=== PATIENT | male | born 1935 | race Caucasian/White ===

== ENCOUNTER 2020-02-18 21:02 | Inpatient (IN) | payer MEDICARE, OTHER, SELFPAY ==
[2020-02-18] VITALS (19 sets, daily range): BP systolic 143–170; BP diastolic 83–113; PULSE 73–84; RESP 14–20; TEMP 36.9; O2SAT 91–98; BMI 25.5
--- NOTE | 2020-02-18 21:14 | ECG_ITS ---
Measurements Intervals [place] Rate: 76 P: 29 OK: 158 QRS: -15 QRSD: 106 T: 11 QT: 385 QTc: 435 SINUS RHYTHM NONSPECIFIC T-WAVE ABNORMALITY Compared to ECG 10/17/2016 14:49:32 T-wave abnormality now present Sinus bradycardia no longer present Electronically Signed On 02-19-2020 14:59:52 CDT by Dakotah Christian M.D. [email or web address]
--- NOTE | 2020-02-18 21:14 | XR_ITS ---
WS: [id number] CHEST XRAY TECHNIQUE: Portable chest. CLINICAL INFORMATION: cough COMPARISON: February 17, 2020 FINDINGS: Heart: Cardiomegaly. Tortuous thoracic aorta. Lungs: Chronic emphysematous changes. Improved previously described scattered infiltrates.. Subsegmen romi atelectasis left lung base. Elevation hemidiaphragm. Bones: Normal visualized bony structures. XR/XR chest 1V portable [id number] IMPRESSION: 1. Stable cardiomegaly. 2. Chronic emphysematous changes with improved pulmonary infiltrates in the ellie ng bases. Subsegmental atelectasis in the left greater than right lung base. 3. No focal pneumonia.
[2020-02-18 21:45] LABS: Basophils % 0.3 %; Eosinophils % 0.3 %; Hematocrit 37.9 % (42.0-52.0); Hemoglobin 11.9 g/dL (11.7-16.6); Lymphocytes # 1.3 10^3/uL (0.8-4.8); Lymphocytes % 20.1 %; Mean Corpuscular HGB Conc 31.4 g/dL (30.0-36.0); Mean Corpuscular Hemoglobin 30.1 pg (28.0-34.0); Mean Corpuscular Volume 95.9 fL (80-94); Mean Platelet Volume 10.3 fL (7.4-10.4); Monocytes # 0.5 10^3/uL (0.2-0.9); Monocytes % 8.5 %; Neutrophils # 4.2 10^3/uL (1.8-7.7); Neutrophils % 68.1 %; Nucleated Red Blood Cells % 0 %; Platelet Count 178 10^3/cmm (130-400); Red Blood Count 3.95 10^6/uL (4.1-5.3); Red Cell Distribution Width 14.2 % (12.1-15.1); White Blood Count 6.2 10^3/uL (4.0-10.0)
[2020-02-18 21:50] LABS: INR 1.36 (0.8-1.2)
[2020-02-18 21:56] LABS: Alanine Aminotransferase 13 U/L (0-41); Albumin Level 2.9 g/dL (3.5-5.2); Alkaline Phosphatase 43 IU/L (40-130); Anion Gap 16.7 (5-19); Aspartate Amino Transferase 30 U/L (0-40); Blood Urea Nitrogen 18 mg/dL (8-23); Calcium 11.7 mg/dL (8.5-10.5); Carbon Dioxide 23 mmol/L (22-29); Chloride 95 mmol/L (98-107); Globulin 8.9 g/dL (1.3-4.6); Glucose 158 mg/dL (65-115); Magnesium 1.5 mg/dL (1.7-2.3); Osmolality Calculated 272 mOsm/kg (285-295); Potassium 3.7 mmol/L (3.5-5.1); Sodium 131 mmol/L (136-145); Total Bilirubin 0.9 mg/dL (0.15-1.2); Total Protein 11.8 g/dL (6.6-8.7)
[2020-02-18 21:58] LABS: Troponin(5th) Baseline 34 ng/mL (0-15)
[2020-02-18 21:59] LABS: Influenza A by IFA Negative (Negative); Influenza B by IFA Negative (Negative)
--- NOTE | 2020-02-18 22:16 | ED_ITS ---
Documented by User: DIETER Bingham 02/19/20 00:06 HPI - SOB/Dyspnea General: Chief Complaint: Shortness of Breath/Dyspnea Stated Complaint: sob Time Seen by Provider: 02/18/20 22:16 History of Present Illness: HPI Narrative: Patient is an 84-year-old male who comes to the ED with shortness of breath. He has a past medical history of BPH, diabetes and hypertension. Patient says the shortness of breath started about 4 months ago back in October but was more mild and has just been slowly progressing. Shortness of breath is gotten increasingly worse in last 2 weeks. About a week ago he saw his PCP and he was put on a steroid and an antibiotic. He was not having any improvement so he saw his PCP yesterday and they diagnosed him with pneumonia. He was given a steroid shot and put on Levaquin. PCP also sent him home with oxygen yesterday. Patient says the oxygen has been helping a little bit in the last 24 hours but not much. This morning he woke up and his symptoms were worse. Shortness of breath that gets worse when laying flat. Patient took his first dose of Levaquin today. He has a productive cough currently. Patient says he cannot stand up and move around for very long without getting too short of breath. He does have a albuterol nebulizer to help with any shortness of breath. Associated symptoms: Reports orthopnea; Deny abdominal pain, chest pain, fever(s), nausea, palpitations or vomiting Review of Systems Const: Denies: fever, chills or fatigue Eyes: Denies: change in vision or eye discomfort ENMT: Denies: throat pain, painful swallowing, nasal discharge or nasal congestion Card: Reports: shortness of breath when lying down; Denies: chest pain, palpitations, edema, swelling of feet/ankles or shortness of breath on exertion Resp: Reports: shortness of breath and productive cough; Denies: non-productive cough GI: Denies: abdominal pain, nausea, vomiting, diarrhea, constipation or blood in stool : Denies: flank pain, difficulty urinating, painful urination or blood in urine Musc: Denies: neck pain, back pain or extremity swelling Skin/Breast: Denies: rash or new lesion Neuro: Denies: headache, numbness in extremities or weakness in extremities PFS ED PFSH: Social History Smoking and tobacco status: former smoker Physical Exam Const: COMMON NORMALS: oriented x3 and alert HENMT: COMMON NORMALS: normocephalic HEAD & SCALP: normocephalic MOUTH: oral and palatal mucosa normal THROAT: posterior oropharynx normal and uvula midline Eye: COMMON NORMALS: PERRL PUPIL: Yes PERRL Neck/C-Spine: COMMON NORMALS: supple GENERAL: Yes normal visual inspection Resp: COMMON NORMALS: normal respiratory effort, no retractions and no use of accessory muscles EFFORT & INSPECTION: Yes able to speak in complete sentences and Yes tachypneic AUSCULTATION: crackles Laterality: bilateral (bases) and posterior (posterior bases bilaterally) Cardio: COMMON NORMALS: regular rate, regular rhythm, S1 normal heart sound, S2 normal heart sound, no gallops, no clicks, no murmurs and peripheral pulses 2+ throughout RATE: regular rate RHYTHM: regular rhythm HEART SOUNDS: S1 normal and S2 normal PERIPHERAL PULSES: pulses 2+ throughout GI: COMMON NORMALS: normal to inspection, nondistended, normoactive bowel sounds, soft to palpation, non-tender and no masses PALPATION: Yes soft : COMMON NORMALS: Yes no CVA tenderness BLADDER/KIDNEY EXAM: Yes no CVA tenderness Back/Pelvis: COMMON NORMALS: no CVA tenderness Extremity: COMMON NORMALS: normal to inspection and no pedal edema Neuro: COMMON NORMALS: oriented x3 and moves all extremities SENSORIUM/ORIENTATION: Yes alert Skin: COMMON NORMALS: no rashes or lesions noted GENERAL SKIN EXAM: no rashes or lesions noted and dry skin Course Vital Signs: Vital signs: Vital Signs Temperature 98.5 F 02/18/20 21:11 Pulse Rate 96 02/19/20 01:05 Respiratory Rate 21 H 02/19/20 01:05 Blood Pressure 143/77 02/19/20 01:05 Pulse Oximetry 96 02/19/20 01:05 MDM - SOB/Dyspnea MDM Narrative: Medical decision making narrative: I spoke with Dr. Chatterjee about patient's case and his elevated creatinine and abnormal ABG. Dr. Chatterjee will be taking over patient's care. Lab Data: Attestation: I reviewed the patient's lab results. Labs: Lab Results 02/18/20 02/18/20 02/18/20 Range/Units 21:24 21:30 21:30 WBC 6.2 (4.0-10.0) 10^3/ uL RBC 3.95 L (4.1-5.3) 10^6/u L Hgb 11.9 (11.7-16.6) g/dL Hct 37.9 L (42.0-52.0) % MCV 95.9 H (80-94) fL MCH 30.1 (28.0-34.0) pg MCHC 31.4 (30.0-36.0) g/dL RDW 14.2 (12.1-15.1) % Plt Count 178 (130-400) 10^3/c mm MPV 10.3 (7.4-10.4) fL Neut % (Auto) 68.1 % Lymph % (Auto) 20.1 % [place] % (Auto) 8.5 % Eos % (Auto) 0.3 % Baso % (Auto) 0.3 % Neut # (Auto) 4.2 (1.8-7.7) 10^3/u L Lymph # (Auto) 1.3 (0.8-4.8) 10^3/u L [place] # (Auto) 0.5 (0.2-0.9) 10^3/u L Eos # (Auto) 0.0 (0.0-0.8) 10^3/u L Baso # (Auto) 0.0 (0.0-0.1) 10^3/u L Nucleated RBC % (a uto) 0 % Nucleated RBCs # 0.0 /100WBC PT 17.20 H (10.5-13.3) SECO NDS INR 1.36 H (0.8-1.2) D-Dimer (0-0.59) ug/mIFE U Specimen Type Sample Site ABG pH (7.35-7.45) ABG pCO2 (35-45) mmHg ABG pO2 (80.0-100.0) mmH g ABG HCO3 (22-26) mmol/L ABG Base Excess (-2.0-2.0) mmol/ L Daniel Test Hematocrit (42-52) % O2 Delivery Device O2 Liters/Min % FiO2 % Customer Success Director ID Sodium (136-145) mmol/L Potassium (3.5-5.1) mmol/L Chloride (98-107) mmol/L Carbon Dioxide (22-29) mmol/L Anion Gap (5-19) BUN (8-23) mg/dL Creatinine (0.7-1.2) mg/dL Glucose (65-115) mg/dL Calculated Osmolal ity (285-295) mOsm/k g Lactic Acid (0.5-2.2) mmol/L Calcium (8.5-10.5) mg/dL Magnesium (1.7-2.3) mg/dL Total Bilirubin (0.15-1.2) mg/dL AST (0-40) U/L ALT (0-41) U/L Alkaline Phosphata se (40-130) IU/L Troponin T Baselin e (0-15) ng/mL Troponin T 120 Min [place] (0-15) ng/mL Delta Troponin T (0-10) ABS# NT-Pro-B Natriuret Pep (0-450) pg/mL Total Protein (6.6-8.7) g/dL Albumin (3.5-5.2) g/dL Globulin (1.3-4.6) g/dL Influenza Type A A g Negative (Negative) Influenza Type B A g Negative (Negative) 02/18/20 02/18/20 02/18/20 Range/Units 21:30 21:30 21:30 WBC (4.0-10.0) 10^3/ uL RBC (4.1-5.3) 10^6/u L Hgb (11.7-16.6) g/dL Hct (42.0-52.0) % MCV (80-94) fL MCH (28.0-34.0) pg MCHC (30.0-36.0) g/dL RDW (12.1-15.1) % Plt Count (130-400) 10^3/c mm MPV (7.4-10.4) fL Neut % (Auto) % Lymph % (Auto) % [place] % (Auto) % Eos % (Auto) % Baso % (Auto) % Neut # (Auto) (1.8-7.7) 10^3/u L Lymph # (Auto) (0.8-4.8) 10^3/u L [place] # (Auto) (0.2-0.9) 10^3/u L Eos # (Auto) (0.0-0.8) 10^3/u L Baso # (Auto) (0.0-0.1) 10^3/u L Nucleated RBC % (a uto) % Nucleated RBCs # /100WBC PT (10.5-13.3) SECO NDS INR (0.8-1.2) D-Dimer 0.71 H (0-0.59) ug/mIFE U Specimen Type Sample Site ABG pH (7.35-7.45) ABG pCO2 (35-45) mmHg ABG pO2 (80.0-100.0) mmH g ABG HCO3 (22-26) mmol/L ABG Base Excess (-2.0-2.0) mmol/ L Daniel Test Hematocrit (42-52) % O2 Delivery Device O2 Liters/Min % FiO2 % Customer Success Director ID Sodium 131 L (136-145) mmol/L Potassium 3.7 (3.5-5.1) mmol/L Chloride 95 L (98-107) mmol/L Carbon Dioxide 23 (22-29) mmol/L Anion Gap 16.7 (5-19) BUN 18 (8-23) mg/dL Creatinine 1.8 H (0.7-1.2) mg/dL Glucose 158 H (65-115) mg/dL Calculated Osmolal ity 272 L (285-295) mOsm/k g Lactic Acid (0.5-2.2) mmol/L Calcium 11.7 H (8.5-10.5) mg/dL Magnesium 1.5 L (1.7-2.3) mg/dL Total Bilirubin 0.9 (0.15-1.2) mg/dL AST 30 (0-40) U/L ALT 13 (0-41) U/L Alkaline Phosphata se 43 (40-130) IU/L Troponin T Baselin e 34 H (0-15) ng/mL Troponin T 120 Min [place] (0-15) ng/mL Delta Troponin T (0-10) ABS# NT-Pro-B Natriuret Pep 646 H (0-450) pg/mL Total Protein 11.8 H (6.6-8.7) g/dL Albumin 2.9 L (3.5-5.2) g/dL Globulin 8.9 H (1.3-4.6) g/dL Influenza Type A A g (Negative) Influenza Type B A g (Negative) 02/18/20 02/18/20 02/18/20 Range/Units 22:30 22:35 22:45 WBC (4.0-10.0) 10^3/ uL RBC (4.1-5.3) 10^6/u L Hgb (11.7-16.6) g/dL Hct (42.0-52.0) % MCV (80-94) fL MCH (28.0-34.0) pg MCHC (30.0-36.0) g/dL RDW (12.1-15.1) % Plt Count (130-400) 10^3/c mm MPV (7.4-10.4) fL Neut % (Auto) % Lymph % (Auto) % [place] % (Auto) % Eos % (Auto) % Baso % (Auto) % Neut # (Auto) (1.8-7.7) 10^3/u L Lymph # (Auto) (0.8-4.8) 10^3/u L [place] # (Auto) (0.2-0.9) 10^3/u L Eos # (Auto) (0.0-0.8) 10^3/u L Baso # (Auto) (0.0-0.1) 10^3/u L Nucleated RBC % (a uto) % Nucleated RBCs # /100WBC PT (10.5-13.3) SECO NDS INR (0.8-1.2) D-Dimer (0-0.59) ug/mIFE U Specimen Type Arterial Sample Site Radial, right ABG pH 7.64 H* (7.35-7.45) ABG pCO2 21.2 L (35-45) mmHg ABG pO2 57.5 L (80.0-100.0) mmH g ABG HCO3 22.7 (22-26) mmol/L ABG Base Excess 3.2 H (-2.0-2.0) mmol/ L Daniel Test Pos Hematocrit 37.8 L (42-52) % O2 Delivery Device Nc O2 Liters/Min 2.0 % FiO2 28.0 % Customer Success Director ID [email or web address] Sodium (136-145) mmol/L Potassium (3.5-5.1) mmol/L Chloride (98-107) mmol/L Carbon Dioxide (22-29) mmol/L Anion Gap (5-19) BUN (8-23) mg/dL Creatinine (0.7-1.2) mg/dL Glucose (65-115) mg/dL Calculated Osmolal ity (285-295) mOsm/k g Lactic Acid 2.0 (0.5-2.2) mmol/L Calcium (8.5-10.5) mg/dL Magnesium (1.7-2.3) mg/dL Total Bilirubin (0.15-1.2) mg/dL AST (0-40) U/L ALT (0-41) U/L Alkaline Phosphata se (40-130) IU/L Troponin T Baselin e (0-15) ng/mL Troponin T 120 Min [place] 35.26 H (0-15) ng/mL Delta Troponin T 1.26 (0-10) ABS# NT-Pro-B Natriuret Pep (0-450) pg/mL Total Protein (6.6-8.7) g/dL Albumin (3.5-5.2) g/dL Globulin (1.3-4.6) g/dL Influenza Type A A g (Negative) Influenza Type B A g (Negative) 02/19/20 Range/Units 02:36 WBC (4.0-10.0) 10^3/ uL RBC (4.1-5.3) 10^6/u L Hgb (11.7-16.6) g/dL Hct (42.0-52.0) % MCV (80-94) fL MCH (28.0-34.0) pg MCHC (30.0-36.0) g/dL RDW (12.1-15.1) % Plt Count (130-400) 10^3/c mm MPV (7.4-10.4) fL Neut % (Auto) % Lymph % (Auto) % [place] % (Auto) % Eos % (Auto) % Baso % (Auto) % Neut # (Auto) (1.8-7.7) 10^3/u L Lymph # (Auto) (0.8-4.8) 10^3/u L [place] # (Auto) (0.2-0.9) 10^3/u L Eos # (Auto) (0.0-0.8) 10^3/u L Baso # (Auto) (0.0-0.1) 10^3/u L Nucleated RBC % (a uto) % Nucleated RBCs # /100WBC PT (10.5-13.3) SECO NDS INR (0.8-1.2) D-Dimer (0-0.59) ug/mIFE U Specimen Type Arterial Sample Site Brachial, left ABG pH 7.50 H (7.35-7.45) ABG pCO2 29.3 L (35-45) mmHg ABG pO2 70.7 L (80.0-100.0) mmH g ABG HCO3 22.7 (22-26) mmol/L ABG Base Excess 0.3 (-2.0-2.0) mmol/ L Daniel Test N/a Hematocrit 36.4 L (42-52) % O2 Delivery Device Nc O2 Liters/Min 2.0 % FiO2 % Customer Success Director ID [email or web address] Sodium (136-145) mmol/L Potassium (3.5-5.1) mmol/L Chloride (98-107) mmol/L Carbon Dioxide (22-29) mmol/L Anion Gap (5-19) BUN (8-23) mg/dL Creatinine (0.7-1.2) mg/dL Glucose (65-115) mg/dL Calculated Osmolal ity (285-295) mOsm/k g Lactic Acid (0.5-2.2) mmol/L Calcium (8.5-10.5) mg/dL Magnesium (1.7-2.3) mg/dL Total Bilirubin (0.15-1.2) mg/dL AST (0-40) U/L ALT (0-41) U/L Alkaline Phosphata se (40-130) IU/L Troponin T Baselin e (0-15) ng/mL Troponin T 120 Min [place] (0-15) ng/mL Delta Troponin T (0-10) ABS# NT-Pro-B Natriuret Pep (0-450) pg/mL Total Protein (6.6-8.7) g/dL Albumin (3.5-5.2) g/dL Globulin (1.3-4.6) g/dL Influenza Type A A g (Negative) Influenza Type B A g (Negative) Imaging Data^: CXR: Attestation: I personally reviewed and interpreted this imaging study as follows: My impression: Patient appears to have some infiltrates at the bases bilaterally. Pending final radiology report. EKG Data^: EKG 1: Attestation: I personally reviewed and interpreted this EKG as follows: EKG Interpretation Date: 02/18/20 Interpretation: Normal sinus rhythm, 81 bpm, P waves present no ST segment elevation or depression seen. T wave abnormality-flattened T wave in lead II. EKG 2: Attestation: I personally reviewed and interpreted this EKG as follows: EKG Interpretation Date: 02/18/20 Interpretation: Normal sinus rhythm, 76 bpm, P waves present, no ST segment elevation or depression seen. No acute change in EKG compared to previous EKG from 2 hours ago. Discharge Plan Discharge Patient Disposition: Placed in Observation Clinical Impression: Elevated serum creatinine, ABG (arterial blood gas) abnormal, Acute exacerbation of chronic obstructive airways disease Condition: Stable Referrals: Richard Leslie DO [Primary Care Provider] - Coding Level of Care Code ED Cleaner And Polisher for Chg Fwd Exam Comprehensive Documented by User: Ness Chatterjee 02/19/20 03:08 HPI - SOB/Dyspnea General: Chief Complaint: Shortness of Breath/Dyspnea Stated Complaint: sob Time Seen by Provider: 02/18/20 22:16 PFSH ED PFSH: Social History Smoking and tobacco status: former smoker Course Vital Signs: Vital signs: Vital Signs Temperature 98.5 F 02/18/20 21:11 Pulse Rate 96 02/19/20 01:05 Respiratory Rate 21 H 02/19/20 01:05 Blood Pressure 143/77 02/19/20 01:05 Pulse Oximetry 96 02/19/20 01:05 MDM - SOB/Dyspnea MDM Narrative: Medical decision making narrative: The case was reviewed with Dr. Dawson, she agrees to come evaluate the patient for admission. We will go ahead and order another blood gas. The patient complains of dyspnea on exertion and orthopnea. He has no cough, no fever, no chills and has no sign of leukopenia or lymphocytopenia. He has no sore throat or loss of sense of smell. Patient looks as though he has a mild COPD exacerbation but also new onset of congestive heart failure. Lab Data: Attestation: I reviewed the patient's lab results. Labs: Lab Results 02/18/20 02/18/20 02/18/20 Range/Units 21:24 21:30 21:30 WBC 6.2 (4.0-10.0) 10^3/ uL RBC 3.95 L (4.1-5.3) 10^6/u L Hgb 11.9 (11.7-16.6) g/dL Hct 37.9 L (42.0-52.0) % MCV 95.9 H (80-94) fL MCH 30.1 (28.0-34.0) pg MCHC 31.4 (30.0-36.0) g/dL RDW 14.2 (12.1-15.1) % Plt Count 178 (130-400) 10^3/c mm MPV 10.3 (7.4-10.4) fL Neut % (Auto) 68.1 % Lymph % (Auto) 20.1 % [place] % (Auto) 8.5 % Eos % (Auto) 0.3 % Baso % (Auto) 0.3 % Neut # (Auto) 4.2 (1.8-7.7) 10^3/u L Lymph # (Auto) 1.3 (0.8-4.8) 10^3/u L [place] # (Auto) 0.5 (0.2-0.9) 10^3/u L Eos # (Auto) 0.0 (0.0-0.8) 10^3/u L Baso # (Auto) 0.0 (0.0-0.1) 10^3/u L Nucleated RBC % (a uto) 0 % Nucleated RBCs # 0.0 /100WBC PT 17.20 H (10.5-13.3) SECO NDS INR 1.36 H (0.8-1.2) D-Dimer (0-0.59) ug/mIFE U Specimen Type Sample Site ABG pH (7.35-7.45) ABG pCO2 (35-45) mmHg ABG pO2 (80.0-100.0) mmH g ABG HCO3 (22-26) mmol/L ABG Base Excess (-2.0-2.0) mmol/ L Daniel Test Hematocrit (42-52) % O2 Delivery Device O2 Liters/Min % FiO2 % Customer Success Director ID Sodium (136-145) mmol/L Potassium (3.5-5.1) mmol/L Chloride (98-107) mmol/L Carbon Dioxide (22-29) mmol/L Anion Gap (5-19) BUN (8-23) mg/dL Creatinine (0.7-1.2) mg/dL Glucose (65-115) mg/dL Calculated Osmolal ity (285-295) mOsm/k g Lactic Acid (0.5-2.2) mmol/L Calcium (8.5-10.5) mg/dL Magnesium (1.7-2.3) mg/dL Total Bilirubin (0.15-1.2) mg/dL AST (0-40) U/L ALT (0-41) U/L Alkaline Phosphata se (40-130) IU/L Troponin T Baselin e (0-15) ng/mL Troponin T 120 Min [place] (0-15) ng/mL Delta Troponin T (0-10) ABS# NT-Pro-B Natriuret Pep (0-450) pg/mL Total Protein (6.6-8.7) g/dL Albumin (3.5-5.2) g/dL Globulin (1.3-4.6) g/dL Influenza Type A A g Negative (Negative) Influenza Type B A g Negative (Negative) 02/18/20 02/18/20 02/18/20 Range/Units 21:30 21:30 21:30 WBC (4.0-10.0) 10^3/ uL RBC (4.1-5.3) 10^6/u L Hgb (11.7-16.6) g/dL Hct (42.0-52.0) % MCV (80-94) fL MCH (28.0-34.0) pg MCHC (30.0-36.0) g/dL RDW (12.1-15.1) % Plt Count (130-400) 10^3/c mm MPV (7.4-10.4) fL Neut % (Auto) % Lymph % (Auto) % [place] % (Auto) % Eos % (Auto) % Baso % (Auto) % Neut # (Auto) (1.8-7.7) 10^3/u L Lymph # (Auto) (0.8-4.8) 10^3/u L [place] # (Auto) (0.2-0.9) 10^3/u L Eos # (Auto) (0.0-0.8) 10^3/u L Baso # (Auto) (0.0-0.1) 10^3/u L Nucleated RBC % (a uto) % Nucleated RBCs # /100WBC PT (10.5-13.3) SECO NDS INR (0.8-1.2) D-Dimer 0.71 H (0-0.59) ug/mIFE U Specimen Type Sample Site ABG pH (7.35-7.45) ABG pCO2 (35-45) mmHg ABG pO2 (80.0-100.0) mmH g ABG HCO3 (22-26) mmol/L ABG Base Excess (-2.0-2.0) mmol/ L Daniel Test Hematocrit (42-52) % O2 Delivery Device O2 Liters/Min % FiO2 % Customer Success Director ID Sodium 131 L (136-145) mmol/L Potassium 3.7 (3.5-5.1) mmol/L Chloride 95 L (98-107) mmol/L Carbon Dioxide 23 (22-29) mmol/L Anion Gap 16.7 (5-19) BUN 18 (8-23) mg/dL Creatinine 1.8 H (0.7-1.2) mg/dL Glucose 158 H (65-115) mg/dL Calculated Osmolal ity 272 L (285-295) mOsm/k g Lactic Acid (0.5-2.2) mmol/L Calcium 11.7 H (8.5-10.5) mg/dL Magnesium 1.5 L (1.7-2.3) mg/dL Total Bilirubin 0.9 (0.15-1.2) mg/dL AST 30 (0-40) U/L ALT 13 (0-41) U/L Alkaline Phosphata se 43 (40-130) IU/L Troponin T Baselin e 34 H (0-15) ng/mL Troponin T 120 Min [place] (0-15) ng/mL Delta Troponin T (0-10) ABS# NT-Pro-B Natriuret Pep 646 H (0-450) pg/mL Total Protein 11.8 H (6.6-8.7) g/dL Albumin 2.9 L (3.5-5.2) g/dL Globulin 8.9 H (1.3-4.6) g/dL Influenza Type A A g (Negative) Influenza Type B A g (Negative) 02/18/20 02/18/20 02/18/20 Range/Units 22:30 22:35 22:45 WBC (4.0-10.0) 10^3/ uL RBC (4.1-5.3) 10^6/u L Hgb (11.7-16.6) g/dL Hct (42.0-52.0) % MCV (80-94) fL MCH (28.0-34.0) pg MCHC (30.0-36.0) g/dL RDW (12.1-15.1) % Plt Count (130-400) 10^3/c mm MPV (7.4-10.4) fL Neut % (Auto) % Lymph % (Auto) % [place] % (Auto) % Eos % (Auto) % Baso % (Auto) % Neut # (Auto) (1.8-7.7) 10^3/u L Lymph # (Auto) (0.8-4.8) 10^3/u L [place] # (Auto) (0.2-0.9) 10^3/u L Eos # (Auto) (0.0-0.8) 10^3/u L Baso # (Auto) (0.0-0.1) 10^3/u L Nucleated RBC % (a uto) % Nucleated RBCs # /100WBC PT (10.5-13.3) SECO NDS INR (0.8-1.2) D-Dimer (0-0.59) ug/mIFE U Specimen Type Arterial Sample Site Radial, right ABG pH 7.64 H* (7.35-7.45) ABG pCO2 21.2 L (35-45) mmHg ABG pO2 57.5 L (80.0-100.0) mmH g ABG HCO3 22.7 (22-26) mmol/L ABG Base Excess 3.2 H (-2.0-2.0) mmol/ L Daniel Test Pos Hematocrit 37.8 L (42-52) % O2 Delivery Device Nc O2 Liters/Min 2.0 % FiO2 28.0 % Customer Success Director ID [email or web address] Sodium (136-145) mmol/L Potassium (3.5-5.1) mmol/L Chloride (98-107) mmol/L Carbon Dioxide (22-29) mmol/L Anion Gap (5-19) BUN (8-23) mg/dL Creatinine (0.7-1.2) mg/dL Glucose (65-115) mg/dL Calculated Osmolal ity (285-295) mOsm/k g Lactic Acid 2.0 (0.5-2.2) mmol/L Calcium (8.5-10.5) mg/dL Magnesium (1.7-2.3) mg/dL Total Bilirubin (0.15-1.2) mg/dL AST (0-40) U/L ALT (0-41) U/L Alkaline Phosphata se (40-130) IU/L Troponin T Baselin e (0-15) ng/mL Troponin T 120 Min [place] 35.26 H (0-15) ng/mL Delta Troponin T 1.26 (0-10) ABS# NT-Pro-B Natriuret Pep (0-450) pg/mL Total Protein (6.6-8.7) g/dL Albumin (3.5-5.2) g/dL Globulin (1.3-4.6) g/dL Influenza Type A A g (Negative) Influenza Type B A g (Negative) 02/19/20 Range/Units 02:36 WBC (4.0-10.0) 10^3/ uL RBC (4.1-5.3) 10^6/u L Hgb (11.7-16.6) g/dL Hct (42.0-52.0) % MCV (80-94) fL MCH (28.0-34.0) pg MCHC (30.0-36.0) g/dL RDW (12.1-15.1) % Plt Count (130-400) 10^3/c mm MPV (7.4-10.4) fL Neut % (Auto) % Lymph % (Auto) % [place] % (Auto) % Eos % (Auto) % Baso % (Auto) % Neut # (Auto) (1.8-7.7) 10^3/u L Lymph # (Auto) (0.8-4.8) 10^3/u L [place] # (Auto) (0.2-0.9) 10^3/u L Eos # (Auto) (0.0-0.8) 10^3/u L Baso # (Auto) (0.0-0.1) 10^3/u L Nucleated RBC % (a uto) % Nucleated RBCs # /100WBC PT (10.5-13.3) SECO NDS INR (0.8-1.2) D-Dimer (0-0.59) ug/mIFE U Specimen Type Arterial Sample Site Brachial, left ABG pH 7.50 H (7.35-7.45) ABG pCO2 29.3 L (35-45) mmHg ABG pO2 70.7 L (80.0-100.0) mmH g ABG HCO3 22.7 (22-26) mmol/L ABG Base Excess 0.3 (-2.0-2.0) mmol/ L Daniel Test N/a Hematocrit 36.4 L (42-52) % O2 Delivery Device Nc O2 Liters/Min 2.0 % FiO2 % Customer Success Director ID vossa Sodium (136-145) mmol/L Potassium (3.5-5.1) mmol/L Chloride (98-107) mmol/L Carbon Dioxide (22-29) mmol/L Anion Gap (5-19) BUN (8-23) mg/dL Creatinine (0.7-1.2) mg/dL Glucose (65-115) mg/dL Calculated Osmolal ity (285-295) mOsm/k g Lactic Acid (0.5-2.2) mmol/L Calcium (8.5-10.5) mg/dL Magnesium (1.7-2.3) mg/dL Total Bilirubin (0.15-1.2) mg/dL AST (0-40) U/L ALT (0-41) U/L Alkaline Phosphata se (40-130) IU/L Troponin T Baselin e (0-15) ng/mL Troponin T 120 Min [place] (0-15) ng/mL Delta Troponin T (0-10) ABS# NT-Pro-B Natriuret Pep (0-450) pg/mL Total Protein (6.6-8.7) g/dL Albumin (3.5-5.2) g/dL Globulin (1.3-4.6) g/dL Influenza Type A A g (Negative) Influenza Type B A g (Negative) Imaging Data^: CXR: My impression: Cardiomegaly with mild pulmonary vascular congestion. EKG Data^: EKG 1: Attestation: I personally reviewed and interpreted this EKG as follows: EKG Interpretation Date: 02/19/20 EKG interpretation time: 22:52 Interpretation: Normal sinus rhythm at 81 beats a minute, no acute ST or T wave changes. Similar to previous. EKG 2: Attestation: I personally reviewed and interpreted this EKG as follows: EKG Interpretation Date: 02/19/20 EKG interpretation time: 23:51 Interpretation: Normal sinus rhythm at 76 beats a minute, left axis deviation, possible U waves, no other acute ST-T wave changes. EKG 3: Attestation: I personally reviewed and interpreted this EKG as follows: EKG Interpretation Date: 02/19/20 EKG interpretation time: 00:25 Interpretation: Normal sinus rhythm at 90 beats a minute, possible U waves present, no other acute ST-T wave changes. Discharge Plan Discharge Patient Disposition: Placed in Observation Clinical Impression: Elevated serum creatinine, ABG (arterial blood gas) abnormal, Acute exacerbation of chronic obstructive airways disease Condition: Stable Referrals: Richard Leslie DO [Primary Care Provider] - Coding Level of Care Code ED [employer] for Chg Fwd Exam Comprehensive
[2020-02-18 22:21] LABS: NT Pro B Type Natriuretic Pept 646 pg/mL (0-450)
[2020-02-18] MEDS: ipratropium-albuterol 3 mL Neb INHALATION (22:41)
[2020-02-18 22:55] LABS: ABG PCO2 21.2 mmHg (35-45); Arterial Blood Gas Hematocrit 37.8 % (42-52); Base Excess ABG 3.2 mmol/L (-2.0-2.0); Blood Gas Allen Test Pos; Blood Gas Sample Site Radial, right; Blood Gas Sample Type Arterial; HCO3 ABG 22.7 mmol/L (22-26); Oxygen Device NC; PO2 ABG 57.5 mmHg (80.0-100.0)
[2020-02-18 22:56] LABS: ABG PH Result 7.64 (7.35-7.45)
[2020-02-18] MEDS: sodium chloride 0.9% 500 ML IV (22:56)
--- NOTE | 2020-02-18 23:04 | PC.NURSE ---
Spoke to son Miguel Yarbrough [phone] to update on condition.
[2020-02-18 23:06] LABS: Troponin 5 2HR 35.26 ng/mL (0-15); Troponin 5 2HR Delta 1.26 ABS# (0-10)
--- NOTE | 2020-02-18 23:14 | ECG_ITS ---
Measurements Intervals [place] Rate: 81 P: 25 UT: 151 QRS: -23 QRSD: 104 T: 2 QT: 362 QTc: 422 SINUS RHYTHM BORDERLINE LEFT AXIS DEVIATION [QRS AXIS < -20] NONSPECIFIC T-WAVE ABNORMALITY Compared to ECG 10/17/2016 14:49:32 T-wave abnormality now present Sinus bradycardia no longer present Electronically Signed On 02-19-2020 15:02:32 CDT by Dakotah Christian M.D. [email or web address]
[2020-02-19] VITALS (88 sets, daily range): BP systolic 132–192; BP diastolic 76–118; PULSE 65–119; RESP 10–29; TEMP 36.7–37.2; O2SAT 76–99
--- NOTE | 2020-02-19 00:06 | PC.NURSE ---
stated not to give pt fluids. States he just wanted to get him ready for a CT. NO longer indicated.
[2020-02-19] MEDS: magnesium sulfate premix 2 GM/50 ML PIGGYBACK IV (00:07)
[2020-02-19] MEDS: ipratropium-albuterol 3 mL Neb 9 ML INHALATION (00:09)
[2020-02-19 00:23] LABS: D Dimer 0.71 ug/mIFEU (0-0.59)
[2020-02-19] MEDS: FUROsemide 10 mg/mL SDV 4mL 40 MG IVP (01:03)
[2020-02-19 02:48] LABS: ABG PCO2 29.3 mmHg (35-45); Arterial Blood Gas Hematocrit 36.4 % (42-52); Base Excess ABG 0.3 mmol/L (-2.0-2.0); Blood Gas Sample Site Brachial, left; Blood Gas Sample Type Arterial; HCO3 ABG 22.7 mmol/L (22-26); Oxygen Device NC; PO2 ABG 70.7 mmHg (80.0-100.0)
--- NOTE | 2020-02-19 03:14 | ECG_ITS ---
Measurements Intervals [place] Rate: 92 P: 23 [place]: 163 QRS: -17 QRSD: 104 T: 30 QT: 384 QTc: 475 SINUS RHYTHM NONSPECIFIC T-WAVE ABNORMALITY Compared to ECG 10/17/2016 14:49:32 T-wave abnormality now present Sinus bradycardia no longer present Electronically Signed On 02-19-2020 15:03:04 CDT by Dakotah Christian M.D. [email or web address]
--- NOTE | 2020-02-19 03:34 | P.HP_ITS ---
Providers/Chief Complaint Admitting Physician: Laurie Dawson Primary Care Provider: Richard Leslie DO Chief Complaint: sob History of Present Illness Renate Yarbrough is a 84 year old male who presented to the emergency room with increasing shortness of breath. Symptoms started approximately 4 months ago. Of note his daughter was killed in October and the increasing shortness of breath began around then. He attributed some of it to grief as well as may be some COPD. He has been following with his primary care provider. Sounds like he was on some Lasix at one point without significant change. He is not on it any longer. The symptoms were nagging but not bothering him that much. About 2 weeks ago, though, his breathing began to get significantly worse. He was having more shortness of breath when lying down as well as with exertion. He noted he would have to change positions to breathe better. He has had a bit of a cough but not usually productive. Denies sore throat or fever. He saw his primary care provider yesterday and was diagnosed with pneumonia per his report. He was started on some Levaquin and arrangements were made also for home oxygen. He says that he received a cortisone shot at the doctor's office yesterday as well. Despite all of these measures, his breathing has continued to worsen. Dr. Leslie of told him that if he was not doing any better to come into the emergency room. He arrived around midnight. Oxygen saturation on 2 L was around 90%. He was noted to be wheezing on arrival. He received breathing treatment and steroids. He also received some IV Lasix while in the emergency room. Was clinically felt to be COPD/CHF. He is being admitted for further evaluation and treatment. He denies any recent sick contacts. Reports that he and his , with whom he lives. Has been taking appropriate precautions. He says he has not been out of the house for couple of weeks beyond the doctor appointment however his has been running some essential errands. Patient has cardiac history behind hypertension and hyperlipidemia neither of which she is actively being treated for at the moment. He is a former smoker. He has not required oxygen therapy previously before yesterday. Review of Systems Const: Reports: fatigue; Denies: fever, chills, body aches, change in weight or diaphoresis Eyes: Denies: change in vision ENMT: Denies: throat pain or nasal congestion Card: Reports: swelling of feet/ankles, lightheadedness, shortness of breath on exertion and shortness of breath when lying down; Denies: chest pain or palpitations Resp: Reports: non-productive cough and wheezing; Denies: shortness of breath, pain on inspiration or coughing up blood GI: Denies: abdominal pain, nausea, vomiting, diarrhea or constipation : Reports: urinary frequency, urinary urgency and urinary dribbling; Denies: blood in urine Musc: Denies: joint swelling, redness or joint warmth Skin/Breast: Denies: rash or sores Neuro: Denies: headache, numbness in extremities or weakness in extremities Psych: Reports: depression; Denies: anxiety Reyes/Lymph: Denies: easy bruising or easy bleeding Medications/Allergies Home Medications Medication Instructions Recorded Confirmed Last Taken Type Super Beta Prostate 250 mg PO DAILY 02/19/20 02/19/20 02/18/20 History blood sugar diagnostic [Prodigy No 02/19/20 02/19/20 Unknown History Coding] fluticasone propionate [Allergy 50 mcg INTRANASAL PRN PRN 02/19/20 02/19/20 Unkn own History Relief (fluticasone)] ipratropium bromide 1 ml INHALATION Q6H PRN 02/19/20 02/19/20 02/18/20 History levofloxacin [Levaquin] 750 mg PO Q24H 02/19/20 02/19/20 02/18/20 History metformin 500 mg PO BID 02/19/20 02/19/20 02/18/20 History omeprazole 20 mg PO DAILY 02/19/20 02/19/20 02/18/20 History tamsulosin [Flomax] 0.4 mg PO BID 02/19/20 02/19/20 02/18/20 History triamcinolone acetonide 1 applic TOPICAL PRN PRN 02/19/20 02/19/20 Unknown History Allergies Allergy/AdvReac Type Severity Reaction Status Date / Time Iodinated Contrast Media Allergy Unknown Verified 02/18/20 21:21 PFSH Acute PFSH: Medical History (Updated 02/19/20 @ 04:19 by Laurie Dawson MD) Benign prostatic hyperplasia COPD (chronic obstructive pulmonary disease) Diabetes mellitus, type II History of hyperlipidemia Previously prescribed statin but was taken off few years ago by PCP Hypertension Osteoarthritis Surgical History (Updated 02/19/20 @ 04:42 by Laurie Dawson MD) History of appendectomy History of arthroscopy of right knee History of back surgery History of bilateral carpal tunnel release History of cataract surgery History of left inguinal hernia repair History of tonsillectomy History of vein stripping 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 Family History (Updated 02/19/20 @ 04:43 by Laurie Dawson MD) Family/Other Heart disease no one with known CAD however Social History (Updated 02/19/20 @ 04:16 by Laurie Dawson MD) Smoking and tobacco status: former smoker Household members: spouse Marital status: Vitals/I&O/Wt Last Vital Signs Temp 98.5 F 02/18/20 21:11 Pulse 96 02/19/20 01:05 Resp 21 H 02/19/20 01:05 BP 143/77 02/19/20 01:05 Pulse Ox 96 02/19/20 01:05 Weight last 48 hrs Weight 78.471 kg Physical Exam Const: COMMON NORMALS: oriented x3 and alert HENMT: COMMON NORMALS: normocephalic, head/scalp atraumatic and moist oral mucous membranes Eye: COMMON NORMALS: PERRL and EOMs intact bilaterally Neck/C-Spine: COMMON NORMALS: supple Resp: EFFORT & INSPECTION: Yes tachypneic, Yes labored (at times has to move to different position to breathe better) and Yes prolonged expiratory phase AUSCULTATION: crackles Laterality: bilateral Cardio: JUGULAR VENOUS DISTENTION: JVD positive to the level of the angle of the jaw RATE: tachycardic RHYTHM: regular rhythm HEART SOUNDS: murmur systolic Location: right sternal border Radiation: to the neck Intensity: III/ Characteristics: blowing Timing: holo PERIPHERAL PULSES: radial pulses present positive bilateral 2+ GI: COMMON NORMALS: normal to inspection, nondistended, normoactive bowel sounds, soft to palpation and non-tender Extremity: COMMON NORMALS: normal capillary refill and no calf tenderness GENERAL: No clubbing and No edema Neuro: COMMON NORMALS: moves all extremities and no sensory deficits noted Psych: COMMON NORMALS: thought process normal and cooperative Skin: RASHES: rash noted OTHER: scar to tip of nose from prior skin cancer removal Data : 02/18/20 21:30 02/18/20 21:30 A&P Assessment and plan (1) Respiratory distress: This is acute on chronic and likely multifactorial. He is a known former smoker with some mild COPD by prior diagnosis. This could be progressing becoming more symptomatic over time due to comorbid conditions. With the described orthopnea that has progressively worsened to the point of needing to sit up in a chair, CHF, which would be a new diagnosis for him, is a consideration. Based on history sounds like could be diastolic but with the murmur suspicious for aortic stenosis on examination, he could be experiencing acute pulmonary edema related to this. Pulmonary infection is also certainly another potential contributor here. He was started on antibiotics yesterday and has also received steroids. Him and his have been taking precautions to avoid exposure to COVID-19 and he denies any fever but with progressively worsening respiratory symptoms, do need to keep this in mind. Reflux could be contributing factor among other diagnoses. He is doing better presently than when he arrived to the emergency room after treatments administered. Patient had a significant respiratory alkalosis associated with his distress at presentation. Status: Acute (2) Holosystolic murmur: This appears to be new on my review of available old records. Patient himself does not recall being told that he had a heart murmur. Clinically ace ears to be aortic stenosis which certainly could be contributing to his overall presentation Status: Acute (3) Pneumonia: Prehospital diagnosis for which patient was started on Levaquin and oxygen Status: Acute Qualifiers: Pneumonia type: due to unspecified organism Laterality: unspecified laterality Lung location: unspecified part of lung Qualified Code(s): J18.9 - Pneumonia, unspecified organism (4) COPD (chronic obstructive pulmonary disease): Related to former tobacco use Status: Acute Qualifiers: COPD type: COPD with acute exacerbation Qualified Code(s): J44.1 - Chronic obstructive pulmonary disease with (acute) exacerbation (5) Acute kidney injury: Review of records shows that patient's creatinine in September was 1.4. Values prior to that were normal. I suspect that he may have some degree of chronic kidney disease and that he has had some acute kidney injury related to adjustments in medications trying to treat his respiratory symptoms. Do not have urine currently for evaluation but infection as well as bladder outlet obstruction could be contributing factors. Status: Acute (6) Hypercalcemia: Review of laboratory studies shows that calcium has trended up since last available value. I am not sure at this point in time if it is related to volume status or something more significant potentially related to malignancy or other process. Status: Acute (7) Hyperproteinemia: Could be transient benign process but combined with the hypercalcemia do need to keep in mind possibility of multiple myeloma. No significant bone pain or joint pains reported. Status: Acute (8) Hypertension: Not currently on any chronic medication for treatment Status: Acute Qualifiers: Hypertension type: essential hypertension Qualified Code(s): I10 - Essential (primary) hypertension (9) Diabetes mellitus, type II: Chronically on metformin which will have to be held secondary to current creatinine levels Status: Acute Qualifiers: Diabetes mellitus assisted insulin use: without assisted use Diabetes mellitus complication status: without complication Qualified Code(s): E11.9 - Type 2 diabetes mellitus without complications (10) Benign prostatic hyperplasia: Chronically on Flomax Status: Acute Qualifiers: Lower urinary tract symptom presence: symptoms present Lower urinary tract symptom detail: urinary frequency Qualified Code(s): N40.1 - Benign prostatic hyperplasia with lower urinary tract symptoms; R35.0 - Frequency of micturition Additional A&P Information Slight elevation in PT and PTT Minimally abnormal d-dimer currently unclear significance Hypomagnesemia Mild elevation in BNP Hypoalbuminemia Contrast allergy Inpatient admission COVID-19 testing secondary to progressively worsening respiratory symptoms over the last 2 weeks despite attempts at management in the outpatient setting Appropriate isolation for above Pending COVID-19 test results, will get echocardiogram complete if negative and limited if positive Continue oxygen therapy Follow serial cardiac enzymes Monitor response to IV Lasix, will continue at once daily dosing for now Magnesium was replaced in the emergency room, order oral supplements Strict I's and O's and daily weights Will continue oral antibiotics started in the outpatient setting for pneumonia coverage Check procalcitonin Inhalers as needed Hold on further steroids presently, received IM steroids 02/16 Urinalysis with urine sodium and creatinine Ionized calcium level, if calcium remains elevated will need further work-up Recheck total protein, consider protein electrophoresis if remains elevated to same degree Hold home metformin, sliding scale insulin currently Continue Flomax We will BladderScan patient secondary to urinary frequency, of urinary retention consider catheter Recheck coagulation studies tomorrow Supportive care otherwise Lovenox at renal dosing for DVT prophylaxis Continue home PPI for GI prophylaxis Add lactobacillus Current plans were discussed with patient and he was given an opportunity to ask questions. Full code Anticipate discharge back home with family Attestations Medical Necessity Statement*: Anticipate hospital stay greater than 2 midnights this patient presenting with progressively worsening respiratory symptoms not responding to attempts to manage on outpatient basis. Plans are as noted. 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
[2020-02-19 04:07] LABS: Troponin 5 6HR 33.08 ng/mL (0-15)
[2020-02-19 04:11] LABS: Troponin 5 6HR Delta -0.92 ng/L (0-12)
[2020-02-19] MEDS: enoxaparin 30 mg/0.3 mL Syringe SUBCUT (05:44)
[2020-02-19] MEDS: levoFLOXacin 750 mg Tablet PO (05:44)
[2020-02-19 05:59] LABS: Glucose Point of Care 275 mg/dL (70-110)
[2020-02-19 06:33] LABS: Urine Creatinine 39 mg/dL (39-259); Urine Random Sodium 114 mmol/L
[2020-02-19 06:41] LABS: Add Urine Microscopic? YES; Bilirubin Urine Neg (NEGATIVE); Blood Urine 2+ (Negative); Glucose Urine UA Norm (Normal); Ketones Urine Negative (Negative); Leukocyte Esterase Urine Negative (Negative); Nitrate Urine Negative (Negative); Protein Urine 1+ (Negative); Urine Appearance Clear (CLEAR); Urine Color Straw (Yellow); Urobilinogen Urine Norm (Negative)
--- NOTE | 2020-02-19 06:42 | PC.NURSE ---
SHIFT SUMMARY PT HAS REMAINED ALERT AND ORIENTATED. PT HAS HAD 200 OUT. BLADDER SCAN WAS PERFORMED, LESS THAN 300, NO STRAIGHT CATH PERFORMED. PT HAS HAD SOME SHORTNESS OF BREATH AT TIMES. PT IN NO DISTRESS AT THIS TIME. PT LUNGS REMAIN CLEAR.
[2020-02-19 06:58] LABS: Add Urine Culture? No; Bacteria Urine TRACE; Mucus Urine TRACE; RBC Urine 0-4 /hpf (0-2); Squamous Epithelial Cell Urine 0-4 (0-5)
[2020-02-19 07:43] LABS: Glucose Point of Care 252 mg/dL (70-110)
[2020-02-19] MEDS: tamsulosin 0.4 mg Capsule PO ×2 (08:53→18:48)
[2020-02-19] MEDS: pantoprazole DR 40 mg Tablet PO (08:53)
[2020-02-19] MEDS: magnesium lactate 84 mg Tablet PO (08:53)
[2020-02-19] MEDS: lactobacillus 1 Tablet 1 TAB PO ×2 (08:53→18:48)
[2020-02-19] MEDS: albuterol 8 gm MDI 2 PUFF INHALATION ×3 (09:17→20:53)
[2020-02-19 11:20] LABS: Glucose Point of Care 138 mg/dL (70-110)
[2020-02-19] MEDS: ALPRAZolam 0.25 mg Tablet PO ×2 (13:07→21:51)
[2020-02-19] MEDS: amlodipine 10 mg Tablet PO (16:36)
[2020-02-19 16:49] LABS: Glucose Point of Care 117 mg/dL (70-110)
--- NOTE | 2020-02-19 16:58 | PC.NURSE ---
02/19/2020 1655, REPORT CALLED TO HENRIQUE; PT RECEIVED 5MG OF AMLODIPINE AT 1636, WILL RECEIVE THE OTHER 5MG OF AMLODIPINE AT 1736; PT BLADDER SCANNED AT 1645 WITH AN AMOUNT OF 257ML IN BLADDER; PER DR. FOX, PT TO BE STRAIGHT CATH'ED IF PT HAS 300ML OR GREATER ON BLADDER SCAN
--- NOTE | 2020-02-19 20:21 | PM.PN ---
Subjective Subjective: Interval history: Overnight labs and H&P reviewed. Dyspnea is much improved today, feels better. Last bladder scan with 100cc in urine. 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 Chief differentials include COPD +/-CHF Based on history sounds like could be diastolic but with the murmur suspicious for aortic stenosis on examination, he could be experiencing acute pulmonary edema related to this. Reflux could be contributing factor among other diagnoses. He is doing better presently than when he arrived to the emergency room after treatments administered. Patient had a significant respiratory alkalosis associated with his distress at presentation, now resolved . Status: Acute (2) Holosystolic murmur: Status: Acute (3) Pneumonia: Prehospital diagnosis for which patient was started on Levaquin and oxygen Status: Acute Qualifiers: Pneumonia type: due to unspecified organism Laterality: unspecified laterality Lung location: unspecified part of lung Qualified Code(s): J18.9 - Pneumonia, unspecified organism (4) COPD (chronic obstructive pulmonary disease): Related to former tobacco use Status: Acute Qualifiers: COPD type: COPD with acute exacerbation Qualified Code(s): J44.1 - Chronic obstructive pulmonary disease with (acute) exacerbation (5) Acute kidney injury: Currently [employer] inhibitor is on hold. Replace with Amlodipine for BP control Status: Acute (6) Hypercalcemia: Status: Acute (7) Hyperproteinemia: Could be transient benign process but combined with the hypercalcemia do need to keep in mind possibility of multiple myeloma. No significant bone pain or joint pains reported. Status: Acute (8) Hypertension: Not currently on any chronic medication for treatment Status: Acute Qualifiers: Hypertension type: essential hypertension Qualified Code(s): I10 - Essential (primary) hypertension (9) Diabetes mellitus, type II: Chronically on metformin which will have to be held secondary to current creatinine levels Status: Acute Qualifiers: Diabetes mellitus terminal carman insulin use: without chcf use Diabetes mellitus complication status: without complication Qualified Code(s): E11.9 - Type 2 diabetes mellitus without complications (10) Benign prostatic hyperplasia: Chronically on Flomax Status: Acute Qualifiers: Lower urinary tract symptom presence: symptoms present Lower urinary tract symptom detail: urinary frequency Qualified Code(s): N40.1 - Benign prostatic hyperplasia with lower urinary tract symptoms; R35.0 - Frequency of micturition Attestations Medical Necessity Statement*: Optimization of respiratory status Coding Level of Care Code Acute 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 [facility] 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 Diagnoses Respiratory distress R06.03 Holosystolic murmur R01.1 Pneumonia J18.9 Pneumonia type: due to unspecified organism Laterality: unspecified laterality Lung location: unspecified part of lung COPD (chronic obstructive pulmonary disease) J44.1 COPD type: COPD with acute exacerbation Acute kidney injury N17.9 Hypercalcemia E83.52 Hyperproteinemia E88.09 Hypertension I10 Hypertension type: essential hypertension Diabetes mellitus, type II E11.9 Diabetes mellitus chcf insulin use: without terminal carman use Diabetes mellitus complication status: without complication Benign prostatic hyperplasia N40.1; R35.0 Lower urinary tract symptom presence: symptoms present Lower urinary tract symptom detail: urinary frequency
[2020-02-19 21:09] LABS: Glucose Point of Care 181 mg/dL (70-110)
--- NOTE | 2020-02-19 21:31 | PC.NURSE ---
Informed patient that his family had tried to call him on his cell phone. Patient stated he did not hear it ring and I told him his family stated that they were just checking on him and he didn't have to call back if he was getting ready for bed. Will continue to monitor.
[2020-02-20] VITALS (12 sets, daily range): BP systolic 118–175; BP diastolic 72–90; PULSE 75–101; RESP 16–22; TEMP 36.4–37.2; O2SAT 90–98
[2020-02-20] MEDS: zolpidem 5 mg Tablet PO (00:24)
--- NOTE | 2020-02-20 00:28 | PC.NURSE ---
Patient given a ambien as requested for not being able to sleep. Patient not wearing oxygen. Educated patient on the need for it. Patient stated he had been voiding in the bathroom. Patient educated on the need to use the urinal so we can measure his output. Will continue to monitor.
[2020-02-20] MEDS: albuterol 8 gm MDI 2 PUFF INHALATION (03:55)
[2020-02-20 04:35] LABS: Ionized Calcium 1.2 mmol/L (1.1-1.4)
--- NOTE | 2020-02-20 05:00 | USCV_ITS ---
Renate Yarbrough Age: 84 Gender: M : 1935 Exam Date: 02/20/2020 06:46 Ordering Phys: Laurie Dawson MD Technologist: Regla Kwan Exam Location: [facility] [place] Indication: Shortness of breath, orthopnea, COPD, murmur BP: 140 / 74 HR: 72 Rhythm: Sinus Technical Quality: Technically difficult study MEASUREMENTS (Male / Female) Normal Values 2D ECHO LV Diastolic Diameter PLAX 4.4 cm 4.2 - 5.9 / 3.9 - 5.3 cm LV Systolic Diameter PLAX 2.9 cm LV Chamber Size 3.7 cm IVS Diastolic Thickness 1.5 cm 0.6 - 1.0 / 0.6 - 0.9 cm IVS Systolic Thickness 2.2 cm LVPW Diastolic Thickness 1.2 cm 0.6 - 1.0 / 0.6 - 0.9 cm LVPW Systolic Thickness 1.4 cm RV Chamber Size 2.6 cm LVOT Diameter 2.0 cm LV Ejection Fraction 2D Teich 64.1 % LA Diameter 3.9 cm LA Width 3.1 cm LA Height 7.0 cm RA Width 2.9 cm RA Height 5.5 cm Aorta at Sinotubular Diameter 2.8 cm M-MODE LV Diastolic Diameter MM 5.6 cm 4.2 - 5.9 / 3.9 - 5.3 cm LV Systolic Diameter MM 3.6 cm LV Ejection Fraction MM Teich 63.5 % IVS Diastolic Thickness MM 1.4 cm 0.6 - 1.0 / 0.6 - 0.9 cm IVS Systolic Thickness MM 1.8 cm LVPW Diastolic Thickness MM 1.5 cm 0.6 - 1.0 / 0.6 - 0.9 cm LVPW Systolic Thickness MM 1.7 cm RV Diastolic Diameter MM 1.9 cm Aortic Annulus Diameter 3.7 cm LA Ao Ratio MM 1.1 MV E Point Septal Separation 0.6 cm DOPPLER AV Peak Velocity 186.0 cm/s LVOT Peak Velocity 100.0 cm/s AV Area Cont Eq vti 1.9 cm squared AV Area Cont Eq pk 1.7 cm squared MV Area PHT 2.2 cm squared Mitral E to A Ratio 0.6 MV E' Velocity 5.0 cm/s Mitral E to MV E' Ratio 13.4 Mitral E to LV E' Lateral Ratio 11.6 Mitral E to LV E' Septal Ratio 16.4 TV Peak E Velocity 39.0 cm/s Right Atrial Pressure 3.0 mmHg FINDINGS Left Ventricle Normal left ventricular size and systolic function, EF 60%.no regional wall motion abnormalities. Mild left ventricular hypertrophy. Grade I/IV diastolic dysfunction (abnormal relaxation filling pattern), normal to mildly elevated filling pressures. Right Ventricle Normal right ventricular size and systolic function. Right Atrium Normal right atrial size. Left Atrium Mildly increased left atrial size. Mitral Valve Thickened mitral valve. Mild mitral annular calcification. Aortic Valve Thickened aortic valve. Tricuspid Valve No gross abnormalities noted Pulmonic Valve No gross abnormalities noted Pericardium Normal pericardium without effusion. Aorta Normal ascending aorta dimension. CONCLUSIONS Normal left ventricular size and systolic function, EF 60%.no regional wall motion abnormalities. Mild left ventricular hypertrophy. Grade I/IV diastolic dysfunction (abnormal relaxation filling pattern), normal to mildly elevated filling pressures. Thickened mitral valve. Mild mitral annular calcification. Thickened aortic valve. No significant stenotic or regurgitant lesions There is no pericardial effusion. There are no intracardiac masses. Technically somewhat difficult study because of the poor ultrasonic window. Dr Liliam Ayala MD FACC (Electronically Signed) Final Date: 20 February 2020 10:31 S
[2020-02-20] MEDS: enoxaparin 30 mg/0.3 mL Syringe SUBCUT (05:27)
[2020-02-20 05:30] LABS: Basophils % 0.2 %; Eosinophils % 0.6 %; Hemoglobin 11.8 g/dL (11.7-16.6); Lymphocytes # 1.3 10^3/uL (0.8-4.8); Lymphocytes % 19.5 %; Mean Corpuscular HGB Conc 30.3 g/dL (30.0-36.0); Mean Corpuscular Hemoglobin 30.5 pg (28.0-34.0); Mean Corpuscular Volume 100.8 fL (80-94); Monocytes # 0.6 10^3/uL (0.2-0.9); Neutrophils # 4.4 10^3/uL (1.8-7.7); Neutrophils % 67.8 %; Nucleated Red Blood Cells % 0 %; Platelet Count 142 10^3/cmm (130-400); Red Blood Count 3.87 10^6/uL (4.1-5.3); Red Cell Distribution Width 14.6 % (12.1-15.1); White Blood Count 6.6 10^3/uL (4.0-10.0)
--- NOTE | 2020-02-20 05:45 | PC.NURSE ---
Rounded on patient and patient was asleep without nasal cannula. Patient states he puts it in when he needs it. Patient educated again on needing to use a urinal.
[2020-02-20 05:51] LABS: Alanine Aminotransferase 16 U/L (0-41); Albumin Level 2.6 g/dL (3.5-5.2); Alkaline Phosphatase 43 IU/L (40-130); Anion Gap 14.7 (5-19); Aspartate Amino Transferase 43 U/L (0-40); Blood Urea Nitrogen 20 mg/dL (8-23); Calcium 11.8 mg/dL (8.5-10.5); Carbon Dioxide 25 mmol/L (22-29); Chloride 94 mmol/L (98-107); Glucose 172 mg/dL (65-115); Magnesium 1.7 mg/dL (1.7-2.3); Osmolality Calculated 271 mOsm/kg (285-295); Phosphorus 3.9 mg/dL (2.5-4.5); Potassium 3.7 mmol/L (3.5-5.1); Sodium 130 mmol/L (136-145); Total Bilirubin 0.6 mg/dL (0.15-1.2)
[2020-02-20 06:19] LABS: Glucose Point of Care 167 mg/dL (70-110)
[2020-02-20 06:24] LABS: INR 1.25 (0.8-1.2)
[2020-02-20 06:25] LABS: Partial Thromboplastin Time 25.8 SECONDS (23.9-36.7)
[2020-02-20 06:46] LABS: Procalcitonin 0.16 ng/mL (0-0.5); Thyroid Stimulating Hormone 5.02 uIU/mL (0.27-4.20)
[2020-02-20 06:48] LABS: Globulin 10.8 g/dL (1.3-4.6); Total Protein 13.4 g/dL (6.6-8.7)
[2020-02-20] MEDS: ipratropium-albuterol 3 mL Neb INHALATION ×3 (08:17→21:14)
[2020-02-20] MEDS: tamsulosin 0.4 mg Capsule PO ×2 (08:28→17:28)
[2020-02-20] MEDS: lactobacillus 1 Tablet 1 TAB PO ×2 (08:28→17:27)
[2020-02-20] MEDS: fluticasone nasal spray 16gm Btl 1 SPRAY INTRANASAL (08:29)
[2020-02-20] MEDS: amlodipine 10 mg Tablet PO (08:29)
[2020-02-20] MEDS: pantoprazole DR 40 mg Tablet PO ×2 (08:29→17:28)
--- NOTE | 2020-02-20 08:32 | ECG_ITS ---
Measurements Intervals [place] Rate: 109 P: VT: 0 QRS: -16 QRSD: 101 T: 29 QT: 341 QTc: 460 ATRIAL FIBRILLATION WITH RAPID VENTRICULAR RESPONSE NONSPECIFIC T-WAVE ABNORMALITY ABNORMAL RHYTHM ECG Compared to ECG 02/19/2020 03:35:55 Sinus rhythm no longer present T-wave abnormality still present Electronically Signed On 02-20-2020 15:00:17 CDT by Liliam Ayala M.D. [email or web address]
[2020-02-20] MEDS: FUROsemide 10 mg/mL SDV 10mL 60 MG IVP (08:35)
[2020-02-20] MEDS: magnesium lactate 84 mg Tablet PO ×2 (08:44→17:28)
[2020-02-20 09:17] LABS: D Dimer 0.48 ug/mIFEU (0-0.59)
[2020-02-20] MEDS: alum-mag-hydroxide-sime 30 mL UDC PO (09:20)
[2020-02-20 09:23] LABS: Lipase 10 U/L (13-60)
[2020-02-20 09:25] LABS: Troponin(5th) Baseline 39 ng/mL (0-15)
--- NOTE | 2020-02-20 10:07 | PC.NURSE ---
Upon returning from rest room patient reports burning pain in his throat when asked if his throat was sore patient stated no ma'am i think it is from my heart Dr argueta notified of change Vitals signs 119/83 95% on 2 L/ NC HR 101 instructions given to obtain EKG and troponins now patient continues to have a burning sensation in throat and is requesting antacids Maalox given with very little relief family called patient and patient reported to family that he was not doing well and was fading assured patients family that i was keeping a very close eye on him an that he is very tired today; the dr emerson menon notified of patients current condition will continue to monitor and provide nursing cares
--- NOTE | 2020-02-20 10:33 | ECG_ITS ---
Measurements Intervals [place] Rate: 125 P: SC: 0 QRS: -2 QRSD: 101 T: 28 QT: 311 QTc: 449 ATRIAL FIBRILLATION WITH RAPID VENTRICULAR RESPONSE WITH ABERRANT CONDUCTION OR VENTRICULAR PREMATURE COMPLEXES NONSPECIFIC ST & T-WAVE ABNORMALITY ABNORMAL RHYTHM ECG Compared to ECG 02/19/2020 03:35:55 Ventricular premature complex(es) now present Aberrant conduction of supraventricular beat(s) now present Sinus rhythm no longer present T-wave abnormality still present Electronically Signed On 02-20-2020 15:04:56 CDT by Liliam Ayala M.D. [email or web address]
[2020-02-20 10:46] LABS: Glucose Point of Care 210 mg/dL (70-110)
[2020-02-20 10:53] LABS: Troponin 5 2HR 35.06 ng/mL (0-15)
--- NOTE | 2020-02-20 11:01 | USCV_ITS ---
Renate Yarbrough Age: 84 Gender: M : 1935 Exam Date: 02/20/2020 12:45 Ordering Phys: Misa Pena MD Technologist: Regla Kwan Exam Location: [facility] – [place] Indication: Leg pain HISTORY: Lower extremity pain. PROCEDURES: Comparison: none available. Venous duplex imaging was performed in bilateral lower extremities. The following venous structures were evaluated: common femoral vein, profunda vein, proximal portion of the greater saphenous vein, superficial femoral vein, and the popliteal vein. In addition, the posterior tibial and peroneal trunk were evaluated. Serial compression, augmentation maneuvers, and spectral Doppler flow evaluation were performed. FINDINGS: No evidence of DVT seen in any vessel visualized at this time. There is a complex fluid collection in the right popliteal fossa, measuring approximately 3.8 x 1.2 x 3.1 cm. Mid calf veins not well seen. Spontaneous echo contrast was noted in the popliteal vein CONCLUSIONS 1. No evidence of DVT in the above-mentioned identifiable veins 2. Features of sluggish flow in the veins 3. Echolucent area in the right popliteal fossa measuring 3.8 x 1.2 x 3.1 cm, may suggest Macias's cyst or other kinds of fluid collection-clinical correlation is recommended No similar previous studies are available for comparison Dr Liliam Ayala MD [facility] (Electronically Signed) Final Date: 21 February 2020 09:25 S
--- NOTE | 2020-02-20 11:01 | CTR_ITS ---
PROCEDURE INFORMATION: Exam: CT Chest Without Contrast Exam date and time: 02/20/2020 11:13 AM Age: 84 years old Clinical indication: Shortness of breath; Prior surgery; Surgery date: 6+ months; Surgery type: Back, appy; Patient HX: C/O epigastric/chest pain and SOB; Additional info: Abd pain TECHNIQUE: Imaging protocol: Computed tomography of the chest without contrast. Total DLP: 1548.27 mGy-cm Radiation optimization: All CT scans at this facility use at least one of these dose optimization techniques: automated exposure control; mA and/or kV adjustment per patient size (includes targeted exams where dose is matched to clinical indication); or iterative reconstruction. COMPARISON: No relevant prior studies available. FINDINGS: Lungs: COPD , interstitial prominence, and chronic granulomatous disease. Multifocal bilateral airspace disease, disproportionately localized in the right upper lobe, lingula, and lower lobes. Pleural space: No significant pleural effusion. Heart: Coronary artery and mitral annular calcification. 16 mm pericardial effusion. Aorta: Atherosclerotic plaque and calcification in the enlarged thoracic aorta with the ascending thoracic aorta measuring 4.6 cm in diameter and the descending thoracic aorta measuring 4.8 cm in diameter. Lymph nodes: Calcified lymph nodes in association with chronic granulomatous disease. Additional noncalcified lymph nodes including a 2.3 x 1.6 by 1.3 cm precarinal lymph node. Bones/joints: Degenerative change, mild scoliosis, and Schmorl's nodes. IMPRESSION: 1. COPD , interstitial prominence, and chronic granulomatous disease. 2. Multifocal bilateral airspace disease, disproportionately localized in the right upper lobe, lingula, and lower lobes. 3. Atherosclerotic plaque and calcification in the enlarged thoracic aorta with the ascending thoracic aorta measuring 4.6 cm in diameter and the descending thoracic aorta measuring 4.8 cm in diameter. 4. Additional findings as described above. PROCEDURE INFORMATION: Exam: CT Abdomen And Pelvis Without Contrast Exam date and time: 02/20/2020 11:13 AM Age: 84 years old Clinical indication: Shortness of breath; Prior surgery; Surgery date: 6+ months; Surgery type: Back, appy; Patient HX: C/O epigastric/chest pain and SOB; Additional info: Abd pain TECHNIQUE: Imaging protocol: Computed tomography of the abdomen and pelvis without contrast. Total DLP: 1548.27 mGy-cm Radiation optimization: All CT scans at this facility use at least one of these dose optimization techniques: automated exposure control; mA and/or kV adjustment per patient size (includes targeted exams where dose is matched to clinical indication); or iterative reconstruction. COMPARISON: No relevant prior studies available. FINDINGS: Detailed evaluation of the abdominal and pelvic viscera is somewhat limited in the absence of intravenous contrast. Liver: No focal hepatic mass. Gallbladder and bile ducts: No cholelithiasis or biliary ductal dilatation. Pancreas: Pancreatic atrophy and punctate calcifications. Spleen: Enlarged spleen measuring 13.2 cm in length. Adrenals: Unremarkable adrenals . Kidneys and ureters: 1 mm nonobstructing bilateral renal calculi. 10 mm cyst arising from the inferior lateral left kidney. Stomach and bowel: Bowel dilatation, disproportionately involving the colon with prominent stool. Diverticula, without pericolonic inflammation. Appendix: Appendix not visualized. Intraperitoneal space: No significant free fluid. Vasculature: Vascular ectasia and calcification. Lymph nodes: Subcentimeter lymph nodes. Bladder: Mild bladder wall thickening. Reproductive: Enlarged prostate producing extrinsic compression of the bladder base. Bones/joints: Lumbar laminectomy and pedicle screw fixation with associated beam hardening artifact. Degenerative change, disc bulging, scoliosis, and Schmorl's nodes. CT/CT chest abd pel wo con IMPRESSION: 1. 1 mm nonobstructing bilateral renal calculi. 2. Enlarged prostate producing extrinsic compression of the bladder base. 3. Bowel dilatation with prominent stool and diverticula, without pericolonic inflammation. 4. Additional findings as described above. Radiation Dose CTDIVOL = (mGy): DLP = 1548.27~1548.27 (mGy-cm)
[2020-02-20] MEDS: ALPRAZolam 0.25 mg Tablet PO ×2 (11:07→21:35)
[2020-02-20 11:20] LABS: Troponin 5 2HR Delta -3.94 ABS# (0-10)
--- NOTE | 2020-02-20 11:20 | P.PN_ITS ---
Subjective Subjective: Interval history: This morning patient complained of burning sensation in his chest and neck. This is improved after taking GI cocktail and Maalox. EKG was repeated this morning and did not show any acute ST-T wave changes. His troponin were also trended minimally elevated in the 30s. His urine output is [address] of the chest abdomen and pelvis was per formed earlier today due to complaints of ongoing abdominal discomfort. It shows enlarged prostate with bladder outlet obstruction, however bladder scan volumes are between 66 200 mL. No other obstruction identified in the kidneys, no hydronephrosis. CT chest shows chronic granulomatous disease and COPD changes. He also reports feeling anxious, this is corroborated by his and son who is a patient has been increasingly anxious the of his daughter in October. Patient himself reports he had a rough night, however he is unable to specify if he was dyspneic. His O2 requirements have remained unchanged at 2 L/min and this afternoon he has been able to wean to room air at 95% O2 sat. He suspects he may need a CPAP as his has reported episodes of apnea home. He has never had a sleep study in the past. Medications: Reviewed: Yes Vitals/I&O/Wt Last Vital Signs Temp 98.2 F 02/20/20 11:11 Pulse 101 H 02/20/20 11:11 Resp 18 02/20/20 11:11 BP 130/79 02/20/20 11:11 Pulse Ox 95 02/20/20 11:11 02/19/20 02/20/20 02/20/20 22:59 06:59 14:59 Intake Total 354 / 708 240 / 240 Output Total 200 / 425 125 / 125 Balance 154 / 283 115 / 115 Weight last 48 hrs Weight 77.252 kg Weight 76.43 kg Weight 78.471 kg Physical Exam Narrative: EXAM NARRATIVE: GEN: Awake, alert and oriented, no acute distress CVS: S1S2 N RS: CTA B/L Abd: Soft, nt/nd , bs+ BILINGUAL SPEECH LANGUAGE PATHOLOGIST: no focal neuro deficits Extremities no lower extremity edema. Data : 02/20/20 04:21 02/20/20 04:21 A&P Assessment and plan (1) Respiratory distress: This is acute on chronic and likely multifactorial. He is much improved since presentation. Chief differentials include COPD +/-CHF. Echocardiogram performed today. Shows adequate LVEF without any regional wall motion abnormalities. Grade 1/4 diastolic dysfunction. Thickened mitral and aortic gamez without significant stenosis or regurgitation. Suspect that acid reflux could be contributing factor among other diagnoses. Overall clinically he is much improved since presentation. D-dimer is negative. Status: Acute (2) Holosystolic murmur: Status: Acute (3) Pneumonia: CT chest without contrast performed today without any evidence of pneumonia. Discontinue antibiotics. Status: Acute Qualifiers: Laterality: unspecified laterality Lung location: unspecified part of lung Pneumonia type: due to unspecified organism Qualified Code(s): J18.9 - Pneumonia, unspecified organism (4) COPD (chronic obstructive pulmonary disease): Patient symptoms may be consistent with underlying COPD. CT chest shows changes and also some old granulomatous changes. He has never had a PFT in the past and this can be scheduled as an outpatient. He suspects he may have CPAP as his has reported episodes of apnea. We will obtain an overnight pulse oximetry study to see if he may qualify for positive pressure ventilation. Nebulization with albuterol and ipratropium. Wean off oxygen as able. Currently on room air this afternoon. Status: Acute Qualifiers: COPD type: COPD with acute exacerbation Qualified Code(s): J44.1 - Chronic obstructive pulmonary disease with (acute) exacerbation (5) Acute kidney injury: Currently AMERICO inhibitor is on hold. Replace with Amlodipine for BP control. Suspect that because of his bladder outlet obstruction from an enlarged prost ate. Bladder scan volumes only 66 to 110 mL, however will obtain a straight cath to ensure that this is indeed accurate. Status: Acute (6) Hypercalcemia: Normal ionized calcium. Status: Acute (7) Hyperproteinemia: Significant hyper proteinemia with kidney dysfunction raises concern for MGUS versus multiple myeloma. Serum and urine protein electrophoresis has been ordered and may be followed up as an outpatient. Status: Acute (8) Hypertension: Not currently on any chronic medication for treatment. Outpatient records show patient is on quinapril. This has been replaced with amlodipine. Blood pressure is currently well controlled. We will add low-dose beta-linda as he has been tachycardic between 90 to 100 bpm since arrival in sinus rhythm. Status: Acute Qualifiers: Hypertension type: essential hypertension Qualified Code(s): I10 - Essential (primary) hypertension (9) Diabetes mellitus, type II: Chronically on metformin which will have to be held secondary to current creatinine levels Status: Acute Qualifiers: Diabetes mellitus complication status: without complication Diabetes mellitus intermediate project manager insulin use: without intermediate project manager use Qualified Code(s): E11.9 - Type 2 diabetes mellitus without complications (10) Benign prostatic hyperplasia: Chronically on Flomax Status: Acute Qualifiers: Lower urinary tract symptom detail: urinary frequency Lower urinary tract symptom presence: symptoms present Qualified Code(s): N40.1 - Benign prostatic hyperplasia with lower urinary tract symptoms; R35.0 - Frequency of micturition (11) GERD (gastroesophageal reflux disease): Increase Protonix to 40 mg twice daily. Discussed with family that if symptoms do not resolve with increasing dose of PPIs, he will likely need an endoscopy in the near future as an outpatient. Status: Acute (12) Anxiety: Started on Xanax as needed. We will also start on low-dose Prozac while here in the hospital and continue if he tolerates it. Status: Acute (13) Diastolic CHF: Patient is currently euvolemic. Creatinine trending up reduce Lasix to 20 mg p.o. daily. Status: Acute Additional A&P Information Full code Anticipate discharge back home with family Attestations Medical Necessity Statement*: optimization of respiratory status and ongoing symptoms of chest discomfort Coding Level of Care Code Acute Genetic Counsellor for [facility] Diagnoses Respiratory distress R06.03 Holosystolic murmur R01.1 Pneumonia J18.9 Laterality: unspecified laterality Lung location: unspecified part of lung Pneumonia type: due to unspecified organism COPD (chronic obstructive pulmonary disease) J44.1 COPD type: COPD with acute exacerbation Acute kidney injury N17.9 Hypercalcemia E83.52 Hyperproteinemia E88.09 Hypertension I10 Hypertension type: essential hypertension Diabetes mellitus, type II E11.9 Diabetes mellitus complication status: without complication Diabetes mellitus intermediate project manager insulin use: without intermediate project manager use Benign prostatic hyperplasia N40.1; R35.0 Lower urinary tract symptom detail: urinary frequency Lower urinary tract symptom presence: symptoms present GERD (gastroesophageal reflux disease) K21.9 Anxiety F41.9 Diastolic CHF I50.30
[2020-02-20] MEDS: lidocaine 2% viscous 15 ML, aluminum-mag hydrox-simethicon 30 ML, sucralfate oral liq 1 GM PO (11:36)
--- NOTE | 2020-02-20 13:16 | PC.CHAP ---
Pastoral Care Encounter/Spiritual Assessment Type of Contact [] Declined residential door installer visit [] Patient/Family/Request visit [] Outpatient visit [] Follow-up visit [] Physician referral [] Code/Alert [X] Routine visit [] Staff referral [] Actively dying [] Patient sleeping [] Family support [] [] Out of room [] Palliative care [] [] Receiving care in room [] Pre-surgical visit [] Trauma [] Long length of stay [] ICU visit [] Other: Relational/Emotional Strength [] Patient feels connected with others/family/visitors/staff [] Distress [] Loneliness/isolation [] Abandonment Spirituality of Patient [] Person of Bertha [] Attends Zoroastrianism of their Bertha [] Believes in Prayer [] Reads Bible or Denominational materials [] There are Spiritual issues to be addressed Kindergarten Teacher Assistant Interventions [] Prayer [] Active listening [] Non-anxious presence [] Spiritual/emotional support [] Crisis/trauma care [] Spiritual counseling [] Bereavement support [] Provided bereavement packet [] Provided Bible/devotional materials [] Provided toy/stuffed animal, coloring book to patient or family member [] Provided Communion [] Anointing/[place] [] Salvation [] Completed spiritual assessment [] Other: Impact on Illness or Injury [] Angry [] Fearful [] Anxious [] Often cries [] Exhaustion [] Unable to work [] Unable to attend religion [] Unable to walk/stand [] Unable to read [] Unable to drive [] Unable to eat/drink [] Unable to sleep [] Unable to be with family [] Patient intubated [] Other: Summary Time spent with patient
--- NOTE | 2020-02-20 14:33 | ECG_ITS ---
Measurements Intervals [place] Rate: 82 P: 25 CT: 156 QRS: -16 QRSD: 105 T: 29 QT: 367 QTc: 431 SINUS RHYTHM NONSPECIFIC T-WAVE ABNORMALITY Compared to ECG 02/19/2020 03:35:55 No significant changes Electronically Signed On 02-20-2020 15:05:23 CDT by Liliam Ayala M.D. [email or web address]
[2020-02-20 15:31] LABS: Troponin 5 6HR 51.47 ng/mL (0-15)
[2020-02-20 15:38] LABS: Troponin 5 6HR Delta 12.47 ng/L (0-12)
[2020-02-20 15:39] LABS: Prostate Specific Antigen 1.91 ng/mL (0-4)
[2020-02-20 16:58] LABS: Glucose Point of Care 159 mg/dL (70-110)
[2020-02-20] MEDS: metoprolol tartrate 25 mg Tablet 12.5 MG PO (17:28)
[2020-02-20 20:33] LABS: Glucose Point of Care 216 mg/dL (70-110)
[2020-02-20 21:51] LABS: Troponin T (5th) Once 45 ng/mL (0-15)
[2020-02-21] VITALS (10 sets, daily range): BP systolic 113–152; BP diastolic 66–89; PULSE 69–99; RESP 16–18; TEMP 36.5–36.8; O2SAT 91–94
[2020-02-21] MEDS: enoxaparin 30 mg/0.3 mL Syringe SUBCUT (05:34)
[2020-02-21 05:45] LABS: Anion Gap 14.6 (5-19); Blood Urea Nitrogen 27 mg/dL (8-23); Calcium 11.7 mg/dL (8.5-10.5); Carbon Dioxide 26 mmol/L (22-29); Chloride 93 mmol/L (98-107); Glucose 179 mg/dL (65-115); Osmolality Calculated 271 mOsm/kg (285-295); Potassium 3.6 mmol/L (3.5-5.1); Sodium 130 mmol/L (136-145)
[2020-02-21 06:36] LABS: Glucose Point of Care 181 mg/dL (70-110)
[2020-02-21] MEDS: ipratropium-albuterol 3 mL Neb INHALATION ×2 (08:45→12:44)
[2020-02-21] MEDS: FUROsemide 20 mg Tablet PO (09:17)
[2020-02-21] MEDS: tamsulosin 0.4 mg Capsule PO (09:17)
[2020-02-21] MEDS: amlodipine 5 mg Tablet PO (09:17)
[2020-02-21] MEDS: fluoxetine 10 mg Capsule PO (09:18)
[2020-02-21] MEDS: metoprolol tartrate 25 mg Tablet 12.5 MG PO (09:18)
[2020-02-21] MEDS: fluticasone nasal spray 16gm Btl 1 SPRAY INTRANASAL (09:19)
[2020-02-21] MEDS: pantoprazole DR 40 mg Tablet PO (09:19)
[2020-02-21] MEDS: lactobacillus 1 Tablet 1 TAB PO (09:19)
[2020-02-21] MEDS: magnesium lactate 84 mg Tablet PO (09:20)
[2020-02-21 11:12] LABS: Glucose Point of Care 214 mg/dL (70-110)
--- NOTE | 2020-02-21 12:29 | PM.PN ---
Vitals/I&O/Wt Last Vital Signs Temp 98.0 F 02/21/20 11:17 Pulse 86 02/21/20 11:17 Resp 18 02/21/20 11:17 BP 121/85 02/21/20 11:17 Pulse Ox 94 02/21/20 11:17 02/20/20 02/21/20 02/21/20 22:59 06:59 14:59 Intake Total 315 / 795 100 / 895 240 / 240 Output Total 575 / 900 375 / 375 Balance 315 / 470 -475 / -5 -135 / -135 Weight last 48 hrs Weight 76.067 kg Weight 77.252 kg Data : 02/20/20 04:21 02/21/20 04:28 Coding Level of Care Code Acute [place] [employer] Manager for [facility]ke
--- NOTE | 2020-02-21 14:59 | P.DS_ITS ---
Discharge Providers Date of Admission: 02/19/20 03:41 Date of Discharge: February 21, 2020 Attending Provider at Admission: Laurie Dawson MD Attending Provider at Discharge: Misa Pena MD Primary Care Provider: Richard Leslie DO Diagnoses at Discharge Discharge Diagnosis (1) Respiratory distress: Status: Acute (2) Holosystolic murmur: Status: Acute (3) Pneumonia: Status: Acute Qualifiers: Laterality: unspecified laterality Lung location: unspecified part of lung Pneumonia type: due to unspecified organism Qualified Code(s): J18.9 - Pneumonia, unspecified organism (4) COPD (chronic obstructive pulmonary disease): Status: Acute Qualifiers: COPD type: COPD with acute exacerbation Qualified Code(s): J44.1 - Chronic obstructive pulmonary disease with (acute) exacerbation (5) Acute kidney injury: Status: Acute (6) Hypercalcemia: Status: Acute (7) Hyperproteinemia: Status: Acute (8) Hypertension: Status: Acute Qualifiers: Hypertension type: essential hypertension Qualified Code(s): I10 - Essential (primary) hypertension (9) Diabetes mellitus, type II: Status: Acute Qualifiers: Diabetes mellitus complication status: without complication Diabetes m ellitus watermelon harvesting supervisor insulin use: without watermelon harvesting supervisor use Qualified Code(s): E11.9 - Type 2 diabetes mellitus without complications (10) Benign prostatic hyperplasia: Status: Acute Qualifiers: Lower urinary tract symptom detail: urinary frequency Lower urinary tract symptom presence: symptoms present Qualified Code(s): N40.1 - Benign prostatic hyperplasia with lower urinary tract symptoms; R35.0 - Frequency of micturition (11) GERD (gastroesophageal reflux disease): Status: Acute (12) Anxiety: Status: Acute (13) Diastolic CHF: Status: Acute Reason for Visit Reason for Visit: Reason For Visit: sob Hospital Course Discharge Summary: Mr. Yarbrough is an 84-year-old man who had presented to the emergency room with chief complaints of shortness of breath on February 19, 2020. Initial concerns were not for pulmonary edema vs COPD exacerbation. Patient had recently been started on home and takes nebulization with albuterol and inprtaropium prn but has been using it more frequently in the past few days. His D dimer was negative. Serial troponins were mildly elevated, however the deltas did not rule in ACS. There were no acute changes on his EKG. Echocardiogram showed gr1 diastolic dysfunction, normal LVEF, no RWMA. He had c/o reflux symptoms and burning in chest and neck, which resolved significantly with using maalox and increasing protonix to BID. He underwent a CT abdomen which was negative for pancreatitis or other acute processes, however showed significantly enlarged prostate with bladder compression. He improved significantly with diuresis with lasix and nebulizations. At time of discharge he is euvolemic. Clear etiology for his presentation symptoms could not be established, chief differentials were CHF vs COPD vs reflux. CT chest w/o contrast did not show evidence of pneumonia, however reports COPD and chronic granulomatous disease. LE doppler was negative. Contrast studies were not pursued to to NADIA. He has been started on LABA and LAMA inhalers on discharge. PFT has been scheduled, as has sleep study. Hospital course also notable for increasing cr from 1.4 recently to 1.8 and today 2.0, He is clinically well appearing today and reports significant improvement in symptoms. His urine output is >1L/day and as such has no signs of uremia, therefore is recommended outpatient follow up for same. Possible etiologies include bladder outlet obstrcution, though with a staright cath only [address] did not show hydronephrosis. Of note paraproteinemia was noted on his labs, SPEP and UPEP have been ordered and will need to be followed up as outpatient. Ionized calcium levels were normal. He reported significant anxiety and insomnia since the tragic of his daughter in October, prozac was ordered. For his HTN, quinapril was held due to NADIA. This has been replaced with amlodipine 5mg per day and metorpolol 12.5mg BID (noted also to have tachyca rdia). He is recommended to maintain BP diary for next week. Physical Exam Narrative: EXAM NARRATIVE: GEN: Awake, alert and oriented, no acute distress CVS: S1S2 N RS: CTA B/L Abd: Soft, nt/nd , bs+ ELECTRICAL POWER STATION TECHNICIAN: no focal neuro deficits EXT: no focal pitting edema Discharge Data Data Completed and Pending: Completed Studies During Hospitalization Category Date Time Status CT chest abd pel wo con Routine Cat Scan 02/20/20 11:01 Completed XR chest 1V olive ble [id number] Stat Exams 02/18/20 21:14 Completed CV echo complete* [id number] Routine Ultrasound 02/20/20 05:00 [place] [id number] Routin e Ultrasound 02/20/20 11:01 Completed Pending at discharge Category Date Time Status Basic Metabolic P nevaeh AM LABS Lab 02/22/20 04:00 Ordered Total Protein Sandy ctrophoresis Routi ne Lab 02/20/20 15:09 Received Urine Protein Sandy ctrop Random Routi ne Lab 02/20/20 16:20 Received Labs from last 24 hours 02/21/20 02/21/20 02/21/20 11:07 06:20 04:28 Sodium 130 L Potassium 3.6 Chloride 93 L Carbon Dioxide 26 Anion Gap 14.6 BUN 27 H Creatinine 2.0 H Glucose 179 H POC Glucose 214 181 Calculated Osmolal ity 271 L Calcium 11.7 H Troponin I 6 Hour Troponin I Hi Sens Del Troponin T Gen 5 n g/L Prostate Specific Ag 02/20/20 02/20/20 02/20/20 21:15 20:10 16:52 Sodium Potassium Chloride Carbon Dioxide Anion Gap BUN Creatinine Glucose POC Glucose 216 159 Calculated Osmolal ity Calcium Troponin I 6 Hour Troponin I Hi Sens Del Troponin T Gen 5 n g/L 45 H Prostate Specific Ag 02/20/20 02/20/20 15:09 15:09 Sodium Potassium Chloride Carbon Dioxide Anion Gap BUN Creatinine Glucose POC Glucose Calculated Osmolal ity Calcium Troponin I 6 Hour 51.47 H Troponin I Hi Sens Del 12.47 H* Troponin T Gen 5 n g/L Prostate Specific Ag 1.91 Vitals: Last Vital Signs Temp 98.0 F 02/21/20 11:17 Pulse 83 02/21/20 14:57 Resp 16 02/21/20 14:57 BP 121/85 02/21/20 11:17 Pulse Ox 94 02/21/20 14:57 Discharge Plan Discharge Patient Disposition: Home, Self-Care Condition: Stable Prescriptions: New amlodipine 5 mg Tablet 5 mg PO DAILY 30 Days Qty: 30 RF: 0 alprazolam 0.25 mg Tablet 0.25 mg PO BID PRN (Reason: Anxiety) 14 Days Qty: 30 RF: 0 pantoprazole 40 mg Tablet,Delayed Release (Dr/Ec) 40 mg PO BID 30 Days Qty: 60 RF: 0 fluoxetine 10 mg Capsule 10 mg PO DAILY 14 Days Qty: 14 RF: 0 furosemide 20 mg Tablet 20 mg PO DAILY@0800 30 Days Qty: 30 RF: 0 Mag-Al Plus 200-200-20 mg/5 mL Suspension 30 ml PO Q4H PRN (Reason: Indigestion) Qty: 0 RF: 0 metoprolol tartrate 25 mg Tablet 12.5 mg PO BID 30 Days Qty: 60 RF: 0 tiotropium bromide 18 mcg capsule, w/inhalation device 1 cap INHALATION DAILY Qty: 1 RF: 1 fluticasone propion-salmeterol 55-14 mcg/actuation aerosol powdr breath activated 1 inh INHALATION BID Qty: 1 RF: 1 Continued metformin 500 mg tablet 500 mg PO BID RF: 0 triamcinolone acetonide 0.1 % cream 1 applic TOPICAL PRN PRN (Reason: Itching) RF: 0 tamsulosin [Flomax] 0.4 mg capsule 0.4 mg PO BID RF: 0 (DME) Prodigy No Coding Strip MISCELLANEOUS RF: 0 albuterol sulfate 2.5 mg /3 mL (0.083 %) solution for nebulization RF: 0 fluticasone propionate 50 mcg/actuation spray,suspension INTRANASAL RF: 0 Discontinued omeprazole 20 mg capsule,delayed release(DR/EC) 20 mg PO DAILY RF: 0 ipratropium bromide 0.02 % solution 1 ml inhalation Q6H PRN (Reason: Shortness Of Breath) RF: 0 levofloxacin [Levaquin] 750 mg Tablet 750 mg PO Q24H RF: 0 fluticasone propionate [Allergy Relief (fluticasone)] 50 mcg/actuation spray,suspension 50 mcg INTRANASAL PRN PRN (Reason: Congestion) RF: 0 Super Beta Prostate 250 mg bottle 250 mg PO DAILY RF: 0 azithromycin 250 mg tablet RF: 0 doxycycline hyclate 100 mg capsule RF: 0 azithromycin 250 mg tablet RF: 0 amoxicillin-pot clavulanate 500-125 mg tablet RF: 0 Fluzone High-Dose 2019-20 (PF) 180 mcg/0.5 mL syringe IM RF: 0 furosemide 40 mg tablet RF: 0 tamsulosin 0.4 mg capsule PO RF: 0 albuterol sulfate 2.5 mg /3 mL (0.083 %) solution for nebulization RF: 0 Discharge Orders: Discharge Order (Routine); Ordered 02/21/20 Ordered By: Misa Pena Other Ambulatory Orders: Comprehensive Metabolic Panel (Routine) Timeframe: 2 Days Location: Determined by Patient Ordered By: Misa Pena Pulmonary Function Screen with Bronchodilator (Routine) Timeframe: 1 Week Facility: [facility] - Location: Respiratory Therapy Ordered By: Misa Pena Sleep Study/Titration (Routine) Timeframe: 1 Week Location: None Selected Ordered By: Misa Pena [facility] [place] Alex Girard MD [Physician] - 1 week (Please call Saturday to set up a follow up apppointment BPH with bladder compression, slowly worsening kidney function ) Richard Leslie DO [Primary Care Provider] - 4-7 days (Please call Saturday to set up a follow up appointment) Discharge Diet: Usual diet Discharge Activity: Resume usual activity Patient Instructions: Metoprolol (By mouth), Furosemide (By mouth), Alprazolam (By mouth), Fluoxetine (By mouth), Amlodipine (By mouth), Antacid, Calcium Containing (By mouth), Pantoprazole (By mouth), Heart Failure (GEN), CHF Stoplight, Chest Pain Stoplight Activity Restrictions/Additional Instructions: -Stopped quinapril. Started on new medications amlodipine and metorpolol for BP and heart rate. Measure BP twice daily and maintain a chart. Goal of top number to be between 90-150. Call primary care doctor if abnormal numbers or any symptoms of dizziness, passing out. -you kidney function needs to be repeated in the next 1-[address] Leslie - you have been started on pantoprazole for reflux symptoms. At the end of 14 days switch back to pantoprazole once a day instead of twice a day. If you have reflux symptoms after reducing the dose make an appointment with Dr. Ac Roger from surgery for endoscopy. -You have been started on inhalers for COPD. If shortness of breath is persisting in spite of the inhalers please call your primary care doctor or call for an appointment to see finished yarn examiner Dr. Chandra -you have been started on Prozac. Please call primary care doctor for dose readjustment if anxiety does not improve. -Your pending blood tests blood and urine electrophoresis, which would need to be followed with primary care doctor Discharge Date/Time: 02/21/20 16:36 Discharge Attestations Time Spent in Discharge Care*: greater than 30 min Quality Metrics Clinical Quality Measures During this hospital stay, did patient experience: None Coding Level of Care Code Acute Survey Operations Director for Chg Fwd Diagnoses Respiratory distress R06.03 Holosystolic murmur R01.1 Pneumonia J18.9 Laterality: unspecified laterality Lung location: unspecified part of lung Pneumonia type: due to unspecified organism COPD (chronic obstructive pulmonary disease) J44.1 COPD type: COPD with acute exacerbation Acute kidney injury N17.9 Hypercalcemia E83.52 Hyperproteinemia E88.09 Hypertension I10 Hypertension type: essential hypertension Diabetes mellitus, type II E11.9 Diabetes mellitus complication status: without complication Diabetes mellitus group home insulin use: without watermelon harvesting supervisor use Benign prostatic hyperplasia N40.1; R35.0 Lower urinary tract symptom detail: urinary frequency Lower urinary tract symptom presence: symptoms present GERD (gastroesophageal reflux disease) K21.9 Anxiety F41.9 Diastolic CHF I50.30
--- NOTE | 2020-02-22 11:31 | PC.NURSE ---
Spoke with [facility] regarding the Fluticasone order with same ingredients as Advair.
--- NOTE | 2020-02-22 13:37 | PC.SOCIAL ---
Call received by pharmacy and the insurance does not cover Advair was asked to call ins company about an alternative. Call placed to insurance company and what this nurse sees on DC information does not match what the pharmacy ran. Pharmacy ran Advair 100-50 Original order was for Fluticason 55mcg/ Salmetrol 14mcg so unable to see what an alternative would be. Call placed back to [facility] pharmacy and they indicate a nurse gave the information to change to the Advair and it was 100-50 dose. Called insurance back and was given multiple choices of alternative medications. Called Dr Pena and reviewed choices. She chose Breo Ellipta 100mcg-25mcg one inhalation daily for one month supply. Called to [facility]. NO questions asked.
== END 2020-02-21 16:36 | disposition home or self-care (01) | DRG 291 ==
LOC: ER 02-19 03:00 → ICU 02-19 03:50 → MEDSURG 02-19 18:29
PROVIDERS: Admitting Provider Hospitalist; Emergency Provider Emergency Medicine; Family Provider Internal Medicine; PCP Internal Medicine; Visit Provider Student in an Organized Health Care Education/Training Program
DX: I13.0 Hypertensive heart and chronic kidney disease with heart failure and stage 1 through stage 4 chronic kidney disease, or unspecified chronic kidney disease (principal); I50.31 Acute diastolic (congestive) heart failure; N13.8 Other obstructive and reflux uropathy; J44.1 Chronic obstructive pulmonary disease with (acute) exacerbation; I50.30 Unspecified diastolic (congestive) heart failure; N17.9 Acute kidney failure, unspecified; Z87.891 Personal history of nicotine dependence; N40.1 Benign prostatic hyperplasia with lower urinary tract symptoms; R35.0 Frequency of micturition; E83.52 Hypercalcemia; E78.5 Hyperlipidemia, unspecified; E11.22 Type 2 diabetes mellitus with diabetic chronic kidney disease; N18.9 Chronic kidney disease, unspecified; M19.90 Unspecified osteoarthritis, unspecified site; Z85.828 Personal history of other malignant neoplasm of skin; R06.03 Acute respiratory distress; R01.1 Cardiac murmur, unspecified; I35.0 Nonrheumatic aortic (valve) stenosis; Z79.84 Long term (current) use of oral hypoglycemic drugs; E83.42 Hypomagnesemia; Z91.041 Radiographic dye allergy status; Z63.4 Disappearance and death of family member; G47.00 Insomnia, unspecified; F41.9 Anxiety disorder, unspecified
CPT/HCPCS: 12345; 36415; 36416; 36600; 51702; 51798; 71045; 71250; 74176; 80048; 80053; 81001; 82330; 82570; 82803; 82962; 83605; 83690; 83735; 83880; 84100; 84145; 84153; 84300; 84443; 84484; 85025; 85378; 85610; 85730; 87635; 87804; 93005; 93306; 93970; 94640; 94762; 96372; 96374; 96375; 99285; J1650; J1815; J1940; J2930; J3475; J7030; J7040

== ENCOUNTER 2020-02-28 15:27 | Inpatient (IN) | payer MEDICARE, OTHER, SELFPAY ==
[2020-02-28] VITALS (8 sets, daily range): BP systolic 123–136; BP diastolic 74–78; PULSE 74–86; RESP 16–21; TEMP 36.6–36.7; O2SAT 92–96; BMI 25.5
--- NOTE | 2020-02-28 15:35 | ED_ITS ---
HPI - SOB/Dyspnea General: Chief Complaint: Shortness of Breath/Dyspnea Stated Complaint: SHORTNESS OF BREATH Time Seen by Provider: 02/28/20 15:34 History of Present Illness: HPI Narrative: Dyspnea; exacerbation of COPD Patient is in the hospital approximately a week ago for COPD and emphysema. States that that time he was also diagnosed with congestive heart failure. Patient says that he is extremely weak and continues to be short of breath. MD elicited complaint: shortness of breath Pertinent past history: COPD, congestive heart failure and diabetes Onset (ago): day(s) Context: recent illness Timing: constant Severity: similar to previous episodes Exacerbating factors: exertion Relieving factors: nothing Known history of: COPD, congestive heart failure and diabetes Associated symptoms: Reports chest congestion Review of Systems General: Reports: 10 or more systems reviewed and unremarkable except in HPI and below Resp: Reports: shortness of breath, wheezing and chest congestion [facility] PFSH: Medical History Benign prostatic hyperplasia COPD (chronic obstructive pulmonary disease) Diabetes mellitus, type II History of hyperlipidemia Previously prescribed statin but was taken off few years ago by PCP Hypertension Osteoarthritis Surgical History History of appendectomy History of arthroscopy of right knee History of back surgery History of bilateral carpal tunnel release History of cataract surgery History of left inguinal hernia repair History of tonsillectomy History of vein stripping 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 Family History Family/Other Heart disease no one with known CAD however Social History Smoking and tobacco status: former smoker Household members: spouse Marital status: Physical Exam Const: COMMON NORMALS: no apparent distress, average body habitus, oriented x3, no limitations, alert and well nourished GENERAL APPEARANCE: cooperative and well developed HENMT: COMMON NORMALS: normocephalic HEAD & SCALP: normocephalic Neck/C-Spine: COMMON NORMALS: no JVD Resp: COMMON NORMALS: normal respiratory effort, no retractions, no use of accessory muscles and clear to auscultation bilaterally AUSCULTATION: clear to auscultation bilaterally and bronchial breath sounds Cardio: COMMON NORMALS: no JVD, regular rate and regular rhythm RATE: regular rate RHYTHM: regular rhythm GI: COMMON NORMALS: normal to inspection, nondistended, normoactive bowel sounds and soft to palpation PALPATION: Yes soft Extremity: COMMON NORMALS: no pedal edema Neuro: COMMON NORMALS: oriented x3 SENSORIUM/ORIENTATION: Yes alert Skin: COMMON NORMALS: no rashes or lesions noted and no mottling GENERAL SKIN EXAM: no rashes or lesions noted Course Vital Signs: Vital signs: Vital Signs Temperature 98.1 F 02/28/20 15:36 Pulse Rate 85 02/28/20 16:06 Respiratory Rate 16 02/28/20 15:54 Blood Pressure 123/75 02/28/20 15:36 Pulse Oximetry 96 02/28/20 15:54 MDM - SOB/Dyspnea Lab Data: Labs: Lab Results 02/28/20 02/28/20 02/28/20 Range/Units 15:55 15:55 15:55 WBC 4.3 (4.0-10.0) 10^3/ uL RBC 3.47 L (4.1-5.3) 10^6/u L Hgb 10.6 L (11.7-16.6) g/dL Hct 33.8 L (42.0-52.0) % MCV 97.4 H (80-94) fL MCH 30.5 (28.0-34.0) pg MCHC 31.4 (30.0-36.0) g/dL RDW 14.8 (12.1-15.1) % Plt Count 130 (130-400) 10^3/c mm MPV 9.7 (7.4-10.4) fL Neut % (Auto) 65.8 % Lymph % (Auto) 21.3 % [place] % (Auto) 8.8 % Eos % (Auto) 0.9 % Baso % (Auto) 0.2 % Neut # (Auto) 2.8 (1.8-7.7) 10^3/u L Lymph # (Auto) 0.9 (0.8-4.8) 10^3/u L [place] # (Auto) 0.4 (0.2-0.9) 10^3/u L Eos # (Auto) 0.0 (0.0-0.8) 10^3/u L Baso # (Auto) 0.0 (0.0-0.1) 10^3/u L Nucleated RBC % (a uto) 0 % Nucleated RBCs # 0.0 /100WBC Specimen Type Sample Site ABG pH (7.35-7.45) ABG pCO2 (35-45) mmHg ABG pO2 (80.0-100.0) mmH g ABG HCO3 (22-26) mmol/L ABG Base Excess (-2.0-2.0) mmol/ L Daniel Test Hematocrit (42-52) % Hgb O2 Saturation (95-100) % Carboxyhemoglobin (0.4-20.1) %THgb Methemoglobin (0.4-1.5) % Total Hemoglobin (14-18) g/dL O2 Delivery Device O2 Liters/Min % FiO2 % Product Representative ID Sodium 133 L (136-145) mmol/L Potassium 3.8 (3.5-5.1) mmol/L Chloride 97 L (98-107) mmol/L Carbon Dioxide 23 (22-29) mmol/L Anion Gap 16.8 (5-19) BUN 23 (8-23) mg/dL Creatinine 1.8 H (0.7-1.2) mg/dL Glucose 142 H (65-115) mg/dL Calculated Osmolal ity 275 L (285-295) mOsm/k g Lactic Acid 1.2 (0.5-2.2) mmol/L Calcium 12.1 H (8.5-10.5) mg/dL Total Bilirubin 0.8 (0.15-1.2) mg/dL AST 23 (0-40) U/L ALT 9 (0-41) U/L Alkaline Phosphata se 44 (40-130) IU/L Troponin T Baselin e (0-15) ng/mL NT-Pro-B Natriuret Pep 875 H (0-450) pg/mL Total Protein 13.0 H (6.6-8.7) g/dL Albumin 2.3 L (3.5-5.2) g/dL Globulin 10.7 H (1.3-4.6) g/dL Influenza Type A A g (Negative) Influenza Type B A g (Negative) 02/28/20 02/28/20 02/28/20 Range/Units 15:55 16:03 16:28 WBC (4.0-10.0) 10^3/ uL RBC (4.1-5.3) 10^6/u L Hgb (11.7-16.6) g/dL Hct (42.0-52.0) % MCV (80-94) fL MCH (28.0-34.0) pg MCHC (30.0-36.0) g/dL RDW (12.1-15.1) % Plt Count (130-400) 10^3/c mm MPV (7.4-10.4) fL Neut % (Auto) % Lymph % (Auto) % [place] % (Auto) % Eos % (Auto) % Baso % (Auto) % Neut # (Auto) (1.8-7.7) 10^3/u L Lymph # (Auto) (0.8-4.8) 10^3/u L [place] # (Auto) (0.2-0.9) 10^3/u L Eos # (Auto) (0.0-0.8) 10^3/u L Baso # (Auto) (0.0-0.1) 10^3/u L Nucleated RBC % (a uto) % Nucleated RBCs # /100WBC Specimen Type Arterial Sample Site Radial, left ABG pH 7.48 H (7.35-7.45) ABG pCO2 30.0 L (35-45) mmHg ABG pO2 64.4 L (80.0-100.0) mmH g ABG HCO3 22.1 (22-26) mmol/L ABG Base Excess -0.6 (-2.0-2.0) mmol/ L Daniel Test Pos Hematocrit 39.0 L (42-52) % Hgb O2 Saturation 91.9 L (95-100) % Carboxyhemoglobin 1.1 (0.4-20.1) %THgb Methemoglobin 0.8 (0.4-1.5) % Total Hemoglobin 12.7 L (14-18) g/dL O2 Delivery Device Nc O2 Liters/Min 2.5 % FiO2 30.0 % Product Representative ID glc Sodium (136-145) mmol/L Potassium (3.5-5.1) mmol/L Chloride (98-107) mmol/L Carbon Dioxide (22-29) mmol/L Anion Gap (5-19) BUN (8-23) mg/dL Creatinine (0.7-1.2) mg/dL Glucose (65-115) mg/dL Calculated Osmolal ity (285-295) mOsm/k g Lactic Acid (0.5-2.2) mmol/L Calcium (8.5-10.5) mg/dL Total Bilirubin (0.15-1.2) mg/dL AST (0-40) U/L ALT (0-41) U/L Alkaline Phosphata se (40-130) IU/L Troponin T Baselin e 29 H (0-15) ng/mL NT-Pro-B Natriuret Pep (0-450) pg/mL Total Protein (6.6-8.7) g/dL Albumin (3.5-5.2) g/dL Globulin (1.3-4.6) g/dL Influenza Type A A g Negative (Negative) Influenza Type B A g Negative (Negative) Discharge Plan Discharge Patient Disposition: Admitted As Inpatient Clinical Impression: Acute exacerbation of chronic obstructive airways disease, Respiratory distress COPD (chronic obstructive pulmonary disease) Qualifiers: COPD type: emphysema Emphysema type: other Qualified Code(s): J43.8 - Other emphysema Diastolic CHF Qualifiers: Heart failure chronicity: acute on chronic Qualified Code(s): I50.33 - Acute on chronic diastolic (congestive) heart failure Condition: Fair Referrals: Richard Leslie DO [Primary Care Provider] - Coding Level of Care Code ED Fire Engine Pump Operator for Chg Fwd Exam Comprehensive
--- NOTE | 2020-02-28 15:38 | XR_ITS ---
WS: [id number] XR chest 1V portable [id number] REASON FOR EXAM: dyspnea FINDINGS: Patchy infiltrate in the left lung base suggesting low-grade pneumonitis. The heart is order line enlarged. There is chronic obstructive pulmonary disease. There is no pneumonic consolidation seen. XR/XR chest 1V portable [id number] IMPRESSION: Low-grade pneumonitis left lung base Chronic obstructive pulmonary disease.
--- NOTE | 2020-02-28 15:39 | ECG_ITS ---
Measurements Intervals [place] Rate: 131 P: OR: 0 QRS: 2 QRSD: 107 T: 83 QT: 319 QTc: 472 ATRIAL FIBRILLATION WITH RAPID VENTRICULAR RESPONSE WITH premature VENTRICULAR PREMATURE COMPLEXES NONSPECIFIC ST & T-WAVE ABNORMALITY ABNORMAL RHYTHM ECG Compared to ECG 02/19/2020 03:35:55 Aberrant conduction of supraventricular beat(s) now present Ventricular premature complex(es) now present Sinus rhythm no longer present T-wave abnormality still present Electronically Signed On 02-29-2020 18:15:18 CDT by Varinder Paulino M.D. [email or web address]
[2020-02-28] MEDS: ipratropium-albuterol 3 mL Neb INHALATION ×2 (15:51→21:24)
[2020-02-28 16:03] LABS: Basophils % 0.2 %; Eosinophils % 0.9 %; Hematocrit 33.8 % (42.0-52.0); Hemoglobin 10.6 g/dL (11.7-16.6); Lymphocytes # 0.9 10^3/uL (0.8-4.8); Lymphocytes % 21.3 %; Mean Corpuscular HGB Conc 31.4 g/dL (30.0-36.0); Mean Corpuscular Hemoglobin 30.5 pg (28.0-34.0); Mean Corpuscular Volume 97.4 fL (80-94); Mean Platelet Volume 9.7 fL (7.4-10.4); Monocytes # 0.4 10^3/uL (0.2-0.9); Monocytes % 8.8 %; Neutrophils # 2.8 10^3/uL (1.8-7.7); Neutrophils % 65.8 %; Nucleated Red Blood Cells % 0 %; Platelet Count 130 10^3/cmm (130-400); Red Blood Count 3.47 10^6/uL (4.1-5.3); Red Cell Distribution Width 14.8 % (12.1-15.1); White Blood Count 4.3 10^3/uL (4.0-10.0)
[2020-02-28 16:13] LABS: ABG PH Result 7.48 (7.35-7.45); Base Excess ABG -0.6 mmol/L (-2.0-2.0); Blood Gas Allen Test Pos; Blood Gas LPM 2.5 %; Blood Gas Operator Identificat glc; Blood Gas Sample Site Radial, left; Blood Gas Sample Type Arterial; Carboxyhemoglobin 1.1 %THgb (0.4-20.1); HCO3 ABG 22.1 mmol/L (22-26); HGB O2 Sat 91.9 % (95-100); Methemoglobin 0.8 % (0.4-1.5); Oxygen Device NC; PO2 ABG 64.4 mmHg (80.0-100.0); Total Hemoglobin 12.7 g/dL (14-18)
[2020-02-28 16:21] LABS: Lactic Sepsis W/Reflex 1.2 mmol/L (0.5-2.2)
[2020-02-28 16:26] LABS: Troponin(5th) Baseline 29 ng/mL (0-15)
[2020-02-28] MEDS: sodium chloride 0.9% 500 ML 999 ML IV (16:26)
[2020-02-28 16:33] LABS: Alanine Aminotransferase 9 U/L (0-41); Albumin Level 2.3 g/dL (3.5-5.2); Alkaline Phosphatase 44 IU/L (40-130); Anion Gap 16.8 (5-19); Aspartate Amino Transferase 23 U/L (0-40); Blood Urea Nitrogen 23 mg/dL (8-23); Calcium 12.1 mg/dL (8.5-10.5); Carbon Dioxide 23 mmol/L (22-29); Chloride 97 mmol/L (98-107); Glucose 142 mg/dL (65-115); NT Pro B Type Natriuretic Pept 875 pg/mL (0-450); Osmolality Calculated 275 mOsm/kg (285-295); Potassium 3.8 mmol/L (3.5-5.1); Sodium 133 mmol/L (136-145); Total Bilirubin 0.8 mg/dL (0.15-1.2)
[2020-02-28 16:42] LABS: Globulin 10.7 g/dL (1.3-4.6)
[2020-02-28 16:50] LABS: Influenza A by IFA Negative (Negative); Influenza B by IFA Negative (Negative)
[2020-02-28 17:53] LABS: Troponin 5 2HR 25.59 ng/mL (0-15)
[2020-02-28 17:56] LABS: Troponin 5 2HR Delta -3.41 ABS# (0-10)
--- NOTE | 2020-02-28 18:16 | PM.HP ---
Providers/Chief Complaint Admitting Physician: Live Cox Primary Care Provider: Richard Leslie DO Chief Complaint: DYSPNEA History of Present Illness Renate Yarbrough is a 84 year old pleasant gentleman with history of COPD, HTN, HLD, DM2, BPH returned to the hospital due to extreme fatigability and shortness of breath on exertion. He is on 2L O2 at home and despite taht gets very tired with walking. Due to this has been walking less at home. He reports intermittent cough productive of grayish-greenish sputum. Denies any fever or chills. She does complain of orthopnea and has been having to sleep upright in a chair. He also experiences occasional L side sharp chest pain which may come on with exertion, gets better with rest. He has been dealing with heartburn. CT chest without contrast with COPD, interstitial prominence, chronic granulomatous disease back in 02/20/2020. Multifocal bilateral airspace disease disproportionately localized in right upper lobe lingula and lower lobes. CT abdomen pelvis with enlarged prostate. Review of Systems Const: Reports: fatigue; Denies: fever, chills, body aches or malaise Eyes: Denies: change in vision or eye redness ENMT: Denies: throat pain, oral sores/lesions or ear pain Card: Reports: chest pain and shortness of breath on exertion; Denies: edema or pre-syncope Resp: Reports: shortness of breath, productive cough and change in phlegm color; Denies: coughing up blood GI: Reports: constipation; Denies: abdominal pain, nausea, vomiting, diarrhea, blood in stool or black tarry stool : Denies: flank pain, difficulty urinating, urinary frequency or blood in urine Musc: Denies: back pain, joint swelling or redness Skin/Breast: Denies: rash, sores or new lesion Neuro: Denies: headache, numbness in extremities, weakness in extremities, dizziness, confusion or seizure-like activity Endo: Denies: excessive urination or excessive thirst Reyes/Lymph: Denies: easy bleeding or purpura All/Imm: Denies: hives, throat swelling or tongue swelling Medications/Allergies Home Medications Medication Instructions Recorded Confirmed Last Taken Type albuterol sulfate 2.5 mg INHALATION Q6H PRN 02/19/20 02/28/20 02/18/20 History 2.5MG/3ML blood sugar diagnostic [Prodigy No 02/19/20 02/28/20 Unknown History Coding] metformin 1,000 mg PO BID 02/19/20 02/28/20 02/28/20 History tamsulosin [Flomax] 0.8 mg PO BID 02/19/20 02/28/20 02/28/20 History triamcinolone acetonide 1 applic TOPICAL PRN PRN 02/19/20 02/28/20 Unknown History alprazolam 0.25 mg PO BID PRN 14 Days #30 tab 02/21/20 02/28/20 02/28/20 Rx alum-mag hydroxide-simeth [Mag-Al 30 ml PO Q4H PRN #0 ml 02/21/20 02/28/20 Unknown Rx Plus] amlodipine 5 mg PO DAILY 30 Days #30 tab 02/21/20 02/28/20 02/28/20 Rx fluoxetine 10 mg PO DAILY 14 Days #14 cap 02/21/20 02/28/20 02/28/20 Rx fluticasone propion-salmeterol 1 inh INHALATION BID #1 each 02/21/20 02/28/20 02/28/20 Rx furosemide 20 mg PO DAILY@0800 30 Days #30 tab 02/21/20 02/28/20 02/28/20 Rx metoprolol tartrate 12.5 mg PO BID 30 Days #60 tab 02/21/20 02/28/20 02/28/20 Rx pantoprazole 40 mg PO BID 30 Days #60 tab 02/21/20 02/28/20 02/28/20 Rx tiotropium bromide 1 cap INHALATION DAILY #1 inh 02/21/20 02/28/20 02/28/20 Rx tadalafil 5 mg PO DAILY 02/28/20 02/28/20 02/28/20 History Allergies Allergy/AdvReac Type Severity Reaction Status Date / Time Iodinated Contrast Media Allergy Unknown Verified 02/18/20 21:21 PFSH Acute PFSH: Surgical History History of appendectomy History of arthroscopy of right knee History of back surgery History of bilateral carpal tunnel release History of cataract surgery History of left inguinal hernia repair History of tonsillectomy History of vein stripping 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 Family History Family/Other Heart disease no one with known CAD however Social History Smoking and tobacco status: former smoker Quit status (tobacco): has quit using tobacco Year quit tobacco: 40ya Household members: spouse Marital status: Vitals/I&O/Wt Last Vital Signs Temp 98.1 F 02/28/20 15:36 Pulse 85 02/28/20 18:01 Resp 16 02/28/20 18:01 BP 130/78 02/28/20 18:01 Pulse Ox 94 02/28/20 18:01 Weight last 48 hrs Weight 78.471 kg Physical Exam Const: COMMON NORMALS: no apparent distress and oriented x3 OTHER: facemask HENMT: COMMON NORMALS: oropharynx normal Neck/C-Spine: COMMON NORMALS: no JVD Resp: COMMON NORMALS: normal respiratory effort AUSCULTATION: diminished lung sounds Cardio: COMMON NORMALS: regular rhythm, S1 normal heart sound, S2 normal heart sound and no murmurs JUGULAR VENOUS DISTENTION: JVD positive to the level of the angle of the jaw RHYTHM: regular rhythm HEART SOUNDS: S1 normal and S2 normal GI: COMMON NORMALS: normal to inspection, nondistended, normoactive bowel sounds, soft to palpation and non-tender PALPATION: Yes soft Extremity: COMMON NORMALS: no joint enlargement and no pedal edema Neuro: COMMON NORMALS: oriented x3 and moves all extremities Skin: COMMON NORMALS: no rashes or lesions noted GENERAL SKIN EXAM: no rashes or lesions noted Data : 02/28/20 15:55 02/28/20 15:55 Micro: Microbiology 02/28/20 15:55 Blood Culture - Preliminary Blood SPECIMEN COLLECTED 02/28/20 15:55 Blood Culture - Preliminary Blood SPECIMEN COLLECTED A&P Assessment and plan (1) Easy fatigability: Very easy fatigability, he states even walking around the house gets him extremely tired. He has been staying sedentary mostly. Does get fatigued after getting up and walking for some time, less so if he is working with something while sitting down. He does get somewhat lightheaded, although denies syncope or previous syncope. We will check his orthostatic blood pressures as he is on Flomax and with history of diabetes. He does have emphysema, COPD, and currently with mild exacerbation, with productive cough. There is perhaps mild degree of diastolic CHF exacerbation with orthopnea, JVD, interstitial prominence. At the same time interstitial prominence, chronic lung changes, hypoxia, fatigability are concerning for possible interstitial lung disease. PFT was requested during last admission, as was sleep study. We will place him in observation for now, manage COPD and CHF exacerbation, and on discharge request referral for assessment by pulmonology after PFT. As he also reports intermittent chest pain, with cough, shortness of breath, hypoxia, will assess by VQ scan as he is allergic to contrast dye. As he also reports intermittent chest pain on exertion, with past history of smoking, HTN, HLD, DM 2, he would benefit from assessment by stress testing, although discussed with him this would need to be several days apart from the VQ scan, and depending on his symptoms may be accomplished on an outpatient basis. He verbalized understanding and agreement with plan. Status: Acute (2) Acute exacerbation of chronic obstructive airways disease: COPD exacerbation with cough, grayish-greenish sputum. Dyspnea, very severe dyspnea on exertion. Interestingly his ABG is actually with hypercapnia. Suspect perhaps there may be another process contributing to his dyspnea. PFT was requested during the last admission along with a sleep study. We will start him on prednisone, antibiotic, breathing treatments, continue oxygen support. Status: Acute (3) Diastolic CHF: Perhaps very mild exacerbation with interstitial changes on CT scan, with JVD distention on exam. Otherwise does not have peripheral edema. Does complain of orthopnea. We will give him 20 mg IV Lasix. Monitor urine output, monitor response. Status: Acute Qualifiers: Heart failure chronicity: acute on chronic Qualified Code(s): I50.33 - Acute on chronic diastolic (congestive) heart failure (4) GERD (gastroesophageal reflux disease): Status: Acute (5) Diabetes mellitus, type II: Status: Acute Qualifiers: Diabetes mellitus skilled nursing insulin use: without intermediate school teacher use Diabetes mellitus complication status: without complication Qualified Code(s): E11.9 - Type 2 diabetes mellitus without complications (6) Benign prostatic hyperplasia: Status: Acute Qualifiers: Lower urinary tract symptom presence: symptoms present Lower urinary tract symptom detail: urinary frequency Qualified Code(s): N40.1 - Benign prostatic hyperplasia with lower urinary tract symptoms; R35.0 - Frequency of micturition (7) Hypertension: Status: Acute Qualifiers: Hypertension type: essential hypertension Qualified Code(s): I10 - Essential (primary) hypertension (8) Paraproteinemia: Noted hyperglobulinemia during last admission. Will need additional assessment. Status: Acute (9) Hypoxia: As above Status: Acute Attestations Medical Necessity Statement*: Please see observation. Coding Level of Care Code Acute Sulfonator Operator for Chg Fwd Diagnoses Easy fatigability R53.83 Acute exacerbation of chronic obstructive airways disease J44.1 Diastolic CHF I50.33 Heart failure chronicity: acute on chronic GERD (gastroesophageal reflux disease) K21.9 Diabetes mellitus, type II E11.9 Diabetes mellitus skilled nursing insulin use: without intermediate school teacher use Diabetes mellitus complication status: without complication Benign prostatic hyperplasia N40.1; R35.0 Lower urinary tract symptom presence: symptoms present Lower urinary tract symptom detail: urinary frequency Hypertension I10 Hypertension type: essential hypertension Paraproteinemia D89.2 Hypoxia R09.02
[2020-02-28 19:26] LABS: Free T4 Free Thyroxine 1.41 ng/dL (0.82-1.77); T3 Free 1.7 PG/ML (2.0-4.4); Thyroid Stimulating Hormone 4.12 uIU/mL (0.27-4.20)
[2020-02-28] MEDS: FUROsemide 10 mg/mL SDV 2mL 20 MG IVP (20:12)
[2020-02-28] MEDS: levofloxacin-dextrose 5 % 750 MG/150 ML PREMIX 100 MG IV (20:13)
[2020-02-28] MEDS: predniSONE 20 mg Tablet 40 MG PO (20:14)
[2020-02-28] MEDS: enoxaparin 40 mg/0.4 mL Syringe SUBCUT (20:14)
--- NOTE | 2020-02-28 21:39 | ECG_ITS ---
Measurements Intervals [place] Rate: 84 P: 26 GA: 164 QRS: 3 QRSD: 103 T: 31 QT: 372 QTc: 442 SINUS RHYTHM NONSPECIFIC T-WAVE ABNORMALITY Compared to ECG 02/20/2020 14:28:26 No significant changes Electronically Signed On 02-29-2020 18:25:30 CDT by Varinder Paulino M.D. [email or web address]
[2020-02-28 22:27] LABS: Troponin 5 6HR 29.49 ng/mL (0-15); Troponin 5 6HR Delta 0.49 ng/L (0-12)
[2020-02-28 23:08] LABS: Calcium 11.6 mg/dL (8.5-10.5); Parathyroid Hormone 11.4 pg/mL (15-65)
[2020-02-29] VITALS (11 sets, daily range): BP systolic 117–148; BP diastolic 68–89; PULSE 65–91; RESP 16–22; TEMP 36.5–36.8; O2SAT 91–95
--- NOTE | 2020-02-29 00:11 | PC.PHAR ---
Levaquin dosage is adjusted from 750mg IVPB every 24 hours to 750mg IVPB every 48 hours due to creatinine clearance of 31.00.
[2020-02-29] MEDS: ALPRAZolam 0.25 mg Tablet PO ×2 (00:33→12:12)
[2020-02-29] MEDS: trazodone 50 mg Tablet 25 MG PO (00:34)
[2020-02-29] MEDS: fluticasone nasal spray 16gm Btl 1 SPRAY NASAL ×2 (02:13→12:12)
[2020-02-29] MEDS: diphenhydrAMINE 25 mg Capsule PO (02:13)
[2020-02-29 05:25] LABS: Basophils % 0.2 %; Eosinophils % 0.2 %; Hemoglobin 10.8 g/dL (11.7-16.6); Lymphocytes # 0.8 10^3/uL (0.8-4.8); Lymphocytes % 17.8 %; Mean Corpuscular HGB Conc 30.9 g/dL (30.0-36.0); Mean Corpuscular Hemoglobin 29.8 pg (28.0-34.0); Mean Corpuscular Volume 96.4 fL (80-94); Mean Platelet Volume 10.2 fL (7.4-10.4); Monocytes # 0.3 10^3/uL (0.2-0.9); Monocytes % 5.6 %; Neutrophils # 3.2 10^3/uL (1.8-7.7); Neutrophils % 71.8 %; Nucleated Red Blood Cells % 0 %; Platelet Count 143 10^3/cmm (130-400); Red Blood Count 3.63 10^6/uL (4.1-5.3); Red Cell Distribution Width 14.6 % (12.1-15.1); White Blood Count 4.5 10^3/uL (4.0-10.0)
[2020-02-29 05:47] LABS: Anion Gap 18.1 (5-19); Blood Urea Nitrogen 22 mg/dL (8-23); Calcium 12.3 mg/dL (8.5-10.5); Carbon Dioxide 21 mmol/L (22-29); Chloride 94 mmol/L (98-107); Creatinine Clr Calc Pharmacy 34.3716; Glucose 208 mg/dL (65-115); Osmolality Calculated 271 mOsm/kg (285-295); Potassium 4.1 mmol/L (3.5-5.1); Sodium 129 mmol/L (136-145)
--- NOTE | 2020-02-29 08:21 | NM_ITS ---
WS: [id number] NM pulm vent and perfus* [id number] REASON FOR EXAM: dyspnea, cough, chest pain episodes TECHNICAL: 32.7 mCi technetium labeled 99 M.D. TR a, 5.5 mCi technetium 99m MAA. FINDINGS: Perfusion scan shows normal symmetrical distribution of the radiotracer throughout the skel etal system with a low probability of pulmonary embolus. The DTPA study shows normal ventilation with some retention suggesting some degree of restrictive parker g changes. NM/NM pul vent and perfus* [id number] IMPRESSION: Ventilation/perfusion changes suggest low probability of pulmonary embolus.
[2020-02-29] MEDS: metoprolol tartrate 25 mg Tablet 12.5 MG PO ×2 (09:08→17:43)
[2020-02-29] MEDS: predniSONE 20 mg Tablet 40 MG PO (09:08)
[2020-02-29] MEDS: tamsulosin 0.4 mg Capsule 0.8 MG PO ×2 (09:09→17:43)
[2020-02-29] MEDS: pantoprazole DR 40 mg Tablet PO ×2 (09:09→17:44)
[2020-02-29] MEDS: fluoxetine 10 mg Capsule PO (09:09)
--- NOTE | 2020-02-29 11:26 | PC.NURSE ---
[place] [facility] [place] [facility]
--- NOTE | 2020-02-29 13:47 | PC.NURSE ---
DR IN ROOM AND RECIEVED ORDER TO RPT ORTHOSTATIC BP.
--- NOTE | 2020-02-29 18:39 | XR_ITS ---
WS: [id number] XR bone survey* [id number] REASON FOR EXAM: poss plasmacytoma FINDINGS: In the cervical region there is evidence of anterior fusion from spurring 4-C5-C6. There is loss of the disc space C5 4-5, C5-C6, C6-7. No other evidence of destructive changes are see n. The thoracic spine shows a mild scoliotic curve convex to the right. No lytic changes in the ribs or thoracic spine are seen. The lumbar spine shows a scoliotic curve convex to the left side. There is fusion of the C3, C4, 5, with posterior instrumentation. No lytic changes are seen. At the L3-4 level there is loss of the disc space no sclerotic changes or lytic changes. The pelvis shows normal ilium, ischium, and pubis. Both hip joints are normal. The left hip shows no destructive changes. The left femur and knee joint shows no destructive changes. The left and right humerus were normal. XR/XR bone survey* [id number] IMPRESSION: Bone survey does not suggest plasmocytoma. There is postop changes lumbar spine cervical spine all in good position.
[2020-02-29] MEDS: sodium chloride 0.9% 1,000 ML 75 ML IV (18:48)
[2020-02-29] MEDS: FUROsemide 10 mg/mL SDV 4mL 40 MG IVP (18:48)
[2020-02-29] MEDS: dexamethasone 10 mg/mL INJ 20 MG IVP (19:45)
--- NOTE | 2020-02-29 21:17 | PM.PN ---
Subjective Subjective: Interval history: He is still feeling very fatigued. Gets very tired with exertion. Today is having some cough which he found to be triggered by nebulizer treatment. With cough gets intermittent sharp chest pain on the left side, which is also triggered by deep inspiration, and sometimes movement. Vitals/I&O/Wt Last Vital Signs Temp 98.3 F 02/29/20 19:30 Pulse 91 02/29/20 19:58 Resp 18 02/29/20 19:58 BP 125/77 02/29/20 19:30 Pulse Ox 92 02/29/20 19:58 02/29/20 02/29/20 02/29/20 06:59 14:59 22:59 Intake Total 600 / 600 240 / 840 Output Total 475 / 475 400 / 400 200 / 600 Balance -475 / 35 200 / 200 40 / 240 Weight last 48 hrs Weight 78.471 kg Physical Exam Const: COMMON NORMALS: no apparent distress and oriented x3 GENERAL APPEARANCE: anxious OTHER: facemask HENMT: COMMON NORMALS: oropharynx normal Neck/C-Spine: COMMON NORMALS: no JVD Resp: COMMON NORMALS: normal respiratory effort and clear to auscultation bilaterally AUSCULTATION: clear to auscultation bilaterally Cardio: COMMON NORMALS: no JVD, regular rhythm, S1 normal heart sound, S2 normal heart sound and no murmurs JUGULAR VENOUS DISTENTION: JVD positive to the level of the angle of the jaw RHYTHM: regular rhythm HEART SOUNDS: S1 normal and S2 normal GI: COMMON NORMALS: normal to inspection, nondistended, normoactive bowel sounds, soft to palpation and non-tender PALPATION: Yes soft Extremity: COMMON NORMALS: no joint enlargement and no pedal edema Neuro: COMMON NORMALS: oriented x3 and moves all extremities Skin: COMMON NORMALS: no rashes or lesions noted GENERAL SKIN EXAM: no rashes or lesions noted Data : 02/29/20 04:19 02/29/20 04:19 Micro: Microbiology 02/28/20 15:55 Blood Culture - Preliminary Blood NEGATIVE TO DATE 02/28/20 15:55 Blood Culture - Preliminary Blood NEGATIVE TO DATE 02/28/20 21:55 Gram Stain - Final Sputum - Expectorated Sputum A&P Assessment and plan (1) Easy fatigability: He is still feeling fatigued with exertion and at rest. With severe functional decline, mostly staying in a chair. Previously active. VQ scan obtained today, without sign of PE. No sign of acute FL on EKG and troponin. Today he sounds clear to auscultation, without any wheezing, no diminished lung sounds. Did receive a dose of Lasix yesterday. I do not appreciate significant JVD today. No peripheral edema. Was started on treatment for COPD, also appears to have left lung pneumonia. Continue Levaquin. Continue steroid, breathing treatments, if he will allow as he has declined several times as they have made him cough, continue oxygen support. He is saturating well at rest on 2 L. We had about a 40-minute discussion with his family. Answered all their questions during that time. They do discussed that he at home sometimes desaturates down to 86% with activity. They are concerned that he has been very fatigable recently. They are also concerned that he is requiring quite a bit of different evaluation, and specialist follow-up, and has very difficult access to healthcare due to where they live. They are agreeable for arrangements for home health care. Discussed his condition and imaging with pulmonology. On review of laboratory studies, he has persistent hypercalcemia, with severe fatigability, constipation. Also with hyperglobulinemia. Requested for SPEP, light chains, immunofixation, as well as urine for UPEP and immunofixation. Discussed with hematology, will also request bone survey. I suspect he may have hematologic malignancy responsible for the findings, as well as his symptoms. Depending on the findings on above studies may be also evaluated by bone marrow biopsy. PTH was checked and is low. Prescription with hematology will give a dose of dexamethasone as hypercalcemia related to hematologic malignancy would respond well to steroid treatment. Request nephrology to assist with management of hypercalcemia which appears to be symptomatic. Per discussion with hematology for now we will give some IV hydration, and will increase dose of Lasix. Orthostatic blood pressures checked, and unremarkable. He does have emphysema, COPD, and currently with mild exacerbation, with productive cough. Would benefit from additional assessment by pulmonology. Will request for bedside spirometry. There was perhaps mild degree of diastolic CHF exacerbation with orthopnea, JVD, interstitial prominence, although currently I am not very impressed as there is no further significant JVD, his lungs sound clear, no peripheral edema. Normal EF on last TTE during last admission. Grade 1 diastolic dysfunction. Unremarkable valves. At the same time interstitial prominence, chronic lung changes, hypoxia, fatigability are concerning for possible interstitial lung disease. PFT was requested during last admission, as was sleep study. As he also reports intermittent chest pain, with cough, shortness of breath, hypoxia. VQ scan negative for PE. Will need to wait 72 hours prior to being able to have a MIBI stress test. States could not perform an exercise stress test. Discussed all these conditions, as well as outpatient follow-up with pulmonology, nephrology, urology, depending on findings with hematology, as well as completion of PFT, sleep study with his family. As he is requiring multiple investigations, with difficult access to healthcare, significant functional decline, will transition him to inpatient admission. Status: Acute (2) Acute exacerbation of chronic obstructive airways disease: COPD exacerbation with cough, grayish-greenish sputum. Dyspnea, very severe dyspnea on exertion. Interestingly his ABG is actually with hypercapnia. Suspect perhaps there may be another process contributing to his dyspnea. PFT was requested during the last admission along with a sleep study. We will start him on prednisone, antibiotic, breathing treatments, continue oxygen support. Status: Acute (3) Diastolic CHF: Perhaps very mild exacerbation with interstitial changes on CT scan, with JVD distention on exam. Otherwise does not have peripheral edema. Does complain of orthopnea. Status: Acute Qualifiers: Heart failure chronicity: acute on chronic Qualified Code(s): I50.33 - Acute on chronic diastolic (congestive) heart failure (4) GERD (gastroesophageal reflux disease): Status: Acute (5) Diabetes mellitus, type II: Status: Acute Qualifiers: Diabetes mellitus terminal computer operator insulin use: without terminal computer operator use Diabetes mellitus complication status: without complication Qualified Code(s): E11.9 - Type 2 diabetes mellitus without complications (6) Benign prostatic hyperplasia: Status: Acute Qualifiers: Lower urinary tract symptom presence: symptoms present Lower urinary tract symptom detail: urinary frequency Qualified Code(s): N40.1 - Benign prostatic hyperplasia with lower urinary tract symptoms; R35.0 - Frequency of micturition (7) Hypertension: Status: Acute Qualifiers: Hypertension type: essential hypertension Qualified Code(s): I10 - Essential (primary) hypertension (8) Paraproteinemia: Noted hyperglobulinemia during last admission. Will need additional assessment. Status: Acute (9) Hypoxia: As above Status: Acute Attestations Medical Necessity Statement*: Requiring admission of over 2 midnights for assessment management of her extreme fatigability, loss and functional capacity with hypoxia, symptomatic hypercalcemia, hyperglobulinemia, with poor access to healthcare. Coding Level of Care Code Acute Patrol Supervisor for Chg Fwd Diagnoses Easy fatigability R53.83 Acute exacerbation of chronic obstructive airways disease J44.1 Diastolic CHF I50.33 Heart failure chronicity: acute on chronic GERD (gastroesophageal reflux disease) K21.9 Diabetes mellitus, type II E11.9 Diabetes mellitus terminal computer operator insulin use: without terminal computer operator use Diabetes mellitus complication status: without complication Benign prostatic hyperplasia N40.1; R35.0 Lower urinary tract symptom presence: symptoms present Lower urinary tract symptom detail: urinary frequency Hypertension I10 Hypertension type: essential hypertension Paraproteinemia D89.2 Hypoxia R09.02
[2020-02-29] MEDS: calcitonin,salmon 200 unit/mL SDV 2mL 300 UNIT SUBCUT (22:25)
[2020-03-01] VITALS (13 sets, daily range): BP systolic 134–164; BP diastolic 73–94; PULSE 66–86; RESP 16–18; TEMP 36.4–36.8; O2SAT 76–96
[2020-03-01] MEDS: fluticasone nasal spray 16gm Btl 1 SPRAY NASAL ×3 (00:35→19:47)
[2020-03-01] MEDS: ALPRAZolam 0.25 mg Tablet PO ×3 (00:36→19:47)
[2020-03-01 05:22] LABS: Eosinophils % 0.2 %; Hematocrit 32.5 % (42.0-52.0); Hemoglobin 10.4 g/dL (11.7-16.6); Lymphocytes # 0.7 10^3/uL (0.8-4.8); Lymphocytes % 10.9 %; Mean Corpuscular Hemoglobin 30.5 pg (28.0-34.0); Mean Corpuscular Volume 95.3 fL (80-94); Mean Platelet Volume 10.2 fL (7.4-10.4); Monocytes # 0.3 10^3/uL (0.2-0.9); Monocytes % 5.6 %; Neutrophils # 4.9 10^3/uL (1.8-7.7); Neutrophils % 80.8 %; Nucleated Red Blood Cells % 0 %; Platelet Count 146 10^3/cmm (130-400); Red Blood Count 3.41 10^6/uL (4.1-5.3); Red Cell Distribution Width 14.5 % (12.1-15.1); White Blood Count 6.1 10^3/uL (4.0-10.0)
[2020-03-01 05:48] LABS: Anion Gap 15.5 (5-19); Blood Urea Nitrogen 25 mg/dL (8-23); Calcium 11.4 mg/dL (8.5-10.5); Carbon Dioxide 23 mmol/L (22-29); Chloride 96 mmol/L (98-107); Creatinine Clr Calc Pharmacy 36.5198; Glucose 298 mg/dL (65-115); Osmolality Calculated 280 mOsm/kg (285-295); Potassium 3.5 mmol/L (3.5-5.1); Sodium 131 mmol/L (136-145)
[2020-03-01] MEDS: FUROsemide 10 mg/mL SDV 4mL 40 MG IVP (06:27)
[2020-03-01 06:52] LABS: Glucose Point of Care 261 mg/dL (70-110)
--- NOTE | 2020-03-01 07:58 | PM.CONSULT ---
Providers/Reason For Consult Consulting Physican/Specialty*: Trice Miller DO, telenephrology Reason for Consult*: hypercalcemia Attending Physician: Live Cox Primary Care Provider: Richard Leslie DO History of Present Illness History of Present Illness Renate Yarbrough is a 84 year old male admitted for evaluation of weakness and shortness of breath. Hypercalcemia - states he was taking 1 calcium tablet daily Review of Systems Const: Reports: fatigue Card: Denies: chest pain Resp: Reports: shortness of breath : Reports: urinary frequency Meds/Allergies Home Medications and Allergies Home Medications Medication Instructions Recorded Confirmed Last Taken Type albuterol sulfate 2.5 mg INHALATION Q6H PRN 02/19/20 02/28/20 02/18/20 History 2.5MG/3ML blood sugar diagnostic [Prodigy No 02/19/20 02/28/20 Unknown History Coding] metformin 1,000 mg PO BID 02/19/20 02/28/20 02/28/20 History tamsulosin [Flomax] 0.8 mg PO BID 02/19/20 02/28/20 02/28/20 History triamcinolone acetonide 1 applic TOPICAL PRN PRN 02/19/20 02/28/20 Unknown History alprazolam 0.25 mg PO BID PRN 14 Days #30 tab 02/21/20 02/28/20 02/28/20 Rx alum-mag hydroxide-simeth [Mag-Al 30 ml PO Q4H PRN #0 ml 02/21/20 02/28/20 Unknown Rx Plus] amlodipine 5 mg PO DAILY 30 Days #30 tab 02/21/20 02/28/20 02/28/20 Rx fluoxetine 10 mg PO DAILY 14 Days #14 cap 02/21/20 02/28/20 02/28/20 Rx fluticasone propion-salmeterol 1 inh INHALATION BID #1 each 02/21/20 02/28/20 02/28/20 Rx furosemide 20 mg PO DAILY@0800 30 Days #30 tab 02/21/20 02/28/20 02/28/20 Rx metoprolol tartrate 12.5 mg PO BID 30 Days #60 tab 02/21/20 02/28/20 02/28/20 Rx pantoprazole 40 mg PO BID 30 Days #60 tab 02/21/20 02/28/20 02/28/20 Rx tiotropium bromide 1 cap INHALATION DAILY #1 inh 02/21/20 02/28/20 02/28/20 Rx tadalafil 5 mg PO DAILY 02/28/20 02/28/20 02/28/20 History Allergies Allergy/AdvReac Type Severity Reaction Status Date / Time Iodinated Contrast Media Allergy Unknown Verified 02/18/20 21:21 Current Medications Current Medications Generic Name Dose Route Start Last Admin Trade Name Freq PRN Reason Stop Dose Admin Albuterol/Ipratropium 3 ml 02/28/20 21:00 02/29/20 19:59 Duoneb INHALATION Not Given Q6H.RESPIRATORY MAHESH Alprazolam 0.25 mg 02/29/20 21:19 03/01/20 00:36 Xanax PO 0.25 mg QID PRN Administration Anxiety Calcitonin [place] 300 unit 02/29/20 20:30 02/29/20 22:25 Miacalcin SUBCUT 300 unit BID MAHESH Administration Enoxaparin Sodium 40 mg 02/28/20 19:30 02/29/20 18:49 Lovenox SUBCUT Not Given Q24H MAHESH Fluoxetine HCl 10 mg 02/29/20 09:00 02/29/20 09:09 Prozac PO 10 mg DAILY MAHESH Administration Fluticasone Propionate 1 spray 02/29/20 02:05 03/01/20 00:35 Flonase NASAL 1 spray BID PRN Administration congestion Furosemide 40 mg 02/29/20 19:00 03/01/20 06:27 Lasix IVP 40 mg Q12H MAHESH Administration Sodium Chloride 1,000 mls @ 75 mls/hr 02/29/20 18:45 02/29/20 18:48 Sodium Chloride 0.9% IV 75 mls/hr .[id number] MAHESH Administration Metoprolol Tartrate 12.5 mg 02/29/20 09:00 02/29/20 17:43 Lopressor PO 12.5 mg BID MAHESH Administration Non-Formulary Medication 5 mg 02/29/20 09:00 02/29/20 08:34 Tadalafil PO Not Given DAILY MAHESH Pantoprazole Sodium 40 mg 02/29/20 09:00 02/29/20 17:44 Protonix PO 40 mg BID MAHESH Administration Polyethylene Glycol 17 gm 02/29/20 09:00 02/29/20 17:44 Miralax PO Not Given BID MAHESH Prednisone 40 mg 02/28/20 19:00 02/29/20 09:08 Prednisone PO 40 mg DAILY MAHESH Administration Tamsulosin HCl 0.8 mg 02/29/20 09:00 02/29/20 17:43 Flomax PO 0.8 mg BID MAHESH Administration PFSH Acute PFSH: Medical History Benign prostatic hyperplasia COPD (chronic obstructive pulmonary disease) Diabetes mellitus, type II GERD (gastroesophageal reflux disease) History of hyperlipidemia Previously prescribed statin but was taken off few years ago by PCP Hypertension Osteoarthritis Surgical History History of appendectomy History of arthroscopy of right knee History of back surgery History of bilateral carpal tunnel release History of cataract surgery History of left inguinal hernia repair History of tonsillectomy History of vein stripping 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 Family History Family/Other Heart disease no one with known CAD however Social History Smoking and tobacco status: former smoker Quit status (tobacco): has quit using tobacco Year quit tobacco: 40ya Household members: spouse Marital status: Vitals/I&O/Wt Last Vital Signs Temp 98.0 F 03/01/20 07:30 Pulse 68 03/01/20 07:30 Resp 18 03/01/20 07:30 BP 144/81 03/01/20 07:30 Pulse Ox 93 03/01/20 07:30 02/29/20 03/01/20 03/01/20 22:59 06:59 14:59 Intake Total 240 / 840 Output Total 1100 / 1500 600 / 2100 700 / 700 Balance -860 / -660 -600 / -1260 -700 / -700 Weight last 48 hrs Weight 78.471 kg Physical Exam Const: COMMON NORMALS: no apparent distress GENERAL APPEARANCE: cooperative HENMT: COMMON NORMALS: normocephalic HEAD & SCALP: normocephalic Eye: COMMON NORMALS: no scleral icterus Cardio: COMMON NORMALS: regular rate and regular rhythm RATE: regular rate RHYTHM: regular rhythm Extremity: COMMON NORMALS: no clubbing, cyanosis or edema Data Labs: Other Labs: calcium 11.4, albumin 2.3, corrected calcium approx 12.6, ionized Ca pending, PTH 11.4 pg/ml Micro: Micro: Microbiology 02/28/20 15:55 Blood Culture - Pr eliminary Blood NEGATIVE TO DILLON E 02/28/20 15:55 Blood Culture - Pr eliminary Blood NEGATIVE TO DILLON E 02/28/20 21:55 Gram Stain - Final Sputum - Expector ated Sputum Imaging^: CXR: Radiologist's impression: Low-grade pneumonitis left lung base Chronic obstructive pulmonary disease. CT Abd/Pel: Radiologist's impression: 1. COPD , interstitial prominence, and chronic granulomatous disease. 2. Multifocal bilateral airspace disease, disproportionately localized in the right upper lobe, lingula, and lower lobes. 3. Atherosclerotic plaque and calcification in the enlarged thoracic aorta with the ascending thoracic aorta measuring 4.6 cm in diameter and the descending thoracic aorta measuring 4.8 cm in diameter. 4. Additional findings as described above. A&P Additional A&P Information 1. Acute kidney injury likely related to volume depletion, improving 2. Hypercalcemia, high serum globulin, anemia, low PTH suggestive of paraproteinemia, possible myeloma. SPEP, K/L light chains pending 3. Mild hyponatremia, serum sodium corrects for glucose to > 130 mEq/L 4. COPD Recommendation: Will give IV zoledronic acid 4 mg over 1 hour, discontinue calcitonin after fourth dose. Continue IVF hydration. Discontinue furosemide for now. 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
[2020-03-01] MEDS: metoprolol tartrate 25 mg Tablet 12.5 MG PO ×2 (08:08→17:02)
[2020-03-01] MEDS: pantoprazole DR 40 mg Tablet PO ×2 (08:08→17:29)
[2020-03-01] MEDS: tamsulosin 0.4 mg Capsule 0.8 MG PO ×2 (08:08→17:29)
[2020-03-01] MEDS: fluoxetine 10 mg Capsule PO (08:08)
[2020-03-01] MEDS: predniSONE 20 mg Tablet 40 MG PO (08:08)
[2020-03-01] MEDS: sodium chloride 0.9% 1,000 ML 75 ML IV (08:57)
[2020-03-01 09:00] LABS: Ionized Calcium 1.2 mmol/L (1.1-1.4)
[2020-03-01] MEDS: calcitonin,salmon 200 unit/mL SDV 2mL 300 UNIT SUBCUT ×2 (09:01→17:31)
[2020-03-01] MEDS: ipratropium-albuterol 3 mL Neb INHALATION ×4 (09:04→21:40)
[2020-03-01 09:15] LABS: Anion Gap 14.6 (5-19); Blood Urea Nitrogen 26 mg/dL (8-23); Calcium 11.4 mg/dL (8.5-10.5); Carbon Dioxide 23 mmol/L (22-29); Chloride 94 mmol/L (98-107); Creatinine Clr Calc Pharmacy 36.5198; Glucose 336 mg/dL (65-115); Osmolality Calculated 276 mOsm/kg (285-295); Potassium 3.6 mmol/L (3.5-5.1); Sodium 128 mmol/L (136-145)
--- NOTE | 2020-03-01 10:56 | PC.CHAP ---
Pastoral Care Encounter/Spiritual Assessment Type of Contact [] Declined architect intern visit [] Patient/Family/Request visit [] Outpatient visit [] Follow-up visit [] Physician referral [] Code/Alert [x] Routine visit [] Staff referral [] Actively dying [] Patient sleeping [] Family support [] [] Out of room [] Palliative care [] [x] Receiving care in room [] Pre-surgical visit [] Trauma [] Long length of stay [] ICU visit [] Other: Relational/Emotional Strength [x] Patient feels connected with others/family/visitors/staff [x] Distress [] Loneliness/isolation [] Abandonment Spirituality of Patient [x] Person of Bertha [] Attends Hindu of their Bertha [x] Believes in Prayer [] Reads Bible or Pentecostal materials [] There are Spiritual issues to be addressed Medical Lab Director Interventions [x] Prayer [x] Active listening [x] Non-anxious presence [x] Spiritual/emotional support [] Crisis/trauma care [x] Spiritual counseling [] Bereavement support [] Provided bereavement packet [] Provided Bible/devotional materials [] Provided toy/stuffed animal, coloring book to patient or family member [] Provided Communion [] Anointing/[place] [] Salvation [x] Completed spiritual assessment [] Other: Impact on Illness or Injury [] Angry [] Fearful [x] Anxious [] Often cries [] Exhaustion [] Unable to work [] Unable to attend taoist [] Unable to walk/stand [] Unable to read [] Unable to drive [] Unable to eat/drink [] Unable to sleep [] Unable to be with family [] Patient intubated [] Other: Summary Stomtic, in pain, has family, assisted does know what is wrong, has a possitive Attitude` Time spent with patient 10 mins
[2020-03-01] MEDS: levofloxacin-dextrose 5 % 750 MG/150 ML PREMIX 100 MG IV (19:47)
--- NOTE | 2020-03-01 21:40 | P.PN_ITS ---
Subjective Subjective: Interval history: He did not sleep very much last night. Today he is legs have been bothering him, feeling uncomfortable, like he needs to move them constantly. Vitals/I&O/Wt Last Vital Signs Temp 97.8 F 03/01/20 19:30 Pulse 71 03/01/20 19:30 Resp 18 03/01/20 19:30 BP 155/83 03/01/20 19:30 Pulse Ox 94 03/01/20 19:30 03/01/20 03/01/20 03/01/20 06:59 14:59 22:59 Intake Total 1720 / 1720 240 / 1960 Output Total 600 / 2100 1400 / 1400 150 / 1550 Balance -600 / -1260 320 / 320 90 / 410 Physical Exam Const: COMMON NORMALS: no apparent distress and oriented x3 GENERAL APPEARANCE: anxious OTHER: Awake and alert. Mildly irritable. HENMT: COMMON NORMALS: oropharynx normal Neck/C-Spine: COMMON NORMALS: no JVD Resp: COMMON NORMALS: normal respiratory effort and clear to auscultation bilaterally AUSCULTATION: clear to auscultation bilaterally Cardio: COMMON NORMALS: no JVD, regular rhythm, S1 normal heart sound, S2 normal heart sound and no murmurs JUGULAR VENOUS DISTENTION: JVD positive to the level of the angle of the jaw RHYTHM: regular rhythm HEART SOUNDS: S1 normal and S2 normal GI: COMMON NORMALS: normal to inspection, nondistended, normoactive bowel sounds, soft to palpation and non-tender PALPATION: Yes soft Extremity: COMMON NORMALS: no joint enlargement and no pedal edema Neuro: COMMON NORMALS: oriented x3 and moves all extremities Skin: COMMON NORMALS: no rashes or lesions noted GENERAL SKIN EXAM: no rashes or lesions noted Data : 03/01/20 04:30 03/01/20 08:45 Micro: Microbiology 02/28/20 21:55 Gram Stain - Final Sputum - Expectorated Sputum Sputum Culture - Preliminary A&P Assessment and plan (1) Easy fatigability: Still gets quite fatigable. Today appears to be bothered by some neuropathy in his legs, making him feel like he needs to move them all the time. Started on treatment for symptomatic hypercalcemia (fatigue, constipation, nephrolithiasis). Assessment for hyperglobulinemia. VQ scan without sign of PE. No sign of acute SD on EKG and troponin. Sounds clear to auscultation, without any wheezing, no diminished lung sounds. Was started on treatment for COPD, also appears to have left lung pneumonia. Continue Levaquin. Continue steroid, breathing treatments, continue oxygen support. Discussed his condition and imaging with pulmonology. Persistent hypercalcemia, with low PTH, with severe fatigability, constipation nephrolithiasis. Also with hyperglobulinemia. Requested for SPEP, light chains, immunofixation, as well as urine for UPEP and immunofixation. Bone survey is unremarkable. Lymphoma possible, although without suggested site on pope CT last admission. Multiple myeloma, MGUS possible. Received a dose of dexamethasone as hypercalcemia related to hematologic malignancy would respond well to steroid treatment. Orthostatic blood pressures checked, and unremarkable. He does have emphysema, COPD, and currently with mild exacerbation, with productive cough. Would benefit from additional assessment by pulmonology. Pending bedside spirometry. There was perhaps mild degree of diastolic CHF exacerbation with orthopnea, JVD, interstitial prominence, although currently I do not see JVD, his lungs sound clear, no peripheral edema. Normal EF on last TTE during last admission. Grade 1 diastolic dysfunction. Unremarkable valves. Repeat chest x-ray in the morning. At the same time interstitial prominence, chronic lung changes, hypoxia, fatigability are concerning for possible interstitial lung disease. PFT was requested during last admission, as was sleep study. As he also reports intermittent chest pain, with cough, shortness of breath, hypoxia. VQ scan negative for PE. Will need to wait 72 hours prior to being able to have a MIBI stress test. States could not perform an exercise stress test. Discussed all these conditions, as well as outpatient follow-up with pulmonology, nephrology, urology, depending on findings with hematology, as well as completion of PFT, sleep study. As he is requiring multiple investigations, with difficult access to healthcare, significant functional decline, will continue inpatient admission. Arrangements will need to be made for home health care on discharge. Status: Acute (2) Acute exacerbation of chronic obstructive airways disease: Persistent symptoms, hypoxia, stating still cannot quite catch my breath . COPD exacerbation with cough, grayish-greenish sputum. Dyspnea, very severe dyspnea on exertion. Interestingly his ABG is actually with hypercapnia. Suspect perhaps there may be another process contributing to his dyspnea. PFT was requested during the last admission along with a sleep study. We will start him on prednisone, antibiotic, breathing treatments, continue oxygen support. Status: Acute (3) Diastolic CHF: Perhaps very mild exacerbation with interstitial changes on CT scan, with JVD distention on exam. Otherwise does not have peripheral edema. Does complain of orthopnea. Status: Acute Qualifiers: Heart failure chronicity: acute on chronic Qualified Code(s): I50.33 - Acute on chronic diastolic (congestive) heart failure (4) GERD (gastroesophageal reflux disease): Status: Acute (5) Diabetes mellitus, type II: Status: Acute Qualifiers: Diabetes mellitus longterm insulin use: without longterm use Diabetes mellitus complication status: without complication Qualified Code(s): E11.9 - Type 2 diabetes mellitus without complications (6) Benign prostatic hyperplasia: Status: Acute Qualifiers: Lower urinary tract symptom presence: symptoms present Lower urinary tract symptom detail: urinary frequency Qualified Code(s): N40.1 - Benign pro static hyperplasia with lower urinary tract symptoms; R35.0 - Frequency of micturition (7) Hypertension: Status: Acute Qualifiers: Hypertension type: essential hypertension Qualified Code(s): I10 - Essential (primary) hypertension (8) Paraproteinemia: Noted hyperglobulinemia during last admission. Will need additional assessment. Status: Acute (9) Hypoxia: As above Status: Acute Attestations Medical Necessity Statement*: Continue admission for assessment management of symptomatic hypercalcemia, hyper globulin anemia, COPD exacerbation, pneumonia, hypoxia, easy fatigability with functional decline. 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 Easy fatigability R53.83 Acute exacerbation of chronic obstructive airways disease J44.1 Diastolic CHF I50.33 Heart failure chronicity: acute on chronic GERD (gastroesophageal reflux disease) K21.9 Diabetes mellitus, type II E11.9 Diabetes mellitus moth exterminator insulin use: without moth exterminator use Diabetes mellitus complication status: without complication Benign prostatic hyperplasia N40.1; R35.0 Lower urinary tract symptom presence: symptoms present Lower urinary tract symptom detail: urinary frequency Hypertension I10 Hypertension type: essential hypertension Paraproteinemia D89.2 Hypoxia R09.02
[2020-03-01] MEDS: trazodone 50 mg Tablet 25 MG PO (23:51)
[2020-03-02] VITALS (9 sets, daily range): BP systolic 134–157; BP diastolic 70–86; PULSE 65–79; RESP 15–18; TEMP 36.7–36.9; O2SAT 88–96
[2020-03-02] MEDS: ALPRAZolam 0.25 mg Tablet PO (01:33)
[2020-03-02 05:51] LABS: Basophils % 0.1 %; Eosinophils % 0.1 %; Hematocrit 31.5 % (42.0-52.0); Lymphocytes # 0.7 10^3/uL (0.8-4.8); Lymphocytes % 9.5 %; Mean Corpuscular HGB Conc 31.7 g/dL (30.0-36.0); Mean Corpuscular Hemoglobin 30.5 pg (28.0-34.0); Monocytes # 0.5 10^3/uL (0.2-0.9); Monocytes % 7.3 %; Neutrophils # 5.8 10^3/uL (1.8-7.7); Neutrophils % 80.1 %; Nucleated Red Blood Cells % 0.3 %; Platelet Count 135 10^3/cmm (130-400); Red Blood Count 3.28 10^6/uL (4.1-5.3); Red Cell Distribution Width 14.5 % (12.1-15.1); White Blood Count 7.3 10^3/uL (4.0-10.0)
--- NOTE | 2020-03-02 06:00 | XR_ITS ---
WS: [id number] XR chest 1V portable [id number] REASON FOR EXAM: Hypoxia FINDINGS: Unchanged infiltrates basilar portion left lower lung. Chronic obstructive pulmonary disease. The heart mediastinum were normal. The hilum and apices normal. XR/XR chest 1V portable [id number] IMPRESSION: Low-grade pneumonia basilar portion left lower lung Chronic obstructive pulmonary disease.
[2020-03-02 06:09] LABS: LAB Peripheral Smear Sent for Review
[2020-03-02 06:19] LABS: Anion Gap 12.6 (5-19); Blood Urea Nitrogen 20 mg/dL (8-23); Calcium 10.3 mg/dL (8.5-10.5); Carbon Dioxide 24 mmol/L (22-29); Chloride 96 mmol/L (98-107); Glucose 175 mg/dL (65-115); Osmolality Calculated 269 mOsm/kg (285-295); Potassium 3.6 mmol/L (3.5-5.1); Sodium 129 mmol/L (136-145)
[2020-03-02] MEDS: ipratropium-albuterol 3 mL Neb INHALATION ×2 (08:15→14:15)
[2020-03-02] MEDS: tamsulosin 0.4 mg Capsule 0.8 MG PO (08:43)
[2020-03-02] MEDS: fluoxetine 10 mg Capsule PO (08:44)
[2020-03-02] MEDS: pantoprazole DR 40 mg Tablet PO (08:44)
[2020-03-02] MEDS: metoprolol tartrate 25 mg Tablet 12.5 MG PO (08:44)
[2020-03-02 09:42] LABS: PROTEIN, TOTAL 12.2 g/dL (6.1-8.1)
--- NOTE | 2020-03-02 11:58 | PM.PN ---
Subjective Subjective: Interval history: dypsnea better - on baseline O2 at 3 l/min review of systems unremarkable Medications: Reviewed: Yes Medication Review Details: received zoledronic acid and completed calcitonin Vitals/I&O/Wt Last Vital Signs Temp 98.4 F 03/02/20 11:10 Pulse 78 03/02/20 11:10 Resp 18 03/02/20 11:10 BP 147/84 03/02/20 11:10 Pulse Ox 96 03/02/20 11:10 03/01/20 03/02/20 03/02/20 22:59 06:59 14:59 Intake Total 700 / 2420 100 / 2520 480 / 480 Output Total 150 / 1550 1100 / 2650 Balance 550 / 870 -1000 / -130 480 / 480 Physical Exam Const: COMMON NORMALS: no apparent distress and alert GENERAL APPEARANCE: cooperative Extremity: COMMON NORMALS: no clubbing, cyanosis or edema Neuro: SENSORIUM/ORIENTATION: Yes alert Data : 03/02/20 05:01 03/02/20 05:01 Micro: Microbiology 02/28/20 21:55 Gram Stain - Final Sputum - Expectorated Sputum Sputum Culture - Final A&P Additional A&P Information 1. Acute kidney injury likely related to volume depletion, improving 2. Hypercalcemia, resolved. High serum globulin, anemia, low PTH suggestive of paraproteinemia, possible myeloma. SPEP, K/L light chains pending, skeletal survey did not reveal lesions 3. Mild hyponatremia, serum sodium corrects for glucose to > 130 mEq/L 4. COPD Recommendation: Okay for discharge from renal standpoint with close outpatient follow-up, including SPEP and K/L results. Patient instructed NOT to take vitamin D or calcium after discharge. 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
[2020-03-02 12:01] LABS: ABNORMAL PROTEIN BAND 1 0.2 g/dL (NONE DETECTED); ABNORMAL PROTEIN BAND 2 6.8 g/dL (NONE DETECTED); ALBUMIN 3.2 g/dL (3.8-4.8); ALPHA 1 GLOBULIN 0.4 g/dL (0.2-0.3); ALPHA 2 GLOBULIN 0.9 g/dL (0.5-0.9); BETA 1 GLOBULIN 0.4 g/dL (0.4-0.6); BETA 2 GLOBULIN 0.3 g/dL (0.2-0.5)
[2020-03-02] MEDS: predniSONE 20 mg Tablet 40 MG PO (12:47)
--- NOTE | 2020-03-02 13:16 | PM.DCS ---
Discharge Providers Date of Admission: 02/29/20 18:34 Date of Discharge: March 02, 2020 Attending Provider at Admission: Live Cox Attending Provider at Discharge: Live Cox Primary Care Provider: Richard Leslie DO Diagnoses at Discharge Discharge Diagnosis (1) Easy fatigability: Status: Acute (2) Acute exacerbation of chronic obstructive airways disease: Status: Acute (3) Diastolic CHF: Status: Acute Qualifiers: Heart failure chronicity: acute on chronic Qualified Code(s): I50.33 - Acute on chronic diastolic (congestive) heart failure (4) GERD (gastroesophageal reflux disease): Status: Acute (5) Diabetes mellitus, type II: Status: Acute Qualifiers: Diabetes mellitus intermediate insulin use: without terminal supervisor use Diabetes mellitus complication status: without complication Qualified Code(s): E11.9 - Type 2 diabetes mellitus without complications (6) Benign prostatic hyperplasia: Status: Acute Qualifiers: Lower urinary tract symptom presence: symptoms present Lower urinary tract symptom detail: urinary frequency Qualified Code(s): N40.1 - Benign prostatic hyperplasia with lower urinary tract symptoms; R35.0 - Frequency of micturition (7) Hypertension: Status: Acute Qualifiers: Hypertension type: essential hypertension Qualified Code(s): I10 - Essential (primary) hypertension (8) Paraproteinemia: Status: Acute (9) Hypoxia: Status: Acute Reason for Visit Reason for Visit: Reason For Visit: DYSPNEA Hospital Course Hospital Course: Pleasant 84-year-old gentleman returns to the hospital with persistent extremely easy fatigability, making him confined to the chair for the most part, despite having oxygen on. He does continue on 2 L by nasal cannula, and was stable on that in the hospital. Per discussion with his family his oxygen does occasionally dropped into 86% territory with exertion. He does have underlying emphysema, with suspected COPD, and PFT was ordered during prior admission, as was sleep study due to reports that he stops breathing occasionally during sleep as noticed by his . With interstitial prominence on imaging, there is concern perhaps for additional chronic lung condition, and with this he is instructed after following with PFT and sleep study to follow-up also with pulmonology. He is instructed to monitor his oxygenation, target saturation 88-92%, and increase oxygen flow if needed if saturation persistently stays below. Due to reports of occasional chest pain, cough, dyspnea, he was assessed by VQ scan, as he is allergic to contrast media, which came back with low probability for PE. During the past admission diastolic congestive heart failure was suspected, and he has been treated with Lasix, although during this admission without significant signs of fluid overload. No sign of acute ischemia noted on troponin series and EKG on presentation. He does have risk factors for coronary disease, and occasionally gets left-sided chest discomfort. During this hospitalization chest discomfort mostly has been pleuritic, in the chest wall, with cough, deep breaths. Due to risk factors he is referred for stress testing. During hospitalization he has been treated for COPD exacerbation and pneumonia with some left side prominence on x-ray, with improvement in symptoms overall, and stable oxygenation on 2 L by nasal cannula. During past admission he is also noted to have hyperglobulinemia, hypercalcemia. PTH was checked and is low. His hypercalcemia. Symptomatic with severe fatigue, constipation, nephrolithiasis. He received treatment here in conjunction with nephrology, with zoledronic acid, IV hydration, Lasix. His calcium normalized. There is concern for possible underlying plasma cell dyscrasia, with gammaglobulin spike seen on SPEP. Immunofixation and serum light chains and UPEP, immunofixation are pending. Bone survey did not show obvious lesions. He should follow-up with hematology, and the clinic will contact the floor with an appointment prior to discharge. Due to chronic kidney disease he is referred for follow-up with nephrology, and due to BPH follow-up with urology. His conditions, all investigations, as well as plan for treatment including additional studies and referrals discussed with the patient in great detail, and he verbalized understanding and confirmed he will be following up. Physical Exam Const: COMMON NORMALS: no apparent distress and oriented x3 GENERAL APPEARANCE: anxious OTHER: Awake and alert. HENMT: COMMON NORMALS: oropharynx normal Neck/C-Spine: COMMON NORMALS: no JVD Resp: COMMON NORMALS: normal respiratory effort and clear to auscultation bilaterally AUSCULTATION: clear to auscultation bilaterally Cardio: COMMON NORMALS: no JVD, regular rhythm, S1 normal heart sound, S2 normal heart sound and no murmurs JUGULAR VENOUS DISTENTION: JVD positive to the level of the angle of the jaw RHYTHM: regular rhythm HEART SOUNDS: S1 normal and S2 normal GI: COMMON NORMALS: normal to inspection, nondistended, normoactive bowel sounds, soft to palpation and non-tender PALPATION: Yes soft Extremity: COMMON NORMALS: no joint enlargement and no pedal edema Neuro: COMMON NORMALS: oriented x3 and moves all extremities Skin: COMMON NORMALS: no rashes or lesions noted GENERAL SKIN EXAM: no rashes or lesions noted Discharge Data Data Completed and Pending: Completed Studies During Hospitalization Category Date Time Status XR bone survey* 7 [id number] Routine Exams 02/29/20 18:39 Completed XR chest 1V [place] ble [id number] Routine Exams 03/02/20 06:00 Completed XR chest 1V [place] ble [id number] Urgent Exams 02/28/20 15:38 Completed NM pul vent and p erfus* [id number] [place] ne Nuc Med 02/29/20 08:21 Completed Pending at discharge Category Date Time Status Blood Culture Sta t Lab 02/28/20 15:55 Results Immunofixation Se rum Routine Lab 02/29/20 18:00 Received KAPPA/LAMBDA LIGH T FREE SERUM Routi ne Lab 02/29/20 18:00 Received Miscellaneous Rani t Routine Lab 02/29/20 18:45 Ordered Miscellaneous Rani t Routine Lab 02/29/20 18:46 Ordered Labs from last 24 hours 03/02/20 03/02/20 02/29/20 05:01 05:01 18:00 WBC 7.3 RBC 3.28 L Hgb 10.0 L Hct 31.5 L MCV 96.0 H MCH 30.5 MCHC 31.7 RDW 14.5 Plt Count 135 MPV 10.0 Neut % (Auto) 80.1 Lymph % (Auto) 9.5 [place] % (Auto) 7.3 Eos % (Auto) 0.1 Baso % (Auto) 0.1 Neut # (Auto) 5.8 Lymph # (Auto) 0.7 L [place] # (Auto) 0.5 Eos # (Auto) 0.0 Baso # (Auto) 0.0 Nucleated RBC % (a uto) 0.3 Nucleated RBCs # 0.0 Sodium 129 L Potassium 3.6 Chloride 96 L Carbon Dioxide 24 Anion Gap 12.6 BUN 20 Creatinine 1.4 H Glucose 175 H Calculated Osmolal ity 269 L Calcium 10.3 Total Protein 12.2 H Albumin 3.2 L Gyrka-7-Yyghsidvm 0.4 H Ieskf-5-Ynmciakjm 0.9 Geln-5-Alummyij 0.4 Ljvq-0-Bmxpfnji 0.3 Gamma Globulins 7.0 H Abnorm Protein Ban d 1 0.2 H U Abnormal Prot Ba nd 2 6.8 H Pro Electrophoresi s Int See note Vitals: Last Vital Signs Temp 98.4 F 03/02/20 11:10 Pulse 78 03/02/20 11:10 Resp 18 03/02/20 11:10 BP 147/84 03/02/20 11:10 Pulse Ox 96 03/02/20 11:10 Discharge Plan Discharge Patient Disposition: Home Health Service Condition: Stable Prescriptions: New prednisone 20 mg Tablet 40 mg PO DAILY Qty: 8 RF: 0 polyethylene glycol 3350 [Miralax] 17 gram Powder In Packet 17 g PO BID Qty: 60 RF: 0 trazodone 50 mg Tablet 25 mg PO BEDTIME PRN (Reason: Sleep) Qty: 30 RF: 0 levofloxacin [Levaquin] 750 mg tablet 750 mg PO DAILY 7 Days RF: 0 Continued metformin 500 mg tablet 1,000 mg PO BID RF: 0 triamcinolone acetonide 0.1 % cream 1 applic TOPICAL PRN PRN (Reason: Itching) RF: 0 tamsulosin [Flomax] 0.4 mg capsule 0.8 mg PO BID RF: 0 (DME) blood sugar diagnostic [Prodigy No Coding] Strip MISCELLANEOUS RF: 0 albuterol sulfate 2.5 mg /3 mL (0.083 %) solution for nebulization 2.5 mg inhalation Q6H PRN (Reason: Shortness Of Breath) RF: 0 amlodipine 5 mg Tablet 5 mg PO DAILY 30 Days Qty: 30 RF: 0 alprazolam 0.25 mg Tablet 0.25 mg PO BID PRN (Reason: Anxiety) 14 Days Qty: 30 RF: 0 pantoprazole 40 mg Tablet,Delayed Release (Dr/Ec) 40 mg PO BID 30 Days Qty: 60 RF: 0 fluoxetine 10 mg Capsule 10 mg PO DAILY 14 Days Qty: 14 RF: 0 alum-mag hydroxide-simeth [Mag-Al Plus] 200-200-20 mg/5 mL Suspension 30 ml PO Q4H PRN (Reason: Indigestion) Qty: 0 RF: 0 metoprolol tartrate 25 mg Tablet 12.5 mg PO BID 30 Days Qty: 60 RF: 0 tiotropium bromide 18 mcg capsule, w/inhalation device 1 cap INHALATION DAILY Qty: 1 RF: 1 fluticasone propion-salmeterol 55-14 mcg/actuation aerosol powdr breath activated 1 inh INHALATION BID Qty: 1 RF: 1 tadalafil 5 mg Tablet 5 mg PO DAILY RF: 0 Changed furosemide 20 mg Tablet 20 mg PO DAILY@0800 PRN (Reason: Edema) 30 Days Qty: 30 RF: 0 Discharge Orders: Discharge Order (Routine); Ordered 03/02/20 Ordered By: Live Cox Other Ambulatory Orders: Sestamibi Stress Test Request (Routine) Timeframe: 3 Days Facility: [facility] - Location: Cardiac Diagnostic Laboratory Ordered By: Live Cox Pulmonary Function Screen with Bronchodilator (Routine) Timeframe: 1 Week Facility: [facility] - Location: Respiratory Therapy Ordered By: Live Cox Sleep Study/Titration (Routine) Timeframe: 1 Week Location: None Selected Ordered By: Live Cox Referrals: Nephrology [Provider Group] - 4-7 days (CKD, moderate hypercalcemia, paraproteinemia, combined appointment with urology, pulmonology on the same day if possible.) Alex Girard MD [Physician] - 7-10 days (BPH. Combine appointment with pulm, nephro if possible. ) Richard Cheng MD [Hospitalist] - 7-10 days (After serum light chains, immunofixation available) Andrade Chandra MD [Physician] - 7-10 days (After PFT, combine appointment with urology, nephro on same day if possible.) Richard Leslie DO [Primary Care Provider] - Discharge Diet: Diabetic Discharge Activity: Increase activity as tolerated and As per PT/OT instructions Activity Restrictions/Additional Instructions: Please discontinue calcium supplements and vitamin D. Continue to wear oxygen at home, 2 L/min as previously recommended, with activity, if you are oxygen saturation decreases below 88%, you may need to increase temporarily the flow of oxygen. Target saturation 88-92%. If you experience non-resolving chest pain, please seek medical attention without delay. Discharge Attestations Time Spent in Discharge Care*: greater than 30 min Quality Metrics Clinical Quality Measures During this hospital stay, did patient experience: None Coding Level of Care Code Acute Pusher Runner for Chg Fwd Diagnoses Easy fatigability R53.83 Acute exacerbation of chronic obstructive airways disease J44.1 Diastolic CHF I50.33 Heart failure chronicity: acute on chronic GERD (gastroesophageal reflux disease) K21.9 Diabetes mellitus, type II E11.9 Diabetes mellitus intermediate insulin use: without terminal supervisor use Diabetes mellitus complication status: without complication Benign prostatic hyperplasia N40.1; R35.0 Lower urinary tract symptom presence: symptoms present Lower urinary tract symptom detail: urinary frequency Hypertension I10 Hypertension type: essential hypertension Paraproteinemia D89.2 Hypoxia R09.02
[2020-03-03 10:05] LABS: KAPPA LIGHT CHAIN, FREE, SERUM 7.7 mg/L (3.3-19.4); KAPPA/LAMBDA LIGHT CHAINS FREE <0.01 (0.26-1.65); LAMBDA LIGHT CHAIN, FREE, SERU 2363.5 mg/L (5.7-26.3)
--- NOTE | 2020-03-03 17:05 | PC.RESP ---
Pulmonary Rehab out patient information to patient with a brochure post discharge
== END 2020-03-02 17:10 | disposition home health service (06) | DRG 640 ==
LOC: ER 17:32 → MEDSURG 17:33
PROVIDERS: Internal Medicine; Admitting Provider Internal Medicine; Emergency Provider Family Medicine; Family Provider Internal Medicine; PCP Internal Medicine; Visit Provider Internal Medicine
DX: E83.52 Hypercalcemia (principal); I50.33 Acute on chronic diastolic (congestive) heart failure; J18.9 Pneumonia, unspecified organism; I13.0 Hypertensive heart and chronic kidney disease with heart failure and stage 1 through stage 4 chronic kidney disease, or unspecified chronic kidney disease; N18.9 Chronic kidney disease, unspecified; E11.22 Type 2 diabetes mellitus with diabetic chronic kidney disease; K59.00 Constipation, unspecified; N40.1 Benign prostatic hyperplasia with lower urinary tract symptoms; R35.0 Frequency of micturition; J43.9 Emphysema, unspecified; E78.5 Hyperlipidemia, unspecified; Z99.81 Dependence on supplemental oxygen; Z85.828 Personal history of other malignant neoplasm of skin; Z87.891 Personal history of nicotine dependence; Z98.1 Arthrodesis status; D89.2 Hypergammaglobulinemia, unspecified; Z79.84 Long term (current) use of oral hypoglycemic drugs; R53.83 Other fatigue
CPT/HCPCS: 12345; 36415; 36416; 36600; 71045; 77075; 78014; 80048; 80053; 80500; 82310; 82330; 82805; 82962; 83605; 83880; 83883; 83970; 84155; 84165; 84260; 84439; 84443; 84481; 84484; 85025; 87040; 87070; 87205; 87804; 93005; 94640; 96372; 96375; 99282; A9540; A9567; G0378; J0630; J1100; J1650; J1940; J1956; J3489; J7030; J7040; J7050; J7512; Q3014

== ENCOUNTER 2020-03-16 09:10 | Outpatient (CLI) | payer MEDICARE, OTHER, SELFPAY ==
--- NOTE | 2020-03-16 19:07 | ONC CON_ITS ---
Dr. Cheng New Patient Note Patient: Renate Yarbrough Unit #: [id number]: [id number] Dicatated By: Richard Cheng M.D.Date of Visit: March 16, 2020 Onc MED New Patient/Consult Referring Physician: Chief Complaint: Multiple myeloma. History of Present Illness: This is an 84 year-old man with laboratory evidence of IgG lambda myeloma. He has hypertension, hyperlipidemia, type 2 diabetes, and COPD. He also has known degenerative arthritis/degenerative disease of the spine with some chronic back pain. On 02/19/2020 he was admitted to the hospital after presenting to the emergency room with shortness of breath. He was diagnosed with pneumonia based on noncontrast CT scan which showed multifocal bilateral airspace disease which was disproportionately localized in the right upper lobe, lingula, and lower lobes. He also had evidence of acute renal injury. His other laboratory abnormalities included mild anemia, hypercalcemia, and a significantly elevated calculated serum globulin level. He was discharged home on antibiotic coverage with azithromycin, doxycycline, and Augmentin. He was readmitted to the hospital on 02/28/2020, again after presenting to the emergency room with shortness of breath. His further laboratory studies at that time included protein electrophoresis which showed a restricted M band quantitating at 6.8 g/dL and a second M band quantitating at 0.2 g/dL. Immunofixation confirmed the monoclonal band to be an IgG lambda protein. The serum free light chain assay showed markedly elevated lambda light chain at 2363 mg/L with kappa light chain 7.7 mg/L and kappa/lambda ratio < 0.01. During the second hospitalization was felt to have a component of acute diastolic congestive heart failure, for which he was placed on diuretic therapy. He also was felt to have some component of COPD exacerbation. A skeletal survey showed degenerative changes in the cervical spine and there were postoperative changes in the cervical spine and lumbar spine. There were no lytic bone lesions identified. He was discharged with home oxygen on 03/02/2020. He is seen now for further management. He says his energy is not very good. He has very limited activity. His ECOG score is 3. His appetite has not been good, but he says it is coming back. His weight is down 10 pounds from normal. He has not had fever. He occasionally has a little sweating at night. He complains that his nose has been stopped up and he has been having some nosebleeds since he started on oxygen. He has not had sore throat or difficulty swallowing. He still has shortness of breath. He has just occasional cough. He was having occasional episodes of sharp pain in the left side of the chest which tend to radiate downward. He has not had any in the last several days. He reports having occasional nausea. He has been having heartburn. He has ongoing problems with constipation despite taking MiraLAX. He has having difficulty voiding despite taking tamsulosin. He has an appointment to see Dr. Girard later this week. He is having pain, mainly in the dye bones. He also sometimes has pain in the thigh area. He has had chronic back pain, but that has not been bothering him lately. He also used to have headaches every afternoon, but that also has not bothered him lately. He does have some orthostatic lightheadedness. He also has some numbness/tingling in his feet and sometimes in his legs. He has had some depression following his daughter's in a motor vehicle accident earlier this year. Past Medical History: His medical history includes benign prostatic hypertrophy, chronic kidney disease, chronic obstructive pulmonary disease, congestive heart failure, degenerative arthritis, degenerative disease of the spine, history of rheumatic fever, hyperlipidemia, hypertension, and type II diabetes. Past Surgical History: His surgical/procedural history includes appendectomy, arthroscopic right knee surgery x 2, bilateral cataract excisions, carpal tunnel release bilaterally, lumbar laminectomy in 2007, 2010, and 2011, varicose veins removal, and left inguinal hernia repair with mesh in 2014. He underwent a cardiac catheterization procedure in 2012. Medications: Albuterol Sulfate 1 Puff(s) Nebulization solution Inhalation PRN, ALPRAZolam 1 Tablet (of 0.25 mg) Oral PRN, Cialis 1 Tablet (of 5 mg) Oral daily, Flomax 2 Tablet (of 0.4 mg) Capsule Oral daily, Furosemide 1 Tablet (of 20 mg) Oral daily PRN, Gabapentin 1 - 2 Capsule (of 300 mg) Oral b.i.d., Mag-Al Plus 1 Capsule Oral PRN, Metoprolol Tartrate 0.5 Tablet (of 25 mg) Oral b.i.d., Potassium Chloride ER 1 Tablet (of 10 meq) Tablet, controlled release Oral daily PRN, Tiotropium [place] Monohydrate 1 Puff(s) Aerosol, solution Inhalation PRN Allergies: iodine Social History: Mr. Yarbrough is . He has a history of smoking 1 pack of cigarettes daily for 15 to 20 years. He quit smoking at least 40 years ago. He has had just very occasional alcohol use. Family History: Father of stroke and mother of lung disease. A brother with COPD and heart disease. A sister also of lung disease. Two other sisters are also still living, one with heart disease and the other with kidney disease. Review Of Symptoms: Constitutional - His energy is not very good. He has very limited activity. He has mostly sedentary. His appetite is coming back. His weight is down at least 10 pounds from normal. He has not had fever. He occasionally has a little sweating at night. ECOG score is 3, Eyes - He has noted some decline in vision, ENMT - No hearing loss or tinnitus. He complains that his nose gets stopped up. He has had epistaxis since he started on oxygen. No mouth sores. No sore throat or difficulty swallowing, Hematologic/Lymphatic - He has had bruising at venipuncture sites, Respiratory - He still has shortness of breath. He has just occasional cough. No pleuritic pain or hemoptysis, Cardiovascular - He was having occasional sharp pain in the left side of his chest radiating downwards. He has had none in the last few days. No palpitations, Gastrointestinal - He has occasional nausea. He has been having heartburn. He has ongoing problems with constipation despite taking MiraLAX. No blood in the stool or black stools, Genitourinary (M) - He has been having difficulty voiding despite taking tamsulosin. No dysuria or hematuria. No urgency or incontinence, Musculoskeletal - He is having pain, mainly in the dye bones and sometimes also in the thighs. He has had chronic back problems, but that has not been bothering him much recently, Integumentary - He has had no skin rash or other skin problems, Neurologic - He was having headaches every afternoon, mainly in the back of his head. It has not been as bad lately. He occasionally has lightheadedness. He has some numbness/tingling in his feet, Psychiatric - He has some anxiety and depression. He has not been sleeping well. Vital Signs: Performed on March 16, 2020 09:51: 0, 32.69 (HIGH), 1.71 sq.m, 59.50 in, 93 % (LOW), 63 /min, 22 /min, 92/56 mm(hg), 98.6 F, and 164.6 lbs (HIGH). Physical Examination: Constitutional - He appears generally weak, but not acutely ill, Eyes - Sclerae nonicteric. Conjunctivae clear, ENMT - No lesions noted in the oral cavity, Neck - No mass or thyromegaly, Hematologic/Lymphatic - No cervical, clavicular, or axillary adenopathy, Respiratory - Lungs sound clear. He has good air movement bilaterally, Cardiovascular - Heart rhythm is regular. There is a II/ systolic murmur. There is no gallop or rub noted, Abdomen - Mildly distended but soft. Liver and spleen are not enlarged. There is no abdominal mass or ascites noted and there is no inguinal adenopathy, Back/Spine - No spine or CVA tenderness noted, Extremities - Trace edema. Dorsalis pedis pulses are palpable bilaterally. There are multiple ecchymoses on both arms associated with recent vena punctures, Integumentary - No rashes. No suspicious skin lesions noted, Neurologic - No focal neurologic deficits noted. Impression: 1. Patient with laboratory evidence of IgG lambda myeloma. He has associated anemia, acute on chronic renal injury, and mild hypercalcemia. 2. He had presented with shortness of breath, which I suspect is largely due to the unusually high M protein. His other medical illnesses include: 3. Hypertension, currently with low blood pressure. 4. Hyperlipidemia. 5. Type 2 diabetes. 6. Degenerative arthritis/degenerative disease of the spine. 7. Benign prostatic hypertrophy with difficulty voiding. 8. He has a history of rheumatic fever. Plan: The laboratory findings and clinical implications reviewed with the patient and his . He has obvious myeloma, and I do feel that it his shortness of breath is most likely related to burden imposed on his cardiovascular system due to the unusually high M protein level. The recent decline in his renal function is an obvious concern, particularly in association with hypercalcemia. We discussed the fact that this is a very treatable though not curable malignancy. He will need to undergo bone marrow aspiration/biopsy, unfortunately we have been able to get that scheduled for tomorrow. In the meantime, will begin the process of getting him approved for treatment with the Velcade, Revlimid, dexamethasone combination. The Revlimid will have to be initiated at a reduced dosage due to his renal function. He will need prophylaxis with aspirin and acyclovir. I will check a baseline uric acid level, as it is likely that he also will need prophylaxis with allopurinol. Given the circumstances I am going to tentatively cancel the appointment with Dr. Chandra and I also will cancel the stress test. I will have him try changing his bowel regimen from MiraLAX to senna/docusate. At least for now, I think it would be best for him to stop the furosemide and the potassium. He will see Dr. Girard on Saturday. Signed By: Richard Cheng M.D. <<Signature on File>>
== END 2020-03-16 09:11 | disposition home or self-care (01) ==
LOC: ONCMED 09:16
PROVIDERS: PCP Internal Medicine; Visit Provider Internal Medicine Medical Oncology
DX: C90.00 Multiple myeloma not having achieved remission (principal); R06.02 Shortness of breath; N17.9 Acute kidney failure, unspecified; N18.9 Chronic kidney disease, unspecified; E83.52 Hypercalcemia; I10 Essential (primary) hypertension; E78.5 Hyperlipidemia, unspecified; E11.9 Type 2 diabetes mellitus without complications; M19.90 Unspecified osteoarthritis, unspecified site; M48.9 Spondylopathy, unspecified; N40.1 Benign prostatic hyperplasia with lower urinary tract symptoms; R39.198 Other difficulties with micturition
CPT/HCPCS: 99205

== ENCOUNTER 2020-03-17 09:57 | Day surgery (SDC) | payer MEDICARE, OTHER, SELFPAY ==
[2020-03-16 16:36] VITALS: BMI 24.2
[2020-03-17 10:00] VITALS: RESP 16; TEMP 36
--- NOTE | 2020-03-17 10:11 | ANES.PREANE2 ---
Pre-Anesthetic Assessment Pre-Anesthetic Assessment: Height/Weight: Height 1.75 m Weight 74.389 kg Temp Resp 96.8 F L 16 03/17/20 10:00 03/17/20 10:00 Preop Diagnosis: myeloma Proposed Procedure: Operation Date: 03/17/20 11:10 Proposed Procedures p Bone Marrow Biopsy with aspiration(Not Applicable) - Rashid Arriaza MD Familial anesthetic complications: None Last intake: Intake Last Liquid Date 03/17/20 Last Liquid Time 09:30 Last Solid Date 03/16/20 Last Solid Time 21:30 Social: Social History: No alcohol and No tobacco Exam: Pre-Anes Outpt Exam: alert, oriented x 3, clear to auscultation bilaterally and regular rate & rhythm Airway: Cervical ROM: WNL MP: 3 Dentition: Full Pulmonary: Pulmonary: COPD Comments: pneiumonia CV/HEM: CV/HEM: CHF, HTN and Murmur : Comments: kenji GI: GI: GERD Anesthetic Plan: ASA status: 4 Anesthesia: MAC Risk of > 500 ml blood loss (7ml/kg in children): No PFSH Anesthesia PFSH: Medical History (Updated 03/03/20 @ 00:00 by ) Benign prostatic hyperplasia COPD (chronic obstructive pulmonary disease) Diabetes mellitus, type II GERD (gastroesophageal reflux disease) History of hyperlipidemia Previously prescribed statin but was taken off few years ago by PCP Hypertension Osteoarthritis Surgical History History of appendectomy History of arthroscopy of right knee History of back surgery History of bilateral carpal tunnel release History of cataract surgery History of left inguinal hernia repair History of tonsillectomy History of vein stripping 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
[2020-03-17] MEDS: ondansetron 2 mg/ML SDV 2 mL 4 MG IVP (10:22)
[2020-03-17] MEDS: sodium chloride 0.9% 1,000 ML 30 ML IV (10:22)
[2020-03-17 10:24] LABS: Glucose Point of Care 215 mg/dL (70-110)
[2020-03-17 10:46] LABS: Basophils % 0.3 %; Eosinophils % 0.3 %; Hematocrit 29.7 % (42.0-52.0); Hemoglobin 9.4 g/dL (11.7-16.6); Lymphocytes % 48.8 %; Mean Corpuscular HGB Conc 31.6 g/dL (30.0-36.0); Mean Corpuscular Hemoglobin 30.5 pg (28.0-34.0); Mean Corpuscular Volume 96.4 fL (80-94); Mean Platelet Volume 10.2 fL (7.4-10.4); Monocytes # 0.7 10^3/uL (0.2-0.9); Monocytes % 11.6 %; Neutrophils # 2.2 10^3/uL (1.8-7.7); Neutrophils % 36.5 %; Nucleated Red Blood Cells % 0 %; Platelet Count 94 10^3/cmm (130-400); Red Blood Count 3.08 10^6/uL (4.1-5.3); White Blood Count 6.1 10^3/uL (4.0-10.0)
[2020-03-17 11:18] VITALS: BP 117/64
[2020-03-17 11:55] VITALS: BP 110/77; PULSE 70; RESP 16; TEMP 36.4; O2SAT 91
--- NOTE | 2020-03-17 11:58 | ANE.PACU2 ---
Inpatient post-anesthesia follow up: Airway intact: Yes Vital signs: Temperature 96.8 F Pulse Rate Respiratory Rate 16 Blood Pressure 117/64 Pulse Oximetry Oxygen Delivery Me thod Nasal Cannula Oxygen Flow Rate Fraction of Inspir ed Oxygen Hydration adequate: Yes Nausea and vomiting: No Pain level: 1 Mental status: Baseline
--- NOTE | 2020-03-17 12:01 | PM.BMB ---
Bone Marrow Biopsy Bone Marrow Biopsy: I was consulted by [] office regarding bone marrow biopsy on [eleno Yarbrough]. 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 In the Outpatient Services Department, with nursing staff and laboratory technologists in attendance, the procedure was discussed with the patient. Appropriate consent form had been signed. Appropriate alternatives, benefits and risks of procedure were discussed with the patient and she was pre-operatively assessed with a history and physical by myself and cleared for the biopsy procedure. Under aseptic condition right posterior iliac area was cleaned and prepped, local anesthesia was given, about 15 mL of bone marrow aspirate and core biopsy was obtained, patient tolerated procedure well, specimen was sent for routine histopathology and flow cytometry/cytogenetics and myeloma panel. Thank you for allowing me to participate in this patient's care and diagnosis. Coding Level of Care Code Acute Senior Supply Chain Analyst for Poli Davies
[2020-03-17 12:12] VITALS: BP 121/67; PULSE 68; RESP 16; TEMP 36.4; O2SAT 92
[2020-04-27 16:06] LABS: Miscellaneous Test See Scanned Lab Rpt
== END 2020-03-17 12:52 | disposition home or self-care (01) ==
PROVIDERS: Internal Medicine Medical Oncology; PCP Internal Medicine; Visit Provider Internal Medicine Hematology & Oncology
PROC: (CPT 38221; principal; 2020-03-17 11:10)
DX: C90.00 Multiple myeloma not having achieved remission (principal); J44.9 Chronic obstructive pulmonary disease, unspecified; I11.0 Hypertensive heart disease with heart failure; I50.9 Heart failure, unspecified; K21.9 Gastro-esophageal reflux disease without esophagitis; N40.0 Benign prostatic hyperplasia without lower urinary tract symptoms; E11.9 Type 2 diabetes mellitus without complications; M19.90 Unspecified osteoarthritis, unspecified site; Z87.891 Personal history of nicotine dependence
CPT/HCPCS: 12345; 36415; 36416; 38222; 82962; 84550; 85025; 85097; 88184; 88185; 88188; 88305; 88311; 88313; J2405; J7030

== ENCOUNTER → 2020-03-18 08:53 | Outpatient (BNVA) | payer MEDICARE, OTHER, SELFPAY | PROVIDERS: PCP Internal Medicine; Visit Provider Urology | DX: N40.1 Benign prostatic hyperplasia with lower urinary tract symptoms (principal); N13.8 Other obstructive and reflux uropathy; Z12.5 Encounter for screening for malignant neoplasm of prostate; R33.8 Other retention of urine | CPT/HCPCS: 81001 ==

== ENCOUNTER 2020-03-23 14:15 | Outpatient (CLI) | payer MEDICARE, OTHER, SELFPAY ==
[2020-03-23 16:15] LABS: Basophils % 0.3 %; Eosinophils % 0.3 %; Hematocrit 27.7 % (42.0-52.0); Hemoglobin 8.5 g/dL (11.7-16.6); Lymphocytes # 1.5 10^3/uL (0.8-4.8); Lymphocytes % 45.5 %; Mean Corpuscular HGB Conc 30.7 g/dL (30.0-36.0); Mean Corpuscular Hemoglobin 30.4 pg (28.0-34.0); Mean Corpuscular Volume 98.9 fL (80-94); Mean Platelet Volume 10.2 fL (7.4-10.4); Monocytes # 0.4 10^3/uL (0.2-0.9); Monocytes % 11.1 %; Neutrophils # 1.3 10^3/uL (1.8-7.7); Nucleated Red Blood Cells % 0 %; Platelet Count 117 10^3/cmm (130-400); Red Cell Distribution Width 16.5 % (12.1-15.1); White Blood Count 3.3 10^3/uL (4.0-10.0)
[2020-03-23 18:33] LABS: Alanine Aminotransferase 9 U/L (0-41); Albumin Level 1.8 g/dL (3.5-5.2); Alkaline Phosphatase 66 IU/L (40-130); Anion Gap 13.1 (5-19); Aspartate Amino Transferase 18 U/L (0-40); Blood Urea Nitrogen 19 mg/dL (8-23); Calcium 9.9 mg/dL (8.5-10.5); Carbon Dioxide 21 mmol/L (22-29); Chloride 98 mmol/L (98-107); Globulin 8.6 g/dL (1.3-4.6); Glucose 292 mg/dL (65-115); Osmolality Calculated 273 mOsm/kg (285-295); Potassium 4.1 mmol/L (3.5-5.1); Sodium 128 mmol/L (136-145); Total Bilirubin 0.5 mg/dL (0.15-1.2); Total Protein 10.4 g/dL (6.6-8.7); Uric Acid 4.7 mg/dL (3.4-7.0)
[2020-03-25 11:55] LABS: KAPPA LIGHT CHAIN, FREE, SERUM 9.5 mg/L (3.3-19.4); KAPPA/LAMBDA LIGHT CHAINS FREE <0.01 (0.26-1.65)
[2020-03-28 14:06] LABS: PROTEIN, TOTAL 9.9 g/dL (6.1-8.1)
[2020-03-28 15:30] LABS: ABNORMAL PROTEIN BAND 1 0.2 g/dL (NONE DETECTED); ABNORMAL PROTEIN BAND 2 5.9 g/dL (NONE DETECTED); ALBUMIN 2.2 g/dL (3.8-4.8); ALPHA 1 GLOBULIN 0.4 g/dL (0.2-0.3); ALPHA 2 GLOBULIN 0.7 g/dL (0.5-0.9); BETA 1 GLOBULIN 0.3 g/dL (0.4-0.6); BETA 2 GLOBULIN 0.3 g/dL (0.2-0.5)
== END 2020-03-23 14:16 | disposition home or self-care (01) ==
LOC: ONCMED 16:15
PROVIDERS: PCP Internal Medicine; Visit Provider Internal Medicine Medical Oncology
DX: C90.00 Multiple myeloma not having achieved remission (principal)
CPT/HCPCS: 80053; 83883; 84155; 84165; 84550; 85025

== ENCOUNTER 2020-03-24 11:47 | Outpatient (CLI) | payer MEDICARE, OTHER, SELFPAY ==
[2020-03-24] MEDS: dexamethasone 4 mg Tablet 20 MG PO (13:08)
[2020-03-24] MEDS: ondansetron 4 MG Tablet 8 MG PO (13:08)
--- NOTE | 2020-03-24 18:37 | ONC FU_ITS ---
Dr. Cheng Patient Follow-Up Note Patient: Renate Yarbrough Unit #: [id number]: [id number] Dicatated By: Richard Cheng M.D.Date of Visit:March 24, 2020 Onc Med Follow-up/Prog Note Chief Complaint: Multiple myeloma. History of Present Illness: This is an 84 year-old man with IgG lambda myeloma. On 02/19/2020 he was admitted to the hospital after presenting to the emergency room with shortness of breath. He was diagnosed with pneumonia based on noncontrast CT scan which showed multifocal bilateral airspace disease which was disproportionately localized in the right upper lobe, lingula, and lower lobes. He also had evidence of acute renal injury. His other laboratory abnormalities included mild anemia, hypercalcemia, and a significantly elevated calculated serum globulin level. He was discharged home on antibiotic coverage with azithromycin, doxycycline, and Augmentin. He was readmitted to the hospital on 02/28/2020, again after presenting to the emergency room with shortness of breath. His further laboratory studies at that time included protein electrophoresis which showed a restricted M band quantitating at 6.8 g/dL and a second M band quantitating at 0.2 g/dL. Immunofixation confirmed the monoclonal band to be an IgG lambda protein. The serum free light chain assay showed markedly elevated lambda light chain at 2363 mg/L with kappa light chain 7.7 mg/L and kappa/lambda ratio < 0.01. During the second hospitalization was felt to have a component of acute diastolic congestive heart failure, for which he was placed on diuretic therapy. He also was felt to have some component of COPD exacerbation. A skeletal survey showed degenerative changes in the cervical spine and there were postoperative changes in the cervical spine and lumbar spine. There were no lytic bone lesions identified. He was discharged with home oxygen on 03/02/2020. I had seen him initially on 03/16/2020. He then underwent bone marrow aspiration/biopsy on 03/17/2020. It did show evidence of plasma cell neoplasm, as expected, with a monotypic plasma cell population involving 60 to 70% of the marrow cellularity. Iron stores were noted to be adequate. His other medical illnesses include hypertension, hyperlipidemia, type 2 diabetes, COPD, and benign prostatic hypertrophy. He also has known degenerative arthritis/degenerative disease of the spine with some chronic back pain, and he has a history of rheumatic fever. He had smoked in the past, but he quit at least 40 years ago. He is seen for a follow-up visit. He remains very weak generally and he has very limited activity. His ECOG score is 3. He says his appetite is coming back. His weight is up at least 6 pounds, but that is likely to be fluid related. He does not have fever or night sweats. He has shortness of breath, and he is on continuous oxygen. He says his breathing is worse at night, and he is having to sleep in a recliner. He has cough after his breathing treatments. He does not complain of chest pain. He has been having a little nausea. He currently is not having acid reflux. He is having ongoing problems with constipation. He is having difficulty voiding. He is not having any significant joint or bone pain at this time. Lately he has not had any headache. He has occasional orthostatic lightheadedness. He has no numbness/paresthesia or other focal neurologic symptoms. Medications: Albuterol Sulfate 1 Puff(s) Nebulization solution Inhalation PRN, Allopurinol 1 Tablet (of 300 mg) Oral daily, ALPRAZolam 1 Tablet (of 0.25 mg) Oral PRN, Aspirin 1 Tablet (of 325 mg) Oral daily, Cialis 1 Tablet (of 5 mg) Oral daily, Flomax 2 Tablet (of 0.4 mg) Capsule Oral daily, Furosemide 1 Tablet (of 20 mg) Oral daily PRN, Gabapentin 1 - 2 Capsule (of 300 mg) Oral b.i.d., Mag-Al Plus 1 Capsule Oral PRN, Metoprolol Tartrate 0.5 Tablet (of 25 mg) Oral b.i.d., Potassium Chloride ER 1 Tablet (of 10 meq) Tablet, controlled release Oral daily PRN, Tiotropium Dayhoit Monohydrate 1 Puff(s) Aerosol, solution Inhalation PRN Allergies: iodine Review of Systems: Constitutional - He is not feeling good. His energy is very low, and he is mainly in the chair at home. His appetite is starting to improve. His weight is up 6 pounds from last visit. No fever, chills, hot flashes, or night sweats. ECOG score is 3, ENMT - No sinus congestion/drainage. No mouth sores. No sore throat or difficulty swallowing, Hematologic/Lymphatic - He has been having epistaxis. He bruises easily, Respiratory - He wears continuous oxygen. He has mild shortness of breath during the day which worsens significantly at night. He is sleeping in a recliner. He is using breathing treatments at home. He has a slight cough. No pleuritic pain or hemoptysis, Cardiovascular - No angina pain. No palpitations, Gastrointestinal - He has some nausea. No vomiting. He has occasional heartburn. He is taking Senna-S for constipation. No blood in the stool or black stools, Genitourinary (M) - No dysuria or hematuria. He has urinary frequency. No urgency or incontinence, Musculoskeletal - No joint or bone pain, Integumentary - He has some increased edema in his bilateral lower extremities. No skin eruption, Neurologic - No headache. He gets dizziness with positional changes. No numbness/paresthesias or other focal neurologic symptoms, Psychiatric - He has some mild anxiety and depression. He is having difficulty sleeping. Vital Signs: Performed on March 24, 2020 12:20 Height - 59.50 in Weight - 170 lbs (HIGH) BSA - 1.73 sq.m BMI - 33.76 (HIGH) Temperature - 98.3 F (LOW) Pulse - 70 /min Respiration - 18 /min BP - 107/66 mm(hg) O2 Sat - 94 % (LOW) Pain - 0 Physical Examination: Constitutional - He appears generally weak, Eyes - Sclerae nonicteric. Conjunctivae clear, ENMT - No lesions noted in the oral cavity, Hematologic/Lymphatic - No cervical, clavicular, or axillary adenopathy, Respiratory - Lungs still sound clear, Cardiovascular - Heart rhythm is regular. There is a II/ systolic murmur. There is no gallop or rub noted, Abdomen - Mildly distended but soft. Liver and spleen are not enlarged. There is no abdominal mass or ascites noted and there is no inguinal adenopathy, Extremities - Mild lower extremity edema, Integumentary - No rashes. No suspicious skin lesions noted, Neurologic - No focal neurologic deficits noted. Lab/Imaging: CBC shows hemoglobin 8.5 g, white blood cell count 3300, and platelet count 117,000. Comprehensive metabolic profile shows BUN 19 and creatinine 1.4 mg/dL. Calcium is elevated at 9.9 mg/dL relative to albumin 1.8 g/dL. The calculated serum globulin is significantly elevated at 8.6 g/dL. The uric acid level has come down to 4.7 mg/dL on the allopurinol. Impression: 1. Patient with laboratory evidence of IgG lambda myeloma. He had anemia, acute on chronic renal injury, and mild hypercalcemia at presentation. 2. Bone marrow aspiration/biopsy on 03/17/2020 was consistent with plasma cell neoplasm, with plasma cells estimated at 60 to 70% of the marrow cellularity. His other medical illnesses include: 3. Hypertension, currently with low blood pressure. 4. Hyperlipidemia. 5. Type 2 diabetes. 6. Degenerative arthritis/degenerative disease of the spine. 7. Benign prostatic hypertrophy with difficulty voiding. 8. He has a history of rheumatic fever. Plan: The plan is for him to begin treatment with Velcade/Revlimid/dexamethasone. The Revlimid is to be initiated at a reduced dosage of 10 mg daily on a 21/28-day schedule, but that medication is not yet available. Given the severity of his disease and his overall poor condition, he will start Velcade and dexamethasone today. He has already started allopurinol and aspirin, and he also will be starting prophylaxis with acyclovir. Due to his fluid retention, he will restart furosemide. His blood counts and chemistries will be monitored weekly. Signed By: Richard Cheng M.D. <<Signature on File>>
== END 2020-03-24 11:48 | disposition home or self-care (01) ==
LOC: ONCMED 11:50
PROVIDERS: PCP Internal Medicine; Visit Provider Internal Medicine Medical Oncology
DX: C90.00 Multiple myeloma not having achieved remission (principal); I10 Essential (primary) hypertension; I95.1 Orthostatic hypotension; E78.5 Hyperlipidemia, unspecified; E11.9 Type 2 diabetes mellitus without complications; M19.90 Unspecified osteoarthritis, unspecified site; M48.9 Spondylopathy, unspecified; N40.1 Benign prostatic hyperplasia with lower urinary tract symptoms; R39.198 Other difficulties with micturition; Z79.899 Other long term (current) drug therapy; Z79.82 Long term (current) use of aspirin
CPT/HCPCS: 96401; 99214; J8540; J9041; Q0162

== ENCOUNTER 2020-03-25 08:24 | Outpatient (CLI) | payer MEDICARE, OTHER, SELFPAY | END 2020-03-25 08:25 | disposition home or self-care (01) | LOC: ONCMED 08:28 | PROVIDERS: PCP Internal Medicine; Visit Provider Internal Medicine Medical Oncology | DX: C90.00 Multiple myeloma not having achieved remission (principal); E11.22 Type 2 diabetes mellitus with diabetic chronic kidney disease; I12.9 Hypertensive chronic kidney disease with stage 1 through stage 4 chronic kidney disease, or unspecified chronic kidney disease; N18.9 Chronic kidney disease, unspecified | CPT/HCPCS: 96372; J1815 ==

== ENCOUNTER 2020-03-31 05:40 | Outpatient (RCR) | payer MEDICARE, OTHER, SELFPAY ==
[2020-03-30 12:18] LABS: Basophils % 0.3 %; Eosinophils % 0.6 %; Hematocrit 28.8 % (42.0-52.0); Hemoglobin 8.8 g/dL (11.7-16.6); Lymphocytes # 1.2 10^3/uL (0.8-4.8); Lymphocytes % 38.3 %; Mean Corpuscular HGB Conc 30.6 g/dL (30.0-36.0); Mean Corpuscular Hemoglobin 30.9 pg (28.0-34.0); Mean Corpuscular Volume 101.1 fL (80-94); Mean Platelet Volume 9.4 fL (7.4-10.4); Monocytes # 0.5 10^3/uL (0.2-0.9); Monocytes % 15.3 %; Neutrophils # 1.4 10^3/uL (1.8-7.7); Neutrophils % 43.9 %; Nucleated Red Blood Cells % 0 %; Platelet Count 187 10^3/cmm (130-400); Red Blood Count 2.85 10^6/uL (4.1-5.3); Red Cell Distribution Width 17.5 % (12.1-15.1); White Blood Count 3.1 10^3/uL (4.0-10.0)
[2020-03-30 12:36] LABS: Alanine Aminotransferase < 5 U/L (0-41); Albumin Level 1.8 g/dL (3.5-5.2); Alkaline Phosphatase 50 IU/L (40-130); Aspartate Amino Transferase 18 U/L (0-40); Blood Urea Nitrogen 16 mg/dL (8-23); Calcium 9.5 mg/dL (8.5-10.5); Carbon Dioxide 23 mmol/L (22-29); Chloride 97 mmol/L (98-107); Globulin 7.8 g/dL (1.3-4.6); Glucose 144 mg/dL (65-115); Osmolality Calculated 269 mOsm/kg (285-295); Sodium 130 mmol/L (136-145); Total Bilirubin 0.6 mg/dL (0.15-1.2); Total Protein 9.6 g/dL (6.6-8.7)
[2020-03-31 14:07] LABS: PROTEIN, TOTAL 9.3 g/dL (6.1-8.1)
[2020-03-31] MEDS: ondansetron 4 MG Tablet 8 MG PO (14:25)
[2020-03-31] MEDS: dexamethasone 4 mg Tablet 20 MG PO (14:25)
[2020-04-01 15:25] LABS: ABNORMAL PROTEIN BAND 1 0.2 g/dL (NONE DETECTED); ABNORMAL PROTEIN BAND 2 5.6 g/dL (NONE DETECTED); ALBUMIN 2.1 g/dL (3.8-4.8); ALPHA 1 GLOBULIN 0.3 g/dL (0.2-0.3); ALPHA 2 GLOBULIN 0.7 g/dL (0.5-0.9); BETA 1 GLOBULIN 0.3 g/dL (0.4-0.6); BETA 2 GLOBULIN 0.2 g/dL (0.2-0.5); GAMMA GLOBULIN 5.7 g/dL (0.8-1.7)
[2020-04-01 15:51] LABS: KAPPA LIGHT CHAIN, FREE, SERUM 9.7 mg/L (3.3-19.4); KAPPA/LAMBDA LIGHT CHAINS FREE <0.01 (0.26-1.65)
--- NOTE | 2020-04-04 09:48 | ONC FU_ITS ---
[facility] Patient Note Patient: Renate Yarbrough Unit #: [id number]: [id number] Dictated By: Vijaya PeteDate of Visit: Mar 31, 2020 Onc MED Follow-Up/Prog Note Chief Complaint: Multiple myeloma. History of Present Illness: Mr Yarbrough is an 84 year-old man with IgG lambda myeloma. On 02/19/2020 he was admitted to the hospital after presenting to the emergency room with shortness of breath. He was diagnosed with pneumonia based on noncontrast CT scan which showed multifocal bilateral airspace disease which was disproportionately localized in the right upper lobe, lingula, and lower lobes. He also had evidence of acute renal injury. His other laboratory abnormalities included mild anemia, hypercalcemia, and a significantly elevated calculated serum globulin level. He was discharged home on antibiotic coverage with azithromycin, doxycycline, and Augmentin. He was readmitted to the hospital on 02/28/2020, again after presenting to the emergency room with shortness of breath. His further laboratory studies at that time included protein electrophoresis which showed a restricted M band quantitating at 6.8 g/dL and a second M band quantitating at 0.2 g/dL. Immunofixation confirmed the monoclonal band to be an IgG lambda protein. The serum free light chain assay showed markedly elevated lambda light chain at 2363 mg/L with kappa light chain 7.7 mg/L and kappa/lambda ratio < 0.01. During the second hospitalization was felt to have a component of acute diastolic congestive heart failure, for which he was placed on diuretic therapy. He also was felt to have some component of COPD exacerbation. A skeletal survey showed degenerative changes in the cervical spine and there were postoperative changes in the cervical spine and lumbar spine. There were no lytic bone lesions identified. He was discharged with home oxygen on 03/02/2020. Dr Cheng had seen him initially on 03/16/2020. He then underwent bone marrow aspiration/biopsy on 03/17/2020. It did show evidence of plasma cell neoplasm, as expected, with a monotypic plasma cell population involving 60 to 70% of the marrow cellularity. Iron stores were noted to be adequate. Mr. Yarbrough was offered treatment with Velcade/Revlimid/dexamethasone. The Revlimid will be dose reduced to 10 mg 21 days out of 28-day cycle. His other medical illnesses include hypertension, hyperlipidemia, type 2 diabetes, COPD, and benign prostatic hypertrophy. He also has known degenerative arthritis/degenerative disease of the spine with some chronic back pain, and he has a history of rheumatic fever. He had smoked in the past, but he quit at least 40 years ago. Mr. Yarbrough began his first cycle of Velcade/Revlimid/ dexamethasone on March 24, 2020. His Revlimid dose is 10 mg daily for 21 days out of 28 days schedule. He just received the Revlimid yesterday. We will plan for him to start it tomorrow. His main complaint today states that he cannot breathe through his nose. He states that things just feel so dry and there that he just feels he cannot get air. He is wearing continuous oxygen. He states that he tried a humidifier at home that was added to his take but there is so much water in the line it was ineffective. He states he is been using some [id number] saline spray. He has not tried any ointments. He does not have a humidifier in his room. Mrs. Yarbrough states that she is put a pope of water on the stove and that seemed to help some. He denies any sores or bleeding from the nose. He denies any mouth sores sore throat or difficulty swallowing. He denies fever or chills. He has had no sign of infection for at least the last 72 hours. He states that he is felt weak and washed out at times but thinks this is because he is not sleeping well. He states that he just cannot sleep mostly because he cannot breathe . He states also that he is having some trouble getting to sleep despite his issues with the breathing. He has tried trazodone in the past but is only taken half a tablet. He has been doing sliding scale insulin at home and tolerating this well. He denies any diarrhea or constipation. He denies any neuropathy symptoms. He has had no nausea or vomiting. His ECOG is 3. Past Medical History: Benign prostatic hypertrophy Chronic kidney disease Chronic obstructive pulmonary disease Congestive heart failure Degenerative arthritis Degenerative disease of the spine History of rheumatic fever Hyperlipidemia Hypertension Type II diabetes Past Surgical History: Appendectomy Arthroscopic right knee surgery x 2 Bilateral cataract excisions Carpal tunnel release bilaterally Lumbar laminectomy in 2007, 2010, and 2011 Varicose veins removal Left inguinal hernia repair with mesh in 2014 Cardiac catheterization in 2012 Allergies: iodine Medications: Albuterol Sulfate 1 Puff(s) Nebulization solution Inhalation PRN Allopurinol 1 Tablet (of 300 mg) Oral daily ALPRAZolam 1 Tablet (of 0.25 mg) Oral PRN Aspirin 1 Tablet (of 325 mg) Oral daily Cialis 1 Tablet (of 5 mg) Oral daily Flomax 2 Tablet (of 0.4 mg) Capsule Oral daily Furosemide 1 Tablet (of 20 mg) Oral daily PRN Gabapentin 1 - 2 Capsule (of 300 mg) Oral b.i.d. Insulin Regular Human (100 Units/mL) Injection Take as Directed Mag-Al Plus 1 Capsule Oral PRN Metoprolol Tartrate 0.5 Tablet (of 25 mg) Oral b.i.d. Potassium Chloride ER 1 Tablet (of 10 meq) Tablet, controlled release Oral daily PRN Tiotropium [place] Monohydrate 1 Puff(s) Aerosol, solution Inhalation PRN Family History: Mr. Yarbrough's mother at age 66: LUNG DISEASE. Mr. Yarbrough's father at age 83: STROKE. Mr. Yarbrough has 1 brother who is : emphysema. He has 3 sisters: 2 alive, 1 . Mr. Yarbrough's first sister's chronic obstructive pulmonary disease. Another sister's heart disease. Another sister's kidney disease. Father of stroke and mother of lung disease. A brother with COPD and heart disease. A sister also of lung disease. Two other sisters are also still living, one with heart disease and the other with kidney disease. Social History: Mr. Yarbrough is . Mr. Yarbrough quit smoking 50 years ago but had smoked 1.0 pack/day for 18 years. He is an active drinker. He has a history of smoking 1 pack of cigarettes daily for 15 to 20 years. He quit smoking at least 40 years ago. He has had just very occasional alcohol use. Review Of Symptoms: Constitutional Denies fevers, chills, night sweats or weight loss. has had increased fatigue but no worse than last visit. Allergic/Immunologic No reactions. Eyes Denies significant visual changes. No diplopia. No amaurosis. ENMT Denies changes in hearing, sore throat, mouth sores, difficulty or changes in swallowing ability, and/or sinus drainage. States he cant breathe through his nose because it is stopped up and I can't get any air in . Hematologic/Lymphatic Denies easy bruising or bleeding. The patient denies any tender or palpable lymph nodes. Respiratory Denies new dyspnea on exertion, chest pain, cough or hemoptysis. Denies orthopnea. Cardiovascular Denies anginal chest pain, palpitations or orthopnea. No lower extremity edema. Gastrointestinal Denies nausea, vomiting, diarrhea, GI bleeding, or constipation. Denies change in bowel habits and/or stool color, no heartburn or early satiety. Genitourinary (M) Denies hematuria, dysuria, increased frequency, urgency, hesitancy or incontinence. Musculoskeletal Denies joint pain, swelling or redness. No decreased range of motion. Integumentary Denies chronic rashes, inflammation, ulcerations or skin changes. Neurologic Denies headache, blurred vision, and no areas of focal weakness or numbness. Psychiatric Denies insomnia, depression, bernardo or mood swings. Vital Signs: Performed on Mar 31, 2020 12:54 Height - 59.50 in Weight - 168.4 lbs (LOW) BSA - 1.72 sq.m BMI - 33.44 (HIGH) Temperature - 98.8 F Pulse - 69 /min Respiration - 20 /min BP - 85/58 mm(hg) (LOW) O2 Sat - 92 % (LOW) Pain - 0,3 - Capable of only limited self-care, confined to bed or chair more than 50% of waking hours. (ECOG) Physical Examination: Constitutional Alert, oriented, no acute distress. Skin pink, warm and dry. Head Normocephalic; atraumatic. Eyes Conjunctivae and sclerae are clear and without icterus. Pupils are reactive and equal. ENMT Nares are noted to be dry bilaterally with evidence of previous bleeding in the right nare which has resolved. There is dried exudate in the nasal cavity but no active bleeding. Neck Supple without masses or thyromegaly. No jugular venous distension. Hematologic/Lymphatic No petechiae or purpura. No tender or palpable lymph nodes in the cervical or supraclavicular areas. Respiratory Lungs are clear to auscultation without rhonchi or wheezing. Cardiovascular Regular rate and rhythm of heart with soft systolic murmur but no clicks, gallops or rubs. Abdomen Non-tender, non-distended, no masses or ascites. Good bowel sounds noted in all quads. No guarding or rebound tenderness. No pulsatile masses. Back/Spine Non-tender to palpation. Extremities No visible deformities, no cyanosis, clubbing or edema. Musculoskeletal No tenderness or swelling, normal range of motion with moderate weakness. Integumentary No rashes or lesions. Neurologic No sensory or motor deficits, normal cerebellar function. Presented in wheelchair-gait not assessed. Psychiatric Alert and oriented times three. Coherent speech. Verbalizes understanding of our discussions today. Laboratory:Test performed on Mar 30, 2020 07:10 Sodium 130 mmol/L Uric Acid 5.0 mg/dL Potassium 4.0 mmol/L Chloride 97 mmol/L CO2 23 mmol/L Anion Gap 14.0 BUN 16 mg/dL Creatinine 1.6 mg/dL Cr Clearance (Est) 36.9400 mL/min Glucose 144 mg/dL Calcium 9.5 mg/dL Protein, Total 9.6 g/dL Albumin 1.8 g/dL Globulin 7.8 g/dL Bilirubin, Total 0.6 mg/dL ALT (SGPT) < 5 U/L AST (SGOT) 18 U/L Alkaline Phosphatase 50 IU/L WBC 3.1 10 3/uL RBC 2.85 10 6/uL HGB 8.8 g/dL HCT 28.8 % MCV 101.1 fL MCH 30.9 pg MCHC 30.6 g/dL RDW 17.5 % Platelet Count 187 10 3/cmm MPV 9.4 fL Neutrophils 1.4 10 3/uL Lymphocytes 1.2 10 3/uL Monocytes 0.5 10 3/uL Eosinophils 0.0 10 3/uL Basophils 0.0 10 3/uL Neutrophil % 43.9 % Lymphocyte % 38.3 % Monocyte % 15.3 % Eosinophil % 0.6 % Basophils % 0.3 % Impression: 1. Patient with laboratory evidence of IgG lambda myeloma. He had anemia, acute on chronic renal injury, and mild hypercalcemia at presentation. 2. Bone marrow aspiration/biopsy on 03/17/2020 was consistent with plasma cell neoplasm, with plasma cells estimated at 60 to 70% of the marrow cellularity. His other medical illnesses include: 3. Hypertension, currently with low blood pressure. 4. Hyperlipidemia. 5. Type 2 diabetes. 6. Degenerative arthritis/degenerative disease of the spine. 7. Benign prostatic hypertrophy with difficulty voiding. 8. He has a history of rheumatic fever. Mr Yarbrough was offered a treatment plan consisting of Velcade/Revlimid/dexamethasone. The Revlimid will be initiated at a reduced dose of 10 mg daily on a 21 out of 28-day schedule. He did start the Velcade/dexamethasone prior to the Revlimid as the Revlimid was not available. It is felt that given the severity of his disease and overall poor condition that he needed to start the Velcade rather than waiting for the Revlimid. He began his first dose of Velcade on March 24, 2020. Mr. Yarbrough has now received his Revlimid 10 mg. We anticipate that he will start this tomorrow. Plan: 1. Proceed with Velcade cycle 1 day 8. 2. Start Revlimid 10 mg p.o. daily 21 out of 28 days starting tomorrow. 3. He may try Compazine/Ativan as needed for antiemetics at home. 4. He has been advised to try Afrin 4 times daily and alternate with saline spray 4 times daily for his nasal dryness. I have also asked him to stop his metopropol at bedtime for hypotension his blood pressure in the clinic today was 85/58. 5. As he is having no current swelling or changes with his shortness of breath we will decrease his Lasix to every other day given that he is still hypotensive and dry . 6. Today's labs reviewed in detail discussed with . Mrs. Yarbrough and a copy was given to them. WBC 3.1 hemoglobin 8.8 platelets 187,000 neutrophils are 1400. Potassium is 4.0 glucose was 144 creatinine 1.6 with a BUN of 16 calcium was normal albumin is 1.8 which is stable from his 03/23/2020 draw LFTs are normal. 7. Mr. Yarbrough is advised he can try taking trazodone 1 tablet at bedtime and may titrate up to one half at bedtime but to call us if that is not working. 8. Dr. Cheng did speak with Mr and Mrs. Yarbrough and advised them to check his glucose every 4 hours after he took the steroids for a few days. He may need sliding scale insulin every 4 hours but no more frequent than that. 9. We will plan to see him back in 1 week with CBC CMP prior to his appointment. He will be due for day 15 Velcade at that time. We will also follow-up with how well he is tolerating the Revlimid as he should have been on it for almost a week at that point. 10. We discussed side effects of Revlimid including rash, fatigue, low white blood count, anemia, low platelets, nausea vomiting, and neuropathy symptoms. We discussed diarrhea and constipation how to manage that. He is advised to call us if he has any mouth sores. 11. .& Mrs. Yarbrough instructed to contact us in the interim should questions or problems arise. 12. We discussed using the saline/Afrin and have a encourage them to get a humidifier to put next to the bedside at night to see if this will help with his nasal dryness. Hopefully this will give him some comfort so he can rest easier. Signed By: Vijaya Pete-, CNP Richard Cheng MD <<Signature on File>>
== END 2020-03-31 23:59 | disposition home or self-care (01) ==
LOC: ONCMED 05:40
PROVIDERS: Internal Medicine Medical Oncology; PCP Internal Medicine; Visit Provider Nurse Practitioner
DX: Z51.11 Encounter for antineoplastic chemotherapy (principal); C90.00 Multiple myeloma not having achieved remission; E83.52 Hypercalcemia; I10 Essential (primary) hypertension; E78.5 Hyperlipidemia, unspecified; E11.9 Type 2 diabetes mellitus without complications; M47.9 Spondylosis, unspecified; N40.1 Benign prostatic hyperplasia with lower urinary tract symptoms; R39.11 Hesitancy of micturition; R39.14 Feeling of incomplete bladder emptying; Z79.899 Other long term (current) drug therapy
CPT/HCPCS: 36415; 80053; 84550; 85025; 96401; 99214; J8540; J9041; Q0162

== ENCOUNTER 2020-04-03 22:17 | Inpatient (IN) | payer MEDICARE, OTHER, SELFPAY ==
[2020-04-03] VITALS (14 sets, daily range): BP systolic 104–125; BP diastolic 52–73; PULSE 97–102; RESP 14–30; TEMP 36.8; O2SAT 90–95; BMI 25.1
--- NOTE | 2020-04-03 22:22 | XR_ITS ---
WS: [id number] PORTABLE CHEST HISTORY: sob COMPARISON: 03/02/2020 Significant change in appearance of the chest since the prior study. Small to moderate bilateral pleu ral effusions have developed. There is pulmonary venous congestion. Scattered opacifications are also present and mild pleural thickening. There is increase fluid in the RIGHT pleural fissures. No pneum othorax. Cardiac size: Mildly enlarged cardiac silhouette. Mediastinum/Aorta: Moderate atherosclerosis and ectasia aorta. No osseous abnormality seen. XR/XR chest 1V portable [id number] IMPRESSION: 1. Significant adverse change in appearance of the chest since the prior study of 03/02/2020. 2. Development of small to moderate bilateral pleural effusions with pulmonary congestion. 3. Mild pleural thickening and scattered opacifications may be related to blair a, pneumonia or neoplasm. Please refer to CT report of 04/03/2020 of the chest.
--- NOTE | 2020-04-03 22:26 | W.ED.SOB ---
HPI - SOB/Dyspnea General: Chief Complaint: Shortness of Breath/Dyspnea Stated Complaint: sob Time Seen by Provider: 04/03/20 22:21 Source: patient and EMS Mode of arrival: EMS Limitations: no limitations History of Present Illness: HPI Narrative: 84-year-old male with a history of multiple myeloma and COPD states he has had shortness of breath for last 6 to 8 weeks. Patient is on chemotherapy. States that shortness of breath is worse with exertion. He denies any pain. He denies any fever. He is on 4 L of oxygen at baseline at home and is satting 95% on 4 L. Patient given breathing treatment in route. MD elicited complaint: shortness of breath Onset (ago): week(s) Severity: moderate Exacerbating factors: exertion Relieving factors: rest Associated symptoms: Deny abdominal pain, chest pain, fever(s), nausea or vomiting Review of Systems Const: Denies: fever(s), chills, body aches or change in appetite Eyes: Denies: blurry vision or eye discomfort ENMT: Denies: throat pain or dental pain Card: Denies: chest pain Resp: Reports: dyspnea GI: Denies: abdominal pain, nausea, vomiting or diarrhea : Denies: dysuria Musc: Denies: neck pain or back pain Skin/Breast: Denies: rash Neuro: Denies: headache(s) Psych: Denies: depression Reyes/Lymph: Denies: easy bruising All/Imm: Denies: urticaria PFSH ED PFSH: Medical History Benign prostatic hyperplasia BPH w urinary obs/LUTS COPD (chronic obstructive pulmonary disease) Diabetes mellitus, type II GERD (gastroesophageal reflux disease) History of hyperlipidemia Previously prescribed statin but was taken off few years ago by PCP Hypertension Osteoarthritis Screening PSA (prostate specific antigen) Surgical History History of appendectomy History of arthroscopy of right knee History of back surgery History of bilateral carpal tunnel release History of cataract surgery History of left inguinal hernia repair History of tonsillectomy History of vein stripping 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 Family History Family/Other Heart disease no one with known CAD however Social History Smoking and tobacco status: never smoked Quit status (tobacco): has quit using tobacco Year quit tobacco: 40ya Adopted: No Caregiver/support person: No Lives independently: No Household members: spouse Marital status: Current occupational status: retired History of recent travel: No Current gender identity: Male Physical Exam Const: COMMON NORMALS: no acute distress, patient oriented x3 and healthy appearing HENMT: COMMON NORMALS: normocephalic and atraumatic HEAD & SCALP: normocephalic and atraumatic Eye: COMMON NORMALS: Equal, round and reactive pupils present and EOMs intact bilaterally PUPIL: Yes Equal, round and reactive pupils present Neck/C-Spine: COMMON NORMALS: full ROM and supple Chest: COMMONS NORMALS: normal inspection of the chest and normal palpation of entire chest wall Resp: COMMON NORMALS: normal respiratory effort, No retractions, No use of accessory muscles and clear to auscultation bilaterally AUSCULTATION: clear to auscultation bilaterally Cardio: COMMON NORMALS: regular rate, regular rhythm and No murmurs present (Cardio) RATE: regular rate RHYTHM: regular rhythm GI: COMMON NORMALS: Normal to inspection, nondistended, normoactive bowel sounds present, Soft to palpation, non-tender and no masses PALPATION: Yes Soft to palpation Extremity: COMMON NORMALS: normal to inspection and full ROM Neuro: COMMON NORMALS: patient oriented x3, moves all extremities and no focal motor deficits Psych: COMMON NORMALS: mental status grossly normal, Normal thought process present and cooperative THOUGHT PROCESS: Normal thought process present Skin: COMMON NORMALS: no rashes or lesions noted and no wounds GENERAL SKIN EXAM: no rashes or lesions noted Course Vital Signs: Vital signs: Vital Signs Temperature 98.2 F 04/03/20 22:19 Pulse Rate 99 04/03/20 23:30 Respiratory Rate 27 H 04/03/20 23:30 Blood Pressure 104/56 04/03/20 23:30 Pulse Oximetry 93 04/03/20 23:30 MDM - SOB/Dyspnea MDM Narrative: Medical decision making narrative: Patient presents here with shortness of breath likely from pleural effusions. Pleural effusions are likely cardiogenic versus pneumonia. Patient started on IV antibiotics here. Patient started on BiPAP as well. I spoke to hospitalist will admit. Patient has been stable on the ER. Lab Data: Labs: Lab Results 04/03/20 04/03/20 04/03/20 Range/Units 22:30 22:30 23:00 WBC 5.9 (4.0-10.0) 10^3/ uL RBC 2.97 L (4.1-5.3) 10^6/u L Hgb 9.3 L (11.7-16.6) g/dL Hct 29.7 L (42.0-52.0) % MCV 100.0 H (80-94) fL MCH 31.3 (28.0-34.0) pg MCHC 31.3 (30.0-36.0) g/dL RDW 17.5 H (12.1-15.1) % Plt Count 207 (130-400) 10^3/c mm MPV 9.7 (7.4-10.4) fL Neut % (Auto) 49.0 % Lymph % (Auto) 40.7 % Whitman % (Auto) 7.1 % Eos % (Auto) 0.5 % Baso % (Auto) 0.3 % Neut # (Auto) 2.9 (1.8-7.7) 10^3/u L Lymph # (Auto) 2.4 (0.8-4.8) 10^3/u L Whitman # (Auto) 0.4 (0.2-0.9) 10^3/u L Eos # (Auto) 0.0 (0.0-0.8) 10^3/u L Baso # (Auto) 0.0 (0.0-0.1) 10^3/u L Nucleated RBC % (a uto) 0 % Nucleated RBCs # 0.0 /100WBC Specimen Type Sample Site ABG pH (7.35-7.45) ABG pCO2 (35-45) mmHg ABG pO2 (80.0-100.0) mmH g ABG HCO3 (22-26) mmol/L ABG Base Excess (-2.0-2.0) mmol/ L Daniel Test Hematocrit (42-52) % O2 Delivery Device O2 Liters/Min % Steward/Stewardess Smoke Room ID Sodium 128 L (136-145) mmol/L Potassium 3.8 (3.5-5.1) mmol/L Chloride 95 L (98-107) mmol/L Carbon Dioxide 22 (22-29) mmol/L Anion Gap 14.8 (5-19) BUN 23 (8-23) mg/dL Creatinine 1.4 H (0.7-1.2) mg/dL Glucose 179 H (65-115) mg/dL Calculated Osmolal ity 267 L (285-295) mOsm/k g Calcium 9.7 (8.5-10.5) mg/dL Total Bilirubin 0.8 (0.15-1.2) mg/dL AST 17 (0-40) U/L ALT 8 (0-41) U/L Alkaline Phosphata se 46 (40-130) IU/L NT-Pro-B Natriuret Pep 1164 H (0-450) pg/mL Total Protein 10.9 H (6.6-8.7) g/dL Albumin 2.0 L (3.5-5.2) g/dL Globulin 8.9 H (1.3-4.6) g/dL Urine Color Yellow (Yellow) Urine Appearance Sl hazy (CLEAR) Urine pH 5 (5-7) Ur Specific Gravit y 1.015 (1.005-1.030) Urine Protein Trace (Negative) Urine Glucose (UA) Norm (Normal) Urine Ketones Negative (Negative) Urine Blood Neg (Negative) Urine Nitrate Negative (Negative) Urine Bilirubin Neg (NEGATIVE) Urine Urobilinogen Norm (Negative) mg/dL Ur Leukocyte Geovanna ase Negative (Negative) Urine RBC Rare (0-2) /hpf Urine WBC Rare (0-5) /hpf Ur Squamous Epith Cells Rare (0-5) Amorphous Sediment 2+ Urine Bacteria Trace (NONE) 04/04/20 Range/Units 00:25 WBC (4.0-10.0) 10^3/ uL RBC (4.1-5.3) 10^6/u L Hgb (11.7-16.6) g/dL Hct (42.0-52.0) % MCV (80-94) fL MCH (28.0-34.0) pg MCHC (30.0-36.0) g/dL RDW (12.1-15.1) % Plt Count (130-400) 10^3/c mm MPV (7.4-10.4) fL Neut % (Auto) % Lymph % (Auto) % Whitman % (Auto) % Eos % (Auto) % Baso % (Auto) % Neut # (Auto) (1.8-7.7) 10^3/u L Lymph # (Auto) (0.8-4.8) 10^3/u L Whitman # (Auto) (0.2-0.9) 10^3/u L Eos # (Auto) (0.0-0.8) 10^3/u L Baso # (Auto) (0.0-0.1) 10^3/u L Nucleated RBC % (a uto) % Nucleated RBCs # /100WBC Specimen Type Arterial Sample Site Radial, left ABG pH 7.48 H (7.35-7.45) ABG pCO2 30.1 L (35-45) mmHg ABG pO2 62.4 L (80.0-100.0) mmH g ABG HCO3 22.5 (22-26) mmol/L ABG Base Excess -0.4 (-2.0-2.0) mmol/ L Daniel Test Pos Hematocrit 29.7 L (42-52) % O2 Delivery Device Oxy mask O2 Liters/Min 10.0 % Steward/Stewardess Smoke Room ID [email or web address] Sodium (136-145) mmol/L Potassium (3.5-5.1) mmol/L Chloride (98-107) mmol/L Carbon Dioxide (22-29) mmol/L Anion Gap (5-19) BUN (8-23) mg/dL Creatinine (0.7-1.2) mg/dL Glucose (65-115) mg/dL Calculated Osmolal ity (285-295) mOsm/k g Calcium (8.5-10.5) mg/dL Total Bilirubin (0.15-1.2) mg/dL AST (0-40) U/L ALT (0-41) U/L Alkaline Phosphata se (40-130) IU/L NT-Pro-B Natriuret Pep (0-450) pg/mL Total Protein (6.6-8.7) g/dL Albumin (3.5-5.2) g/dL Globulin (1.3-4.6) g/dL Urine Color (Yellow) Urine Appearance (CLEAR) Urine pH (5-7) Ur Specific Gravit y (1.005-1.030) Urine Protein (Negative) Urine Glucose (UA) (Normal) Urine Ketones (Negative) Urine Blood (Negative) Urine Nitrate (Negative) Urine Bilirubin (NEGATIVE) Urine Urobilinogen (Negative) mg/dL Ur Leukocyte Geovanna ase (Negative) Urine RBC (0-2) /hpf Urine WBC (0-5) /hpf Ur Squamous Epith Cells (0-5) Amorphous Sediment Urine Bacteria (NONE) Imaging Data^: CT Chest: Radiologist's impression: [address] [address] [address] Scan Report Signed Patient: Renate Yarbrough Unit #: [id number] : 1935 Age/Sex: 84 / M ADM Date: 04/03/20 Loc: ER Room/Bed: Attending Dr: Ordering Provider/Ordering MD: Stewart Miranda MD Date of Service: 04/03/20 Procedure(s): CT chest [facility] [id number] Accession Number(s): [id number] Report Number: [id number] PROCEDURE INFORMATION: Exam: CT Chest Without Contrast Exam date and time: 04/03/2020 11:28 PM Age: 84 years old Clinical indication: Shortness of breath; Patient HX: HX of multiple myeloma C/O SOB TECHNIQUE: Imaging protocol: Computed tomography of the chest without contrast. Radiation optimization: All CT scans at this facility use at least one of these dose optimization techniques: automated exposure control; mA and/or kV adjustment per patient size (includes targeted exams where dose is matched to clinical indication); or iterative reconstruction. COMPARISON: CR XR chest 1V portable [id number] 04/03/2020 10:56 PM RADIATION DOSE METRICS: Total DLP: 899.84 mGy-cm FINDINGS: Lungs: There is compressive atelectasis of both lower lobes. There is partial atelectasis of both upper lobes. There is mild diffuse ground-glass opacity in the upper lobes. There is marked nodular pleural thickening with multiple noncalcified subpleural pulmonary nodules. There are numerous small pulmonary nodules in the subpleural portion of the right upper and middle lobe, measuring up to 8 mm diameter. Pleural space: Large bilateral pleural effusions. There is marked nodular pleural thickening involving the costal pleura bilaterally. No pleural calcifications. Heart: There is mild cardiac enlargement. There is a small pericardial effusion. There is moderate coronary artery calcification. Aorta: Diffusely ectatic and mildly calcified thoracic aorta measures up to 4.7 cm in the mid descending region and up to 4.5 cm ascending. Lymph nodes: There is no mediastinal or hilar lymphadenopathy. There are calcified small lymph nodes in the right hilum suggesting remote granulomatous infection. Spleen: The spleen is mildly enlarged. Adrenals: Marked nodular enlargement of both adrenal glands measuring 4.3 x 2.6 cm in aggregate on the left and 3.5 x 3.1 cm on the right. Bones/joints: Bones are unremarkable. Soft tissues: The extrathoracic soft tissues are unremarkable. CT/CT chest wo con [id number] IMPRESSION: 1. Large bilateral pleural effusions with compressive atelectasis of both lower lobes. 2. Bilateral nodular costal pleural thickening, new since 02/20/2020, suspicious for metastatic disease. 3. Marked nodular enlargement of the adrenal glands bilaterally, new since 02/20/2020, suspicious for metastatic disease. 4. Multiple subpleural nodules in the right upper and middle lobes, new since 02/20/2020. This could be infectious or neoplastic. Fleischner follow up recommendations for incidental nodules are not indicated. Follow up per patient's medical condition. 5. Cardiac enlargement and ground-glass opacities in the upper lobes. Possible pulmonary edema. 6. Diffusely dilated thoracic aorta; stable. EKG Data^: EKG 1: Attestation: I personally reviewed and interpreted this EKG as follows: EKG Interpretation Date: 04/03/20 EKG interpretation time: 23:21 Interpretation: sinus tach hr [address] and t wave abnormality qrs 101 qtc 388 Discharge Plan Discharge Patient Disposition: Admitted As Inpatient Admit Provider: Varinder Bansal Clinical Impression: Shortness of breath, Pleural effusion Condition: Stable Referrals: Richard Leslie DO [Primary Care Provider] - Coding Level of Care Code ED Production Counter for Chg Fwd Exam Comprehensive
[2020-04-03 22:54] LABS: Basophils % 0.3 %; Eosinophils % 0.5 %; Hematocrit 29.7 % (42.0-52.0); Hemoglobin 9.3 g/dL (11.7-16.6); Lymphocytes # 2.4 10^3/uL (0.8-4.8); Lymphocytes % 40.7 %; Mean Corpuscular HGB Conc 31.3 g/dL (30.0-36.0); Mean Corpuscular Hemoglobin 31.3 pg (28.0-34.0); Mean Platelet Volume 9.7 fL (7.4-10.4); Monocytes # 0.4 10^3/uL (0.2-0.9); Monocytes % 7.1 %; Neutrophils # 2.9 10^3/uL (1.8-7.7); Nucleated Red Blood Cells % 0 %; Platelet Count 207 10^3/cmm (130-400); Red Blood Count 2.97 10^6/uL (4.1-5.3); Red Cell Distribution Width 17.5 % (12.1-15.1); White Blood Count 5.9 10^3/uL (4.0-10.0)
--- NOTE | 2020-04-03 23:06 | CTR_ITS ---
PROCEDURE INFORMATION: Exam: CT Chest Without Contrast Exam date and time: 04/03/2020 11:28 PM Age: 84 years old Clinical indication: Shortness of breath; Patient HX: HX of multiple myeloma C/O SOB TECHNIQUE: Imaging protocol: Computed tomography of the chest without contrast. Radiation optimization: All CT scans at this facility use at least one of these dose optimization techniques: automated exposure control; mA and/or kV adjustment per patient size (includes targeted exams where dose is matched to clinical indication); or iterative reconstruction. COMPARISON: CR XR chest 1V portable [id number] 04/03/2020 10:56 PM RADIATION DOSE METRICS: Total DLP: 899.84 mGy-cm FINDINGS: Lungs: There is compressive atelectasis of both lower lobes. There is partial atelectasis of both upper lobes. There is mild diffuse ground-glass opacity in the upper lobes. There is marked nodular pleural thickening with multiple noncalcified subpleural pulmonary nodules. There are numerous small pulmonary nodules in the subpleural portion of the right upper and middle lobe, measuring up to 8 mm diameter. Pleural space: Large bilateral pleural effusions. There is marked nodular pleural thickening involving the costal pleura bilaterally. No pleural calcifications. Heart: There is mild cardiac enlargement. There is a small pericardial effusion. There is moderate coronary artery calcification. Aorta: Diffusely ectatic and mildly calcified thoracic aorta measures up to 4.7 cm in the mid descending region and up to 4.5 cm ascending. Lymph nodes: There is no mediastinal or hilar lymphadenopathy. There are calcified small lymph nodes in the right hilum suggesting remote granulomatous infection. Spleen: The spleen is mildly enlarged. Adrenals: Marked nodular enlargement of both adrenal glands measuring 4.3 x 2.6 cm in aggregate on the left and 3.5 x 3.1 cm on the right. Bones/joints: Bones are unremarkable. Soft tissues: The extrathoracic soft tissues are unremarkable. CT/CT chest wo con [id number] IMPRESSION: 1. Large bilateral pleural effusions with compressive atelectasis of both lower lobes. 2. Bilateral nodular costal pleural thickening, new since 02/20/2020, suspicious for metastatic disease. 3. Marked nodular enlargement of the adrenal glands bilaterally, new since 02/20/2020, suspicious for metastatic disease. 4. Multiple subpleural nodules in the right upper and middle lobes, new since 02/20/2020. This could be infectious or neoplastic. Fleischner follow up recommendations for incidental nodules are not indicated. Follow up per patient's medical condition. 5. Cardiac enlargement and ground-glass opacities in the upper lobes. Possible pulmonary edema. 6. Diffusely dilated thoracic aorta; stable. Radiation Dose CTDIVOL = (mGy): DLP = 899.84 (mGy-cm)
[2020-04-03 23:12] LABS: Alanine Aminotransferase 8 U/L (0-41); Alkaline Phosphatase 46 IU/L (40-130); Anion Gap 14.8 (5-19); Aspartate Amino Transferase 17 U/L (0-40); Blood Urea Nitrogen 23 mg/dL (8-23); Calcium 9.7 mg/dL (8.5-10.5); Carbon Dioxide 22 mmol/L (22-29); Chloride 95 mmol/L (98-107); Globulin 8.9 g/dL (1.3-4.6); Glucose 179 mg/dL (65-115); NT Pro B Type Natriuretic Pept 1164 pg/mL (0-450); Osmolality Calculated 267 mOsm/kg (285-295); Potassium 3.8 mmol/L (3.5-5.1); Sodium 128 mmol/L (136-145); Total Bilirubin 0.8 mg/dL (0.15-1.2); Total Protein 10.9 g/dL (6.6-8.7)
[2020-04-03 23:21] LABS: Bilirubin Urine Neg (NEGATIVE); Blood Urine Neg (Negative); Glucose Urine UA Norm (Normal); Ketones Urine Negative (Negative); Leukocyte Esterase Urine Negative (Negative); Nitrate Urine Negative (Negative); Protein Urine Trace (Negative); Specific Gravity, Urine 1.015 (1.005-1.030); Urine Appearance SL Hazy (CLEAR); Urine Color Yellow (Yellow); Urobilinogen Urine Norm (Negative); pH Urine 5 (5-7)
[2020-04-03 23:22] LABS: Add Urine Microscopic? YES
[2020-04-03 23:23] LABS: Bacteria Urine TRACE; RBC Urine RARE /hpf (0-2); Squamous Epithelial Cell Urine RARE (0-5); WBC Urine RARE /hpf (0-5)
[2020-04-03 23:24] LABS: Add Urine Culture? No; Amorphous Sediment Urine 2+
[2020-04-04] VITALS (59 sets, daily range): BP systolic 97–136; BP diastolic 59–84; PULSE 80–105; RESP 14–30; TEMP 36.7–36.8; O2SAT 90–99
[2020-04-04 00:37] LABS: ABG PCO2 30.1 mmHg (35-45); ABG PH Result 7.48 (7.35-7.45); Arterial Blood Gas Hematocrit 29.7 % (42-52); Base Excess ABG -0.4 mmol/L (-2.0-2.0); Blood Gas Allen Test Pos; Blood Gas Sample Site Radial, left; Blood Gas Sample Type Arterial; HCO3 ABG 22.5 mmol/L (22-26); Oxygen Device OXY MASK; PO2 ABG 62.4 mmHg (80.0-100.0)
--- NOTE | 2020-04-04 00:53 | P.HP_ITS ---
Providers/Chief Complaint Primary Care Provider: Richard Leslie DO Chief Complaint: sob History of Present Illness Renate Yarbrough is a 84 year old male who carries diagnosis of IgG lambda multiple myeloma(got diagnosed this year 03/16), COPD 3L oxygen dependent, BPH, chronic back pain, diastolic congestive heart failure (EF 60% grade 1 diastolic dysfunction), who was recently treated for pneumonia in January and was asked to follow-up with Dr. Cheng for plasma dyscrasia is coming in with chief complaint of worsening shortness of breath. Bone marrow biopsy on 03/17/2020 showed 60 to 70% plasma cell marrow cellularity, IgG lambda myeloma, currently he is on dexamethasone/Velcade/Revlimid. On previous admission VQ scan showed low probability for PE, he is allergic to contrast and has chronic kidney disease. Patient is stating that his functional status has been declining for last 8 to 12 weeks, he has started taking chemotherapy suggested by Dr. Cheng which he gets once a week, he is status post 01/08 cycles. His regimen includes dexamethasone as well. For last couple of weeks his shortness of breath has been gradually getting worse, since January he has been requiring oxygenation at home, he is using 3 L at baseline. He has been experiencing orthopnea, PND. He is denying fever, chest pain, palpitations, sputum production, dysuria, dark stools, hematemesis or hemoptysis. He has been sleeping in a recliner, he st arted using Lasix recently 20 mg once a day. Today he came to the hospital because he just could not catch his breath at rest. On arrival he was afebrile, no leukocytosis, requiring 8 to 10 L of oxygen, he was tachycardic, CHF exacerbation with bilateral pleural effusion, he was given ceftriaxone and azithromycin in the ER, 1 dose of IV Lasix was given, ABG showed respiratory alkalosis, his respiratory distress improved with BiPAP,, my evaluation he was saturating 92% was BiPAP dependent, he quickly desaturated when he took off his mask to provide me some details about today's event. I did rectal exam which revealed empty rectal vault, not enough stool sample to check for occult blood, patient is endorsing seeing fresh streaks of blood on tissue paper and endorses hemorrhoids history I had lengthy discussion with the patient and his regarding goals of care and tried to explain the complexity of his heart failure, bilateral pleural effusion, BiPAP dependency and hypoxia with high risk for intubation with guarded prognosis. Their questions were answered to their satisfaction. He will be full CODE STATUS. CT scan today revealed bilateral pleural effusion Nodular costal pleural thickening which are new Adrenal gland enlargement new Subpleural nodules in upper and middle right lobes Groundglass opacities in upper lobe with some edema Ascending aortic aneurysm 4.7 cm Review of previous records revealed He is following up with Dr. Cheng for multiple myeloma, on chemo cycle 01/[address] Girard for BPH who added finasteride, PSA normal, worsening of prostatic hyperplasia on rectal exam Was treated with antibiotics on last visit which was 6 weeks ago, blood cultures negative, sputum cultures showed oral flako Bone scan 02/28 did not show any lytic lesions Review of Systems Const: Reports: body aches, change in appetite, fatigue, night sweats and burdick ge in sleep pattern; Denies: fever(s) or chills Eyes: Denies: change in vision ENMT: Denies: throat pain Card: Reports: swelling of feet/ankles, dyspnea on exertion and orthopnea; Denies: chest pain Resp: Reports: dyspnea and non-productive cough GI: Reports: constipation; Denies: abdominal pain, nausea, vomiting or diarrhea : Reports: difficulty urinating, difficulty starting urination and change in urine stream; Denies: flank pain Musc: Denies: neck pain Skin/Breast: Reports: lesions Neuro: Denies: headache(s) Psych: Reports: anxiety Endo: Denies: polyuria, cold intolerance or hot flashes Reyes/Lymph: Denies: easy bruising All/Imm: Denies: urticaria Medications/Allergies Home Medications Medication Instructions Recorded Confirmed Last Taken Type albuterol sulfate 2.5 mg INHALATION Q6H PRN 02/19/20 03/18/20 02/18/20 History 2.5MG/3ML blood sugar diagnostic [Prodigy No 02/19/20 03/18/20 Unknown History Coding] tamsulosin [Flomax] 0.8 mg PO DAILY 02/19/20 03/18/20 02/28/20 History triamcinolone acetonide 1 applic TOPICAL PRN PRN 02/19/20 03/16/20 Unknown History tiotropium bromide 1 cap INHALATION DAILY #1 inh 02/21/20 03/18/20 02/28/20 Rx tadalafil 5 mg PO DAILY 02/28/20 03/18/20 02/28/20 History trazodone 25 mg PO BEDTIME PRN #30 tab 03/02/20 03/16/20 Unknown Rx alprazolam 0.25 mg PO BID 03/16/20 03/18/20 Unknown History aluminum-mag hydroxide-simethicone 10 ml PO Q6H PRN 03/18/20 03/18/20 Unknown History 200 mg-200 mg-20 mg/5 mL oral susp finasteride 5 mg tablet 5 mg PO QDAY #90 tab 03/18/20 03/18/20 Unknown Rx gabapentin 300 mg capsule 300 mg PO TID 03/18/20 03/18/20 Unknown History potassium chloride 10 mEq 10 meq PO DAILY 03/18/20 03/18/20 Unknown History capsule,extended release Allergies Allergy/AdvReac Type Severity Reaction Status Date / Time Iodinated Contrast Media Allergy Unknown Verified 03/16/20 16:21 PFSH Acute PFSH: Medical History (Updated 04/04/20 @ 02:12 by Varinder Bansal MD) Benign prostatic hyperplasia BPH w urinary obs/LUTS COPD (chronic obstructive pulmonary disease) 3 L oxygen dependent at home Diabetes mellitus, type II GERD (gastroesophageal reflux disease) History of hyperlipidemia Statin intolerance Hypertension Osteoarthritis Screening PSA (prostate specific antigen) Normal PSA Surgical History History of appendectomy History of arthroscopy of right knee History of back surgery History of bilateral carpal tunnel release History of cataract surgery History of left inguinal hernia repair History of tonsillectomy History of vein stripping 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 Family History Family/Other Heart disease no one with known CAD however Social History Smoking and tobacco status: never smoked Quit status (tobacco): has quit using tobacco Year quit tobacco: 40ya Adopted: No Caregiver/support person: No Lives independently: No Household members: spouse Marital status: Current occupational status: retired History of recent travel: No Current gender identity: Male Vitals/I&O/Wt Last Vital Signs Temp 98.2 F 04/03/20 22:19 Pulse 99 04/03/20 23:30 Resp 27 H 04/03/20 23:30 BP 104/56 04/03/20 23:30 Pulse Ox 93 04/03/20 23:30 Weight last 48 hrs Weight 77.111 kg Physical Exam Narrative: EXAM NARRATIVE: Head to toe examination Patient is currently in semi-encinas position on BiPAP 12/06, FiO2 50% saturating well 92% Normal hemodynamics on telemetry Patient quickly desaturates if he is not on BiPAP He became tachypneic and hypoxic when he removed mass to give more detailed information about his today's event Malnourished and dehydrated Pallor positive S1, S2, systolic murmur all over precordium, grade 2/6, positive abdominal jugular reflux 1+ pitting edema bilateral lower extremities Right lower extremity is more swollen as compared to Abdomen distended, nontender, bowel sound present, Neurologically nonfocal exam Awake alert oriented x3 GCS 15 Rectal exam revealed empty rectal vault not enough stool sample to see occult blood Hemorrhoids without active bleed Bilateral assisted breath sounds in upper zones, diminished breath sounds in the middle and lower basis Appropriate mood and affect Data : 04/03/20 22:30 04/03/20 22:30 Micro: Microbiology 04/03/20 11:31 Blood Culture - Preliminary Blood SPECIMEN COLLECTED 04/03/20 11:29 Blood Culture - Preliminary Blood SPECIMEN COLLECTED A&P Assessment and plan (1) Acute exacerbation of CHF (congestive heart failure): Preserved ejection fraction heart failure exacerbation EF is 60% with grade 1 diastolic dysfunction, I would not repeat echo as it was done recently I would use Bumex 1 mg p.o. instead of Lasix Clinically he has signs of fluid overload with bilateral pleural effusion No active chest pain, sinus rhythm, heart rate ranging between 80-100, nonspecific ST-T wave changes, QTC 388 BNP 1164 Status: Acute (2) Respiratory failure with hypoxia: Respiratory failure requiring BiPAP at this point, he is high risk for intubation Closely monitor in ICU Blood gas reveals respiratory alkalosis with hypoxia Currently FiO2 50% saturating well DuoNeb PRN Would obtain urine antigens, sputum and blood cultures, Considering his recent hospitalization and groundglass opacities in the upper zones and immunocompromise state I would treat him with vancomycin, Levaquin every other day, cefepime: Renally dosed He has been afebrile, no leukocytosis We will obtain pro calcitonin His COVID test that was done 1 month ago was negative Status: Acute (3) Macrocytic anemia: Baseline hemoglobin is between 9.5-10, macrocytic anemia most likely due to underlying multiple myeloma, no active GI bleed, history of hemorrhoids, Rectal exam did not reveal occult blood due to inadequate stool sample Will obtain FOBT Status: Acute (4) Right leg swelling: He is allergic to contrast, cannot get CTA, last VQ scan a 1 month ago was low probability for PE I would not get d-dimer as it will be high because of his underlying cancer Would obtain venous Doppler of lower extremity Currently he saturating well on BiPAP, not tachycardic at this point, I believe his hypoxia secondary to CHF exacerbation and would not start full dose anticoagulation at this point, Status: Acute (5) Pleural effusion: Due to CHF exacerbation, I would like to give him a trial of diuretics because of his cardiac etiology PE mostly gives unilateral for effusions If diuretics are not improving effusion and he consistently stays on BiPAP then consideration might be given to thoracentesis CT scan is showing new subpleural nodules with concern for metastases Status: Acute (6) Shortness of breath: Due to CHF exacerbation, management as mentioned above Status: Acute (7) Easy fatigability: Due to multiple comorbid conditions, gradual decline in functional status Status: Acute (8) Chronic kidney disease: His creatinine seems to be at baseline Anticipating improvement with diuresis No acute urinary retention I would continue his BPH medication Status: Acute (9) Diabetes mellitus, type II: Status: Acute Qualifiers: 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: without correction use Diabetes mellitus complication status: without complication Qualified Code(s): E11.9 - Type 2 diabetes mellitus without complications (10) Hyponatremia: Baseline sodium around 128- 130 currently he is suffering from fatigue I believe this is due to fluid overloaded state and underlying paraproteinemia causing pseudohyponatremia being worsened by CHF exacerbation Status: Acute Additional A&P Information Had a lengthy discussion with the patient and his regarding goals of care: He is full code Family was given opportunity to ask questions, their questions were answered to their satisfaction, they understand that he is high risk for intubation with guarded prognosis Would keep him n.p.o. for now because he is high risk for intubation is very worried about his chemotherapy regimen that he might miss a few doses. She has medications at home. I told her hemotherapy agents could wait for now and can be given once his respiratory status is better. DVT prophylaxis: Heparin Closer monitoring for urinary tension because of worsening BPH, if he stays BiPAP dependent we might have to put [place] catheter for accurate ins and outs. Attestations Medical Necessity Statement*: Anticipating stay in the hospital cross more than 2 midnights continued ICU for closer monitoring because he is high risk for intubation for acute on chronic hypoxic respiratory failure with underlying CHF exacerbation. He carries a guarded prognosis. 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
[2020-04-04] MEDS: cefTRIAXone 1,000 MG in sodium chloride 0.9% (plus) 50 ML 100 MG IV (01:15)
[2020-04-04] MEDS: FUROsemide 10 mg/mL SDV 4mL 40 MG IVP (01:22)
[2020-04-04] MEDS: azithromycin 500 MG in sodium chloride 0.9% 250 ML 250 MG IV (01:45)
--- NOTE | 2020-04-04 02:48 | USCV_ITS ---
Renate Yarbrough Age: 84 Gender: M : 1935 Exam Date: 04/04/2020 06:01 Ordering Phys: Varnider Bansal MD Technologist: Sowmya Garcia Exam Location: [facility] [place]_ Indication: RT LEG SWELLING HISTORY: Question of Rt leg swelling PROCEDURES: Venous duplex imaging was performed in only the right lower extremity. The following venous structures were evaluated: common femoral vein, profunda vein, proximal portion of the greater saphenous vein, superficial femoral vein, and the popliteal vein. In addition, the posterior tibial and peroneal trunk were evaluated. Serial compression, augmentation maneuvers, and spectral Doppler flow evaluation were performed. FINDINGS: No DVT seen in any vessel examined Macias's cyst rt pop fossa 3.2X 1.8 cm CONCLUSIONS No evidence of DVT in the above-mentioned identifiable veins. Hypoechoic area, suggestive of a Macias's cyst in the right popliteal fossa measuring 3.[address] Liliam Ayala MD [facility] (Electronically Signed) Final Date: 04 April 2020 18:54 S
--- NOTE | 2020-04-04 03:13 | PC.PHAR ---
Pharmacokinetic dosing service Date: 02/03/20 Time: 030 Objective: Patient: Renate Yarbrough Floor: ICU-6 Age: 84 yo Serum creatinine: 1.4 mg/dL Height: 69.0 Inches Weight (kg): 77.111 Diagnosis: Relevant medical/social history: Cultures and sensitivities: Other labs: Assessment: IBW (kg): 70.70 Dosing wt(kg): 77.111 Estimated Creatinine clearance (ml/min): 40.0 CRCL method: Cockcroft and Gault using ibw(default). Drug selected: Vancomycin Loading dose (mg): 0 Vd (liters): 69.4 (factor used: 0.9 L/kg) Espinoza (hr-1): 0.038 Half life (hrs): 18.24 Recommended dose: 1250 mg Interval: 24 hrs Infusion time (hrs): 1.5 Predicted peak (mcg/mL): 29.3 Predicted trough (mcg/mL): 12.46 Total body weight is being used for vancomycin dosing. Renal function is stable [ ] /unstable [ ] Recommendations: Give Vancomycin 1250 mg q 24 hrs with an expected Cpeak of 29.3 mcg/ml and an expected Ctrough of 12.46 mcg/ml Renal dosing of other antibiotics (review renal dosing of other medications and list guidelines here): Thank you for the consult, will continue to follow. Signature: Martha Agustin [facility]
[2020-04-04 03:22] LABS: Uric Acid 4.8 mg/dL (3.4-7.0)
[2020-04-04] MEDS: heparin 5,000 unit/mL INJ 1 mL 5000 UNIT SUBCUT ×3 (03:26→17:30)
[2020-04-04] MEDS: levoFLOXacin 750 mg Tablet PO (03:26)
[2020-04-04] MEDS: cefepime 1,000 MG in sodium chloride 0.9% (plus) 50 ML 100 MG IV ×2 (03:26→17:31)
[2020-04-04 03:29] LABS: Procalcitonin 0.34 ng/mL (0-0.5)
[2020-04-04 03:40] LABS: Lactate Dehydrogenase 200 U/L (135-225)
[2020-04-04 03:57] LABS: Vitamin B12 > 2000 pg/mL (232-1245)
[2020-04-04 04:59] LABS: Basophils % 0.2 %; Hematocrit 27.4 % (42.0-52.0); Hemoglobin 8.4 g/dL (11.7-16.6); Lymphocytes # 0.5 10^3/uL (0.8-4.8); Lymphocytes % 9.8 %; Mean Corpuscular HGB Conc 30.7 g/dL (30.0-36.0); Mean Corpuscular Hemoglobin 31.1 pg (28.0-34.0); Mean Corpuscular Volume 101.5 fL (80-94); Mean Platelet Volume 10.1 fL (7.4-10.4); Monocytes # 0.2 10^3/uL (0.2-0.9); Neutrophils # 4.2 10^3/uL (1.8-7.7); Neutrophils % 83.2 %; Nucleated Red Blood Cells % 0 %; Platelet Count 208 10^3/cmm (130-400); Red Cell Distribution Width 17.5 % (12.1-15.1)
[2020-04-04 05:20] LABS: Anion Gap 17.4 (5-19); Blood Urea Nitrogen 24 mg/dL (8-23); Calcium 9.7 mg/dL (8.5-10.5); Carbon Dioxide 21 mmol/L (22-29); Chloride 94 mmol/L (98-107); Glucose 299 mg/dL (65-115); Osmolality Calculated 274 mOsm/kg (285-295); Potassium 4.4 mmol/L (3.5-5.1); Sodium 128 mmol/L (136-145)
[2020-04-04 05:31] LABS: ABG PCO2 31.5 mmHg (35-45); ABG PH Result 7.46 (7.35-7.45); Arterial Blood Gas Hematocrit 31.8 % (42-52); Base Excess ABG -1.3 mmol/L (-2.0-2.0); Blood Gas Allen Test Pos; Blood Gas Sample Site Radial, right; Blood Gas Sample Type Arterial; HCO3 ABG 22.1 mmol/L (22-26); Oxygen Device BIPAP; PO2 ABG 90.2 mmHg (80.0-100.0)
--- NOTE | 2020-04-04 05:44 | PC.NURSE ---
SHIFT SUMMARY PT HAS REMAINED ALERT AND ORIENTATED. PT HAS HAD ADEQUATE URINE OUTPUT. PT ABLE TO GET UP WITH STANDBY ASSIST TO BSC. PT HAS SMALL BOWEL MOVEMENT. PT HAS NOT HAD ANY RESPIRATORY DISTRESS EPISODES SINCE ADMITTED. PT IV REMAINS PATENT.
[2020-04-04] MEDS: bumetanide 1 mg Tablet PO ×2 (08:12→17:31)
[2020-04-04] MEDS: sennosides-docusate Tablet 1 TAB PO ×2 (08:12→17:31)
[2020-04-04] MEDS: allopurinol 300 mg Tablet PO (08:12)
[2020-04-04] MEDS: tamsulosin 0.4 mg Capsule 0.8 MG PO (08:12)
[2020-04-04] MEDS: finasteride 5 mg Tablet PO (08:12)
--- NOTE | 2020-04-04 09:02 | PM.PN ---
Subjective Subjective: Interval history: Chart reviewed, MIGDALIA, has had 950 mL urine output so far, on 6 L oxy-mask. Is quite claustrophobic and is requesting to sit close to the nursing station. Switched to [place] as well and reports being hungry. Medications: Reviewed: Yes Medication Review Details: Active Medications Generic Name Dose Route Start Last Admin Trade Name Freq PRN Reason Stop Dose Admin Albuterol/Ipratrop ium 3 ml 04/04/20 02:48 Duoneb INHALATION Q6H PRN SHORTNESS OF DANA TH Allopurinol 300 mg 04/04/20 09:00 04/04/20 08:12 Zyloprim PO 300 mg DAILY MAHESH Administration Bumetanide 1 mg 04/04/20 09:00 04/04/20 08:12 Bumex PO 1 mg DAILY MAHESH Administration Finasteride 5 mg 04/04/20 09:00 04/04/20 08:12 Proscar PO 5 mg DAILY MAHESH Administration Heparin Sodium (Be ef Lung) 5,000 unit 04/04/20 02:48 04/04/20 03:26 Heparin SUBCUT 5,000 unit Q8H MAHESH Administration Cefepime HCl 1,000 mg/ Sodium 50 mls @ 100 mls/ hr 04/04/20 03:00 04/04/20 03:26 Chloride IV 100 mls/hr Q12H MAHESH Administration Protocol Vancomycin HCl 1,2 50 mg/ 250 mls @ 250 mls /hr 04/04/20 04:00 04/04/20 04:03 Sodium Chloride IV 250 mls/hr Q24H MAHESH Administration Levofloxacin 750 mg 04/04/20 03:00 04/04/20 03:26 Levaquin PO 750 mg Q48H MAHESH Administration Protocol Morphine Sulfate 15 mg 04/04/20 02:48 Msir PO Q4H PRN SEVERE PAIN Senna/Docusate Sod ium 1 tab 04/04/20 09:00 04/04/20 08:12 Senna-S PO 1 tab BID MAHESH Administration Tamsulosin HCl 0.8 mg 04/04/20 09:00 04/04/20 08:12 Flomax PO 0.8 mg DAILY MAHESH Administration Iodinated Contrast Media Allergy (Verified 03/16/20 16:21) Unknown Vitals/I&O/Wt Last Vital Signs Temp 98.2 F 04/04/20 07:59 Pulse 104 H 04/04/20 07:59 Resp 14 04/04/20 07:59 BP 122/82 04/04/20 07:59 Pulse Ox 95 04/04/20 07:59 04/03/20 04/04/20 04/04/20 22:59 06:59 14:59 Output Total 950 / 950 Balance -950 / -950 Weight last 48 hrs Weight 77.111 kg Physical Exam Const: COMMON NORMALS: no acute distress, patient oriented x3 and alert GENERAL APPEARANCE: cooperative and comfortable ORIENTATION/CONSCIOUSNESS: Yes awake OTHER: -looks younger than stated age HENMT: COMMON NORMALS: normocephalic, atraumatic, hearing grossly normal bilaterally and moist oral mucous membranes HEAD & SCALP: normocephalic and atraumatic Eye: COMMON NORMALS: Equal, round and reactive pupils present, EOMs intact bilaterally and conjunctivae normal CONJUNCTIVA: Yes conjunctivae normal PUPIL: Yes Equal, round and reactive pupils present Neck/C-Spine: COMMON NORMALS: full ROM GENERAL: Yes normal visual inspection and Yes trachea midline Resp: COMMON NORMALS: normal respiratory effort, No retractions and No use of accessory muscles EFFORT & INSPECTION: Yes able to speak in complete sentences, Yes symmetric chest movement and No tachypneic AUSCULTATION: crackles and diminished lung sounds bilateral OTHER: on 6 L NC Cardio: COMMON NORMALS: regular rate, regular rhythm, S1 normal heart sound present and S2 normal heart sound present RATE: regular rate RHYTHM: regular rhythm HEART SOUNDS: S1 normal heart sound present and S2 normal heart sound present GI: COMMON NORMALS: Soft to palpation and non-tender INSPECTION: Yes normal to inspection and Yes abdominal distension AUSCULTATION: Yes normoactive bowel sounds PALPATION: Yes Soft to palpation Extremity: COMMON NORMALS: normal to inspection, full ROM and no clubbing, cyanosis or edema GENERAL: Yes edema (1+ pitting edema of bilateral LEs) Neuro: COMMON NORMALS: patient oriented x3, moves all extremities, no focal motor deficits and no sensory deficits noted SENSORIUM/ORIENTATION: Yes alert Psych: COMMON NORMALS: mental status grossly normal, Normal thought process present, cooperative, normal affect and speech normal SPEECH: Yes normal speech THOUGHT PROCESS: Normal thought process present Skin: COMMON NORMALS: no rashes or lesions noted, no jaundice, no petechiae and no mottling GENERAL SKIN EXAM: no rashes or lesions noted Urinary Catheter Management^: Ruvalcaba: Cath Placed During This Visit: yes Reason for Continuing Indwelling Catheter: Accurate Measurement of Urinary Output in Critically Ill Patients Urinary Catheter Date of Insertion: 04/04/20 Urinary Catheter Time of Insertion: 03:20 Data : 04/04/20 03:45 04/04/20 03:45 Micro: Microbiology 04/03/20 11:31 Blood Culture - Preliminary Blood SPECIMEN COLLECTED 04/03/20 11:29 Blood Culture - Preliminary Blood SPECIMEN COLLECTED A&P Assessment and plan (1) Acute exacerbation of CHF (congestive heart failure): -has known chronic diastolic CHF, now with acute exacerbation as evidenced by lower extremity swelling, dyspnea, orthopnea, BNP elevation (1164), evidence of fluid overload on imaging (large bilateral pleural effusions) -Initially required BiPAP, now on 6 L oxygen mask -Continue to monitor respiratory status closely -VSS; continue to monitor -telemetry monitoring -Echo (01/2020): EF=60%, G1DD, no RWMA -on diuresis with Bumex; titrate as needed for optimal diuresis -daily weights, monitor Is & Os -monitor renal function with diuresis -has Ruvalcaba catheter in place; assess daily for removal Status: Acute Qualifiers: Heart failure type: diastolic Qualified Code(s): I50.33 - Acute on chronic diastolic (congestive) heart failure (2) Respiratory failure with hypoxia: -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 -due to underlying immunocompromise, cannot rule out infection so on broad spectrum antibiotics as well as management of acute diastolic CHF exacerbation as noted above -close monitoring of respiratory status -wean oxygen requirement as tolerated; home oxygen evaluation if not at baseline prior to d/c Status: Acute Qualifiers: Chronicity: acute on chronic Qualified Code(s): J96.21 - Acute and chronic respiratory failure with hypoxia (3) Hyponatremia: -acute on chronic hyponatremia; element of pseudohyponatremia secondary to acute CHF exacerbation, underlying malignancy and hyperglycemia -baseline Na appears to be 128-130; continue to trend Status: Acute (4) Chronic kidney disease: -has known CKD -baseline Cr appears to be 1.4-1.8 -avoid nephrotoxins, renally dose meds Status: Chronic Qualifiers: Chronic kidney disease stage: stage 3 (moderate) Qualified Code(s): N18.3 - Chronic kidney disease, stage 3 (moderate) (5) Multiple myeloma: -recently diagnosed; IgG lambda MM; recent bone marrow biopsy showed 60 to 70% plasma cell marrow cellularity -follows up with Dr. Cheng; last visit was 03/24 -Is currently on chemotherapy with Velcade/Revlimid/dexamethasone; weekly -associated macrocytic anemia; Ca wnl -negative bone scan done 03/17 -has had ongoing decline in functional status; overall guarded prognosis Status: Acute Qualifiers: Multiple myeloma remission status: unspecified Qualified Code(s): C90.00 - Multiple myeloma not having achieved remission (6) COPD (chronic obstructive pulmonary disease): -received dose of IV steroids in ED, further steroids on hold for now Status: Chronic Qualifiers: COPD type: emphysema Emphysema type: other Qualified Code(s): J43.8 - Other emphysema (7) Diabetes mellitus, type II: -non insulin requiring -check A1c -Accuchecks, ISS, hypoglycemia precautions -currently NPO Status: Acute Qualifiers: Diabetes mellitus complication status: without complication Diabetes mellitus skilled nursing insulin use: without long term acute care registered nurse use Qualified Code(s): E11.9 - Type 2 diabetes mellitus without complications (8) Benign prostatic hyperplasia: -follows up with Dr. Girard -on finasteride, tamsulosin Status: Chronic Qualifiers: Lower urinary tract symptom detail: urinary frequency Lower urinary tract symptom presence: symptoms present Qualified Code(s): N40.1 - Benign prostatic hyperplasia with lower urinary tract symptoms; R35.0 - Frequency of micturition (9) GERD (gastroesophageal reflux disease): Status: Chronic Qualifiers: Esophagitis presence: esophagitis presence not specified Qualified Code(s): K21.9 - Gastro-esophageal reflux disease without esophagitis (10) Macrocytic anemia: -likely secondary to underlying malignancy -monitor H/H -FOBT pending -iron stores adequate per recent bone marrow biopsy -baseline Hg appears to be 9-10 Status: Chronic (11) Hypertension: -VSS; continue to monitor Status: Chronic Qualifiers: Hypertension type: essential hypertension Qualified Code(s): I10 - Essential (primary) hypertension Additional A&P Information -Advanced age -OA -Hyperlipidemia; statin intolerance -Physical deconditioning and declining function status; PT/OT evaluations once respiratory status improves -Dispo: home, lives with family and has services -Code status: FULL code -ICU care due to need for close monitoring of respiratory status, low threshold for intubation Attestations Medical Necessity Statement*: Patient requires hospitalization for continued diuresis, close monitoring of respiratory status with higher than baseline oxygen requirement, IV antibiotic therapy. Time Spent in Patient Care: Greater than 35 minutes (>than 50% of time spent in counselling and/or direct pt care on unit). Coding Level of Care Code Acute Heating Unit [employer] for [facility] Fwd Exam Comprehensive Diagnoses Acute exacerbation of CHF (congestive heart failure) I50.33 Heart failure type: diastolic Respiratory failure with hypoxia J96.21 Chronicity: acute on chronic Hyponatremia E87.1 Chronic kidney disease N18.3 Chronic kidney disease stage: stage 3 (moderate) Multiple myeloma C90.00 Multiple myeloma remission status: unspecified COPD (chronic obstructive pulmonary disease) J43.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 Diabetes mellitus, type II E11.9 Diabetes mellitus complication status: without complication Diabetes mellitus long term acute care registered nurse insulin use: without skilled nursing use Benign prostatic hyperplasia N40.1; R35.0 Lower urinary tract symptom detail: urinary frequency Lower urinary tract symptom presence: symptoms present GERD (gastroesophageal reflux disease) K21.9 Esophagitis presence: esophagitis presence not specified Macrocytic anemia D53.9 Hypertension I10 Hypertension type: essential hypertension
[2020-04-04 10:49] LABS: Glucose Point of Care 383 mg/dL (70-110)
--- NOTE | 2020-04-04 11:00 | PC.NURSE ---
Addendum entered by Pau Encinas RN 04/04/20 12:45: PT STATES THAT HE IS GETTING SLEEPY AFTER TAKING THE XANAX, WOULD LIKE TO ATTEMPT TO LIE DOWN IN BED FOR AWHILE. POSITIONED IN BED WITH TV ON. FAMILY BROUGHT PHONE TO PT. PLACED AT BEDSIDE. Original Note: PT C/O CHEST TIGHTNESS & FEELING ANXIOUS D/T CLAUSTROPHOBIA. DR WATTS NOTIFIED & ROUNDED ON PT. MEDS REVIEWED & XANAX GIVEN. PT OUT TO NURSES STATION IN WHEELCHAIR WITH O2 PER NC. FACETIME WITH FAMILY ON TABLET. ANDREAS BAUMAN [phone]
[2020-04-04] MEDS: ALPRAZolam 0.5 mg Tablet PO ×2 (11:29→22:12)
--- NOTE | 2020-04-04 11:58 | PC.RESP ---
PULMONARY REHAB INFORMATION SENT TO PATIENT.
[2020-04-04] MEDS: morphine IR 15 mg Tablet PO (13:18)
[2020-04-04 16:36] LABS: Glucose Point of Care 258 mg/dL (70-110)
--- NOTE | 2020-04-04 18:44 | PC.NURSE ---
ABLE TO TRANSFER PT TO A DIFFERENT ROOM SO THAT HE DOESN'T FEEL SO UNCOMFORTABLE/CLAUSTROPHOBIC IN ICU 6. STATES THAT HE FEELS A LITTLE BIT BETTER. PIID TO LEFT AC INFILTRATED WITH FLUSH, RESTARTED TO DIFFERENT AREA OF LEFT AC/FOREARM. TOLERATED WELL
[2020-04-04 22:06] LABS: Glucose Point of Care 241 mg/dL (70-110)
[2020-04-05] VITALS (19 sets, daily range): BP systolic 97–163; BP diastolic 59–98; PULSE 77–117; RESP 14–28; TEMP 36.4–37.1; O2SAT 88–98
[2020-04-05] MEDS: cefepime 1,000 MG in sodium chloride 0.9% (plus) 50 ML 100 MG IV ×2 (03:09→14:54)
[2020-04-05] MEDS: heparin 5,000 unit/mL INJ 1 mL 5000 UNIT SUBCUT ×3 (03:09→18:32)
[2020-04-05 03:58] LABS: Basophils % 0.2 %; Eosinophils % 0.2 %; Hemoglobin 8.6 g/dL (11.7-16.6); Lymphocytes # 0.6 10^3/uL (0.8-4.8); Lymphocytes % 14.1 %; Mean Corpuscular HGB Conc 30.7 g/dL (30.0-36.0); Mean Corpuscular Hemoglobin 30.6 pg (28.0-34.0); Mean Corpuscular Volume 99.6 fL (80-94); Mean Platelet Volume 10.2 fL (7.4-10.4); Monocytes # 0.5 10^3/uL (0.2-0.9); Monocytes % 11.4 %; Neutrophils # 3.1 10^3/uL (1.8-7.7); Neutrophils % 71.4 %; Nucleated Red Blood Cells % 0 %; Platelet Count 181 10^3/cmm (130-400); Red Blood Count 2.81 10^6/uL (4.1-5.3); Red Cell Distribution Width 17.3 % (12.1-15.1); White Blood Count 4.4 10^3/uL (4.0-10.0)
[2020-04-05 04:18] LABS: Anion Gap 13.9 (5-19); Blood Urea Nitrogen 27 mg/dL (8-23); Calcium 9.8 mg/dL (8.5-10.5); Carbon Dioxide 25 mmol/L (22-29); Chloride 92 mmol/L (98-107); Glucose 154 mg/dL (65-115); Osmolality Calculated 264 mOsm/kg (285-295); Potassium 3.9 mmol/L (3.5-5.1); Sodium 127 mmol/L (136-145)
[2020-04-05 04:24] LABS: Estmated Average Glucose 246; Hemoglobin A1C 10.2 % (4.0-6.0)
--- NOTE | 2020-04-05 06:28 | PC.NURSE ---
SHIFT SUMMARY PT HAS REMAINED ALERT AND ORIENTATED. PT HAS HAD ADEQUATE URINE OUTPUT. PT HAS BEEN AFEBRILE. NO RESPIRATORY DISTRESS NOTED. PT SON CALLED THIS MORNING AND WAS GIVEN UPDATE, PT GAVE THE OKAY TO TALK TO HIM. PT IV REMAINS PATENT.
[2020-04-05 07:32] LABS: Glucose Point of Care 189 mg/dL (70-110)
--- NOTE | 2020-04-05 09:05 | PM.PN ---
Subjective Subjective: Interval history: Remains on 6 L NC, had 1000 mL urine output overnight for total negative fluid balance of 3 L. Stable hemoglobin (8.6), slight increase in BUN and Cr. Hemodynamically stable, afebrile. Noted A1c-10.5; accucheks reviewed, has required 28 units of ISS in the past 24 hrs. Seems to be more comfortable in the room he is in today, reports feeling about the same as he did yesterday. Complaining of LE muscle cramps so will decrease diuresis. Medications: Reviewed: Yes Medication Review Details: Active Medications Generic Name Dose Route Start Last Admin Trade Name Freq PRN Reason Stop Dose Admin Albuterol/Ipratrop ium 3 ml 04/04/20 02:48 Duoneb INHALATION Q6H PRN SHORTNESS OF DANA TH Allopurinol 300 mg 04/04/20 09:00 04/04/20 08:12 Zyloprim PO 300 mg DAILY MAHESH Administration Alprazolam 0.5 mg 04/04/20 10:55 04/04/20 22:12 Xanax PO 0.5 mg TID PRN Administration anxiety Bumetanide 1 mg 04/04/20 18:00 04/04/20 17:31 Bumex PO 1 mg BID MAHESH Administration Dextrose 25 ml 04/04/20 09:19 D50w IVP ONCE PRN hypoglycemia prot ocol Protocol Dextrose 50 ml 04/04/20 09:19 D50w IVP PRN PRN hypoglycemia prot ocol Protocol Finasteride 5 mg 04/04/20 09:00 04/04/20 08:12 Proscar PO 5 mg DAILY MAHESH Administration Glucagon 1 mg 04/04/20 09:19 Glucagen IM ONCE PRN Adult Acute Hypog lycemia Prot. Protocol Heparin Sodium (Be ef Lung) 5,000 unit 04/04/20 02:48 04/05/20 03:09 Heparin SUBCUT 5,000 unit Q8H MAHESH Administration Cefepime HCl 1,000 mg/ Sodium 50 mls @ 100 mls/ hr 04/04/20 03:00 04/05/20 03:09 Chloride IV 100 mls/hr Q12H MAHESH Administration Protocol Vancomycin HCl 1,2 50 mg/ 250 mls @ 250 mls /hr 04/04/20 04:00 04/05/20 03:44 Sodium Chloride IV 166 mls/hr Q24H MAHESH Administration Dextrose 500 mls @ 100 mls /hr 04/04/20 09:19 D5w IV ONCE PRN Adult Acute Hypog lycemia Prot Protocol Insulin Aspart 0 unit 04/04/20 12:00 04/05/20 07:41 Novolog SUBCUT 4 unit WM&BEDTIME MAHESH Administration Protocol Levofloxacin 750 mg 04/04/20 03:00 04/04/20 03:26 Levaquin PO 750 mg Q48H MAHESH Administration Protocol Morphine Sulfate 15 mg 04/04/20 02:48 04/04/20 13:18 Msir PO 15 mg Q4H PRN Administration SEVERE PAIN Senna/Docusate Sod ium 1 tab 04/04/20 09:00 04/04/20 17:31 Senna-S PO 1 tab BID MAHESH Administration Tamsulosin HCl 0.8 mg 04/04/20 09:00 04/04/20 08:12 Flomax PO 0.8 mg DAILY MAHESH Administration Iodinated Contrast Media Allergy (Verified 03/16/20 16:21) Unknown Vitals/I&O/Wt Last Vital Signs Temp 97.8 F 04/05/20 06:26 Pulse 100 04/05/20 08:20 Resp 18 04/05/20 08:20 BP 116/71 04/05/20 06:00 Pulse Ox 93 04/05/20 08:20 04/04/20 04/05/20 04/05/20 22:59 06:59 14:59 Intake Total 420 / 660 Output Total 900 / 1900 1000 / 2900 Balance -480 / -1240 -1000 / -2240 Weight last 48 hrs Weight 77.111 kg Physical Exam Const: COMMON NORMALS: no acute distress, patient oriented x3 and alert GENERAL APPEARANCE: cooperative and comfortable ORIENTATION/CONSCIOUSNESS: Yes awake OTHER: -looks younger than stated age HENMT: COMMON NORMALS: normocephalic, atraumatic, hearing grossly normal bilaterally and moist oral mucous membranes HEAD & SCALP: normocephalic and atraumatic Eye: COMMON NORMALS: Equal, round and reactive pupils present, EOMs intact bilaterally and conjunctivae normal CONJUNCTIVA: Yes conjunctivae normal PUPIL: Yes Equal, round and reactive pupils present Neck/C-Spine: COMMON NORMALS: full ROM GENERAL: Yes normal visual inspection and Yes trachea midline Resp: COMMON NORMALS: normal respiratory effort, No retractions and No use of accessory muscles EFFORT & INSPECTION: Yes able to speak in complete sentences, Yes symmetric chest movement and No tachypneic AUSCULTATION: crackles and diminished lung sounds bilateral OTHER: on 6 L NC Cardio: COMMON NORMALS: regular rate, regular rhythm, S1 normal heart sound present and S2 normal heart sound present RATE: regular rate RHYTHM: regular rhythm HEART SOUNDS: S1 normal heart sound present and S2 normal heart sound present GI: COMMON NORMALS: Soft to palpation and non-tender INSPECTION: Yes normal to inspection and Yes abdominal distension AUSCULTATION: Yes normoactive bowel sounds PALPATION: Yes Soft to palpation Extremity: COMMON NORMALS: normal to inspection, full ROM and no clubbing, cyanosis or edema GENERAL: Yes edema (1+ pitting edema of bilateral LEs) Neuro: COMMON NORMALS: patient oriented x3, moves all extremities, no focal motor deficits and no sensory deficits noted SENSORIUM/ORIENTATION: Yes alert Psych: COMMON NORMALS: mental status grossly normal, Normal thought process present, cooperative, normal affect and speech normal SPEECH: Yes normal speech THOUGHT PROCESS: Normal thought process present Skin: COMMON NORMALS: no rashes or lesions noted, no jaundice, no petechiae and no mottling GENERAL SKIN EXAM: no rashes or lesions noted Urinary Catheter Management^: Ruvalcaba: Cath Placed During This Visit: yes Reason for Continuing Indwelling Catheter: Accurate Measurement of Urinary Output in Critically Ill Patients Urinary Catheter Date of Insertion: 04/04/20 Urinary Catheter Time of Insertion: 03:20 Data : 04/05/20 03:15 04/05/20 03:15 Micro: Microbiology 04/03/20 11:31 Blood Culture - Preliminary Blood NEGATIVE TO DATE 04/03/20 11:29 Blood Culture - Preliminary Blood NEGATIVE TO DATE 04/04/20 08:15 Bacterial Antigens - Final Urine Kidney 04/04/20 08:15 Legionella Urinary Antigen - Final Urine Catheterized A&P Assessment and plan (1) Acute exacerbation of CHF (congestive heart failure): -has known chronic diastolic CHF, now with acute exacerbation as evidenced by lower extremity swelling, dyspnea, orthopnea, BNP elevation (1164), evidence of fluid overload on imaging (large bilateral pleural effusions) -Initially required BiPAP, now on 6 L NC; unable to tolerate BiPAP/oxy-mask due to claustrophobia -Continue to monitor respiratory status closely -VSS; continue to monitor -telemetry monitoring -Echo (01/2020): EF=60%, G1DD, no RWMA -on diuresis with Bumex; titrate as needed for optimal diuresis. 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, has been oxygen dependent x 1 month -due to underlying immunocompromise, cannot rule out infection so on broad spectrum antibiotics as well as management of acute diastolic CHF exacerbation as noted above -close monitoring of respiratory status -wean oxygen requirement as tolerated; home oxygen evaluation if not at baseline prior to d/c -blood cx: negative (prelim) -bacterial antigens, Legionella negative -had been tested for COVID-19 in 01/2020 which was negative Status: Acute Qualifiers: Chronicity: acute on chronic Qualified Code(s): J96.21 - Acute and chronic respiratory failure with hypoxia (3) Hyponatremia: -acute on chronic hyponatremia; element of pseudohyponatremia secondary to acute CHF exacerbation, underlying malignancy and hyperglycemia -baseline Na appears to be 128-130; continue to trend -fluid restriction Status: Chronic (4) Chronic kidney disease: -has known CKD -baseline Cr appears to be 1.4-1.8 -avoid nephrotoxins, renally dose meds Status: Chronic Qualifiers: Chronic kidney disease stage: stage 3 (moderate) Qualified Code(s): N18.3 - Chronic kidney disease, stage 3 (moderate) (5) Multiple myeloma: -recently diagnosed; IgG lambda MM; recent bone marrow biopsy showed 60 to 70% plasma cell marrow cellularity -follows up with Dr. Cheng; last visit was 03/24 -Is currently on chemotherapy with Velcade/Revlimid/dexamethasone; weekly -associated macrocytic anemia; Ca wnl -negative bone scan done 03/17 -CT chest shows bilateral nodular costal pleural thickening and marked nodular enlargement of bilateral adrenal glands both of which are suspicious for metastatic disease (new since 01/2020). Noted multiple subpleural nodules in RUL, RML which could be infectious versus neoplastic -has had ongoing decline in functional status; overall guarded prognosis Status: Acute Qualifiers: Multiple myeloma remission status: unspecified Qualified Code(s): C90.00 - Multiple myeloma not having achieved remission (6) COPD (chronic obstructive pulmonary disease): -received dose of IV steroids in ED, further steroids on hold for now -Oxygen dependent at baseline, 3 L baseline requirement Status: Chronic Qualifiers: COPD type: emphysema Emphysema type: other Qualified Code(s): J43.8 - Other emphysema (7) Diabetes mellitus, type II: -previously non insulin requiring -A1c-10.5 -Accuchecks, ISS, hypoglycemia precautions; add meal time and long acting insulin -consistent carb diet Status: Acute Qualifiers: Diabetes mellitus complication status: without complication Diabetes mellitus terminologist insulin use: without terminologist use Qualified Code(s): E11.9 - Type 2 diabetes mellitus without complications (8) Benign prostatic hyperplasia: -follows up with Dr. Girard -on finasteride, tamsulosin Status: Chronic Qualifiers: Lower urinary tract symptom detail: urinary frequency Lower urinary tract symptom presence: symptoms present Qualified Code(s): N40.1 - Benign prostatic hyperplasia with lower urinary tract symptoms; R35.0 - Frequency of micturition (9) GERD (gastroesophageal reflux disease): Status: Chronic Qualifiers: Esophagitis presence: esophagitis presence not specified Qualified Code(s): K21.9 - Gastro-esophageal reflux disease without esophagitis (10) Macrocytic anemia: -likely secondary to underlying malignancy -continue to monitor H/H -FOBT pending -iron stores adequate per recent bone marrow biopsy -baseline Hg appears to be 9-10 Status: Chronic (11) Hypertension: -VSS; continue to monitor Status: Chronic Qualifiers: Hypertension type: essential hypertension Qualified Code(s): I10 - Essential (primary) hypertension Additional A&P Information -Advanced age; though looks younger than stated age -OA; pain control as needed -Anxiety; anxiolytics as needed -Hyperlipidemia; statin intolerance -Physical deconditioning and declining function status; PT/OT evaluations once respiratory status improves -Dispo: home, lives with family and has services -Code status: FULL code -ICU care due to need for close monitoring of respiratory status, low threshold for intubation Attestations Medical Necessity Statement*: Patient requires hospitalization for continued diuresis secondary to acute CHF exacerbation, broad-spectrum IV antibiotics for treatment of pneumonia, on higher than baseline oxygen requirement and needs continued monitoring of respiratory status. Time Spent in Patient Care: 16 - 35 minutes (>than 50% of time spent in counselling and/or direct pt care on unit). Coding Level of Care Code Acute Manager [employer] [facility] Fwd Exam Comprehensive Diagnoses Acute exacerbation of CHF (congestive heart failure) I50.33 Heart failure type: diastolic Respiratory failure with hypoxia J96.21 Chronicity: acute on chronic Hyponatremia E87.1 Chronic kidney disease N18.3 Chronic kidney disease stage: stage 3 (moderate) Multiple myeloma C90.00 Multiple myeloma remission status: unspecified COPD (chronic obstructive pulmonary disease) J43.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 Diabetes mellitus, type II E11.9 Diabetes mellitus complication status: without complication Diabetes mellitus terminologist insulin use: without senior care use Benign prostatic hyperplasia N40.1; R35.0 Lower urinary tract symptom detail: urinary frequency Lower urinary tract symptom presence: symptoms present GERD (gastroesophageal reflux disease) K21.9 Esophagitis presence: esophagitis presence not specified Macrocytic anemia D53.9 Hypertension I10 Hypertension type: essential hypertension
[2020-04-05] MEDS: tamsulosin 0.4 mg Capsule 0.8 MG PO (09:53)
[2020-04-05] MEDS: sennosides-docusate Tablet 1 TAB PO ×2 (09:54→18:32)
[2020-04-05] MEDS: allopurinol 300 mg Tablet PO (09:54)
[2020-04-05] MEDS: bumetanide 1 mg Tablet PO (09:54)
[2020-04-05] MEDS: finasteride 5 mg Tablet PO (09:54)
[2020-04-05 11:56] LABS: Glucose Point of Care 232 mg/dL (70-110)
[2020-04-05] MEDS: morphine IR 15 mg Tablet PO (13:49)
--- NOTE | 2020-04-05 14:14 | PC.NURSE ---
up to b[facility] . no b.m. passing gas.
[2020-04-05] MEDS: ALPRAZolam 0.5 mg Tablet PO (14:44)
--- NOTE | 2020-04-05 14:46 | PC.NURSE ---
having severe leg cramps. m.s. given for first time. now gave na. states he takes
--- NOTE | 2020-04-05 15:48 | PC.NURSE ---
spoke with dr. arana. she is ok with pt. using theraworx foam for leg cramps
--- NOTE | 2020-04-05 15:50 | PC.NURSE ---
informed pt. hydrocodone is on med list. was offered. wants to wait to see if theraworx works
--- NOTE | 2020-04-05 16:06 | PC.NURSE ---
resting quietly appears to be sleeping. o2 sat. drops to 88% with sleep at times.
[2020-04-05 16:48] LABS: Glucose Point of Care 87 mg/dL (70-110)
--- NOTE | 2020-04-05 16:51 | PC.NURSE ---
dinner in. im not very hungry. encouraged to eat.
--- NOTE | 2020-04-05 17:39 | PC.NURSE ---
dr. arana notified of 87 blood sugar. orders to hold 10 units insulin thats scheduled.
[2020-04-05] MEDS: potassium chloride ER 10 mEq Tablet 40 MEQ PO (18:32)
[2020-04-05 21:43] LABS: Glucose Point of Care 146 mg/dL (70-110)
[2020-04-05] MEDS: insulin glargine 100 units/1 mL 10 UNIT SUBCUT (21:46)
[2020-04-06] VITALS (39 sets, daily range): BP systolic 78–123; BP diastolic 55–89; PULSE 76–153; RESP 13–26; TEMP 36.8–37; O2SAT 87–97
[2020-04-06] MEDS: ALPRAZolam 0.5 mg Tablet PO ×2 (00:11→20:15)
[2020-04-06] MEDS: levoFLOXacin 750 mg Tablet PO (03:09)
[2020-04-06] MEDS: heparin 5,000 unit/mL INJ 1 mL 5000 UNIT SUBCUT ×3 (03:09→17:56)
[2020-04-06] MEDS: cefepime 1,000 MG in sodium chloride 0.9% (plus) 50 ML 100 MG IV ×2 (03:09→15:46)
[2020-04-06 03:12] LABS: Basophils % 0.3 %; Eosinophils % 0.6 %; Hematocrit 26.4 % (42.0-52.0); Hemoglobin 8.1 g/dL (11.7-16.6); Lymphocytes # 0.9 10^3/uL (0.8-4.8); Lymphocytes % 25.6 %; Mean Corpuscular HGB Conc 30.7 g/dL (30.0-36.0); Mean Corpuscular Hemoglobin 30.7 pg (28.0-34.0); Monocytes # 0.5 10^3/uL (0.2-0.9); Monocytes % 14.9 %; Neutrophils % 54.9 %; Nucleated Red Blood Cells % 0 %; Platelet Count 164 10^3/cmm (130-400); Red Blood Count 2.64 10^6/uL (4.1-5.3); Red Cell Distribution Width 17.6 % (12.1-15.1); White Blood Count 3.6 10^3/uL (4.0-10.0)
[2020-04-06 03:26] LABS: Anion Gap 13.2 (5-19); Blood Urea Nitrogen 23 mg/dL (8-23); Calcium 9.8 mg/dL (8.5-10.5); Carbon Dioxide 25 mmol/L (22-29); Chloride 95 mmol/L (98-107); Glucose 129 mg/dL (65-115); Osmolality Calculated 266 mOsm/kg (285-295); Potassium 4.2 mmol/L (3.5-5.1); Sodium 129 mmol/L (136-145); Vancomycin Trough 13.7 ug/mL (10-15)
[2020-04-06 03:46] LABS: Magnesium 1.8 mg/dL (1.7-2.3)
--- NOTE | 2020-04-06 03:46 | ECG_ITS ---
Measurements Intervals [place] Rate: 160 P: WI: 0 QRS: 24 QRSD: 98 T: 120 QT: 280 QTc: 458 ATRIAL FIBRILLATION WITH RAPID VENTRICULAR RESPONSE NONSPECIFIC ST & T-WAVE ABNORMALITY WARNING: DATA QUALITY MAY AFFECT INTERPRETATION INTERPRETATION BASED ON A DEFAULT AGE OF 40 YEARS Compared to ECG 02/28/2020 17:30:05 Sinus rhythm no longer present T-wave abnormality still present Electronically Signed On 04-06-2020 7:00:36 CDT by Dakotah Christian M.D. [email or web address]
--- NOTE | 2020-04-06 04:12 | PC.NURSE ---
DR CORRALES PT WENT INTO AFIB WITH RVR AND BECAME HYPOTENSIVE, AND COMPLAINED OF SOME INDIGESTION. SUSTAINING RATE AT 140S. DR OLIVA WAS CALLED. HE GAVE ORDER FOR AMIO DRIP TO BE STARTED, BOLUS 150MG FIRST.
--- NOTE | 2020-04-06 05:29 | PC.NURSE ---
Addendum entered by Naya Kat RN 04/06/20 05:51: PT REMAINS ANXIOUS, RECEIVED XANAX ONCE. Original Note: SHIFT SUMMARY PT HAS BEEN ALERT AND ORIENTATED. PT HAS NOT HAD ANY RESPIRATORY DISTRESS. PT CONVERTED TO AFIB WITH RVR AROUND [address] OLIVA CALLED, AMIO STARTED. PT HAS HAD ADEQUATE URINE OUTPUT. PT HAS HAD GOOD PO INTAKE. PT HAS BEEN AFEBRILE. PT LUNGS REMAIN DIMINISHED.
[2020-04-06] MEDS: morphine IR 15 mg Tablet PO (06:03)
--- NOTE | 2020-04-06 07:56 | XR_ITS ---
WS: [id number] Portable AP upright chest, 04/06/2020 Clinical Data: progression of pleural effusions Comparison: Portable chest, 04/03/2020. Findings: There is an increase in the right basilar patchy opacity. Bilateral pleural effusions are s till present and not changed. There is a left basilar opacity which is unchanged. The upper lobes are clear. Monitor leads are on the chest wall. The heart size is normal. The aortic arch is tortuous. XR/XR chest 1V portable [id number] Impression: 1. Increase in right basilar opacity. 2. No change in left basilar opacity and bilateral pleural effusions.
--- NOTE | 2020-04-06 07:57 | P.PN_ITS ---
Subjective Subjective: Interval history: Overnight developed A. fib with RVR and hypotension, started on amiodarone drip. Had 550 mL urine output with a total negative fluid balance of 3.9 L. Stable renal function and hemoglobin on the morning labs. Accu-Cheks reviewed. Remains on 6 L nasal cannula. Seems to be more hemodynamically stable, less tachycardic, afebrile. Poor sleep overnight, less LE cramping. Medications: Reviewed: Yes Medication Review Details: Active Medications Generic Name Dose Route Start Last Admin Trade Name Freq PRN Reason Stop Dose Admin Albuterol/Ipratrop ium 3 ml 04/04/20 02:48 Duoneb INHALATION Q6H PRN SHORTNESS OF DANA TH Allopurinol 300 mg 04/04/20 09:00 04/05/20 09:54 Zyloprim PO 300 mg DAILY MAHESH Administration Alprazolam 0.5 mg 04/04/20 10:55 04/06/20 00:11 Xanax PO 0.5 mg TID PRN Administration anxiety Bumetanide 1 mg 04/06/20 09:00 Bumex PO DAILY MAHESH Dextrose 25 ml 04/04/20 09:19 D50w IVP ONCE PRN hypoglycemia prot ocol Protocol Dextrose 50 ml 04/04/20 09:19 D50w IVP PRN PRN hypoglycemia prot ocol Protocol Finasteride 5 mg 04/04/20 09:00 04/05/20 09:54 Proscar PO 5 mg DAILY MAHESH Administration Glucagon 1 mg 04/04/20 09:19 Glucagen IM ONCE PRN Adult Acute Hypog lycemia Prot. Protocol Heparin Sodium (Be ef Lung) 5,000 unit 04/04/20 02:48 04/06/20 03:09 Heparin SUBCUT 5,000 unit Q8H MAHESH Administration Cefepime HCl 1,000 mg/ Sodium 50 mls @ 100 mls/ hr 04/04/20 03:00 04/06/20 03:09 Chloride IV 100 mls/hr Q12H MAHESH Administration Protocol Vancomycin HCl 1,2 50 mg/ 250 mls @ 250 mls /hr 04/04/20 04:00 04/06/20 03:56 Sodium Chloride IV 166 mls/hr Q24H MAHESH Administration Dextrose 500 mls @ 100 mls /hr 04/04/20 09:19 D5w IV ONCE PRN Adult Acute Hypog lycemia Prot Protocol Amiodarone HCl 900 mg/ 518 mls @ 0 mls/h r 04/06/20 04:00 Dextrose/ IV Misce llaneous IV Supplies .Q0M MAHESH Protocol Per Protocol Insulin Aspart 0 unit 04/04/20 12:00 04/05/20 21:43 Novolog SUBCUT 2 unit WM&BEDTIME MAHESH Administration Protocol Insulin Aspart 10 unit 04/05/20 11:00 04/05/20 17:39 Novolog SUBCUT Not Given TIDAC MAHESH Insulin Glargine 10 unit 04/05/20 21:00 04/05/20 21:46 Lantus SUBCUT 10 unit BEDTIME MAHESH Administration Levofloxacin 750 mg 04/04/20 03:00 04/06/20 03:09 Levaquin PO 750 mg Q48H MAHESH Administration Protocol Morphine Sulfate 15 mg 04/04/20 02:48 04/06/20 06:03 Msir PO 15 mg Q4H PRN Administration SEVERE PAIN Potassium Chloride 40 meq 04/05/20 17:50 04/05/20 18:32 Klor-Con 10 PO 40 meq DAILY MAHESH Administration Senna/Docusate Sod ium 1 tab 04/04/20 09:00 04/05/20 18:32 Senna-S PO 1 tab BID MAHESH Administration Tamsulosin HCl 0.8 mg 04/04/20 09:00 04/05/20 09:53 Flomax PO 0.8 mg DAILY MAHESH Administration Iodinated Contrast Media Allergy (Verified 03/16/20 16:21) Unknown Vitals/I&O/Wt Last Vital Signs Temp 98.4 F 04/06/20 00:00 Pulse 105 H 04/06/20 06:00 Resp 22 H 04/06/20 06:03 BP 99/70 04/06/20 06:00 Pulse Ox 95 04/06/20 06:03 04/05/20 04/06/20 04/06/20 22:59 06:59 14:59 Intake Total 540 / 1140 120 / 1260 Output Total 1600 / 1600 550 / 2150 Balance -1060 / -460 -430 / -890 Physical Exam Const: COMMON NORMALS: no acute distress, patient oriented x3 and alert GENERAL APPEARANCE: cooperative and comfortable ORIENTATION/CONSCIOUSNESS: Yes awake OTHER: -looks younger than stated age HENMT: COMMON NORMALS: normocephalic, atraumatic, hearing grossly normal bilaterally and moist oral mucous membranes HEAD & SCALP: normocephalic and atraumatic Eye: COMMON NORMALS: Equal, round and reactive pupils present, EOMs intact bilaterally and conjunctivae normal CONJUNCTIVA: Yes conjunctivae normal PUPIL: Yes Equal, round and reactive pupils present Neck/C-Spine: COMMON NORMALS: full ROM GENERAL: Yes normal visual inspection and Yes trachea midline Resp: COMMON NORMALS: normal respiratory effort, No retractions and No use of accessory muscles EFFORT & INSPECTION: Yes able to speak in complete sentences, Yes symmetric chest movement and No tachypneic AUSCULTATION: crackles and diminished lung sounds bilateral OTHER: on 6 L NC Cardio: COMMON NORMALS: regular rate, regular rhythm, S1 normal heart sound present and S2 normal heart sound present RATE: regular rate RHYTHM: regular rhythm HEART SOUNDS: S1 normal heart sound present and S2 normal heart sound present GI: COMMON NORMALS: Soft to palpation and non-tender INSPECTION: Yes normal to inspection and Yes abdominal distension AUSCULTATION: Yes normoactive bowel sounds PALPATION: Yes Soft to palpation Extremity: COMMON NORMALS: normal to inspection, full ROM and no clubbing, cyanosis or edema GENERAL: Yes edema (1+ pitting edema of bilateral LEs) Neuro: COMMON NORMALS: patient oriented x3, moves all extremities, no focal motor deficits and no sensory deficits noted SENSORIUM/ORIENTATION: Yes alert Psych: COMMON NORMALS: mental status grossly normal, Normal thought process present, cooperative, normal affect and speech normal SPEECH: Yes normal speech THOUGHT PROCESS: Normal thought process present Skin: COMMON NORMALS: no rashes or lesions noted, no jaundice, no petechiae and no mottling GENERAL SKIN EXAM: no rashes or lesions noted Urinary Catheter Management^: Ruvalcaba: Cath Placed During This Visit: yes Reason for Continuing Indwelling Catheter: Accurate Measurement of Urinary Output in Critically Ill Patients Urinary Catheter Date of Insertion: 04/04/20 Urinary Catheter Time of Insertion: 03:20 Data : 04/06/20 03:00 04/06/20 03:00 Micro: Microbiology 04/05/20 14:55 Gram Stain - Final Sputum - Expectorated Sputum A&P Assessment and plan (1) Atrial fibrillation with RVR: -Developed overnight and appears to be new onset likely triggered by acute CHF exacerbation and pneumonia -Due to hypotension was started on amiodarone drip overnight; wean off as tolerated -Echo done recently, as noted below -K-4.2, Mg-1.8 -Telemetry monitoring -[id number]-RAZb score: 5, would qualify for anticoagulation though is quite anemic so would hold off on this for now Status: Acute (2) Acute exacerbation of CHF (congestive heart failure): -has known chronic diastolic CHF, now with acute exacerbation as evidenced by lower extremity swelling, dyspnea, orthopnea, BNP elevation (1164), evidence of fluid overload on imaging (large bilateral pleural effusions) -f/u CXR today -Initially required BiPAP, now on 6 L NC; unable to tolerate BiPAP/oxy-mask due to claustrophobia -Continue to monitor respiratory status closely -VSS; continue to monitor -telemetry monitoring -Echo (01/2020): EF=60%, G1DD, no RWMA -on diuresis with Bumex. Decreased to once daily dosing due to significant muscle cramping and added KCl. 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, has been oxygen dependent x 1 month -due to underlying immunocompromise, cannot rule out infection so on broad spectrum antibiotics as well as management of acute diastolic CHF exacerbation as noted above -close monitoring of respiratory status -wean oxygen requirement as tolerated; home oxygen evaluation if not at baseline prior to d/c -blood cx: negative (prelim) -sputum cx pending, gram stain negative -bacterial antigens, Legionella negative -had been tested for COVID-19 in 01/2020 which was negative Status: Acute Qualifiers: Chronicity: acute on chronic Qualified Code(s): J96.21 - Acute and chronic respiratory failure with hypoxia (4) Hyponatremia: -acute on chronic hyponatremia; element of pseudohyponatremia secondary to acute CHF exacerbation, underlying malignancy and hyperglycemia -baseline Na appears to be 128-130; continue to trend -fluid restriction Status: Chronic (5) Chronic kidney disease: -has known CKD, unknown stage -baseline Cr appears to be 1.4-1.8 -avoid nephrotoxins, renally dose meds Status: Chronic Qualifiers: Chronic kidney disease stage: stage 3 (moderate) Qualified Code(s): N18.3 - Chronic kidney disease, stage 3 (moderate) (6) Multiple myeloma: -recently diagnosed; IgG lambda MM; recent bone marrow biopsy showed 60 to 70% plasma cell marrow cellularity -follows up with Dr. Cheng; last visit was 03/24 -Is currently on chemotherapy with Velcade/Revlimid/dexamethasone; weekly -associated macrocytic anemia; Ca wnl -negative bone scan done 03/17 -CT chest shows bilateral nodular costal pleural thickening and marked nodular enlargement of bilateral adrenal glands both of which are suspicious for metastatic disease (new since 01/2020). Noted multiple subpleural nodules in RUL, RML which could be infectious versus neoplastic -has had ongoing decline in functional status; overall guarded prognosis Status: Acute Qualifiers: Multiple myeloma remission status: unspecified Qualified Code(s): C90.00 - Multiple myeloma not having achieved remission (7) COPD (chronic obstructive pulmonary disease): -received dose of IV steroids in ED, further steroids on hold for now -Oxygen dependent at baseline, 3 L baseline requirement Status: Chronic Qualifiers: COPD type: emphysema Emphysema type: other Qualified Code(s): J43.8 - Other emphysema (8) Diabetes mellitus, type II: -previously non insulin requiring -A1c-10.5 -Accuchecks, ISS, hypoglycemia precautions; scheduled insulin -consistent carb diet Status: Chronic Qualifiers: Diabetes mellitus complication status: without complication Diabetes mellitus mcfp insulin use: without termite control representative use Qualified Code(s): E11.9 - Type 2 diabetes mellitus without complications (9) Benign prostatic hyperplasia: -follows up with Dr. Girard -on finasteride, tamsulosin Status: Chronic Qualifiers: Lower urinary tract symptom detail: urinary frequency Lower urinary tract symptom presence: symptoms present Qualified Code(s): N40.1 - Benign prostatic hyperplasia with lower urinary tract symptoms; R35.0 - Frequency of micturition (10) GERD (gastroesophageal reflux disease): Status: Chronic Qualifiers: Esophagitis presence: esophagitis presence not specified Qualified Code(s): K21.9 - Gastro-esophageal reflux disease without esophagitis (11) Macrocytic anemia: -likely secondary to underlying malignancy -continue to monitor H/H -FOBT pending -iron stores adequate per recent bone marrow biopsy -baseline Hg appears to be 9-10 Status: Chronic (12) Hypertension: -was hypotensive; continue to monitor vital signs Status: Chronic Qualifiers: Hypertension type: essential hypertension Qualified Code(s): I10 - Essential (primary) hypertension Additional A&P Information -Advanced age; though looks younger than stated age -OA; pain control as needed -Anxiety; anxiolytics as needed -Hyperlipidemia; statin intolerance -Physical deconditioning and declining function status; PT/OT evaluations once respiratory status improves -Dispo: home, lives with family and has services -Code status: FULL code -ICU care due to need for close monitoring of respiratory status, low threshold for intubation Attestations Medical Necessity Statement*: Patient requires hospitalization for management of A. fib with RVR, continue diuresis and IV antibiotic treatment, on higher than baseline oxygen requirement. Time Spent in Patient Care: 16 - 35 minutes (>than 50% of time spent in counselling and/or direct pt care on unit) . Coding Level of Care Code Acute [employer] Supervisor for g Fwd Exam Comprehensive Diagnoses Atrial fibrillation with RVR I48.91 Acute exacerbation of CHF (congestive heart failure) I50.33 Heart failure type: diastolic Respiratory failure with hypoxia J96.21 Chronicity: acute on chronic Hyponatremia E87.1 Chronic kidney disease N18.3 Chronic kidney disease stage: stage 3 (moderate) Multiple myeloma C90.00 Multiple myeloma remission status: unspecified COPD (chronic obstructive pulmonary disease) J43.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 Diabetes mellitus, type II E11.9 Diabetes mellitus complication status: without complication Diabetes mellitus mcfp insulin use: without termite control representative use Benign prostatic hyperplasia N40.1; R35.0 Lower urinary tract symptom detail: urinary frequency Lower urinary tract symptom presence: symptoms present GERD (gastroesophageal reflux disease) K21.9 Esophagitis presence: esophagitis presence not specified Macrocytic anemia D53.9 Hypertension I10 Hypertension type: essential hypertension
[2020-04-06 08:45] LABS: Glucose Point of Care 175 mg/dL (70-110)
[2020-04-06] MEDS: potassium chloride ER 10 mEq Tablet 40 MEQ PO (09:39)
[2020-04-06] MEDS: sennosides-docusate Tablet 1 TAB PO ×2 (09:39→17:56)
[2020-04-06] MEDS: bumetanide 1 mg Tablet PO (09:39)
[2020-04-06] MEDS: finasteride 5 mg Tablet PO (09:39)
[2020-04-06] MEDS: tamsulosin 0.4 mg Capsule 0.8 MG PO (09:39)
[2020-04-06] MEDS: allopurinol 300 mg Tablet PO (09:39)
[2020-04-06 17:09] LABS: Glucose Point of Care 213 mg/dL (70-110)
[2020-04-06 17:16] LABS: Glucose Point of Care 212 mg/dL (70-110)
[2020-04-06 21:59] LABS: Glucose Point of Care 167 mg/dL (70-110)
[2020-04-06] MEDS: insulin glargine 100 units/1 mL 10 UNIT SUBCUT (22:09)
[2020-04-07] VITALS (13 sets, daily range): BP systolic 109–134; BP diastolic 56–78; PULSE 70–89; RESP 15–24; TEMP 36.5–37.1; O2SAT 92–96
[2020-04-07] MEDS: heparin 5,000 unit/mL INJ 1 mL 5000 UNIT SUBCUT ×3 (05:06→17:26)
[2020-04-07 05:31] LABS: Basophils % 0.8 %; Eosinophils % 0.6 %; Hematocrit 31.8 % (42.0-52.0); Hemoglobin 9.2 g/dL (11.7-16.6); Mean Corpuscular HGB Conc 28.9 g/dL (30.0-36.0); Mean Corpuscular Hemoglobin 30.2 pg (28.0-34.0); Mean Corpuscular Volume 104.3 fL (80-94); Mean Platelet Volume 10.1 fL (7.4-10.4); Monocytes # 0.4 10^3/uL (0.2-0.9); Neutrophils % 55.2 %; Nucleated Red Blood Cells % 0 %; Platelet Count 150 10^3/cmm (130-400); Red Blood Count 3.05 10^6/uL (4.1-5.3); Red Cell Distribution Width 17.6 % (12.1-15.1); White Blood Count 3.6 10^3/uL (4.0-10.0)
[2020-04-07 05:57] LABS: Anion Gap 15.2 (5-19); Blood Urea Nitrogen 22 mg/dL (8-23); Calcium 9.8 mg/dL (8.5-10.5); Carbon Dioxide 22 mmol/L (22-29); Chloride 93 mmol/L (98-107); Glucose 157 mg/dL (65-115); Osmolality Calculated 262 mOsm/kg (285-295); Potassium 4.2 mmol/L (3.5-5.1); Sodium 126 mmol/L (136-145)
[2020-04-07 08:01] LABS: Glucose Point of Care 188 mg/dL (70-110)
--- NOTE | 2020-04-07 09:38 | P.PN_ITS ---
Subjective Subjective: Interval history: Remains in NSR, off amiodarone drip, hemodynamically stable, afebrile, down to 5 L NC. Stable Hg, WBC, renal function, noted hyponatremia. Had 1450 mL urine output overnight. Just completed his physical therapy session, did well though fatigues fairly easily. Reports feeling better today and would like to be transferred to the floor so he can take a shower. No acute overnight events reported, no apparent distress. Appetite is improving very gradually. Ruvalcaba catheter removed earlier this morning. Medications: Reviewed: Yes Medication Review Details: Active Medications Generic Name Dose Route Start Last Admin Trade Name Freq PRN Reason Stop Dose Admin Albuterol/Ipratrop ium 3 ml 04/04/20 02:48 Duoneb INHALATION Q6H PRN SHORTNESS OF DANA TH Allopurinol 300 mg 04/04/20 09:00 04/06/20 09:39 Zyloprim PO 300 mg DAILY MAHESH Administration Alprazolam 0.5 mg 04/04/20 10:55 04/06/20 20:15 Xanax PO 0.5 mg TID PRN Administration anxiety Bumetanide 1 mg 04/06/20 09:00 04/06/20 09:39 Bumex PO 1 mg DAILY MAHESH Administration Dextrose 25 ml 04/04/20 09:19 D50w IVP ONCE PRN hypoglycemia prot ocol Protocol Dextrose 50 ml 04/04/20 09:19 D50w IVP PRN PRN hypoglycemia prot ocol Protocol Finasteride 5 mg 04/04/20 09:00 04/06/20 09:39 Proscar PO 5 mg DAILY MAHESH Administration Glucagon 1 mg 04/04/20 09:19 Glucagen IM ONCE PRN Adult Acute Hypog lycemia Prot. Protocol Heparin Sodium (Be ef Lung) 5,000 unit 04/04/20 02:48 04/07/20 05:06 Heparin SUBCUT 5,000 unit Q8H MAHESH Administration Dextrose 500 mls @ 100 mls /hr 04/04/20 09:19 D5w IV ONCE PRN Adult Acute Hypog lycemia Prot Protocol Amiodarone HCl 900 mg/ 518 mls @ 0 mls/h r 04/06/20 04:00 Dextrose/ IV Misce llaneous IV Supplies .Q0M MAHESH Protocol Per Protocol Insulin Aspart 0 unit 04/04/20 12:00 04/06/20 22:09 Novolog SUBCUT 2 unit WM&BEDTIME MAHESH Administration Protocol Insulin Aspart 10 unit 04/05/20 11:00 04/05/20 17:39 Novolog SUBCUT Not Given [facility]1983 Insulin Glargine 10 unit 04/05/20 21:00 04/06/20 22:09 Lantus SUBCUT 10 unit BEDTIME MAHESH Administration Levofloxacin 750 mg 04/04/20 03:00 04/06/20 03:09 Levaquin PO 750 mg Q48H MAHESH Administration Protocol Metoprolol Tartrat e 12.5 mg 04/07/20 09:40 Lopressor PO BID MAHESH Morphine Sulfate 15 mg 04/04/20 02:48 04/06/20 06:03 Msir PO 15 mg Q4H PRN Administration SEVERE PAIN Potassium Chloride 40 meq 04/05/20 17:50 04/06/20 09:39 Klor-Con 10 PO 40 meq DAILY MAHESH Administration Senna/Docusate Sod ium 1 tab 04/04/20 09:00 04/06/20 17:56 Senna-S PO 1 tab BID MAHESH Administration Tamsulosin HCl 0.8 mg 04/04/20 09:00 04/06/20 09:39 Flomax PO 0.8 mg DAILY MAHESH Administration Iodinated Contrast Media Allergy (Verified 03/16/20 16:21) Unknown Vitals/I&O/Wt Last Vital Signs Temp 98.6 F 04/06/20 20:00 Pulse 86 04/07/20 08:04 Resp 16 04/07/20 08:04 BP 134/76 04/07/20 06:00 Pulse Ox 96 04/07/20 08:04 04/06/20 04/07/20 04/07/20 22:59 06:59 14:59 Intake Total 120 / 360 Output Total 675 / 675 1450 / 2125 Balance -555 / -315 -1450 / -1765 Physical Exam Const: COMMON NORMALS: no acute distress, patient oriented x3 and alert GENERAL APPEARANCE: cooperative and comfortable ORIENTATION/CONSCIOUSNESS: Yes awake OTHER: -looks younger than stated age -Sitting in chair by bedside HENMT: COMMON NORMALS: normocephalic, atraumatic, hearing grossly normal bilaterally and moist oral mucous membranes HEAD & SCALP: normocephalic and atraumatic Eye: COMMON NORMALS: Equal, round and reactive pupils present, EOMs intact bilaterally and conjunctivae normal CONJUNCTIVA: Yes conjunctivae normal PUPIL: Yes Equal, round and reactive pupils present Neck/C-Spine: COMMON NORMALS: full ROM GENERAL: Yes normal visual inspection and Yes trachea midline Resp: COMMON NORMALS: normal respiratory effort, No retractions and No use of accessory muscles EFFORT & INSPECTION: Yes able to speak in complete sentences, Yes symmetric chest movement and No tachypneic AUSCULTATION: crackles and diminished lung sounds bilateral OTHER: on 5 L NC Cardio: COMMON NORMALS: regular rate, regular rhythm, S1 normal heart sound present and S2 normal heart sound present RATE: regular rate RHYTHM: regular rhythm HEART SOUNDS: S1 normal heart sound present and S2 normal heart sound present GI: COMMON NORMALS: Soft to palpation and non-tender INSPECTION: Yes normal to inspection and Yes abdominal distension AUSCULTATION: Yes normoactive bowel sounds PALPATION: Yes Soft to palpation : BLADDER/KIDNEY EXAM: No catheter in place Extremity: COMMON NORMALS: normal to inspection, full ROM and no clubbing, cyanosis or edema GENERAL: Yes edema (trace pitting edema of bilateral LEs) Neuro: COMMON NORMALS: patient oriented x3, moves all extremities, no focal motor deficits and no sensory deficits noted SENSORIUM/ORIENTATION: Yes alert Psych: COMMON NORMALS: mental status grossly normal, Normal thought process present, cooperative, normal affect and speech normal SPEECH: Yes normal speech THOUGHT PROCESS: Normal thought process present Skin: COMMON NORMALS: no rashes or lesions noted, no jaundice, no petechiae and no mottling GENERAL SKIN EXAM: no rashes or lesions noted Urinary Catheter Management^: Ruvalcaba: Cath Placed During This Visit: yes, but has since been removed by the nurse Reason for Continuing Indwelling Catheter: Accurate Measurement of Urinary Output in Critically Ill Patients Urinary Catheter Date of Insertion: 04/04/20 Urinary Catheter Time of Insertion: 03:20 Date Urinary Catheter Removed: 04/07/20 Data : 04/07/20 04:56 04/07/20 04:56 Micro: Microbiology 04/05/20 14:55 Gram Stain - Final Sputum - Expectorated Sputum Sputum Culture - Preliminary A&P Assessment and plan (1) Atrial fibrillation with RVR: -appears to be new onset likely triggered by acute CHF exacerbation and pneumonia -Due to hypotension was started on amiodarone drip overnight; weaned off as converted to NSR; will start on low dose BB as BP allows -Echo done recently, as noted below -K-4.2, Mg-1.8 -Telemetry monitoring -[id number] score: 5, would qualify for anticoagulation though is quite anemic so would hold off on this for now Status: Resolved (2) Acute exacerbation of CHF (congestive heart failure): -has known chronic diastolic CHF, now with acute exacerbation as evidenced by lower extremity swelling, dyspnea, orthopnea, BNP elevation (1164), evidence of fluid overload on imaging (large bilateral pleural effusions) -f/u CXR unchanged in terms of pleural effusions, increased R basilar opacity -Initially required BiPAP, now on 6 L NC; unable to tolerate BiPAP/oxy-mask due to claustrophobia -Continue to monitor respiratory status closely -VSS; continue to monitor -telemetry monitoring -Echo (01/2020): EF=60%, G1DD, no RWMA -on diuresis with Bumex. Decreased to once daily dosing due to significant muscle cramping and added KCl. 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 Narrowed to Levaquin due to lack of fever, symptomatic improvement, decreasing oxygen requirement -close monitoring of respiratory status -wean oxygen requirement as tolerated; home oxygen evaluation if not at baseline prior to d/c -blood cx: negative (prelim) -sputum cx prelim mixed flako, gram stain negative -bacterial antigens, Legionella negative -had been tested for COVID-19 in 01/2020 which was negative Status: Acute Qualifiers: Chronicity: acute on chronic Qualified Code(s): J96.21 - Acute and chronic respiratory failure with hypoxia (4) Hyponatremia: -acute on chronic hyponatremia; element of pseudohyponatremia secondary to acute CHF exacerbation, underlying malignancy and hyperglycemia -baseline Na appears to be 128-130; continue to trend -fluid restriction Status: Chronic (5) Chronic kidney disease: -has known CKD, unknown stage -baseline Cr appears to be 1.4-1.8; stable renal function -avoid nephrotoxins, renally dose meds Status: Chronic Qualifiers: Chronic kidney disease stage: stage 3 (moderate) Qualified Code(s): N18.3 - Chronic kidney disease, stage 3 (moderate) (6) Multiple myeloma: -recently diagnosed; IgG lambda MM; recent bone marrow biopsy showed 60 to 70% plasma cell marrow cellularity -follows up with Dr. Cheng; last visit was 03/24 -Is currently on chemotherapy with Velcade/Revlimid/dexamethasone; weekly -associated macrocytic anemia; Ca wnl -negative bone scan done 03/17 -CT chest shows bilateral nodular costal pleural thickening and marked nodular enlargement of bilateral adrenal glands both of which are suspicious for metastatic disease (new since 01/2020). Noted multiple subpleural nodules in RUL, RML which could be infectious versus neoplastic -has had ongoing decline in functional status; overall guarded prognosis Status: Acute Qualifiers: Multiple myeloma remission status: unspecified Qualified Code(s): C90.00 - Multiple myeloma not having achieved remission (7) COPD (chronic obstructive pulmonary disease): -received dose of IV steroids in ED, further steroids on hold for now -Oxygen dependent at baseline, 3 L baseline requirement Status: Chronic Qualifiers: COPD type: emphysema Emphysema type: other Qualified Code(s): J43.8 - Other emphysema (8) Diabetes mellitus, type II: -previously non insulin requiring -A1c-10.5 -Accuchecks, ISS, hypoglycemia precautions; scheduled insulin -consistent carb diet Status: Chronic Qualifiers: Diabetes mellitus complication status: without complication Diabetes mellitus residential insulin use: without residential use Qualified Code(s): E11.9 - Type 2 diabetes mellitus without complications (9) Benign prostatic hyperplasia: -follows up with Dr. Girard -on finasteride, tamsulosin Status: Chronic Qualifiers: Lower urinary tract symptom detail: urinary frequency Lower urinary tract symptom presence: symptoms present Qualified Code(s): N40.1 - Benign prostatic hyperplasia with lower urinary tract symptoms; R35.0 - Frequency of micturition (10) GERD (gastroesophageal reflux disease): Status: Chronic Qualifiers: Esophagitis presence: esophagitis presence not specified Qualified Code(s): K21.9 - Gastro-esophageal reflux disease without esophagitis (11) Macrocytic anemia: -likely secondary to underlying malignancy -continue to monitor H/H -iron stores adequate per recent bone marrow biopsy -baseline Hg appears to be 9-10 Status: Chronic (12) Hypertension: -hemodynamically stable; continue to monitor vital signs Status: Chronic Qualifiers: Hypertension type: essential hypertension Qualified Code(s): I10 - Essential (primary) hypertension Additional A&P Information -Advanced age; though looks younger than stated age -OA; pain control as needed -Anxiety; anxiolytics as needed -Hyperlipidemia; statin intolerance -Physical deconditioning and declining function status; PT/OT evaluations appreciated -Dispo: home, lives with family and has services -Code status: FULL code -transfer to floor for continued care Attestations Medical Necessity Statement*: Patient requires hospitalization for continued close monitoring of respiratory status, weaning oxygen requirement, continued IV antibiotics for pneumonia and hemodynamic status monitoring. Time Spent in Patient Care: 16 - 35 minutes (>than 50% of time spent in counselling and/or direct pt care on unit) . Coding Level of Care Code Acute Genetic Counselor for Chg Fwd Exam Comprehensive Diagnoses Atrial fibrillation with RVR I48.91 Acute exacerbation of CHF (congestive heart failure) I50.33 Heart failure type: diastolic Respiratory failure with hypoxia J96.21 Chronicity: acute on chronic Hyponatremia E87.1 Chronic kidney disease N18.3 Chronic kidney disease stage: stage 3 (moderate) Multiple myeloma C90.00 Multiple myeloma remission status: unspecified COPD (chronic obstructive pulmonary disease) J43.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 Diabetes mellitus, type II E11.9 Diabetes mellitus complication status: without complication Diabetes mellitus residential insulin use: without buttermaker continuous churn use Benign prostatic hyperplasia N40.1; R35.0 Lower urinary tract symptom detail: urinary frequency Lower urinary tract symptom presence: symptoms present GERD (gastroesophageal reflux disease) K21.9 Esophagitis presence: esophagitis presence not specified Macrocytic anemia D53.9 Hypertension I10 Hypertension type: essential hypertension
[2020-04-07] MEDS: morphine IR 15 mg Tablet PO (10:02)
[2020-04-07] MEDS: finasteride 5 mg Tablet PO (10:03)
[2020-04-07] MEDS: metoprolol tartrate 25 mg Tablet 12.5 MG PO ×2 (10:03→17:27)
[2020-04-07] MEDS: bumetanide 1 mg Tablet PO (10:03)
[2020-04-07] MEDS: potassium chloride ER 10 mEq Tablet 40 MEQ PO (10:05)
[2020-04-07] MEDS: sennosides-docusate Tablet 1 TAB PO ×2 (10:05→17:26)
[2020-04-07] MEDS: ALPRAZolam 0.5 mg Tablet PO ×2 (10:05→20:15)
[2020-04-07] MEDS: allopurinol 300 mg Tablet PO (10:06)
[2020-04-07] MEDS: tamsulosin 0.4 mg Capsule 0.8 MG PO (10:18)
[2020-04-07 11:32] LABS: Glucose Point of Care 247 mg/dL (70-110)
[2020-04-07 11:32] LABS: Glucose Point of Care 371 mg/dL (70-110)
--- NOTE | 2020-04-07 13:59 | PC.NURSE ---
PATIENT IS UNSTEADY ON FEET. GIVEN BATH WHILE ON BSC. EATING 50% OF MEALS. COMPLAINS OF SORENESS ON GLUTEAL FOLD, NOTED BLEEDING SHEARED SKIN AREA. ALOEVESTA PLACED AND OPTIFOAM PLACED OVER SITE.
--- NOTE | 2020-04-07 15:00 | PC.SOCIAL ---
IMM Page 2 of IMM explained to and signed by patient. Initialed, dated, and timed and placed in chart. Copy provided to patient.
--- NOTE | 2020-04-07 15:59 | PC.NURSE ---
Mrs. Yarbrough called to check on her . Updated her on his status improved. Pt iproved enogh to transfer out of ICU, gave new room number 250-1. Transferred call to curing bin operator to get patient's room.
[2020-04-07 16:36] LABS: Glucose Point of Care 104 mg/dL (70-110)
--- NOTE | 2020-04-07 16:47 | PC.OT ---
Treatment attempted x2 this P.M. Upon first attempt pt refused treatment asking to come back later. Upon second attempt pt sleeping soundly. Will attempt treatment tomorrow.-ANN Huynh/L
[2020-04-07] MEDS: ipratropium-albuterol 3 mL Neb INHALATION (20:28)
[2020-04-07 21:19] LABS: Glucose Point of Care 88 mg/dL (70-110)
[2020-04-07] MEDS: insulin glargine 100 units/1 mL 10 UNIT SUBCUT (23:54)
[2020-04-08] VITALS (11 sets, daily range): BP systolic 108–134; BP diastolic 64–79; PULSE 69–75; RESP 16–19; TEMP 36.4–36.7; O2SAT 81–96
[2020-04-08] MEDS: morphine IR 15 mg Tablet PO ×2 (01:24→14:09)
[2020-04-08 05:18] LABS: Basophils % 0.3 %; Eosinophils % 0.6 %; Hemoglobin 8.8 g/dL (11.7-16.6); Lymphocytes # 1.2 10^3/uL (0.8-4.8); Lymphocytes % 33.5 %; Mean Corpuscular HGB Conc 30.3 g/dL (30.0-36.0); Mean Corpuscular Hemoglobin 30.9 pg (28.0-34.0); Mean Corpuscular Volume 101.8 fL (80-94); Mean Platelet Volume 10.2 fL (7.4-10.4); Monocytes # 0.4 10^3/uL (0.2-0.9); Monocytes % 11.9 %; Neutrophils # 1.9 10^3/uL (1.8-7.7); Neutrophils % 51.8 %; Nucleated Red Blood Cells % 0 %; Platelet Count 148 10^3/cmm (130-400); Red Blood Count 2.85 10^6/uL (4.1-5.3); Red Cell Distribution Width 17.3 % (12.1-15.1); White Blood Count 3.6 10^3/uL (4.0-10.0)
[2020-04-08] MEDS: heparin 5,000 unit/mL INJ 1 mL 5000 UNIT SUBCUT ×2 (05:40→12:22)
[2020-04-08] MEDS: levoFLOXacin 750 mg Tablet PO (05:40)
[2020-04-08 05:41] LABS: Anion Gap 12.4 (5-19); Blood Urea Nitrogen 26 mg/dL (8-23); Calcium 10.5 mg/dL (8.5-10.5); Carbon Dioxide 26 mmol/L (22-29); Chloride 94 mmol/L (98-107); Glucose 108 mg/dL (65-115); Osmolality Calculated 263 mOsm/kg (285-295); Potassium 4.4 mmol/L (3.5-5.1); Sodium 128 mmol/L (136-145)
[2020-04-08 06:10] LABS: Glucose Point of Care 119 mg/dL (70-110)
[2020-04-08] MEDS: allopurinol 300 mg Tablet PO (08:31)
[2020-04-08] MEDS: finasteride 5 mg Tablet PO (08:31)
[2020-04-08] MEDS: tamsulosin 0.4 mg Capsule 0.8 MG PO (08:32)
[2020-04-08] MEDS: bumetanide 1 mg Tablet PO (08:32)
[2020-04-08] MEDS: metoprolol tartrate 25 mg Tablet 12.5 MG PO ×2 (08:32→17:46)
[2020-04-08] MEDS: sennosides-docusate Tablet 1 TAB PO ×2 (08:32→17:47)
[2020-04-08] MEDS: potassium chloride ER 10 mEq Tablet 40 MEQ PO (08:32)
[2020-04-08] MEDS: ALPRAZolam 0.5 mg Tablet PO (10:25)
--- NOTE | 2020-04-08 11:15 | PC.NURSE ---
Patients called,inquiring about patient, voiced concern wants update from , assured I would pass it on.Dr Sheets notified.
[2020-04-08 11:49] LABS: Glucose Point of Care 90 mg/dL (70-110)
--- NOTE | 2020-04-08 15:57 | P.DS_ITS ---
Discharge Providers Date of Admission: 04/04/20 00:54 Date of Discharge: April 08, 2020 Attending Provider at Admission: Varinder Bansal MD Attending Provider at Discharge: Miri Sheets MD Primary Care Provider: Richard Leslie DO Diagnoses at Discharge Discharge Diagnosis (1) Atrial fibrillation with RVR: Status: Resolved Problem details: -appears to be new onset likely triggered by acute CHF exacerbation and pneumonia -Due to hypotension was started on amiodarone drip overnight; weaned off as converted to NSR; started on low dose BB as BP allows -Echo done recently, as noted below -K-4.2, Mg-1.8 -Telemetry monitoring -[id number] score: 5, would qualify for anticoagulation though is quite anemic so would hold off on this for now (2) Acute exacerbation of CHF (congestive heart failure): Status: Acute Problem details: -has known chronic diastolic CHF, now with acute exacerbation as evidenced by lower extremity swelling, dyspnea, orthopnea, BNP elevation (1164), evidence of fluid overload on imaging (large bilateral pleural effusions) -f/u CXR unchanged in terms of pleural effusions, increased R basilar opacity -Initially required BiPAP, now on 6 L NC; unable to tolerate BiPAP/oxy-mask due to claustrophobia -Continue to monitor respiratory status closely -VSS; continue to monitor -telemetry monitoring -Echo (01/2020): EF=60%, G1DD, no RWMA -on diuresis with Bumex. Decreased to once daily dosing due to significant muscle cramping and added KCl. 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 Narrowed to Levaquin due to lack of fever, symptomatic improvement, decreasing oxygen requirement -close monitoring of respiratory status -wean oxygen requirement as tolerated; home oxygen evaluation prior to d/c -blood cx: negative (prelim) -sputum cx prelim mixed flako, gram stain negative -bacterial antigens, Legionella negative -had been tested for COVID-19 in 01/2020 which was negative Qualifiers: Chronicity: acute on chronic Qualified Code(s): J96.21 - Acute and chronic respiratory failure with hypoxia (4) Hyponatremia: Status: Chronic Problem details: -acute on chronic hyponatremia; element of pseudohyponatremia secondary to acute CHF exacerbation, underlying malignancy and hyperglycemia -baseline Na appears to be 128-130; continue to trend -fluid restriction (5) Chronic kidney disease: Status: Chronic Problem details: -has known CKD, unknown stage -baseline Cr appears to be 1.4-1.8; stable renal function -avoid nephrotoxins, renally dose meds Qualifiers: Chronic kidney disease stage: stage 3 (moderate) Qualified Code(s): N18.3 - Chronic kidney disease, stage 3 (moderate) (6) Multiple myeloma: Status: Chronic Problem details: -recently diagnosed; IgG lambda MM; recent bone marrow biopsy showed 60 to 70% plasma cell marrow cellularity -follows up with Dr. Cheng; last visit was 03/24 -Is currently on chemotherapy with Velcade/Revlimid/dexamethasone; weekly -associated macrocytic anemia; Ca wnl -negative bone scan done 03/17 -CT chest shows bilateral nodular costal pleural thickening and marked nodular enlargement of bilateral adrenal glands both of which are suspicious for metastatic disease (new since 01/2020). Noted multiple subpleural nodules in RUL, RML which could be infectious versus neoplastic -has had ongoing decline in functional status; overall guarded prognosis Qualifiers: Multiple myeloma remission status: unspecified Qualified Code(s): C90.00 - Multiple myeloma not having achieved remission (7) COPD (chronic obstructive pulmonary disease): Status: Chronic Problem details: -received dose of IV steroids in ED, further steroids on hold for now -Oxygen dependent at baseline, 3 L baseline requirement Qualifiers: COPD type: emphysema Emphysema type: other Qualified Code(s): J43.8 - Other emphysema (8) Diabetes mellitus, type II: Status: Chronic Problem details: -previously non insulin requiring -A1c-10.5 -Accuchecks, ISS, hypoglycemia precautions; scheduled insulin -consistent carb diet Qualifiers: Diabetes mellitus complication status: without complication Diabetes mellitus salvage determiner insulin use: without detention use Qualified Code(s): E11.9 - Type 2 diabetes mellitus without complications (9) Benign prostatic hyperplasia: Status: Chronic Problem details: -follows up with Dr. Girard -on finasteride, tamsulosin Qualifiers: Lower urinary tract symptom detail: urinary frequency Lower urinary tract symptom presence: symptoms present Qualified Code(s): N40.1 - Benign prostatic hyperplasia with lower urinary tract symptoms; R35.0 - Frequency of micturition (10) GERD (gastroesophageal reflux disease): Status: Chronic Qualifiers: Esophagitis presence: esophagitis presence not specified Qualified Code(s): K21.9 - Gastro-esophageal reflux disease without esophagitis (11) Macrocytic anemia: Status: Chronic Problem details: -likely secondary to underlying malignancy -continue to monitor H/H -iron stores adequate per recent bone marrow biopsy -baseline Hg appears to be 9-10 (12) Hypertension: Status: Chronic Problem details: -hemodynamically stable; continue to monitor vital signs Qualifiers: Hypertension type: essential hypertension Qualified Code(s): I10 - Essential (primary) hypertension Other Information Additional DC diagnoses/information: -Advanced age; though looks younger than stated age -OA; pain control as needed -Anxiety; anxiolytics as needed -Hyperlipidemia; statin intolerance -Physical deconditioning and declining function status; PT/OT evaluations appreciated Reason for Visit Reason for Visit: sob Hospital Course Hospital Course: Patient was admitted to ICU and started on IV diuresis secondary to noted bilateral pleural effusions as well as empiric broad-spectrum IV antibiotics. Hemodynamic and respiratory status were both closely monitored. Patient was maintained on supplemental oxygen support, initially required some BiPAP support which she was unable to tolerate due to anxiety and claustrophobia. He had been tested for COVID-19 previously which was negative, this was not repeated during this admission. Electrolytes and renal function were also closely monitored secondary to underlying chronic kidney disease and in light of need for diuresis. Hemoglobin has remained stable and he has not required transfusion of any blood products. He is oxygen dependent at baseline with a 3 L requirement, has required about 5 to 6 L so home oxygen evaluation done prior to discharge to update oxygen requirements. Patient has been quite anxious off and on throughout his hospital stay and has required anxiolytics which he does take at home as well. Case was briefly discussed with Dr. Cheng. Imaging shows findings suspicious for possible metastatic disease involving the lungs and adrenal glands. Functional capacity is mediocre and he has worked with therapy during his hospital stay, already has home health services. Overall prognosis primarily from a malignancy standpoint is quite guarded and with underlying comorbidities he is at high risk for readmission. Of note, once patient was more stable primarily from a hemodynamic and respiratory standpoint, he was transferred to the medical-surgical floor for continued care. Discharge Summary: -Patient to follow-up with his primary care provider within 1 week -Patient to continue to follow-up with Dr. Cheng Physical Exam Const: COMMON NORMALS: no acute distress, patient oriented x3 and alert GENERAL APPEARANCE: cooperative and comfortable ORIENTATION/CONSCIOUSNESS: Yes awake HENMT: COMMON NORMALS: normocephalic, atraumatic, hearing grossly normal bilaterally and moist oral mucous membranes HEAD & SCALP: normocephalic and atraumatic Eye: COMMON NORMALS: Equal, round and reactive pupils present, EOMs intact bilaterally and conjunctivae normal CONJUNCTIVA: Yes conjunctivae normal PUPIL: Yes Equal, round and reactive pupils present Neck/C-Spine: COMMON NORMALS: full ROM GENERAL: Yes normal visual inspection and Yes trachea midline Resp: COMMON NORMALS: normal respiratory effort, No retractions and No use of accessory muscles EFFORT & INSPECTION: Yes able to speak in complete sentences, Yes symmetric chest movement and No tachypneic AUSCULTATION: crackles and diminished lung sounds bilateral OTHER: on 5 L NC Cardio: COMMON NORMALS: regular rate, regular rhythm, S1 normal heart sound present and S2 normal heart sound present RATE: regular rate RHYTHM: regular rhythm HEART SOUNDS: S1 normal heart sound present and S2 normal heart sound present GI: COMMON NORMALS: Soft to palpation and non-tender INSPECTION: Yes normal to inspection and Yes abdominal distension AUSCULTATION: Yes normoactive bowel sounds PALPATION: Yes Soft to palpation : BLADDER/KIDNEY EXAM: No catheter in place Extremity: COMMON NORMALS: normal to inspection, full ROM and no clubbing, cyanosis or edema GENERAL: Yes edema (trace pitting edema of bilateral LEs) Neuro: COMMON NORMALS: patient oriented x3, moves all extremities, no focal motor deficits and no sensory deficits noted SENSORIUM/ORIENTATION: Yes alert Psych: COMMON NORMALS: mental status grossly normal, Normal thought process present, cooperative, normal affect and speech normal SPEECH: Yes normal speech THOUGHT PROCESS: Normal thought process present Skin: COMMON NORMALS: no rashes or lesions noted, no jaundice, no petechiae and no mottling GENERAL SKIN EXAM: no rashes or lesions noted Urinary Catheter Management^: Ruvalcaba: Cath Placed During This Visit: yes, but has since been removed by the nurse Reason for Continuing Indwelling Catheter: Decision to DC Catheter Urinary Catheter Date of Insertion: 04/04/20 Urinary Catheter Time of Insertion: 03:20 Date Urinary Catheter Removed: 04/07/20 Time Urinary Catheter Discontinued: 10:00 Discharge Data Data Completed and Pending: Completed Studies During Hospitalization Category Date Time Status CT chest wo con 7 1250 Urgent Cat Scan 04/03/20 23:06 Completed XR chest 1V olive ble [id number] Routine Exams 04/06/20 07:56 Completed XR chest 1V [place] ble [id number] Urgent Exams 04/03/20 22:22 [place] [id number] Routin e Ultrasound 04/04/20 02:48 Completed Pending at discharge Category Date Time Status Blood Culture Sta t Lab 04/03/20 11:31 Results Labs from last 24 hours 04/08/20 04/08/20 04/08/20 11:40 05:55 04:40 WBC RBC Hgb Hct MCV MCH MCHC RDW Plt Count MPV Neut % (Auto) Lymph % (Auto) [place] % (Auto) Eos % (Auto) Baso % (Auto) Neut # (Auto) Lymph # (Auto) [place] # (Auto) Eos # (Auto) Baso # (Auto) Nucleated RBC % (a uto) Nucleated RBCs # Sodium 128 L Potassium 4.4 Chloride 94 L Carbon Dioxide 26 Anion Gap 12.4 BUN 26 H Creatinine 2.1 H Glucose 108 POC Glucose 90 119 Calculated Osmolal ity 263 L Calcium 10.5 04/08/20 04/07/20 04/07/20 04:40 21:04 16:24 WBC 3.6 L RBC 2.85 L Hgb 8.8 L Hct 29.0 L MCV 101.8 H MCH 30.9 MCHC 30.3 RDW 17.3 H Plt Count 148 MPV 10.2 Neut % (Auto) 51.8 Lymph % (Auto) 33.5 [place] % (Auto) 11.9 Eos % (Auto) 0.6 Baso % (Auto) 0.3 Neut # (Auto) 1.9 Lymph # (Auto) 1.2 [place] # (Auto) 0.4 Eos # (Auto) 0.0 Baso # (Auto) 0.0 Nucleated RBC % (a uto) 0 Nucleated RBCs # 0.0 Sodium Potassium Chloride Carbon Dioxide Anion Gap BUN Creatinine Glucose POC Glucose 88 104 Calculated Osmolal ity Calcium Vitals: Last Vital Signs Temp 98.0 F 04/08/20 14:49 Pulse 73 04/08/20 14:49 Resp 19 H 04/08/20 14:49 BP 109/68 04/08/20 14:49 Pulse Ox 94 04/08/20 14:49 Discharge Plan Discharge Patient Disposition: Home Health Service Condition: Stable Prescriptions: New sennosides-docusate sodium 8.6-50 mg Tablet 1 tab PO BID 30 Days Qty: 60 RF: 0 levofloxacin 750 mg Tablet 750 mg PO Q48H Qty: 7 RF: 0 potassium chloride 20 mEq tablet extended release 20 meq PO BID Qty: 60 RF: 0 insulin aspart U-100 [Novolog U-100 Insulin aspart] 100 unit/mL Solution 10 unit SUBCUT TIDAC Qty: 10 RF: 0 Lantus U-100 Insulin 100 unit/mL Solution 10 unit SUBCUT BEDTIME Qty: 3 RF: 0 bumetanide 1 mg tablet 0.5 mg PO BID 30 Days Qty: 30 RF: 0 Continued alum-mag hydroxide-simeth [Mag-Al Plus] 200-200-20 mg/5 mL suspension 10 ml PO Q6H PRN (Reason: Acid Reflux) RF: 0 triamcinolone acetonide 0.1 % cream 1 applic TOPICAL PRN PRN (Reason: Itching) RF: 0 tamsulosin [Flomax] 0.4 mg capsule 0.8 mg PO DAILY RF: 0 albuterol sulfate 2.5 mg /3 mL (0.083 %) solution for nebulization 2.5 mg inhalation Q6H PRN (Reason: Shortness Of Breath) RF: 0 tiotropium bromide 18 mcg capsule, w/inhalation device 1 cap INHALATION DAILY Qty: 1 RF: 1 tadalafil 5 mg Tablet 5 mg PO DAILY RF: 0 trazodone 50 mg Tablet 25 mg PO BEDTIME PRN (Reason: Sleep) Qty: 30 RF: 0 acyclovir 400 mg tablet RF: 0 allopurinol 300 mg Tablet 300 mg PO DAILY RF: 0 Protonix 40 mg Tablet,Delayed Release (Dr/Ec) 40 mg PO DAILY RF: 0 Changed alprazolam 0.25 mg Tablet 0.25 mg PO TID PRN (Reason: Anxiety) Qty: 30 RF: 0 metoprolol tartrate 25 mg Tablet 12.5 mg PO BID 30 Days Qty: 30 RF: 0 Discontinued furosemide 40 mg Tablet 40 mg PO DAILY RF: 0 insulin aspart U-100 See Rx Instructions .ROUTE .COMPLEX RF: 0 No Action (DME) blood sugar diagnostic [Prodigy No Coding] Strip MISCELLANEOUS RF: 0 Discharge Orders: Discharge Order (Routine); Ordered 04/08/20 Ordered By: Miri Sheets Other Ambulatory Orders: DME: Oxygen (Order) Location: None Selected Ordered By: Miri Sheets Referrals: Richard Cheng MD [Hospitalist] - 4-7 days (Follow up for multiple myeloma) Richard Leslie DO [Primary Care Provider] - 4-7 days (Post hospital discharge follow up. Treated for acute CHF exacerbation and bilateral pleural effusions. ) Discharge Diet: Cardiac Discharge Activity: Increase activity as tolerated and Oxygen as instructed Discharge Attestations Time Spent in Discharge Care*: greater than 30 min Specific Discharge Activities: Specific discharge activities: educating patient, discussing with [employer]/social workers/dc planners, documenting/other paperwork and evaluating patient/reviewing data Status at Discharge: Cognitive status at discharge: mildly impaired cognition , Behavioral status at discharge: cooperative , Functional status at discharge: uses cane/walker Overall status at discharge: patient is progressing back to baseline Quality Metrics Clinical Quality Measures During this hospital stay, did patient experience: None Coding Level of Care Code Acute Front Desk Admin for [facility] Fwd Exam Comprehensive Diagnoses Atrial fibrillation with RVR I48.91 Acute exacerbation of CHF (congestive heart failure) I50.33 Heart failure type: diastolic Respiratory failure with hypoxia J96.21 Chronicity: acute on chronic Hyponatremia E87.1 Chronic kidney disease N18.3 Chronic kidney disease stage: stage 3 (moderate) Multiple myeloma C90.00 Multiple myeloma remission status: unspecified COPD (chronic obstructive pulmonary disease) J43.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 Diabetes mellitus, type II E11.9 Diabetes mellitus complication status: without complication Diabetes mellitus detention insulin use: without detention use Benign prostatic hyperplasia N40.1; R35.0 Lower urinary tract symptom detail: urinary frequency Lower urinary tract symptom presence: symptoms present GERD (gastroesophageal reflux disease) K21.9 Esophagitis presence: esophagitis presence not specified Macrocytic anemia D53.9 Hypertension I10 Hypertension type: essential hypertension
[2020-04-08 16:52] LABS: Glucose Point of Care 76 mg/dL (70-110)
== END 2020-04-08 19:45 | disposition home health service (06) | DRG 291 ==
LOC: ER 04-04 01:01 → ICU 04-04 01:55 → MEDSURG 04-07 14:20
PROVIDERS: Emergency Medicine; Admitting Provider Internal Medicine; PCP Internal Medicine; Visit Provider Family Medicine
DX: I13.0 Hypertensive heart and chronic kidney disease with heart failure and stage 1 through stage 4 chronic kidney disease, or unspecified chronic kidney disease (principal); J96.91 Respiratory failure, unspecified with hypoxia; I50.33 Acute on chronic diastolic (congestive) heart failure; C90.00 Multiple myeloma not having achieved remission; E87.1 Hypo-osmolality and hyponatremia; E11.22 Type 2 diabetes mellitus with diabetic chronic kidney disease; I48.91 Unspecified atrial fibrillation; Z99.81 Dependence on supplemental oxygen; Z11.59 Encounter for screening for other viral diseases; N18.3 Chronic kidney disease, stage 3 (moderate); J43.8 Other emphysema; K21.9 Gastro-esophageal reflux disease without esophagitis; D63.0 Anemia in neoplastic disease; M19.90 Unspecified osteoarthritis, unspecified site; E78.5 Hyperlipidemia, unspecified; F41.9 Anxiety disorder, unspecified; Z79.4 Long term (current) use of insulin; N40.0 Benign prostatic hyperplasia without lower urinary tract symptoms; G89.29 Other chronic pain; M54.9 Dorsalgia, unspecified; Z87.891 Personal history of nicotine dependence
CPT/HCPCS: 12345; 36415; 36416; 36600; 51702; 71045; 71250; 80048; 80053; 80202; 81001; 82607; 82803; 82962; 83036; 83615; 83735; 83880; 84145; 84550; 85025; 86403; 87040; 87070; 87205; 87449; 93005; 93971; 94640; 94660; 96372; 97161; 97165; 97530; 97535; 99284; J0282; J0456; J0692; J0696; J1644; J1815; J1940; J2930; J3370; J7050; J7060; J7611

== ENCOUNTER → 2020-04-21 11:23 | Day surgery (SDC) | payer MEDICARE, OTHER, SELFPAY ==
[2020-04-21 11:35] VITALS: BP 125/70; PULSE 86; RESP 22; TEMP 36.6; O2SAT 90; BMI 25.1
--- NOTE | 2020-04-21 11:47 | US_ITS ---
WS: [id number] Abdominal ultrasound, limited. History: Evaluate for ascites. Comparison: None. All 4 quadrants are imaged by ultrasound to evaluate for ascites. There is no peritoneal fluid identi fied. US/US abdomen limited [id number] IMPRESSION: No peritoneal ascites.
--- NOTE | 2020-04-21 11:47 | US_ITS ---
WS: [id number] ULTRASOUND-GUIDED THORACENTESIS, LEFT. HISTORY: Moderate LEFT pleural effusion. Procedure, risks, and complications were explained to the patient. With the patient in an upright pos ition, the skin over the LEFT posterior thorax was cleansed with ChloraPrep and anesthetized with 1% buffered lidocaine. A 5 Cymraes Yueh needle is inserted into the pleural fluid without complication. A pproximately 1000 cc of clear red pleural fluid is removed without difficulty. Specimen collected and sent for analysis as requested. / thoracentesis [id number] IMPRESSION: 1. LEFT thoracentesis yielding 1000 cc of fluid. 2. Chest radiograph to follow to evaluate for pneumothorax. 3. LEFT pleural effusion sent for analysis as requested.
[2020-04-21 12:15] VITALS: BP 122/78; PULSE 70; RESP 18; O2SAT 99
[2020-04-21 12:20] VITALS: BP 110/64; PULSE 68; RESP 18; O2SAT 98
[2020-04-21 12:25] VITALS: BP 105/74; PULSE 67; RESP 18; O2SAT 99
--- NOTE | 2020-04-21 12:26 | XR_ITS ---
WS: [id number] PORTABLE CHEST HISTORY: POST thoracentesis LEFT SIDE COMPARISON: 6 23,020 No pneumothorax status post LEFT thoracentesis. Significant reduction in the LEFT pleural effusion. Small effusion remaining and a small amount of at electasis at the lung bases. Moderate size RIGHT pleural effusion. Chronic emphysema. Cardiac size: Moderately enlarged cardiac silhouette. Mediastinum/Aorta: Moderate atherosclerosis aorta. No osseous abnormality seen. XR/XR chest 1V portable [id number] IMPRESSION: 1. No pneumothorax status post LEFT thoracentesis. 2. Small residual LEFT pleural effusion and atelectasis. 3. Moderate RIGHT pleural effusion.
[2020-04-21 12:50] VITALS: BP 122/74; PULSE 67; RESP 18; O2SAT 99
== END | disposition home or self-care (01) ==
PROVIDERS: Radiology Diagnostic Radiology; PCP Internal Medicine
PROC: (CPT 32554; principal; 2020-04-21 12:15)
DX: R18.8 Other ascites (principal)
CPT/HCPCS: 32555; 49083; 71045; 76705; 88112; 88305

== ENCOUNTER 2020-04-22 06:45 | Outpatient (RCR) | payer MEDICARE, OTHER, SELFPAY ==
[2020-04-13 11:30] LABS: Basophils % 0.4 %; Eosinophils % 0.4 %; Hematocrit 27.3 % (42.0-52.0); Hemoglobin 8.3 g/dL (11.7-16.6); Lymphocytes # 1.4 10^3/uL (0.8-4.8); Lymphocytes % 30.2 %; Mean Corpuscular HGB Conc 30.4 g/dL (30.0-36.0); Mean Corpuscular Hemoglobin 30.2 pg (28.0-34.0); Mean Corpuscular Volume 99.3 fL (80-94); Mean Platelet Volume 9.6 fL (7.4-10.4); Monocytes # 0.6 10^3/uL (0.2-0.9); Monocytes % 13.1 %; Neutrophils # 2.6 10^3/uL (1.8-7.7); Neutrophils % 55.5 %; Nucleated Red Blood Cells % 0 %; Platelet Count 165 10^3/cmm (130-400); Red Blood Count 2.75 10^6/uL (4.1-5.3); Red Cell Distribution Width 17.2 % (12.1-15.1); White Blood Count 4.6 10^3/uL (4.0-10.0)
[2020-04-13 11:43] LABS: Alanine Aminotransferase 9 U/L (0-41); Albumin Level 2.2 g/dL (3.5-5.2); Alkaline Phosphatase 44 IU/L (40-130); Anion Gap 14.4 (5-19); Aspartate Amino Transferase 18 U/L (0-40); Blood Urea Nitrogen 40 mg/dL (8-23); Calcium 10.8 mg/dL (8.5-10.5); Carbon Dioxide 25 mmol/L (22-29); Chloride 93 mmol/L (98-107); Globulin 8.6 g/dL (1.3-4.6); Glucose 144 mg/dL (65-115); Osmolality Calculated 264 mOsm/kg (285-295); Potassium 5.4 mmol/L (3.5-5.1); Sodium 127 mmol/L (136-145); Total Bilirubin 0.7 mg/dL (0.15-1.2); Total Protein 10.8 g/dL (6.6-8.7)
[2020-04-13] MEDS: ondansetron 4 MG Tablet 8 MG PO (14:40)
[2020-04-13] MEDS: dexamethasone 4 mg Tablet 20 MG PO (14:40)
[2020-04-14 12:50] LABS: KAPPA/LAMBDA LIGHT CHAINS FREE <0.01 (0.26-1.65)
[2020-04-15 09:04] LABS: Basophils % 0.5 %; Eosinophils % 0.5 %; Hematocrit 25.1 % (42.0-52.0); Hemoglobin 7.6 g/dL (11.7-16.6); Lymphocytes # 1.2 10^3/uL (0.8-4.8); Lymphocytes % 29.6 %; Mean Corpuscular HGB Conc 30.3 g/dL (30.0-36.0); Mean Corpuscular Hemoglobin 30.6 pg (28.0-34.0); Mean Corpuscular Volume 101.2 fL (80-94); Mean Platelet Volume 9.8 fL (7.4-10.4); Monocytes # 0.6 10^3/uL (0.2-0.9); Monocytes % 14.1 %; Neutrophils # 2.2 10^3/uL (1.8-7.7); Neutrophils % 54.8 %; Nucleated Red Blood Cells % 0 %; Platelet Count 147 10^3/cmm (130-400); Red Blood Count 2.48 10^6/uL (4.1-5.3); Red Cell Distribution Width 17.1 % (12.1-15.1)
[2020-04-15 09:14] LABS: Alanine Aminotransferase 10 U/L (0-41); Alkaline Phosphatase 38 IU/L (40-130); Anion Gap 12.3 (5-19); Aspartate Amino Transferase 18 U/L (0-40); Blood Urea Nitrogen 45 mg/dL (8-23); Calcium 10.2 mg/dL (8.5-10.5); Carbon Dioxide 25 mmol/L (22-29); Chloride 95 mmol/L (98-107); Globulin 8.9 g/dL (1.3-4.6); Glucose 134 mg/dL (65-115); Osmolality Calculated 266 mOsm/kg (285-295); Potassium 4.3 mmol/L (3.5-5.1); Sodium 128 mmol/L (136-145); Total Bilirubin 0.6 mg/dL (0.15-1.2); Total Protein 10.9 g/dL (6.6-8.7)
[2020-04-15 12:34] VITALS: BP 93/56; PULSE 61; RESP 18; TEMP 36.3
[2020-04-15 12:38] VITALS: BP 93/56; PULSE 61; RESP 18; TEMP 36.3; O2SAT 96; BMI 23.9
[2020-04-15] MEDS: acetaminophen 325 mg Tablet 650 MG PO (12:42)
[2020-04-15] MEDS: diphenhydrAMINE 25 mg Capsule PO (12:42)
[2020-04-15 12:45] VITALS: BP 100/55; PULSE 62; RESP 18; TEMP 36.7; O2SAT 98
[2020-04-15 13:00] VITALS: BP 100/55; PULSE 61; RESP 18; TEMP 36.6; O2SAT 100
[2020-04-15 13:31] VITALS: BP 112/78; PULSE 62; RESP 18; TEMP 36.4; O2SAT 97
[2020-04-15 13:49] VITALS: BP 112/78; PULSE 62; RESP 16; TEMP 36.4; O2SAT 99
[2020-04-16] MEDS: dexamethasone 4 mg Tablet 20 MG PO (10:40)
[2020-04-16] MEDS: ondansetron 4 MG Tablet 8 MG PO (10:40)
--- NOTE | 2020-04-17 13:11 | ONC FU_ITS ---
Dr. Cheng Patient Follow-Up Note Patient: Renate Yarbrough Unit #: [id number]: 1935 Dicatated By: Richard Cheng M.D.Date of Visit:Apr 13, 2020 Onc Med Follow-up/Prog Note Chief Complaint: Multiple myeloma. History of Present Illness: This is an 84 year-old man with IgG lambda myeloma. On 02/19/2020 he was admitted to the hospital after presenting to the emergency room with shortness of breath. He was diagnosed with pneumonia based on noncontrast CT scan which showed multifocal bilateral airspace disease which was disproportionately localized in the right upper lobe, lingula, and lower lobes. He also had evidence of acute renal injury. His other laboratory abnormalities included mild anemia, hypercalcemia, and a significantly elevated calculated serum globulin level. He was discharged home on antibiotic coverage with azithromycin, doxycycline, and Augmentin. He was readmitted to the hospital on 02/28/2020, again after presenting to the emergency room with shortness of breath. His further laboratory studies at that time included protein electrophoresis which showed a restricted M band quantitating at 6.8 g/dL and a second M band quantitating at 0.2 g/dL. Immunofixation confirmed the monoclonal band to be an IgG lambda protein. The serum free light chain assay showed markedly elevated lambda light chain at 2363 mg/L with kappa light chain 7.7 mg/L and kappa/lambda ratio < 0.01. During the second hospitalization was felt to have a component of acute diastolic congestive heart failure, for which he was placed on diuretic therapy. He also was felt to have some component of COPD exacerbation. A skeletal survey showed degenerative changes in the cervical spine and there were postoperative changes in the cervical spine and lumbar spine. There were no lytic bone lesions identified. He was discharged with home oxygen on 03/02/2020. I had seen him initially on 03/16/2020. He then underwent bone marrow aspiration/biopsy on 03/17/2020. It did show evidence of plasma cell neoplasm, as expected, with a monotypic plasma cell population involving 60 to 70% of the marrow cellularity. Iron stores were noted to be adequate. His other medical illnesses include hypertension, hyperlipidemia, type 2 diabetes, COPD, and benign prostatic hypertrophy. He also has known degenerative arthritis/degenerative disease of the spine with some chronic back pain, and he has a history of rheumatic fever. He had smoked in the past, but he quit at least 40 years ago. INTERIM HISTORY: On 03/24/2020 he began treatment with Velcade/Revlimid/dexamethasone with the Velcade administered weekly on days 1, 8, and 15 of a 28-day schedule and the Revlimid dosage reduced to 10 mg daily for 21 days. He was able to complete his day 1 and day 8 Velcade injections with no adverse effects. However, on 04/04/2020 he was admitted to the hospital with worsening congestive heart failure. His hemoglobin at that point was stable at 8.4 g and his renal function was also stable with creatinine 1.6 mg/dL. Without illness, the Revlimid was put on hold. He was discharged on 04/08/2020. With the increase in his diuretic dosage, his creatinine did increase to 2.1 mg/dL. He is seen for a follow-up visit. Since discharge from the hospital he has remained very weak generally. He is very limited activity. He is able to ambulate small distances with a walker. His appetite lately has been a little better, and his swelling has improved. He does not have fever or night sweats. Has had some soreness in his gums. He has shortness of breath, and he is on continuous oxygen. His says that he coughed all day yesterday. He brings up white or green sputum. He occasionally has chest pain. He has not been having nausea, but he has had constipation. He has frequent urination. He is not having any significant bone pain. He has headache occasionally. He has some numbness/tingling in his feet. Medications: Acyclovir 1 Tablet (of 400 mg) Oral daily, Albuterol Sulfate 1 Puff(s) Nebulization solution Inhalation PRN, Allopurinol 1 Tablet (of 300 mg) Oral daily, ALPRAZolam 1 Tablet (of 0.25 mg) Oral t.i.d. PRN, Bumetanide 1 Tablet (of 0.5 mg) Oral b.i.d., Flomax 2 Tablet (of 0.4 mg) Capsule Oral b.i.d., Lantus 10 Units (of 100 Units/mL) Subcutaneous at bedtime, levoFLOXacin 1 Tablet (of 750 mg) Oral q 48 hours, Mag-Al Plus 1 Capsule Oral PRN, Metoprolol Tartrate 0.5 Tablet (of 25 mg) Oral b.i.d., NovoLOG 10 Units (of 100 Units/mL) Subcutaneous t.i.d. PRN, Potassium Chloride ER 1 Tablet (of 20 meq) Tablet, controlled release Oral b.i.d. PRN, Protonix 1 Tablet (of 40 mg) Tablet, enteric coated Oral daily, Sennosides-Docusate Sodium 1 Tablet (of 8.6-50 mg) Oral b.i.d., Tiotropium Malone Monohydrate 1 Puff(s) Aerosol, solution Inhalation PRN, traZODone HCl 1 Tablet (of 25 mg) Oral at bedtime, Triamcinolone Acetonide 1 Lotion Topical PRN Allergies: iodine Review of Systems: Constitutional - He is very weak and he has very limited activity. He is not able to ambulate independently, and he is using a walker at home. His appetite is improving and weight is down 6 pounds from last visit. No fever, night sweats, or hot flashes. ECOG score is 3, ENMT - No sinus congestion/drainage. He has a sore to his right lower and upper left gum areas. No sore throat or difficulty swallowing, Hematologic/Lymphatic - No abnormal bruising or bleeding, Respiratory - He continues to have significant shortness of breath. He uses continous oxygen. He has a productive cough. He reports that sometimes its very dark and other times its green. No pleuritic pain or hemoptysis, Cardiovascular - He has intermittent chest pain. No palpitations, Gastrointestinal - No nausea or vomiting. No heartburn or acid reflux. No diarrhea. He has constipation, for which he is taking Senna-S. No blood in the stool or black stools, Genitourinary (M) - No dysuria or hematuria. No urinary frequency. No urgency or incontinence, Musculoskeletal - No joint or bone pain, Integumentary - His edema has improved, Neurologic - No headache or dizziness. He has numbness and tingling in his feet. No other focal neurologic symptoms, Psychiatric - He is taking alprazolam for anxiety. He has depression. He has difficulty sleeping. Vital Signs: Performed on Apr 13, 2020 10:34 Height - 59.50 in Weight - 162.6 lbs (LOW) BSA - 1.70 sq.m BMI - 32.29 (HIGH) Temperature - 98.2 F (LOW) Pulse - 73 /min Respiration - 22 /min BP - 84/51 mm(hg) (LOW) O2 Sat - 95 % (LOW) Pain - 5 Physical Examination: Constitutional - He appears very weak generally, Eyes - Sclerae nonicteric. Conjunctivae clear, ENMT - No lesions noted in the oral cavity, Hematologic/Lymphatic - No cervical, clavicular, or axillary adenopathy, Respiratory - Lungs show diminished air movement at the bases, right worse than left, Cardiovascular - Heart rhythm is regular. There is a II/ systolic murmur. There is no gallop or rub noted, Abdomen - Mildly distended and tympanic. Liver and spleen are not enlarged. There is no abdominal mass or ascites noted and there is no inguinal adenopathy, Extremities - Trace edema, Neurologic - No focal neurologic deficits noted. Lab/Imaging: Test performed on Apr 13, 2020 11:12 Sodium 127 mmol/L Potassium 5.4 mmol/L Chloride 93 mmol/L CO2 25 mmol/L Anion Gap 14.4 BUN 40 mg/dL Creatinine 3.9 mg/dL Cr Clearance (Est) 14.97 mL/min Glucose 144 mg/dL Calcium 10.8 mg/dL Protein, Total 10.8 g/dL Albumin 2.2 g/dL Globulin 8.6 g/dL Bilirubin, Total 0.7 mg/dL ALT (SGPT) 9 U/L AST (SGOT) 18 U/L Alkaline Phosphatase 44 IU/L WBC 4.6 10 3/uL RBC 2.75 10 6/uL HGB 8.3 g/dL HCT 27.3 % MCV 99.3 fL MCH 30.2 pg MCHC 30.4 g/dL RDW 17.2 % Platelet Count 165 10 3/cmm MPV 9.6 fL Neutrophils 2.6 10 3/uL Lymphocytes 1.4 10 3/uL Monocytes 0.6 10 3/uL Eosinophils 0.0 10 3/uL Basophils 0.0 10 3/uL Neutrophil % 55.5 % Lymphocyte % 30.2 % Monocyte % 13.1 % Eosinophil % 0.4 % Basophils % 0.4 % NRBC % 0 % Impression: 1. Patient with laboratory evidence of IgG lambda myeloma. He had anemia, acute on chronic renal injury, and mild hypercalcemia at presentation. 2. Bone marrow aspiration/biopsy on 03/17/2020 was consistent with plasma cell neoplasm, with plasma cells estimated at 60 to 70% of the marrow cellularity. His other medical illnesses include: 3. Hypertension, currently with low blood pressure. 4. Hyperlipidemia. 5. Type 2 diabetes. 6. Degenerative arthritis/degenerative disease of the spine. 7. Benign prostatic hypertrophy with difficulty voiding. 8. He has a history of rheumatic fever. On 03/24/2020 he began treatment with VRD with the Velcade administered on days 1, 8, and 15 of a 28-day schedule and the Revlimid dosage reduced to 10 mg daily for 21 days. He tolerated the day 1 and day 8 Velcade with no adverse effects. However, he subsequently was admitted to the hospital with worsening congestive heart failure. His shortness of breath and edema have improved with more aggressive diuretic therapy. However, his renal function has declined significantly. It is uncertain to what extent that is due to the myeloma or to the diuretic. However, in either case, it is very grave from a prognostic standpoint. Plan: With the decline in his renal function, his Revlimid will have to remain on hold. As such, I am going to continue his Velcade/dexamethasone with the Velcade administered on days 1, 4, 8, and 11 of a 21-day schedule and with the dexamethasone administered at 20 mg with each dose of Velcade. I will now have him stop the bumetanide. I will continue to monitor his blood counts and chemistry studies very closely. If the renal function continues to decline, we will be needing to make a decision about dialysis. Signed By: Richard Cheng M.D. <<Signature on File>>
[2020-04-18 18:45] LABS: Basophils % 0.2 %; Eosinophils % 0.7 %; Hematocrit 30.6 % (42.0-52.0); Hemoglobin 9.1 g/dL (11.7-16.6); Lymphocytes # 1.2 10^3/uL (0.8-4.8); Lymphocytes % 30.9 %; Mean Corpuscular HGB Conc 29.7 g/dL (30.0-36.0); Mean Corpuscular Hemoglobin 31.1 pg (28.0-34.0); Mean Corpuscular Volume 104.4 fL (80-94); Mean Platelet Volume 10.1 fL (7.4-10.4); Monocytes # 0.3 10^3/uL (0.2-0.9); Monocytes % 7.5 %; Neutrophils # 2.4 10^3/uL (1.8-7.7); Nucleated Red Blood Cells % 0 %; Platelet Count 141 10^3/cmm (130-400); Red Blood Count 2.93 10^6/uL (4.1-5.3); Red Cell Distribution Width 17.7 % (12.1-15.1)
[2020-04-18 19:02] LABS: Alanine Aminotransferase 7 U/L (0-41); Albumin Level 1.9 g/dL (3.5-5.2); Alkaline Phosphatase 33 IU/L (40-130); Anion Gap 19.1 (5-19); Blood Urea Nitrogen 42 mg/dL (8-23); Carbon Dioxide 21 mmol/L (22-29); Chloride 94 mmol/L (98-107); Globulin 9.2 g/dL (1.3-4.6); Glucose 177 mg/dL (65-115); Osmolality Calculated 270 mOsm/kg (285-295); Potassium 5.1 mmol/L (3.5-5.1); Sodium 129 mmol/L (136-145); Total Bilirubin 0.7 mg/dL (0.15-1.2); Total Protein 11.1 g/dL (6.6-8.7)
[2020-04-18 20:42] LABS: Aspartate Amino Transferase 27 U/L (0-40)
--- NOTE | 2020-04-19 14:52 | XRR_ITS ---
PROCEDURE INFORMATION: Exam: XR Chest, 2 Views Exam date and time: 04/19/2020 4:20 PM Age: 84 years old Clinical indication: Condition or disease; Other: Pleural effusions; Additional info: SOB; F/u on pleural effusions TECHNIQUE: Imaging protocol: XR of the chest Views: 2 views. COMPARISON: CR XR chest 1V portable [id number] 04/03/2020 10:56 PM FINDINGS: Lungs: Poor inspiratory effort with some crowding of pulmonary markings and possible accentuation of the apparent heart size. Stable peripheral opacities in the right lung consistent with peripheral pneumonia and or scarring. Pleural space: Stable bilateral mild to moderate pleural fluid collections. Heart/Mediastinum: Unremarkable. No cardiomegaly. Vasculature: The right marker is over the left shoulder with a left-sided aortic arch which appears unchanged. Bones/joints: Unremarkable. XR/XR chest 2V* [id number] IMPRESSION: 1. The right marker is over the left shoulder with a left-sided aortic arch which appears unchanged. 2. Stable bilateral mild to moderate pleural fluid collections. 3. Poor inspiratory effort with some crowding of pulmonary markings and possible accentuation of the apparent heart size. 4. Stable peripheral opacities in the right lung consistent with peripheral pneumonia and or scarring.
[2020-04-19] MEDS: dexamethasone 4 mg Tablet 20 MG PO (16:29)
[2020-04-19] MEDS: ondansetron 4 MG Tablet 8 MG PO (16:30)
[2020-04-19 17:35] LABS: INR 1.24 (0.8-1.2)
[2020-04-22 09:17] LABS: Basophils % 0.2 %; Eosinophils # 0.1 10^3/uL (0.0-0.8); Eosinophils % 1.7 %; Hematocrit 31.4 % (42.0-52.0); Hemoglobin 9.6 g/dL (11.7-16.6); Lymphocytes # 1.4 10^3/uL (0.8-4.8); Lymphocytes % 33.8 %; Mean Corpuscular HGB Conc 30.6 g/dL (30.0-36.0); Mean Corpuscular Volume 101.3 fL (80-94); Mean Platelet Volume 10.6 fL (7.4-10.4); Monocytes # 0.3 10^3/uL (0.2-0.9); Monocytes % 6.6 %; Neutrophils # 2.4 10^3/uL (1.8-7.7); Neutrophils % 57.2 %; Nucleated Red Blood Cells % 0 %; Platelet Count 117 10^3/cmm (130-400); Red Cell Distribution Width 17.9 % (12.1-15.1); White Blood Count 4.1 10^3/uL (4.0-10.0)
[2020-04-22 10:03] LABS: Alanine Aminotransferase 8 U/L (0-41); Alkaline Phosphatase 36 IU/L (40-130); Anion Gap 14.2 (5-19); Aspartate Amino Transferase 19 U/L (0-40); Blood Urea Nitrogen 43 mg/dL (8-23); Calcium 9.9 mg/dL (8.5-10.5); Carbon Dioxide 22 mmol/L (22-29); Chloride 95 mmol/L (98-107); Globulin 9.3 g/dL (1.3-4.6); Glucose 171 mg/dL (65-115); Osmolality Calculated 266 mOsm/kg (285-295); Potassium 4.2 mmol/L (3.5-5.1); Sodium 127 mmol/L (136-145); Total Bilirubin 0.7 mg/dL (0.15-1.2); Total Protein 11.3 g/dL (6.6-8.7)
[2020-04-22] MEDS: dexamethasone 4 mg Tablet 20 MG PO (10:37)
[2020-04-22] MEDS: ondansetron 4 MG Tablet 8 MG PO (10:37)
--- NOTE | 2020-04-23 14:35 | ONC FU_ITS ---
[facility] Patient Note Patient: Renate Yarbrough Unit #: [id number]: 1935 Dictated By: Vijaya PeteDate of Visit: Apr 19, 2020 Onc MED Follow-Up/Prog Note Chief Complaint: Multiple myeloma. History of Present Illness: Mr Yarbrough is an 84 year-old man with IgG lambda myeloma. On 02/19/2020 he was admitted to the hospital after presenting to the emergency room with shortness of breath. He was diagnosed with pneumonia based on noncontrast CT scan which showed multifocal bilateral airspace disease which was disproportionately localized in the right upper lobe, lingula, and lower lobes. He also had evidence of acute renal injury. His other laboratory abnormalities included mild anemia, hypercalcemia, and a significantly elevated calculated serum globulin level. He was discharged home on antibiotic coverage with azithromycin, doxycycline, and Augmentin. He was readmitted to the hospital on 02/28/2020, again after presenting to the emergency room with shortness of breath. His further laboratory studies at that time included protein electrophoresis which showed a restricted M band quantitating at 6.8 g/dL and a second M band quantitating at 0.2 g/dL. Immunofixation confirmed the monoclonal band to be an IgG lambda protein. The serum free light chain assay showed markedly elevated lambda light chain at 2363 mg/L with kappa light chain 7.7 mg/L and kappa/lambda ratio < 0.01. During the second hospitalization was felt to have a component of acute diastolic congestive heart failure, for which he was placed on diuretic therapy. He also was felt to have some component of COPD exacerbation. A skeletal survey showed degenerative changes in the cervical spine and there were postoperative changes in the cervical spine and lumbar spine. There were no lytic bone lesions identified. He was discharged with home oxygen on 03/02/2020. Dr Cheng had seen him initially on 03/16/2020. He then underwent bone marrow aspiration/biopsy on 03/17/2020. It did show evidence of plasma cell neoplasm, as expected, with a monotypic plasma cell population involving 60 to 70% of the marrow cellularity. Iron stores were noted to be adequate. His other medical illnesses include hypertension, hyperlipidemia, type 2 diabetes, COPD, and benign prostatic hypertrophy. He also has known degenerative arthritis/degenerative disease of the spine with some chronic back pain, and he has a history of rheumatic fever. He had smoked in the past, but he quit at least 40 years ago. INTERIM HISTORY: On 03/24/2020 he began treatment with Velcade/Revlimid/dexamethasone with the Velcade administered weekly on days 1, 8, and 15 of a 28-day schedule and the Revlimid dosage reduced to 10 mg daily for 21 days. He was able to complete his day 1 and day 8 Velcade injections with no adverse effects. However, on 04/04/2020 he was admitted to the hospital with worsening congestive heart failure. His hemoglobin at that point was stable at 8.4 g and his renal function was also stable with creatinine 1.6 mg/dL. Without illness, the Revlimid was put on hold. He was discharged on 04/08/2020. With the increase in his diuretic dosage, his creatinine did increase to 2.1 mg/dL. Mr. Yarbrough is here today for follow-up. He is due for day 8 Velcade. Overall he continues to have a marginal performance status. He and his states that he is so short of breath that he can not get around the house. He also feels like his abdomen is swelling . She states he is wearing his oxygen continuously and does not feel like he is getting much benefit from it but obviously cannot go without it either. He denies any pain. He denies any cough or fever. He has had no nausea or vomiting. His appetite is poor. His activity is limited and very marginal. He presents today in a wheelchair and obviously does not feel well. He states he has not had any hemoptysis. He has had occasional cough. He has had some intermittent wheezing. He has limited activity and requires assistance for his activities of daily living due to the shortness of breath. He states he feels like he could breathe he would feel good in general. His ECOG is 3. Past Medical History: Benign prostatic hypertrophy Chronic kidney disease Chronic obstructive pulmonary disease Congestive heart failure Degenerative arthritis Degenerative disease of the spine History of rheumatic fever Hyperlipidemia Hypertension Type II diabetes Past Surgical History: Appendectomy Arthroscopic right knee surgery x 2 Bilateral cataract excisions Carpal tunnel release bilaterally Lumbar laminectomy in 2007, 2010, and 2011 Varicose veins removal Left inguinal hernia repair with mesh in 2014 Cardiac catheterization in 2012 Allergies: iodine Medications: Acyclovir 1 Tablet (of 400 mg) Oral daily Albuterol Sulfate 1 Puff(s) Nebulization solution Inhalation PRN Allopurinol 1 Tablet (of 300 mg) Oral daily ALPRAZolam 1 Tablet (of 0.25 mg) Oral t.i.d. PRN Bumetanide 1 Tablet (of 0.5 mg) Oral b.i.d. Flomax 2 Tablet (of 0.4 mg) Capsule Oral b.i.d. Lantus 10 Units (of 100 Units/mL) Subcutaneous at bedtime levoFLOXacin 1 Tablet (of 750 mg) Oral q 48 hours Mag-Al Plus 1 Capsule Oral PRN Metoprolol Tartrate 0.5 Tablet (of 25 mg) Oral b.i.d. NovoLOG 10 Units (of 100 Units/mL) Subcutaneous t.i.d. PRN Potassium Chloride ER 1 Tablet (of 20 meq) Tablet, controlled release Oral b.i.d. PRN Protonix 1 Tablet (of 40 mg) Tablet, enteric coated Oral daily Sennosides-Docusate Sodium 1 Tablet (of 8.6-50 mg) Oral b.i.d. Tiotropium [place] Monohydrate 1 Puff(s) Aerosol, solution Inhalation PRN traZODone HCl 1 Tablet (of 25 mg) Oral at bedtime Triamcinolone Acetonide 1 Lotion Topical PRN Family History: Mr. Yarbrough's mother at age 66: LUNG DISEASE. Mr. Yarbrough's father at age 83: STROKE. Mr. Yarbrough has 1 brother who is : emphysema. He has 3 sisters: 2 alive, 1 . Mr. Yarbrough's first sister's chronic obstructive pulmonary disease. Another sister's heart disease. Another sister's kidney disease. Father of stroke and mother of lung disease. A brother with COPD and heart disease. A sister also of lung disease. Two other sisters are also still living, one with heart disease and the other with kidney disease. Social History: Mr. Yarbrough is and he is retired. Mr. Yarbrough quit smoking 50 years ago but had smoked 1.0 pack/day for 18 years. He is an active drinker. Review Of Symptoms: Constitutional Denies fevers, chills, night sweats or weight loss. has had increased fatigue but no worse than last visit. Allergic/Immunologic No reactions. Eyes Denies significant visual changes. No diplopia. No amaurosis. ENMT Denies changes in hearing, sore throat, mouth sores, difficulty or changes in swallowing ability, and/or sinus drainage. States he cant breathe and I can't get any air in . He is wearing continuous oxygen supplementation. Hematologic/Lymphatic Denies easy bruising or bleeding. The patient denies any tender or palpable lymph nodes. Respiratory Denies new dyspnea on exertion, chest pain, cough or hemoptysis. Denies orthopnea. Cardiovascular Denies anginal chest pain, palpitations or orthopnea. No lower extremity edema. Gastrointestinal Denies nausea, vomiting, diarrhea, GI bleeding, or constipation. Denies change in bowel habits and/or stool color, no heartburn or early satiety. Genitourinary (M) Denies hematuria, dysuria, increased frequency, urgency, hesitancy or incontinence. Musculoskeletal Denies joint pain, swelling or redness. No decreased range of motion. Integumentary Denies chronic rashes, inflammation, ulcerations or skin changes. Neurologic Denies headache, blurred vision, and no areas of focal weakness or numbness. Psychiatric Denies insomnia, depression, bernardo or mood swings. Vital Signs: Performed on Apr 19, 2020 14:01 Height - 59.50 in Temperature - 98.1 F (LOW) Pulse - 63 /min Respiration - 17 /min BP - 94/58 mm(hg) O2 Sat - 94 % (LOW) Pain - 0,3 - Capable of only limited self-care, confined to bed or chair more than 50% of waking hours. (ECOG) Physical Examination: Constitutional Alert, oriented, no acute distress. Skin pink, warm and dry. Head Normocephalic; atraumatic. Eyes Conjunctivae and sclerae are clear and without icterus. Pupils are reactive and equal. Neck Supple without masses or thyromegaly. No jugular venous distension. Hematologic/Lymphatic No petechiae or purpura. No tender or palpable lymph nodes in the cervical or supraclavicular areas. Respiratory Lungs are diminished but clear to auscultation without rhonchi or wheezing. Cardiovascular Regular rate and rhythm of heart with soft systolic murmur but no clicks, gallops or rubs. Abdomen Non-tender, non-distended, no masses. But ascites is noted. Good bowel sounds noted in all quads. No guarding or rebound tenderness. No pulsatile masses. Back/Spine Non-tender to palpation. Extremities No visible deformities, no cyanosis, clubbing or edema. Musculoskeletal No tenderness or swelling, normal range of motion with moderate weakness. Integumentary No rashes or lesions. Neurologic No sensory or motor deficits, normal cerebellar function. Presented in wheelchair-gait not assessed. Psychiatric Alert and oriented times three. Coherent speech. Verbalizes understanding of our discussions today. Laboratory:Test performed on Apr 22, 2020 09:06 Sodium 127 mmol/L Potassium 4.2 mmol/L Chloride 95 mmol/L CO2 22 mmol/L Anion Gap 14.2 BUN 43 mg/dL Creatinine 2.4 mg/dL Cr Clearance (Est) 24.3300 mL/min Glucose 171 mg/dL Calcium 9.9 mg/dL Protein, Total 11.3 g/dL Albumin 2.0 g/dL Globulin 9.3 g/dL Bilirubin, Total 0.7 mg/dL ALT (SGPT) 8 U/L AST (SGOT) 19 U/L Alkaline Phosphatase 36 IU/L WBC 4.1 10 3/uL RBC 3.10 10 6/uL HGB 9.6 g/dL HCT 31.4 % MCV 101.3 fL MCH 31.0 pg MCHC 30.6 g/dL RDW 17.9 % Platelet Count 117 10 3/cmm MPV 10.6 fL Neutrophils 2.4 10 3/uL Lymphocytes 1.4 10 3/uL Monocytes 0.3 10 3/uL Eosinophils 0.1 10 3/uL Basophils 0.0 10 3/uL Neutrophil % 57.2 % Lymphocyte % 33.8 % Monocyte % 6.6 % Eosinophil % 1.7 % Basophils % 0.2 % NRBC % 0 % Test performed on Apr 19, 2020 15:12 PT 16.00 SECONDS INR 1.24 Test performed on Mar 30, 2020 07:10 Uric Acid 5.0 mg/dL Impression: 1. Patient with laboratory evidence of IgG lambda myeloma. He had anemia, acute on chronic renal injury, and mild hypercalcemia at presentation. 2. Bone marrow aspiration/biopsy on 03/17/2020 was consistent with plasma cell neoplasm, with plasma cells estimated at 60 to 70% of the marrow cellularity. His other medical illnesses include: 3. Hypertension, currently with low blood pressure. 4. Hyperlipidemia. 5. Type 2 diabetes. 6. Degenerative arthritis/degenerative disease of the spine. 7. Benign prostatic hypertrophy with difficulty voiding. 8. He has a history of rheumatic fever. On 03/24/2020 he began treatment with VRD with the Velcade administered on days 1, 8, and 15 of a 28-day schedule and the Revlimid dosage reduced to 10 mg daily for 21 days. He tolerated the day 1 and day 8 Velcade with no adverse effects. However, he subsequently was admitted to the hospital with worsening congestive heart failure. His shortness of breath and edema have improved with more aggressive diuretic therapy. However, his renal function has declined significantly. It is uncertain to what extent that is due to the myeloma or to the diuretic. However, in either case, it is very grave from a prognostic standpoint. Plan: 1. Revlimid remains on hold due to renal function and performance status. 2. Proceed with Velcade dexamethasone this is day 8 of cycle 2. Remains on 21-day schedule. 3. Requested chest x-ray to evaluate to see if he has continued pleural effusions as noted in his CTs. Is possible that he may benefit from thoracentesis. Of also asked for ultrasound of the abdomen with ultrasound-guided paracentesis if required. He does have some ascites in the abdomen. 4. Labs from 04/18/2020 reviewed in detail discussed with . Mrs. Yarbrough and a copy was given to him WBC 4.0, hemoglobin 9.1, platelets 141,000 ANC is 2400. Creatinine is 2.7 which is improved from 3.8. Random glucose 177. LFTs remain normal. 5. We did request a PT/INR today in case he can have paracentesis and obviously for the thoracentesis as well. 6. I have asked for labs to be drawn in 1 week to include myeloma labs, CBC CMP and type and screen. 7. We will plan to see him back in 2 weeks with CBC CMP and type and next and review his myeloma labs at that time. 8. We have opted to pursue a prior authorization to add Darzalex to the single agent Velcade dexamethasone for refractory myeloma. 9. He will be due for day 11 Velcade on of this week. We have asked to recheck a CBC and BMP at that time to evaluate his renal function and his blood counts. Signed By: Vijaya Pete-, [facility] Richard Cheng MD <<Signature on File>>
== END 2020-04-22 23:59 | disposition home or self-care (01) ==
LOC: ONCMED 06:45
PROVIDERS: Nurse Practitioner; PCP Internal Medicine; Visit Provider Internal Medicine Medical Oncology
DX: Z51.11 Encounter for antineoplastic chemotherapy (principal); C90.00 Multiple myeloma not having achieved remission; J90 Pleural effusion, not elsewhere classified; R18.8 Other ascites; I95.9 Hypotension, unspecified; I13.0 Hypertensive heart and chronic kidney disease with heart failure and stage 1 through stage 4 chronic kidney disease, or unspecified chronic kidney disease; I50.9 Heart failure, unspecified; N18.9 Chronic kidney disease, unspecified; E11.22 Type 2 diabetes mellitus with diabetic chronic kidney disease; E78.5 Hyperlipidemia, unspecified; E11.9 Type 2 diabetes mellitus without complications; M19.90 Unspecified osteoarthritis, unspecified site; M47.9 Spondylosis, unspecified; N40.1 Benign prostatic hyperplasia with lower urinary tract symptoms; R39.198 Other difficulties with micturition; Z86.79 Personal history of other diseases of the circulatory system; Z79.899 Other long term (current) drug therapy; Z79.4 Long term (current) use of insulin
CPT/HCPCS: 36415; 36430; 71046; 80053; 83883; 84155; 84165; 85025; 85610; 86850; 86900; 86920; 96372; 96401; 99214; J7040; J8540; J9041; P9016; Q0162

== ENCOUNTER 2020-04-24 01:07 | Inpatient (IN) | payer MEDICARE, OTHER, SELFPAY ==
[2020-04-24] VITALS (93 sets, daily range): BP systolic 77–181; BP diastolic 44–110; PULSE 64–113; RESP 12–18; TEMP 36.3–36.9; O2SAT 3–100; BMI 23.9
--- NOTE | 2020-04-24 01:56 | XRR_ITS ---
PROCEDURE INFORMATION: Exam: XR Chest, 1 View Exam date and time: 04/24/2020 2:04 AM Age: 84 years old Clinical indication: Dyspnea; Additional info: SOB TECHNIQUE: Imaging protocol: XR of the chest Views: 1 view. COMPARISON: CR XR chest 1V portable [id number] 04/21/2020 12:49 PM FINDINGS: Lungs: See Pleural space finding. Pleural space: There are bilateral pleural effusions that appear similar to those seen on 04/21/2020. There are hazy in strandy opacities present in the hemithoraces superimposed over the pleural effusions most probably representing atelectasis. However, bilateral basilar pneumonia cannot be excluded. Heart/Mediastinum: Unremarkable. No cardiomegaly. Bones/joints: Unremarkable. XR/XR chest 1V portable [id number] IMPRESSION: 1. Bilateral pleural effusions, right larger than left. 2. Hazy in strandy opacities superimposed over the pleural effusions likely representing atelectasis although infiltrates and pneumonia cannot be excluded.
--- NOTE | 2020-04-24 01:56 | ECG_ITS ---
[facility] Test Date: 2020-04-24 Pat Name: Renate Yarbrough Department: Room: ICU07 Gender: Male [employer]: : 1935 Requested By: Nehemias Teresa Order Number: [id number] Ryan MD: Dakotah Christian M.D. Measurements Intervals [place] Rate: 72 P: 52 NC: 153 QRS: 81 QRSD: 106 T: 3 QT: 381 QTc: 418 Interpretive Statements SINUS RHYTHM PROBABLE INFERIOR MYOCARDIAL INFARCTION , PROBABLY OLD [35 ms Q WAVE IN II/aVF] Compared to ECG 04/06/2020 03:44:08 Myocardial infarct finding now present Atrial fibrillation no longer present T-wave abnormality no longer present Electronically Signed On 04-24-2020 15:12:44 CDT by Dakotah Christian M.D. [email or web address]
[2020-04-24] MEDS: ipratropium-albuterol 3 mL Neb INHALATION ×4 (02:08→19:49)
[2020-04-24 02:17] LABS: ABG PCO2 34.8 mmHg (35-45); ABG PH Result 7.45 (7.35-7.45); Arterial Blood Gas Hematocrit 29.3 % (42-52); Base Excess ABG 0.1 mmol/L (-2.0-2.0); Blood Gas Allen Test Pos; Blood Gas Sample Site Radial, left; Blood Gas Sample Type Arterial; Carboxyhemoglobin 1.1 %THgb (0.4-20.1); HGB O2 Sat 87.7 % (95-100); Methemoglobin 0.8 % (0.4-1.5); Oxygen Device NC; PO2 ABG 54.3 mmHg (80.0-100.0); Total Hemoglobin 9.5 g/dL (14-18)
[2020-04-24] MEDS: FUROsemide 10 mg/mL SDV 10mL 60 MG IVP (02:25)
[2020-04-24 02:26] LABS: Eosinophils % 0.9 %; Hematocrit 29.1 % (42.0-52.0); Lymphocytes % 22.3 %; Mean Corpuscular HGB Conc 30.9 g/dL (30.0-36.0); Mean Corpuscular Hemoglobin 31.4 pg (28.0-34.0); Mean Corpuscular Volume 101.4 fL (80-94); Mean Platelet Volume 11.2 fL (7.4-10.4); Monocytes # 0.4 10^3/uL (0.2-0.9); Monocytes % 7.8 %; Neutrophils # 3.1 10^3/uL (1.8-7.7); Neutrophils % 68.3 %; Nucleated Red Blood Cells % 0 %; Platelet Count 128 10^3/cmm (130-400); Red Blood Count 2.87 10^6/uL (4.1-5.3); Red Cell Distribution Width 17.8 % (12.1-15.1); White Blood Count 4.5 10^3/uL (4.0-10.0)
[2020-04-24 02:49] LABS: Troponin(5th) Baseline 77 ng/L (0-15)
[2020-04-24 02:58] LABS: Add Urine Microscopic? NO
[2020-04-24 02:58] LABS: Alanine Aminotransferase 7 U/L (0-41); Albumin Level 1.8 g/dL (3.5-5.2); Alkaline Phosphatase 31 IU/L (40-130); Anion Gap 14.1 (5-19); Aspartate Amino Transferase 17 U/L (0-40); Blood Urea Nitrogen 45 mg/dL (8-23); Calcium 10.4 mg/dL (8.5-10.5); Carbon Dioxide 23 mmol/L (22-29); Chloride 98 mmol/L (98-107); Glucose 91 mg/dL (65-115); NT Pro B Type Natriuretic Pept 1096 pg/mL (0-450); Osmolality Calculated 270 mOsm/kg (285-295); Potassium 4.1 mmol/L (3.5-5.1); Sodium 131 mmol/L (136-145); Total Bilirubin 0.9 mg/dL (0.15-1.2); Total Protein 10.8 g/dL (6.6-8.7)
[2020-04-24 03:19] LABS: Bilirubin Urine Neg (NEGATIVE); Blood Urine Neg (Negative); Glucose Urine UA Norm (Normal); Ketones Urine Negative (Negative); Leukocyte Esterase Urine Negative (Negative); Nitrate Urine Negative (Negative); Protein Urine Neg (Negative); Specific Gravity, Urine 1.015 (1.005-1.030); Urine Appearance Clear (CLEAR); Urine Color Yellow (Yellow); Urobilinogen Urine Norm (Negative); pH Urine 5 (5-7)
[2020-04-24] MEDS: levofloxacin-dextrose 5 % 750 MG/150 ML PREMIX 100 MG IV (04:05)
--- NOTE | 2020-04-24 04:14 | CTR_ITS ---
PROCEDURE INFORMATION: Exam: CT Chest Without Contrast Exam date and time: 04/24/2020 4:41 AM Age: 84 years old Clinical indication: Dyspnea; Prior surgery; Surgery date: 6+ months; Additional info: Infiltrate, SOB TECHNIQUE: Imaging protocol: Computed tomography of the chest without contrast. Radiation optimization: All CT scans at this facility use at least one of these dose optimization techniques: automated exposure control; mA and/or kV adjustment per patient size (includes targeted exams where dose is matched to clinical indication); or iterative reconstruction. COMPARISON: CT chest [facility] [id number] 04/03/2020 11:34 PM RADIATION DOSE METRICS: Total DLP (mGy-cm): 870.6 FINDINGS: Lungs: There is consolidation and atelectasis of the lower lobes bilaterally. Strandy and hazy opacities are seen in the upper lobes bilaterally as well compatible with some atelectasis. Irregular pleural based nodularity is are seen bilaterally likely representing some scarring. This finding is stable compared with 04/03/2020. There are stable peripheral pulmonary nodularities again seen. Pleural space: There are large bilateral pleural effusions. Heart: Calcifications are seen within the coronary arteries. Aorta: Unremarkable. No aortic aneurysm. Lymph nodes: Unremarkable. No enlarged lymph nodes. Adrenals: The adrenal glands are bulky in appearance appearing stable compared with 04/03/2020. Bones/joints: Unremarkable. No acute fracture. Soft tissues: Unremarkable. CT/CT chest [facility] [id number] IMPRESSION: 1. There are large bilateral pleural effusions. 2. Bilateral lower lobe compressive atelectasis. Some mild atelectasis is seen in the upper lobes bilaterally. 3. Bilateral pleural based nodularities appear similar to those present on 04/03/2020. Stable peripheral pulmonary nodularities again seen within the right hemithorax. Radiation Dose CTDIVOL = (mGy): DLP = 870.6 (mGy-cm)
--- NOTE | 2020-04-24 05:23 | PM.HP ---
Providers/Chief Complaint Primary Care Provider: Richard Leslie DO Chief Complaint: SOB History of Present Illness Renate Yarbrough is a 84 year old male who has history of IgG lambda multiple myeloma, 3 L COPD oxygen dependent, BPH, preserved ejection fraction heart failure who was recently discharged from the hospital 2 weeks ago after management for pneumonia on Levaquin and Bumex 0.5 mg twice a day coming in today for worsening shortness of breath. Patient is stating that he has an appointment on Saturday for right-sided thoracentesis. His Bumex was discontinued by Dr. Cheng. He has been experiencing orthopnea, PND, swelling of bilateral lower extremities, he has not experienced any fever, cough, nausea, vomiting or diarrhea. His functional status is very poor associated with underlying comorbid conditions and cancer. He decided to come to the hospital because despite staying in his recliner he was extremely short of breath at rest. Diagnostics in the ER revealed normal hemodynamics, persistent bilateral pleural effusion right greater than left, some questionable infiltrate superimposed on this pleural effusion, I have requested CT chest, patient has already received Levaquin in the ER, normal ABG, creatinine at baseline 2.3, high BNP 1096 Review of Systems Const: Reports: chills, body aches and fatigue; Denies: fever(s) Eyes: Denies: change in vision ENMT: Denies: throat pain Card: Denies: chest pain Resp: Reports: dyspnea and non-productive cough; Denies: productive cough GI: Reports: bloating; Denies: abdominal pain, nausea, vomiting, diarrhea or constipation : Denies: flank pain Musc: Denies: neck pain Skin/Breast: Denies: rash Neuro: Denies: headache(s) Psych: Reports: anxiety Endo: Denies: polyuria Reyes/Lymph: Denies: easy bruising All/Imm: Denies: urticaria Medications/Allergies Home Medications Medication Instructions Recorded Confirmed Last Taken Type albuterol sulfate 2.5 mg INHALATION Q6H PRN 02/19/20 04/08/20 04/04/20 08:00 History blood sugar diagnostic [Prodigy No 02/19/20 04/08/20 Unknown History Coding] tamsulosin [Flomax] 0.8 mg PO DAILY 02/19/20 04/08/20 04/03/20 08:00 History triamcinolone acetonide 1 applic TOPICAL PRN PRN 02/19/20 04/08/20 04/03/20 08:00 History tiotropium bromide 1 cap INHALATION DAILY #1 inh 02/21/20 04/08/20 04/03/20 08:00 Rx tadalafil 5 mg PO DAILY 02/28/20 04/08/20 04/03/20 08:00 History trazodone 25 mg PO BEDTIME PRN #30 tab 03/02/20 04/08/20 04/02/20 20:00 Rx aluminum-mag hydroxide-simethicone 10 ml PO Q6H PRN 03/18/20 04/08/20 04/03/20 History 200 mg-200 mg-20 mg/5 mL oral susp Protonix 40 mg PO DAILY 04/08/20 04/08/20 04/03/20 08:00 History acyclovir 04/08/20 Unknown History allopurinol 300 mg PO DAILY 04/08/20 04/08/20 04/03/20 08:00 History alprazolam 0.25 mg PO TID PRN #30 tab 04/08/20 Unknown Rx bumetanide 0.5 mg PO BID 30 Days #30 tab 04/08/20 Unknown Rx insulin aspart U-100 [Novolog 10 unit SUBCUT TIDAC #10 ml 04/08/20 Unknown Rx U-100 Insulin aspart] insulin glargine [Lantus U-100 10 unit SUBCUT BEDTIME #3 vial 04/08/20 Unknown Rx Insulin] levofloxacin 750 mg PO Q48H #7 tab 04/08/20 Unknown Rx metoprolol tartrate 12.5 mg PO BID 30 Days #30 tab 04/08/20 Unknown Rx potassium chloride 20 meq PO BID #60 tab 04/08/20 Unknown Rx sennosides-docusate sodium 1 tab PO BID 30 Days #60 tab 04/08/20 Unknown Rx Allergies Allergy/AdvReac Type Severity Reaction Status Date / Time Iodinated Contrast Media Allergy Unknown Verified 03/16/20 16:21 PFSH Acute PFSH: Medical History (Updated 04/24/20 @ 05:30 by Varinder Bansal MD) Benign prostatic hyperplasia -follows up with Dr. Girard -on finasteride, tamsulosin BPH w urinary obs/LUTS COPD (chronic obstructive pulmonary disease) Oxygen dependent Diabetes mellitus, type II -Recent A1c 10 GERD (gastroesophageal reflux disease) History of hyperlipidemia Statin intolerance Hypertension Multiple myeloma -recently diagnosed; IgG lambda MM; recent bone marrow biopsy showed 60 to 70% plasma cell marrow cellularity -follows up with Dr. Cheng; last visit was 03/24 -Is currently on chemotherapy with Velcade/Revlimid/dexamethasone; weekly -associated macrocytic anemia; Ca wnl -negative bone scan done 03/17 -CT chest shows bilateral nodular costal pleural thickening and marked nodular enlargement of bilateral adrenal glands both of which are suspicious for metastatic disease (new since 01/2020). 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 Family History Family/Other Heart disease no one with known CAD however Social History Smoking and tobacco status: former smoker Quit status (tobacco): has quit using tobacco Year quit tobacco: 40ya Adopted: No Caregiver/support person: No Lives independently: No Household members: spouse Marital status: Current occupational status: retired History of recent travel: No Current gender identity: Male Vitals/I&O/Wt Last Vital Signs Temp 97.3 F L 04/24/20 01:19 Pulse 79 04/24/20 04:03 Resp 18 04/24/20 04:03 BP 119/75 04/24/20 04:03 Pulse Ox 94 04/24/20 04:03 Weight last 48 hrs Weight 73.482 kg Physical Exam Narrative: EXAM NARRATIVE: Head to toe examination Patient is in semi-encinas position with mild tachypnea and 20s, Normal hemodynamics He is afebrile Awake alert oriented x3 GCS 15 EOMI, PERRLA Neurologically nonfocal exam S1, S2, active signs of congestive heart failure with positive JVD and bilateral lower extremity edema Diminished breath sounds bilaterally right greater than left, no active wheezing or crackles Abdomen distended, visceral obesity, ascites positive, nontender Skin does not show any sign ischemia gangrene ulcer Anxious mood Patient is claustrophobic Data : 04/24/20 02:00 04/24/20 02:00 Micro: Microbiology 04/24/20 02:11 Blood Culture - Preliminary Blood SPECIMEN COLLECTED 04/24/20 02:00 Blood Culture - Preliminary Blood SPECIMEN COLLECTED A&P Assessment and plan (1) Pleural effusion: Status: Acute (2) Shortness of breath: Status: Acute (3) Easy fatigability: Status: Acute (4) Multiple myeloma: Status: Chronic Qualifiers: Multiple myeloma remission status: unspecified Qualified Code(s): C90.00 - Multiple myeloma not having achieved remission (5) Anxiety: Status: Acute (6) Diabetes mellitus, type II: Status: Chronic Qualifiers: Diabetes mellitus [facility] insulin use: without terminal manager use Diabetes mellitus complication status: without complication Qualified Code(s): E11.9 - Type 2 diabetes mellitus without complications (7) COPD (chronic obstructive pulmonary disease): Status: Chronic Qualifiers: COPD type: emphysema Emphysema type: other Qualified Code(s): J43.8 - Other emphysema Additional A&P Information Persistent pleural effusion right greater than left Symptomatic pleural effusion with worsening shortness of breath, recently Bumex was held secondary to chronic kidney disease by Dr. Cheng, I believe he would benefit from Bumex and chronic kidney disease worsening is due to CHF exacerbation We will request thoracentesis on Saturday if his breathing is getting worse DuoNeb every 6 as needed Bumex 0.5 mg daily I am requesting a CT chest to rule out pneumonia however he is not septic, afebrile, no leukocytosis, has received Levaquin in the ER, I believe superimposed markings on chest x-ray is worsening from edema Claustrophobic and anxiety Patient agreed with getting CT scan but does not want to stay in a private room Would continue his anxiolytics Type 2 diabetes insulin-dependent Sliding scale and consistent carb diet IgG multiple myeloma Currently undergoing chemotherapy by Dr. Cheng Family is requesting if Dr. Cheng be notified over the weekend.. Chronic kidney disease without acute exacerbation Creatinine seems to be around baseline Full code DVT prophylaxis Heparin Consistent carb Attestations Medical Necessity Statement*: Anticipating discharge in less than 48 hours currently need thoracentesis for symptomatic relief which was scheduled on Saturday Time Spent in Patient Care: (>than 50% of time spent in counselling and/or direct pt care on unit). 52mins Coding Level of Care Code Acute Senior Librarian for Chg Fwd Diagnoses Pleural effusion J90 Shortness of breath R06.02 Easy fatigability R53.83 Multiple myeloma C90.00 Multiple myeloma remission status: unspecified Anxiety F41.9 Diabetes mellitus, type II E11.9 Diabetes mellitus terminal manager insulin use: without terminal manager use Diabetes mellitus complication status: without complication COPD (chronic obstructive pulmonary disease) J43.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
[2020-04-24 06:01] LABS: Troponin 5 2HR 81.44 ng/L (0-15); Troponin 5 2HR Delta 4.44 ABS# (0-10)
[2020-04-24] MEDS: succinylcholine 20 mg/mL SDV 10mL 200 MG IVP (06:10)
--- NOTE | 2020-04-24 06:17 | ED_ITS ---
Documented by User: Tacos Allison DO 04/24/20 06:17 HPI - SOB/Dyspnea General: Chief Complaint: Shortness of Breath/Dyspnea Stated Complaint: SOB Time Seen by Provider: 04/24/20 01:38 [facility] ED PFSH: Medical History (Updated 04/24/20 @ 05:30 by Varinder Bansal MD) Benign prostatic hyperplasia -follows up with Dr. Girard -on finasteride, tamsulosin BPH w urinary obs/LUTS COPD (chronic obstructive pulmonary disease) Oxygen dependent Diabetes mellitus, type II -Recent A1c 10 GERD (gastroesophageal reflux disease) History of hyperlipidemia Statin intolerance Hypertension Multiple myeloma -recently diagnosed; IgG lambda MM; recent bone marrow biopsy showed 60 to 70% plasma cell marrow cellularity -follows up with Dr. Cheng; last visit was 03/24 -Is currently on chemotherapy with Velcade/Revlimid/dexamethasone; weekly -associated macrocytic anemia; Ca wnl -negative bone scan done 03/17 -CT chest shows bilateral nodular costal pleural thickening and marked nodu lar enlargement of bilateral adrenal glands both of which are suspicious for metastatic disease (new since 01/2020). 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 Family History Family/Other Heart disease no one with known CAD however Social History Smoking and tobacco status: former smoker Quit status (tobacco): has quit using tobacco Year quit tobacco: 40ya Adopted: No Caregiver/support person: No Lives independently: No Household members: spouse Marital status: Current occupational status: retired History of recent travel: No Current gender identity: Male Course Vital Signs: Vital signs: Vital Signs Temperature 97.3 F L 04/24/20 01:19 Pulse Rate 90 06/28/20 05:48 Respiratory Rate 12 04/24/20 06:18 Blood Pressure 112/80 04/24/20 05:48 Pulse Oximetry 96 04/24/20 05:48 MDM - SOB/Dyspnea Lab Data: Labs: Lab Results 04/24/20 04/24/20 04/24/20 Range/Units 02:00 02:00 02:00 WBC 4.5 (4.0-10.0) 10^3/ uL RBC 2.87 L (4.1-5.3) 10^6/u L Hgb 9.0 L (11.7-16.6) g/dL Hct 29.1 L (42.0-52.0) % MCV 101.4 H (80-94) fL MCH 31.4 (28.0-34.0) pg MCHC 30.9 (30.0-36.0) g/dL RDW 17.8 H (12.1-15.1) % Plt Count 128 L (130-400) 10^3/c mm MPV 11.2 H (7.4-10.4) fL Neut % (Auto) 68.3 % Lymph % (Auto) 22.3 % Bandera % (Auto) 7.8 % Eos % (Auto) 0.9 % Baso % (Auto) 0.0 % Neut # (Auto) 3.1 (1.8-7.7) 10^3/u L Lymph # (Auto) 1.0 (0.8-4.8) 10^3/u L Bandera # (Auto) 0.4 (0.2-0.9) 10^3/u L Eos # (Auto) 0.0 (0.0-0.8) 10^3/u L Baso # (Auto) 0.0 (0.0-0.1) 10^3/u L Nucleated RBC % (a uto) 0 % Nucleated RBCs # 0.0 /100WBC Specimen Type Sample Site ABG pH (7.35-7.45) ABG pCO2 (35-45) mmHg ABG pO2 (80.0-100.0) mmH g ABG HCO3 (22-26) mmol/L ABG Base Excess (-2.0-2.0) mmol/ L Daniel Test Hematocrit (42-52) % Hgb O2 Saturation (95-100) % Carboxyhemoglobin (0.4-20.1) %THgb Methemoglobin (0.4-1.5) % Total Hemoglobin (14-18) g/dL O2 Delivery Device O2 Liters/Min % Automation Controls Expert ID Sodium 131 L (136-145) mmol/L Potassium 4.1 (3.5-5.1) mmol/L Chloride 98 (98-107) mmol/L Carbon Dioxide 23 (22-29) mmol/L Anion Gap 14.1 (5-19) BUN 45 H (8-23) mg/dL Creatinine 2.3 H (0.7-1.2) mg/dL Glucose 91 (65-115) mg/dL Calculated Osmolal ity 270 L (285-295) mOsm/k g Lactic Acid 1.0 (0.5-2.2) mmol/L Calcium 10.4 (8.5-10.5) mg/dL Total Bilirubin 0.9 (0.15-1.2) mg/dL AST 17 (0-40) U/L ALT 7 (0-41) U/L Alkaline Phosphata se 31 L (40-130) IU/L Troponin T Baselin e (0-15) ng/L Troponin T 120 Min [place] (0-15) ng/L Delta Troponin T (0-10) ABS# NT-Pro-B Natriuret Pep 1096 H (0-450) pg/mL Total Protein 10.8 H (6.6-8.7) g/dL Albumin 1.8 L (3.5-5.2) g/dL Globulin 9.0 H (1.3-4.6) g/dL Urine Color (Yellow) Urine Appearance (CLEAR) Urine pH (5-7) Ur Specific Gravit y (1.005-1.030) Urine Protein (Negative) Urine Glucose (UA) (Normal) Urine Ketones (Negative) Urine Blood (Negative) Urine Nitrate (Negative) Urine Bilirubin (NEGATIVE) Urine Urobilinogen (Negative) mg/dL Ur Leukocyte Geovanna ase (Negative) 04/24/20 04/24/20 04/24/20 Range/Units 02:00 02:05 02:50 WBC (4.0-10.0) 10^3/ uL RBC (4.1-5.3) 10^6/u L Hgb (11.7-16.6) g/dL Hct (42.0-52.0) % MCV (80-94) fL MCH (28.0-34.0) pg MCHC (30.0-36.0) g/dL RDW (12.1-15.1) % Plt Count (130-400) 10^3/c mm MPV (7.4-10.4) fL Neut % (Auto) % Lymph % (Auto) % Bandera % (Auto) % Eos % (Auto) % Baso % (Auto) % Neut # (Auto) (1.8-7.7) 10^3/u L Lymph # (Auto) (0.8-4.8) 10^3/u L Bandera # (Auto) (0.2-0.9) 10^3/u L Eos # (Auto) (0.0-0.8) 10^3/u L Baso # (Auto) (0.0-0.1) 10^3/u L Nucleated RBC % (a uto) % Nucleated RBCs # /100WBC Specimen Type Arterial Sample Site Radial, left ABG pH 7.45 (7.35-7.45) ABG pCO2 34.8 L (35-45) mmHg ABG pO2 54.3 L (80.0-100.0) mmH g ABG HCO3 24.0 (22-26) mmol/L ABG Base Excess 0.1 (-2.0-2.0) mmol/ L Daniel Test Pos Hematocrit 29.3 L (42-52) % Hgb O2 Saturation 87.7 L (95-100) % Carboxyhemoglobin 1.1 (0.4-20.1) %THgb Methemoglobin 0.8 (0.4-1.5) % Total Hemoglobin 9.5 L (14-18) g/dL O2 Delivery Device Nc O2 Liters/Min 4.0 % Automation Controls Expert ID [email or web address] Sodium (136-145) mmol/L Potassium (3.5-5.1) mmol/L Chloride (98-107) mmol/L Carbon Dioxide (22-29) mmol/L Anion Gap (5-19) BUN (8-23) mg/dL Creatinine (0.7-1.2) mg/dL Glucose (65-115) mg/dL Calculated Osmolal ity (285-295) mOsm/k g Lactic Acid (0.5-2.2) mmol/L Calcium (8.5-10.5) mg/dL Total Bilirubin (0.15-1.2) mg/dL AST (0-40) U/L ALT (0-41) U/L Alkaline Phosphata se (40-130) IU/L Troponin T Baselin e 77 H (0-15) ng/L Troponin T 120 Min [place] (0-15) ng/L Delta Troponin T (0-10) ABS# NT-Pro-B Natriuret Pep (0-450) pg/mL Total Protein (6.6-8.7) g/dL Albumin (3.5-5.2) g/dL Globulin (1.3-4.6) g/dL Urine Color Yellow (Yellow) Urine Appearance Clear (CLEAR) Urine pH 5 (5-7) Ur Specific Gravit y 1.015 (1.005-1.030) Urine Protein Neg (Negative) Urine Glucose (UA) Norm (Normal) Urine Ketones Negative (Negative) Urine Blood Neg (Negative) Urine Nitrate Negative (Negative) Urine Bilirubin Neg (NEGATIVE) Urine Urobilinogen Norm (Negative) mg/dL Ur Leukocyte Geovanna ase Negative (Negative) 04/24/20 Range/Units 05:40 WBC (4.0-10.0) 10^3/ uL RBC (4.1-5.3) 10^6/u L Hgb (11.7-16.6) g/dL Hct (42.0-52.0) % MCV (80-94) fL MCH (28.0-34.0) pg MCHC (30.0-36.0) g/dL RDW (12.1-15.1) % Plt Count (130-400) 10^3/c mm MPV (7.4-10.4) fL Neut % (Auto) % Lymph % (Auto) % Bandera % (Auto) % Eos % (Auto) % Baso % (Auto) % Neut # (Auto) (1.8-7.7) 10^3/u L Lymph # (Auto) (0.8-4.8) 10^3/u L Bandera # (Auto) (0.2-0.9) 10^3/u L Eos # (Auto) (0.0-0.8) 10^3/u L Baso # (Auto) (0.0-0.1) 10^3/u L Nucleated RBC % (a uto) % Nucleated RBCs # /100WBC Specimen Type Sample Site ABG pH (7.35-7.45) ABG pCO2 (35-45) mmHg ABG pO2 (80.0-100.0) mmH g ABG HCO3 (22-26) mmol/L ABG Base Excess (-2.0-2.0) mmol/ L Daniel Test Hematocrit (42-52) % Hgb O2 Saturation (95-100) % Carboxyhemoglobin (0.4-20.1) %THgb Methemoglobin (0.4-1.5) % Total Hemoglobin (14-18) g/dL O2 Delivery Device O2 Liters/Min % Automation Controls Expert ID Sodium (136-145) mmol/L Potassium (3.5-5.1) mmol/L Chloride (98-107) mmol/L Carbon Dioxide (22-29) mmol/L Anion Gap (5-19) BUN (8-23) mg/dL Creatinine (0.7-1.2) mg/dL Glucose (65-115) mg/dL Calculated Osmolal ity (285-295) mOsm/k g Lactic Acid (0.5-2.2) mmol/L Calcium (8.5-10.5) mg/dL Total Bilirubin (0.15-1.2) mg/dL AST (0-40) U/L ALT (0-41) U/L Alkaline Phosphata se (40-130) IU/L Troponin T Baselin e (0-15) ng/L Troponin T 120 Min [place] 81.44 H (0-15) ng/L Delta Troponin T 4.44 (0-10) ABS# NT-Pro-B Natriuret Pep (0-450) pg/mL Total Protein (6.6-8.7) g/dL Albumin (3.5-5.2) g/dL Globulin (1.3-4.6) g/dL Urine Color (Yellow) Urine Appearance (CLEAR) Urine pH (5-7) Ur Specific Gravit y (1.005-1.030) Urine Protein (Negative) Urine Glucose (UA) (Normal) Urine Ketones (Negative) Urine Blood (Negative) Urine Nitrate (Negative) Urine Bilirubin (NEGATIVE) Urine Urobilinogen (Negative) mg/dL Ur Leukocyte Geovanna ase (Negative) Discharge Plan Discharge Prescriptions: No Action alum-mag hydroxide-simeth [Mag-Al Plus] 200-200-20 mg/5 mL suspension 10 ml PO Q6H PRN (Reason: Acid Reflux) RF: 0 triamcinolone acetonide 0.1 % cream 1 applic TOPICAL PRN PRN (Reason: Itching) RF: 0 tamsulosin [Flomax] 0.4 mg capsule 0.8 mg PO DAILY RF: 0 (DME) blood sugar diagnostic [Prodigy No Coding] Strip MISCELLANEOUS RF: 0 albuterol sulfate 2.5 mg /3 mL (0.083 %) solution for nebulization 2.5 mg inhalation Q6H PRN (Reason: Shortness Of Breath) RF: 0 tiotropium bromide 18 mcg capsule, w/inhalation device 1 cap INHALATION DAILY Qty: 1 RF: 1 tadalafil 5 mg Tablet 5 mg PO DAILY RF: 0 trazodone 50 mg Tablet 25 mg PO BEDTIME PRN (Reason: Sleep) Qty: 30 RF: 0 acyclovir 400 mg tablet RF: 0 allopurinol 300 mg Tablet 300 mg PO DAILY RF: 0 Protonix 40 mg Tablet,Delayed Release (Dr/Ec) 40 mg PO DAILY RF: 0 sennosides-docusate sodium 8.6-50 mg Tablet 1 tab PO BID 30 Days Qty: 60 RF: 0 levofloxacin 750 mg Tablet 750 mg PO Q48H Qty: 7 RF: 0 potassium chloride 20 mEq tablet extended release 20 meq PO BID Qty: 60 RF: 0 bumetanide 1 mg tablet 0.5 mg PO BID 30 Days Qty: 30 RF: 0 alprazolam 0.25 mg Tablet 0.25 mg PO TID PRN (Reason: Anxiety) Qty: 30 RF: 0 metoprolol tartrate 25 mg Tablet 12.5 mg PO BID 30 Days Qty: 30 RF: 0 Novolog U-100 Insulin aspart 100 unit/mL Solution 10 unit SUBCUT TIDAC Qty: 10 RF: 0 Lantus U-100 Insulin 100 unit/mL Solution 10 unit SUBCUT BEDTIME Qty: 3 RF: 0 Coding Level of Care Code 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 He presents with i ncreasing shortness of breath. He has bilateral pleural effusions, and had been in the hospital about 2 weeks ago. He had a thoracentesis on his left lung previously, and is scheduled to have one on his right lung on Saturday morning. He states that he could not sleep because he was so short of breath this evening. He is on 4 L at home, and was short of breath despite this. No fever. No real cough. He says he has some nasal congestion. He was tested for COVID- 19 on his prior admission which was negative. He has been isolated since. He says his symptoms have been worsening over about 3 days. MD elicited complaint: shortness of breath Pertinent past history: congestive heart failure Onset (ago): day(s) Context: recent illness Timing: constant Severity: moderate Exacerbating factors: lying flat and exertion Relieving factors: oxygen Known history of: congestive heart failure Associated symptoms: Reports dizziness and sense of impending doom; Deny abdominal pain, chest congestion, chest pain, cough, extremity pain, fever(s), nausea or vomiting Treatment prior to arrival: oxygen Review of Systems Const: Denies: fever(s) or chills Eyes: Denies: change in vision or blurry vision ENMT: Reports: post nasal drip; Denies: swelling of lips/tongue, epistaxis or sinus pain Card: Denies: chest pain Resp: Denies: chest congestion GI: Denies: abdominal pain, nausea or vomiting : Denies: difficulty urinating Musc: Denies: extremity pain Skin/Breast: Denies: rash, pruritus or erythema Neuro: Reports: dizziness; Denies: headache(s), vertigo or confusion Psych: Denies: anxiety PFSH ED PFSH: Medical History (Updated 04/24/20 @ 05:30 by Varinder Bansal MD) Benign prostatic hyperplasia -follows up with Dr. Girard -on finasteride, tamsulosin BPH w urinary obs/LUTS COPD (chronic obstructive pulmonary disease) Oxygen dependent Diabetes mellitus, type II -Recent A1c 10 GERD (gastroesophageal reflux disease) History of hyperlipidemia Statin intolerance Hypertension Multiple myeloma -recently diagnosed; IgG lambda MM; recent bone marrow biopsy showed 60 to 70% plasma cell marrow cellularity -follows up with Dr. Cheng; last visit was 03/24 -Is currently on chemotherapy with Velcade/Revlimid/dexamethasone; weekly -associated macrocytic anemia; Ca wnl -negative bone scan done 03/17 -CT chest shows bilateral nodular costal pleural thickening and marked nodular enlargement of bilateral adrenal glands both of which are suspicious for metastatic disease (new since 01/2020). 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 Family History Family/Other Heart disease no one with known CAD however Social History Smoking and tobacco status: former smoker Quit status (tobacco): has quit using tobacco Year quit tobacco: 40ya Adopted: No Caregiver/support person: No Lives independently: No Household members: spouse Marital status: Current occupational status: retired History of recent travel: No Current gender identity: Male Physical Exam Const: GENERAL APPEARANCE: well developed, ill appearing and frail appearing ORIENTATION/CONSCIOUSNESS: Yes oriented to person, Yes oriented to place and Yes oriented to time HENMT: COMMON NORMALS: normocephalic, external ears normal and Normal external nose present HEAD & SCALP: normocephalic FACE & SINUS: normal facial exam NOSE: Normal external nose present and No nasal discharge present EXTERNAL EAR: Yes external ears normal MOUTH: tongue normal THROAT: posterior oropharynx normal; no peritonsillar mass Eye: COMMON NORMALS: Equal, round and reactive pupils present, EOMs intact bilaterally and conjunctivae normal EYELID: eyelids normal CONJUNCTIVA: Yes conjunctivae normal PUPIL: Yes Equal, round and reactive pupils present Neck/C-Spine: GENERAL: No tracheal deviation Chest: COMMONS NORMALS: normal inspection of the chest CHEST: No tenderness Resp: EFFORT & INSPECTION: Yes tachypneic, Yes respiratory distress, No retractions, Yes uses accessory muscles and No tracheal deviation AUSCULTATION: no rhonchi, no wheezes and diminished lung sounds Cardio: COMMON NORMALS: regular rate and regular rhythm RATE: regular rate RHYTHM: regular rhythm GI: INSPECTION: No abdominal distension AUSCULTATION: No Hyperactive bowel sounds present and No Hypoactive bowel sounds present PALPATION: No Guarding due to palpation present (GI) and No Rigid due to palpation PERCUSSION: no dullness to percussion and no tympanic to percussion Neuro: SENSORIUM/ORIENTATION: Yes oriented to person, Yes oriented to place and Yes oriented to time Psych: COMMON NORMALS: mental status grossly normal Skin: COMMON NORMALS: no rashes or lesions noted GENERAL SKIN EXAM: no rashes or lesions noted Course Vital Signs: Vital signs: Vital Signs Temperature 97.3 F L 04/24/20 01:19 Pulse Rate 90 04/24/20 05:48 Respiratory Rate 12 04/24/20 06:18 Blood Pressure 112/80 04/24/20 05:48 Pulse Oximetry 96 04/24/20 05:48 MDM - SOB/Dyspnea MDM Narrative: Medical decision making narrative: 84-year-old male presenting with shortness of breath. He has a history of renal failure and heart failure as well as multiple myeloma. He is scheduled to have an effusion of his right lung aspirate and tomorrow. His hemoglobin is 9. His creatinine is 2.3. This appears somewhat improved from prior, his hemoglobin is stable. He has bilateral pleural effusions on x-ray. On x-ray, though, he also appears to have a right-sided infiltrate. CT of the chest without contrast was performed, and shows large effusions bilaterally with atelectasis versus infiltrate. He has had 750 mg of Levaquin so far. He is received 60 mg of Lasix, and is put out over 600 mL. At first he improved, but then begin to decompensate, as his respiratory effort begin to liza out. Repeat blood gas and breathing treatment were ordered. He was then transferred to Dr. Ruvalcaba's care at shift change. Prior to this, hospitalist was called for admission, has seen the patient and agrees. Lab Data: Labs: Lab Results 04/24/20 04/24/20 04/24/20 Range/Units 02:00 02:00 02:00 WBC 4.5 (4.0-10.0) 10^3/ uL RBC 2.87 L (4.1-5.3) 10^6/u L Hgb 9.0 L (11.7-16.6) g/dL Hct 29.1 L (42.0-52.0) % MCV 101.4 H (80-94) fL MCH 31.4 (28.0-34.0) pg MCHC 30.9 (30.0-36.0) g/dL RDW 17.8 H (12.1-15.1) % Plt Count 128 L (130-400) 10^3/c mm MPV 11.2 H (7.4-10.4) fL Neut % (Auto) 68.3 % Lymph % (Auto) 22.3 % Bandera % (Auto) 7.8 % Eos % (Auto) 0.9 % Baso % (Auto) 0.0 % Neut # (Auto) 3.1 (1.8-7.7) 10^3/u L Lymph # (Auto) 1.0 (0.8-4.8) 10^3/u L Bandera # (Auto) 0.4 (0.2-0.9) 10^3/u L Eos # (Auto) 0.0 (0.0-0.8) 10^3/u L Baso # (Auto) 0.0 (0.0-0.1) 10^3/u L Nucleated RBC % (a uto) 0 % Nucleated RBCs # 0.0 /100WBC Specimen Type Sample Site ABG pH (7.35-7.45) ABG pCO2 (35-45) mmHg ABG pO2 (80.0-100.0) mmH g ABG HCO3 (22-26) mmol/L ABG Base Excess (-2.0-2.0) mmol/ L Daniel Test Hematocrit (42-52) % Hgb O2 Saturation (95-100) % Carboxyhemoglobin (0.4-20.1) %THgb Methemoglobin (0.4-1.5) % Total Hemoglobin (14-18) g/dL O2 Delivery Device O2 Liters/Min % Automation Controls Expert ID Sodium 131 L (136-145) mmol/L Potassium 4.1 (3.5-5.1) mmol/L Chloride 98 (98-107) mmol/L Carbon Dioxide 23 (22-29) mmol/L Anion Gap 14.1 (5-19) BUN 45 H (8-23) mg/dL Creatinine 2.3 H (0.7-1.2) mg/dL Glucose 91 (65-115) mg/dL Calculated Osmolal ity 270 L (285-295) mOsm/k g Lactic Acid 1.0 (0.5-2.2) mmol/L Calcium 10.4 (8.5-10.5) mg/dL Total Bilirubin 0.9 (0.15-1.2) mg/dL AST 17 (0-40) U/L ALT 7 (0-41) U/L Alkaline Phosphata se 31 L (40-130) IU/L Troponin T Baselin e (0-15) ng/L Troponin T 120 Min [place] (0-15) ng/L Delta Troponin T (0-10) ABS# NT-Pro-B Natriuret Pep 1096 H (0-450) pg/mL Total Protein 10.8 H (6.6-8.7) g/dL Albumin 1.8 L (3.5-5.2) g/dL Globulin 9.0 H (1.3-4.6) g/dL Urine Color (Yellow) Urine Appearance (CLEAR) Urine pH (5-7) Ur Specific Gravit y (1.005-1.030) Urine Protein (Negative) Urine Glucose (UA) (Normal) Urine Ketones (Negative) Urine Blood (Negative) Urine Nitrate (Negative) Urine Bilirubin (NEGATIVE) Urine Urobilinogen (Negative) mg/dL Ur Leukocyte Geovanna ase (Negative) 04/24/20 04/24/20 04/24/20 Range/Units 02:00 02:05 02:50 WBC (4.0-10.0) 10^3/ uL RBC (4.1-5.3) 10^6/u L Hgb (11.7-16.6) g/dL Hct (42.0-52.0) % MCV (80-94) fL MCH (28.0-34.0) pg MCHC (30.0-36.0) g/dL RDW (12.1-15.1) % Plt Count (130-400) 10^3/c mm MPV (7.4-10.4) fL Neut % (Auto) % Lymph % (Auto) % Bandera % (Auto) % Eos % (Auto) % Baso % (Auto) % Neut # (Auto) (1.8-7.7) 10^3/u L Lymph # (Auto) (0.8-4.8) 10^3/u L Bandera # (Auto) (0.2-0.9) 10^3/u L Eos # (Auto) (0.0-0.8) 10^3/u L Baso # (Auto) (0.0-0.1) 10^3/u L Nucleated RBC % (a uto) % Nucleated RBCs # /100WBC Specimen Type Arterial Sample Site Radial, left ABG pH 7.45 (7.35-7.45) ABG pCO2 34.8 L (35-45) mmHg ABG pO2 54.3 L (80.0-100.0) mmH g ABG HCO3 24.0 (22-26) mmol/L ABG Base Excess 0.1 (-2.0-2.0) mmol/ L Daniel Test Pos Hematocrit 29.3 L (42-52) % Hgb O2 Saturation 87.7 L (95-100) % Carboxyhemoglobin 1.1 (0.4-20.1) %THgb Methemoglobin 0.8 (0.4-1.5) % Total Hemoglobin 9.5 L (14-18) g/dL O2 Delivery Device Nc O2 Liters/Min 4.0 % Autom[employer] Controls Expert ID ellpe Sodium (136-145) mmol/L Potassium (3.5-5.1) mmol/L Chloride (98-107) mmol/L Carbon Dioxide (22-29) mmol/L Anion Gap (5-19) BUN (8-23) mg/dL Creatinine (0.7-1.2) mg/dL Glucose (65-115) mg/dL Calculated Osmolal ity (285-295) mOsm/k g Lactic Acid (0.5-2.2) mmol/L Calcium (8.5-10.5) mg/dL Total Bilirubin (0.15-1.2) mg/dL AST (0-40) U/L ALT (0-41) U/L Alkaline Phosphata se (40-130) IU/L Troponin T Baselin e 77 H (0-15) ng/L Troponin T 120 Min [place] (0-15) ng/L Delta Troponin T (0-10) ABS# NT-Pro-B Natriuret Pep (0-450) pg/mL Total Protein (6.6-8.7) g/dL Albumin (3.5-5.2) g/dL Globulin (1.3-4.6) g/dL Urine Color Yellow (Yellow) Urine Appearance Clear (CLEAR) Urine pH 5 (5-7) Ur Specific Gravit y 1.015 (1.005-1.030) Urine Protein Neg (Negative) Urine Glucose (UA) Norm (Normal) Urine Ketones Negative (Negative) Urine Blood Neg (Negative) Urine Nitrate Negative (Negative) Urine Bilirubin Neg (NEGATIVE) Urine Urobilinogen Norm (Negative) mg/dL Ur Leukocyte Geovanna ase Negative (Negative) 04/24/20 Range/Units 05:40 WBC (4.0-10.0) 10^3/ uL RBC (4.1-5.3) 10^6/u L Hgb (11.7-16.6) g/dL Hct (42.0-52.0) % MCV (80-94) fL MCH (28.0-34.0) pg MCHC (30.0-36.0) g/dL RDW (12.1-15.1) % Plt Count (130-400) 10^3/c mm MPV (7.4-10.4) fL Neut % (Auto) % Lymph % (Auto) % Band[place] % (Auto) % Eos % (Auto) % Baso % (Auto) % Neut # (Auto) (1.8-7.7) 10^3/u L Lymph # (Auto) (0.8-4.8) 10^3/u L Bandera # (Auto) (0.2-0.9) 10^3/u L Eos # (Auto) (0.0-0.8) 10^3/u L Baso # (Auto) (0.0-0.1) 10^3/u L Nucleated RBC % (a uto) % Nucleated RBCs # /100WBC Specimen Type Sample Site ABG pH (7.35-7.45) ABG pCO2 (35-45) mmHg ABG pO2 (80.0-100.0) mmH g ABG HCO3 (22-26) mmol/L ABG Base Excess (-2.0-2.0) mmol/ L Daniel Test Hematocrit (42-52) % Hgb O2 Saturation (95-100) % Carboxyhemoglobin (0.4-20.1) %THgb Methemoglobin (0.4-1.5) % Total Hemoglobin (14-18) g/dL O2 Delivery Device O2 Liters/Min % Autom[employer] Controls Expert ID Sodium (136-145) mmol/L Potassium (3.5-5.1) mmol/L Chloride (98-107) mmol/L Carbon Dioxide (22-29) mmol/L Anion Gap (5-19) BUN (8-23) mg/dL Creatinine (0.7-1.2) mg/dL Glucose (65-115) mg/dL Calculated Osmolal ity (285-295) mOsm/k g Lactic Acid (0.5-2.2) mmol/L Calcium (8.5-10.5) mg/dL Total Bilirubin (0.15-1.2) mg/dL AST (0-40) U/L ALT (0-41) U/L Alkaline Phosphata se (40-130) IU/L Troponin T Baselin e (0-15) ng/L Troponin T 120 [address] [place] 81.44 H (0-15) ng/L Delta Troponin T 4.44 (0-10) ABS# NT-Pro-B Natriuret Pep (0-450) pg/mL Total Protein (6.6-8.7) g/dL Albumin (3.5-5.2) g/dL Globulin (1.3-4.6) g/dL Urine Color (Yellow) Urine Appearance (CLEAR) Urine pH (5-7) Ur Specific Gravit y (1.005-1.030) Urine Protein (Negative) Urine Glucose (UA) (Normal) Urine Ketones (Negative) Urine Blood (Negative) Urine Nitrate (Negative) Urine Bilirubin (NEGATIVE) Urine Urobilinogen (Negative) mg/dL Ur Leukocyte Geovanna ase (Negative) Discharge Plan Discharge Prescriptions: No Action alum-mag hydroxide-simeth [Mag-Al Plus] 200-200-20 mg/5 mL suspension 10 ml PO Q6H PRN (Reason: Acid Reflux) RF: 0 triamcinolone acetonide 0.1 % cream 1 applic TOPICAL PRN PRN (Reason: Itching) RF: 0 tamsulosin [Flomax] 0.4 mg capsule 0.8 mg PO DAILY RF: 0 (DME) blood sugar diagnostic [Prodigy No Coding] Strip MISCELLANEOUS RF: 0 albuterol sulfate 2.5 mg /3 mL (0.083 %) solution for nebulization 2.5 mg inhalation Q6H PRN (Reason: Shortness Of Breath) RF: 0 tiotropium bromide 18 mcg capsule, w/inhalation device 1 cap INHALATION DAILY Qty: 1 RF: 1 tadalafil 5 mg Tablet 5 mg PO DAILY RF: 0 trazodone 50 mg Tablet 25 mg PO BEDTIME PRN (Reason: Sleep) Qty: 30 RF: 0 acyclovir 400 mg tablet RF: 0 allopurinol 300 mg Tablet 300 mg PO DAILY RF: 0 Protonix 40 mg Tablet,Delayed Release (Dr/Ec) 40 mg PO DAILY RF: 0 sennosides-docusate sodium 8.6-50 mg Tablet 1 tab PO BID 30 Days Qty: 60 RF: 0 levofloxacin 750 mg Tablet 750 mg PO Q48H Qty: 7 RF: 0 potassium chloride 20 mEq tablet extended release 20 meq PO BID Qty: 60 RF: 0 bumetanide 1 mg tablet 0.5 mg PO BID 30 Days Qty: 30 RF: 0 alprazolam 0.25 mg Tablet 0.25 mg PO TID PRN (Reason: Anxiety) Qty: 30 RF: 0 metoprolol tartrate 25 mg Tablet 12.5 mg PO BID 30 Days Qty: 30 RF: 0 Novolog U-100 Insulin aspart 100 unit/mL Solution 10 unit SUBCUT TIDAC Qty: 10 RF: 0 Lantus U-100 Insulin 100 unit/mL Solution 10 unit SUBCUT BEDTIME Qty: 3 RF: 0 Coding Level of Care Code ED Production Ski Repairer for Chg Fwd Exam Comprehensive
[2020-04-24] MEDS: vecuronium 10 mg SDV IVP (06:19)
[2020-04-24] MEDS: propofol 1,000 MG/100 ML INJ 2.2 MG IV (06:20)
--- NOTE | 2020-04-24 06:33 | XRR_ITS ---
PROCEDURE INFORMATION: Exam: XR Chest, 1 View Exam date and time: 04/24/2020 6:38 AM Age: 84 years old Clinical indication: Device placement; Other: ETT and NG placement; Additional info: Post intubation TECHNIQUE: Imaging protocol: XR of the chest Views: Frontal portable supine view of the chest. COMPARISON: CR XR chest 1V portable [id number] 04/24/2020 1:54 AM FINDINGS: Tubes, catheters and devices: The endotracheal tube tip is approximately 6 cm above the adam. The feeding tube enters the stomach with the tip off the limits of the image. Lungs: The pulmonary vasculature remains congested. Stable airspace opacities bilaterally in the mid to lower lung zones. Pleural space: Mildly decreased moderate right pleural effusion. Stable small left pleural effusion. No pneumothorax. Heart/Mediastinum: Stable borderline cardiomegaly. Bones/joints: Stable. Other findings: Mediastinum: Stable. XR/XR chest 1V portable [id number] IMPRESSION: 1. Persistent pulmonary vascular congestion. 2. Stable bilateral alveolar pulmonary edema. 3. Mildly decreased moderate right pleural effusion. 4. Stable small left pleural effusion.
[2020-04-24 09:06] LABS: Procalcitonin 0.41 ng/mL (0-0.5); Vitamin B12 1438 pg/mL (232-1245)
[2020-04-24 09:09] LABS: Folate Level 5.8 ng/mL (4.5-32.2)
[2020-04-24 09:17] LABS: C Reactive Protein 0.4 mg/L (0.0-4.9); Ferritin 187 ng/mL (30-400); Lactate Dehydrogenase 172 U/L (135-225)
[2020-04-24] MEDS: bumetanide 0.25 mg/mL SDV 10 mL 1 MG IV (09:24)
[2020-04-24] MEDS: enoxaparin 40 mg/0.4 mL Syringe SUBCUT (09:24)
[2020-04-24] MEDS: piperacillin-tazobactam 3.375 GM in sodium chloride 0.9% (plus) 50 ML IV ×2 (09:25→17:08)
[2020-04-24] MEDS: tamsulosin 0.4 mg Capsule 0.8 MG PO (09:25)
[2020-04-24] MEDS: pantoprazole 40 mg SDV IVP (09:25)
[2020-04-24] MEDS: ALPRAZolam 0.25 mg Tablet PO ×2 (09:26→16:22)
[2020-04-24] MEDS: allopurinol 300 mg Tablet PO (09:26)
[2020-04-24 09:37] LABS: ABG PCO2 34.3 mmHg (35-45); ABG PH Result 7.45 (7.35-7.45); Arterial Blood Gas Hematocrit 41.2 % (42-52); Base Excess ABG 0.1 mmol/L (-2.0-2.0); Blood Gas Allen Test Pos; Blood Gas Sample Site Radial, left; Blood Gas Sample Type Arterial; Blood Gas Tidal Volume 0.45; HCO3 ABG 23.7 mmol/L (22-26); Oxygen Device VENT; PO2 ABG 76.8 mmHg (80.0-100.0)
[2020-04-24 09:58] LABS: Hepatitis A Antibody IgM Non-Reactive (Nonreactive); Hepatitis B Core IgM Non-Reactive (Nonreactive); Hepatitis B Surface Antigen Non-Reactive (Nonreactive); Hepatitis C Virus Antibody Non-Reactive (Nonreactive)
[2020-04-24 09:59] LABS: Erythrocyte Sedimentation Rate > 120 mm/hr (0-10)
[2020-04-24] MEDS: sennosides-docusate Tablet 1 TAB PO ×2 (10:13→17:08)
[2020-04-24] MEDS: azithromycin 500 MG in sodium chloride 0.9% 250 ML 250 MG IV (10:14)
[2020-04-24] MEDS: vancomycin 1,000 MG in sodium chloride 0.9% 250 ML 250 MG IV (10:30)
[2020-04-24 11:13] LABS: Glucose Point of Care 174 mg/dL (70-110)
[2020-04-24 11:13] LABS: Glucose Point of Care 211 mg/dL (70-110)
--- NOTE | 2020-04-24 11:33 | PM.PN ---
Subjective Subjective: Interval history: This morning patient is intubated, sedated, on ventilation, transferred from emergency room, remains normotensive, sinus tachycardia heart rates in the 100s, temperature 97.3, PEEP of 8, FiO2 40%, tidal volume 450, work-up in the ER shows significant bilateral pleural effusions with compressive atelectasis, abdomen is distended Vitals/I&O/Wt Last Vital Signs Temp 97.3 F L 04/24/20 01:19 Pulse 106 H 04/24/20 07:08 Resp 14 04/24/20 11:22 BP 116/75 04/24/20 07:08 Pulse Ox 92 04/24/20 09:26 04/23/20 04/24/20 04/24/20 22:59 06:59 14:59 Intake Total 152.860 / 152.860 50 / 50 Balance 152.860 / 152.860 50 / 50 Weight last 48 hrs Weight 73.482 kg Physical Exam Const: OTHER: Intubated sedated on the ventilator HENMT: COMMON NORMALS: normocephalic HEAD & SCALP: normocephalic Neck/C-Spine: COMMON NORMALS: no JVD Resp: COMMON NORMALS: normal respiratory effort, No retractions and No use of accessory muscles AUSCULTATION: diminished lung sounds (Bilateral lung bases) Cardio: COMMON NORMALS: no JVD, regular rate, regular rhythm, S1 normal heart sound present and S2 normal heart sound present RATE: regular rate RHYTHM: regular rhythm HEART SOUNDS: S1 normal heart sound present and S2 normal heart sound present GI: COMMON NORMALS: Normal to inspection, nondistended, normoactive bowel sounds present, Soft to palpation, non-tender, No hepatosplenomegaly present, no masses and no bruits PALPATION: Yes Soft to palpation and Yes No hepatosplenomegaly present Extremity: COMMON NORMALS: capillary refill normal, no clubbing, cyanosis or edema, no calf tenderness and no pedal edema Psych: COMMON NORMALS: mental status grossly normal Urinary Catheter Management^: Ruvalcaba: Cath Placed During This Visit: yes Reason for Continuing Indwelling Catheter: Acute Urinary Retention or Obstruction Urinary Catheter Date of Insertion: 04/24/20 Urinary Catheter Time of Insertion: 06:32 Data : 04/24/20 02:00 04/24/20 02:00 Micro: Microbiology 04/24/20 02:11 Blood Culture - Preliminary Blood SPECIMEN COLLECTED 04/24/20 02:00 Blood Culture - Preliminary Blood SPECIMEN COLLECTED A&P Assessment and plan (1) Acute respiratory failure with hypoxia: -Secondary to significant bilateral pleural effusions, compressive atelectasis, cannot exclude underlying pneumonia, CHF exacerbation, COPD exacerbation -Patient has had 3 admissions in the last few months for pneumonia, COPD, CHF, has been on multiple rounds of antibiotic, diuretic therapies, steroid treatments, but is a readmission -Had a thoracocentesis on 04/21/2020 with 1000 cc out, no studies were sent -Of note patient's previous imaging showed bilateral nodule costal pleural thickening, nodular enlargement of adrenal glands, multiple subpleural nodules in the right upper right middle lobe, concerns were for possible neoplastic and/or metastatic disease Plan: -Admit to ICU -Mechanical ventilation, minimize PEEP to minimize FiO2, currently PEEP 8, FiO2 of 40%, tidal volume 450 -Propofol and fentanyl for sedation -Unfortunately currently we do not have radiology on-call, patient needs bilateral thoracocentesis, will consult radiology tomorrow for a diagnostic and therapeutic thoracocentesis hopefully bilaterally -As I cannot exclude underlying pneumonia, no significant leukocytosis, no pro-Keegan, lactic acid 1.0, continue broad-spectrum antibiotics vancomycin, Zosyn and azithromycin -Likely bilateral pleural effusions are from diastolic CHF, will try Bumex 1 mg IV every 24 hours, although I doubt that this will help with his bilateral pleural effusions, creatinine is up to 2.3, will gently diurese, monitor I's and O's -Continue tube feeds given his significant weakness, weight loss -Hold off on steroids until COVID-19 testing is back -Continue nebulizer treatments -Sputum cultures, blood cultures, urine cultures, urine bacterial antigens -Again will need a diagnostic thoracocentesis tomorrow, etiology of bilateral pleural effusions is likely heart failure related -We will order echocardiogram -Patient's abdomen was distended today, there was concerns for ascites in the past, will order an abdominal ultrasound -Likely consult Dr. Chandra when he is back on April 27 Full code Status: Acute (2) Bilateral pleural effusion: Status: Acute (3) Atrial fibrillation with RVR: -Has a history of atrial fibrillation, not secondary to pneumonia, not on anticoagulation due to bleed risk -Continue to monitor hemoglobin, telemetry monitoring Status: Resolved (4) Multiple myeloma: Status: Chronic Qualifiers: Multiple myeloma remission status: unspecified Qualified Code(s): C90.00 - Multiple myeloma not having achieved remission (5) Chronic kidney disease: -Creatinine currently 2.3, baseline 1.4 -Etiology likely acute kidney injury on chronic kidney disease secondary to diuretics, myeloma light chain, hypercalcemia Status: Chronic Qualifiers: Chronic kidney disease stage: stage 3 (moderate) Qualified Code(s): N18.3 - Chronic kidney disease, stage 3 (moderate) (6) Macrocytic anemia: Status: Chronic (7) Acute exacerbation of CHF (congestive heart failure): Status: Acute Qualifiers: Heart failure type: diastolic Qualified Code(s): I50.33 - Acute on chronic diastolic (congestive) heart failure (8) Hypertension: Status: Chronic Qualifiers: Hypertension type: essential hypertension Qualified Code(s): I10 - Essential (primary) hypertension (9) Acute kidney injury: Status: Acute (10) Diabetes mellitus, type II: -Insulin sliding scale -A1c on 04/05/2020 was 10.2 Status: Chronic Qualifiers: Diabetes mellitus residential insulin use: without long term care administrator use Diabetes mellitus complication status: without complication Qualified Code(s): E11.9 - Type 2 diabetes mellitus without complications (11) COPD (chronic obstructive pulmonary disease): Status: Chronic Qualifiers: COPD type: emphysema Emphysema type: other Qualified Code(s): J43.8 - Other emphysema Attestations Medical Necessity Statement*: Patient requires hospitalization for acute respiratory failure secondary to bilateral pleural effusions, Coding Level of Care Code Acute Stove Refinisher for [facility] Diagnoses Acute respiratory failure with hypoxia J96.01 Bilateral pleural effusion J90 Atrial fibrillation with RVR I48.91 Multiple myeloma C90.00 Multiple myeloma remission status: unspecified Chronic kidney disease N18.3 Chronic kidney disease stage: stage 3 (moderate) Macrocytic anemia D53.9 Acute exacerbation of CHF (congestive heart failure) I50.33 Heart failure type: diastolic Hypertension I10 Hypertension type: essential hypertension Acute kidney injury N17.9 Diabetes mellitus, type II E11.9 Diabetes mellitus residential insulin use: without long term care administrator use Diabetes mellitus complication status: without complication COPD (chronic obstructive pulmonary disease) J43.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
[2020-04-24] MEDS: propofol 1,000 MG/100 ML INJ 8.8 MG IV (12:38)
[2020-04-24 13:12] LABS: Creatine Phosphokinase 42 U/L (39-308)
[2020-04-24] MEDS: midodrine 5 mg TABLET 10 MG PO ×2 (14:17→21:48)
[2020-04-24 17:27] LABS: Glucose Point of Care 124 mg/dL (70-110)
--- NOTE | 2020-04-24 18:07 | PC.NURSE ---
dr espinoza aware of soft bp, midadrine given with no further drop in pressure and one wnl when patient awoke and tried to pull at his clothing and gtube. fentanyl and dipravan at min rate to keep him sedate and allow for a more robust bp .
[2020-04-24] MEDS: insulin glargine 100 units/1 mL 10 UNIT SUBCUT (21:48)
[2020-04-25] VITALS (50 sets, daily range): BP systolic 74–122; BP diastolic 47–71; PULSE 77–109; RESP 12–16; TEMP 37.1; O2SAT 91–100
[2020-04-25] MEDS: propofol 1,000 MG/100 ML INJ 6.6 MG IV ×2 (00:46→12:45)
[2020-04-25] MEDS: piperacillin-tazobactam 3.375 GM in sodium chloride 0.9% (plus) 50 ML IV ×3 (00:46→20:07)
[2020-04-25] MEDS: ipratropium-albuterol 3 mL Neb INHALATION ×3 (03:19→11:11)
[2020-04-25 04:29] LABS: Basophils % 0.2 %; Eosinophils # 0.1 10^3/uL (0.0-0.8); Eosinophils % 1.6 %; Hemoglobin 8.4 g/dL (11.7-16.6); Lymphocytes # 1.8 10^3/uL (0.8-4.8); Lymphocytes % 37.8 %; Mean Corpuscular Hemoglobin 30.5 pg (28.0-34.0); Mean Corpuscular Volume 105.5 fL (80-94); Mean Platelet Volume 11.5 fL (7.4-10.4); Monocytes # 0.4 10^3/uL (0.2-0.9); Neutrophils # 2.5 10^3/uL (1.8-7.7); Neutrophils % 52.2 %; Nucleated Red Blood Cells % 0 %; Platelet Count 116 10^3/cmm (130-400); Red Blood Count 2.75 10^6/uL (4.1-5.3); White Blood Count 4.9 10^3/uL (4.0-10.0)
[2020-04-25 04:34] LABS: INR 1.44 (0.8-1.2)
[2020-04-25 05:24] LABS: ABG PCO2 36.7 mmHg (35-45); ABG PH Result 7.42 (7.35-7.45); Arterial Blood Gas Hematocrit 28.7 % (42-52); Base Excess ABG -0.8 mmol/L (-2.0-2.0); Blood Gas Allen Test Pos; Blood Gas Sample Site Radial, right; Blood Gas Sample Type Arterial; Blood Gas Tidal Volume 0.45; HCO3 ABG 23.5 mmol/L (22-26); Oxygen Device VENT; PO2 ABG 70.5 mmHg (80.0-100.0)
--- NOTE | 2020-04-25 07:00 | XR_ITS ---
WS: [id number] CHEST XRAY TECHNIQUE: Portable chest. CLINICAL INFORMATION: sob COMPARISON: April 24, 2020 FINDINGS: Endotracheal tube with tip above the adam directed towards right mainstem bronchus. Enter ic tube tip below the diaphragm. Heart: Cardiomegaly. Lungs: Moderate right and small left pleural effusions unchanged. Moderate pulmonary vascular congest ion. Bibasilar atelectasis. Bones: Normal visualized bony structures. XR/XR chest 1V portable [id number] IMPRESSION: 1. Endotracheal tube at the adam directed towards right mainstem bronchus. T his could be retracted 2 CM. 2. Enteric tube tip below the diaphragm. 3. Cardiomegaly with moderate right and small pleural effusions with bibasilar atelectasis. 4. Slightly progressed moderate pulmonary vascular congestion with pulmonary e jose antonio.
[2020-04-25 08:05] LABS: Procalcitonin 0.65 ng/mL (0-0.5)
[2020-04-25] MEDS: enoxaparin 30 mg/0.3 mL Syringe SUBCUT (08:11)
[2020-04-25] MEDS: bumetanide 0.25 mg/mL SDV 10 mL 1 MG IV (08:11)
[2020-04-25] MEDS: azithromycin 500 MG in sodium chloride 0.9% 250 ML 250 MG IV (08:12)
[2020-04-25] MEDS: allopurinol 300 mg Tablet PO (08:12)
[2020-04-25] MEDS: pantoprazole 40 mg SDV IVP (08:13)
[2020-04-25] MEDS: midodrine 5 mg TABLET 10 MG PO ×3 (08:13→22:05)
[2020-04-25] MEDS: sennosides-docusate Tablet 1 TAB PO ×2 (08:14→17:38)
[2020-04-25] MEDS: tamsulosin 0.4 mg Capsule 0.8 MG PO (08:14)
[2020-04-25 08:16] LABS: Alanine Aminotransferase 6 U/L (0-41); Albumin Level 1.6 g/dL (3.5-5.2); Alkaline Phosphatase 32 IU/L (40-130); Anion Gap 17.8 (5-19); Aspartate Amino Transferase 18 U/L (0-40); Blood Urea Nitrogen 51 mg/dL (8-23); C Reactive Protein 4.5 mg/L (0.0-4.9); Calcium 9.4 mg/dL (8.5-10.5); Carbon Dioxide 21 mmol/L (22-29); Chloride 95 mmol/L (98-107); Creatine Phosphokinase 87 U/L (39-308); Globulin 8.7 g/dL (1.3-4.6); Glucose 149 mg/dL (65-115); Magnesium 2.3 mg/dL (1.7-2.3); Osmolality Calculated 269 mOsm/kg (285-295); Phosphorus 5.7 mg/dL (2.5-4.5); Potassium 4.8 mmol/L (3.5-5.1); Sodium 129 mmol/L (136-145); Total Bilirubin 0.7 mg/dL (0.15-1.2); Total Protein 10.3 g/dL (6.6-8.7)
[2020-04-25] MEDS: vancomycin 1,000 MG in sodium chloride 0.9% 250 ML 250 MG IV (10:21)
[2020-04-25 11:22] LABS: Glucose Point of Care 130 mg/dL (70-110)
[2020-04-25 12:00] LABS: Vancomycin Random 12.3 ug/mL (20.0-40.0)
[2020-04-25 12:10] LABS: Cortisol Random 10.17 ug/mL (2.47-19.5)
[2020-04-25] MEDS: dexmedetomidine 400 MCG in sodium chloride 0.9% (100 ml) 100 ML IV (14:10)
--- NOTE | 2020-04-25 14:56 | P.PN_ITS ---
Subjective Subjective: Interval history: No acute events overnight. Overnight patient has remained hemodynamically stable with blood pressures on the softer side but not requiring any IV pressors. On examination today morning patient is on 40% FiO2, tidal volume of 450, PEEP of 8, saturating 94%, T-max afebrile. Vitals/I&O/Wt Last Vital Signs Temp 97.9 F 04/24/20 19:00 Pulse 98 04/25/20 13:00 Resp 14 04/25/20 12:58 BP 113/64 04/25/20 14:00 Pulse Ox 91 04/25/20 14:00 04/24/20 04/25/20 04/25/20 22:59 06:59 14:59 Intake Total 196.567 / 912.317 122.383 / 1034.700 134.460 / 134.460 Output Total 750 / 1200 300 / 1500 Balance -553.433 / -287.683 -177.617 / -465.300 134.460 / 134.460 Weight last 48 hrs Weight 73.482 kg Physical Exam Narrative: EXAM NARRATIVE: General: Intubated sedated HEENT: PERRLA, pupils bilaterally equal and reactive Chest: Normal vesicular breath sounds, decreased air entry bilaterally lower zone CVS: S1-S2 regular, no murmurs, no tachycardia, no gallops, no rubs Abdomen: Soft, nontender, distended, soft hepatomegaly, bowel sounds present Neuro: E1 M1 VT, pupils bilaterally equal reactive Urinary Catheter Management^: Ruvalcaba: Cath Placed During This Visit: yes Reason for Continuing Indwelling Catheter: Acute Urinary Retention or Obstruction Urinary Catheter Date of Insertion: 04/24/20 Urinary Catheter Time of Insertion: 06:32 Data : 04/25/20 04:01 04/25/20 06:32 Micro: Microbiology 04/24/20 15:10 Gram Stain - Final Sputum - Expectorated Sputum Sputum Culture - Preliminary 04/24/20 02:11 Blood Culture - Preliminary Blood NEGATIVE TO DATE 04/24/20 02:00 Blood Culture - Preliminary Blood NEGATIVE TO DATE A&P Assessment and plan (1) Acute respiratory failure with hypoxia: Status: Acute (2) Bilateral pleural effusion: Status: Acute (3) Atrial fibrillation with RVR: Status: Resolved (4) Multiple myeloma: Status: Chronic Qualifiers: Multiple myeloma remission status: unspecified Qualified Code(s): C90.00 - Multiple myeloma not having achieved remission (5) Acute kidney injury: Status: Acute (6) Chronic kidney disease: Status: Chronic Qualifiers: Chronic kidney disease stage: stage 3 (moderate) Qualified Code(s): N18.3 - Chronic kidney disease, stage 3 (moderate) (7) Macrocytic anemia: Status: Chronic (8) Acute exacerbation of CHF (congestive heart failure): Status: Acute Qualifiers: Heart failure type: diastolic Qualified Code(s): I50.33 - Acute on chronic diastolic (congestive) heart failure (9) Hypertension: Status: Chronic Qualifiers: Hypertension type: essential hypertension Qualified Code(s): I10 - Essential (primary) hypertension (10) Diabetes mellitus, type II: -Insulin sliding scale -A1c on 04/05/2020 was 10.2 Status: Chronic Qualifiers: Diabetes mellitus exterminator helper insulin use: without long-term use Diabetes mellitus complication status: without complication Qualified Code(s): E11.9 - Type 2 diabetes mellitus without complications (11) COPD (chronic obstructive pulmonary disease): Status: Chronic Qualifiers: COPD type: emphysema Emphysema type: other Qualified Code(s): J43.8 - Other emphysema Additional A&P Information Acute respiratory failure with hypoxia: Most likely because of bilateral pleural effusion, compressive atelectasis. Though cannot rule out underlying pneumonia. Patient has remained afebrile, procalcitonin within normal limits, today mildly elevated because of creatinine rising as well. Patient has been on vancomycin and Zosyn since admission. For now we will continue as patient is intubated. Patient's pleural effusion was thought to be because of diastolic heart failure but could be because of multiple myeloma as well. Thoracocentesis has been scheduled. COVID-19 results awaited. Advair, Spiriva as COVID-19 results are still awaited Diastolic heart failure: Last echocardiogram in January 2020 shows an EF of 60% with no regional wall motion abnormality, grade 1 diastolic dysfunction. Patient has been on Bumex 1 mg IV twice daily. Overall net negative. We will hold off on any further diuresis as patient's creatinine is trending up. Daily weights. Recommend proper charting. Patient received Bumex today morning. Creatinine trending up we will hold off on any further diuresis for now. Borderline blood pressures: Most likely because of sedation. Stop propofol and start patient on fentanyl and Precedex. We will continue to monitor blood pressures. Continue with midodrine 10 mg p.o. 3 times daily which was started earlier in this admission. We will continue to monitor blood pressures. Keep mean arterial pressure over 60 mmHg. Multiple myeloma: Patient follows up with Dr. Cheng. Supposed to be on chemo therapy with Velcade, Revlimid, dexamethasone weekly but recently has been withheld because of worsening renal functions. Case discussed with Dr. Cheng. As per him as patient's protein levels continue to be high along with globin levels as high as 8 at this point patient most likely needs plasmapheresis as soon as possible. Patient as per Dr. Cheng most likely needs to be transferred to [facility]. Have confirmed with patient's and she is agreeable to same. Once the COVID-19 results are back will call for a possible transfer for further treatment at a tertiary center. Patient symptoms are most likely because of worsening multiple myeloma. Atrial fibrillation: Normal sinus rhythm for now. Continue to monitor. We will hold off on home dose of beta-linda because of borderline blood pressures. Bobby Vascor 5. Patient has not qualified for anticoagulation past because of anemia. CKD: Acute kidney injury for now: secondary to diuretics, myeloma light chain, hypercalcemia. Baseline creatinine 1.4. Creatinine worsening to 3.4 today. We will hold off on any further diuresis for now. Medical reconciliation done for nephrotoxic drugs. No dyslipidemia for now. We will continue to monitor BMP daily. Type 2 diabetes insulin-dependent Insulin sliding scale every 6 hour as needed. Continue with glargine at 5 units at bedtime. Blood sugars acceptable. We will hold off on tube feeds for now for possible transfer versus possible thoracocentesis. Patient's who is the DPOAE has been updated regarding his condition. She is also updated regarding the concerns which Dr. Cheng had. She is agreeable to transfer at a higher center once COVID-19 results are back. She states for now patient is full code and would want to pursue. All the questions were answered. Full code Lovenox Tube feeds on hold for possible thoracocentesis versus transfer. Attestations Medical Necessity Statement*: Hypoxic resp failure, acute on chronic kidney injury, multiple myeloma Critical Care Time: Ventilator Critical Care Time (min): 70 Coding Level of Care Code Acute Audio Technician for Chg Fwd Diagnoses Acute respiratory failure with hypoxia J96.01 Bilateral pleural effusion J90 Atrial fibrillation with RVR I48.91 Multiple myeloma C90.00 Multiple myeloma remission status: unspecified Acute kidney injury N17.9 Chronic kidney disease N18.3 Chronic kidney disease stage: stage 3 (moderate) Macrocytic anemia D53.9 Acute exacerbation of CHF (congestive heart failure) I50.33 Heart failure type: diastolic Hypertension I10 Hypertension type: essential hypertension Diabetes mellitus, type II E11.9 Diabetes mellitus long-term insulin use: without long-term use Diabetes mellitus complication status: without complication COPD (chronic obstructive pulmonary disease) J43.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
[2020-04-25 16:56] LABS: Glucose Point of Care 138 mg/dL (70-110)
[2020-04-25] MEDS: insulin glargine 100 units/1 mL 5 UNIT SUBCUT (22:05)
[2020-04-25 23:20] LABS: Glucose Point of Care 205 mg/dL (70-110)
[2020-04-26] VITALS (39 sets, daily range): BP systolic 82–124; BP diastolic 51–76; PULSE 68–173; RESP 12–18; TEMP 36.6–37; O2SAT 90–100
[2020-04-26] MEDS: dexmedetomidine 400 MCG in sodium chloride 0.9% (100 ml) 100 ML 9.6 MCG IV ×2 (00:24→10:24)
[2020-04-26 04:02] LABS: Basophils % 0.2 %; Eosinophils % 0.4 %; Hematocrit 28.2 % (42.0-52.0); Hemoglobin 8.7 g/dL (11.7-16.6); Lymphocytes # 0.9 10^3/uL (0.8-4.8); Lymphocytes % 18.1 %; Mean Corpuscular HGB Conc 30.9 g/dL (30.0-36.0); Mean Corpuscular Hemoglobin 30.9 pg (28.0-34.0); Mean Platelet Volume 11.6 fL (7.4-10.4); Monocytes # 0.3 10^3/uL (0.2-0.9); Monocytes % 4.9 %; Neutrophils # 3.9 10^3/uL (1.8-7.7); Nucleated Red Blood Cells % 0 %; Platelet Count 122 10^3/cmm (130-400); Red Blood Count 2.82 10^6/uL (4.1-5.3); Red Cell Distribution Width 17.6 % (12.1-15.1); White Blood Count 5.1 10^3/uL (4.0-10.0)
[2020-04-26 04:23] LABS: Alanine Aminotransferase < 5 U/L (0-41); Albumin Level 1.6 g/dL (3.5-5.2); Alkaline Phosphatase 33 IU/L (40-130); Anion Gap 16.1 (5-19); Aspartate Amino Transferase 17 U/L (0-40); Blood Urea Nitrogen 59 mg/dL (8-23); Calcium 9.4 mg/dL (8.5-10.5); Carbon Dioxide 22 mmol/L (22-29); Chloride 98 mmol/L (98-107); Globulin 8.5 g/dL (1.3-4.6); Glucose 112 mg/dL (65-115); Magnesium 2.3 mg/dL (1.7-2.3); Osmolality Calculated 271 mOsm/kg (285-295); Phosphorus 6.4 mg/dL (2.5-4.5); Potassium 5.1 mmol/L (3.5-5.1); Sodium 131 mmol/L (136-145); Total Bilirubin 0.6 mg/dL (0.15-1.2); Total Protein 10.1 g/dL (6.6-8.7)
[2020-04-26 05:04] LABS: ABG PCO2 36.8 mmHg (35-45); ABG PH Result 7.43 (7.35-7.45); Arterial Blood Gas Hematocrit 43.7 % (42-52); Blood Gas Allen Test Pos; Blood Gas Sample Site Radial, right; Blood Gas Sample Type Arterial; Blood Gas Tidal Volume 0.45; HCO3 ABG 24.1 mmol/L (22-26); Oxygen Device VENT; PO2 ABG 71.3 mmHg (80.0-100.0)
--- NOTE | 2020-04-26 07:00 | USCV_ITS ---
Renate Yarbrough Age: 84 Gender: M : 1935 Exam Date: 04/26/2020 06:17 Ordering Phys: Madhav Miguel MD Technologist: Nikhil Pizarro [place]am [place] [facility] [place]: RECENT PLEURAL EFF BP: 83 / 52 HR: 75 Rhythm: Sinus Technical Quality: Adequate MEASUREMENTS (Male / Female) Normal Values 2D ECHO LV Diastolic Diameter PLAX 4.6 cm 4.2 - 5.9 / 3.9 - 5.3 cm LV Systolic Diameter PLAX 2.9 cm IVS Diastolic Thickness 1.3 cm 0.6 - 1.0 / 0.6 - 0.9 cm IVS Systolic Thickness 1.3 cm LVPW Diastolic Thickness 1.3 cm 0.6 - 1.0 / 0.6 - 0.9 cm LVPW Systolic Thickness 1.4 cm LVOT Diameter 2.0 cm LV Ejection Fraction 2D Teich 67.7 % LV Ejection Fraction MOD 2C 58.7 % LV Ejection Fraction 2C AL 58.6 % LA Diameter 3.9 cm M-MODE LV Diastolic Diameter MM 5.8 cm 4.2 - 5.9 / 3.9 - 5.3 cm LV Systolic Diameter MM 3.8 cm LV Ejection Fraction MM Teich 63.0 % IVS Diastolic Thickness MM 1.5 cm 0.6 - 1.0 / 0.6 - 0.9 cm IVS Systolic Thickness MM 1.6 cm LVPW Diastolic Thickness MM 1.4 cm 0.6 - 1.0 / 0.6 - 0.9 cm LVPW Systolic Thickness MM 1.9 cm RV Diastolic Diameter MM 2.1 cm Aortic Annulus Diameter 3.1 cm LA Ao Ratio MM 1.3 MV E Point Septal Separation 0.8 cm DOPPLER AV Peak Velocity 210.0 cm/s LVOT Peak Velocity 107.0 cm/s AV Area Cont Eq vti 1.5 cm squared AV Area Cont Eq pk 1.6 cm squared MV Area PHT 5.0 cm squared Mitral E to A Ratio 0.9 MV E' Velocity 8.0 cm/s Mitral E to MV E' Ratio 8.9 Mitral E to LV E' Lateral Ratio 7.7 Mitral E to LV E' Septal Ratio 10.5 TR Peak Velocity 411.0 cm/s TR Peak Gradient 67.6 mmHg TV Peak E Velocity 127.0 cm/s Right Atrial Pressure 3.0 mmHg Pulmonary Artery Systolic Pressu 70.6 mmHg PV Peak Velocity 71.0 cm/s FINDINGS Left Ventricle Normal left ventricular size, systolic function and wall thickness, with no regional wall motion abnormalities. Grade I/IV diastolic dysfunction (abnormal relaxation filling pattern), normal to mildly elevated filling pressures. Left ventricular ejection fraction is estimated at 60 %. Right Ventricle Moderately increased right ventricular size. Normal right ventricular systolic function. Severe pulmonary hypertension, RVSP 70.6 mmHg. Right Atrium Mildly increased right atrial size. Left Atrium Mildly increased left atrial size. Mitral Valve Mitral valve not well visualized. Structurally normal mitral valve. No mitral valve regurgitation. Aortic Valve Structurally normal trileaflet aortic valve. Mild aortic valve calcification. Mild aortic valve stenosis, mean gradient 6.6 mmHg, VALORIE 1.5 cm squared. Tricuspid Valve Structurally normal tricuspid valve. Tricuspid valve not well visualized. [id number] tricuspid valve regurgitation. Pulmonic Valve Pulmonic valve not well visualized. Pericardium There is a very small pericardial effusion. It is hemodynamically insignificant. Aorta Normal ascending aorta dimension. CONCLUSIONS Normal left ventricular size, systolic function and wall thickness, with no regional wall motion abnormalities. Grade I/IV diastolic dysfunction (abnormal relaxation filling pattern), normal to mildly elevated filling pressures. Left ventricular ejection fraction is estimated at 60 %. Moderately increased right ventricular size. Normal right ventricular systolic function. Severe pulmonary hypertension, RVSP 70.6 mmHg. Mildly increased right atrial size. Mildly increased left atrial size. Structurally normal trileaflet aortic valve. Mild aortic valve calcification. Mild aortic valve stenosis, mean gradient 6.6 mmHg, VALORIE 1.5 cm squared. Previous echo was done only 2 months ago. There has been no change. Dr. Dakotah Christian MD (Electronically Signed) Final Date: 26 April 2020 07:55 S
[2020-04-26] MEDS: piperacillin-tazobactam 3.375 GM in sodium chloride 0.9% (plus) 50 ML IV ×2 (08:31→19:56)
[2020-04-26] MEDS: midodrine 5 mg TABLET 10 MG PO ×3 (08:31→20:12)
[2020-04-26] MEDS: pantoprazole 40 mg SDV IVP (08:31)
[2020-04-26] MEDS: tamsulosin 0.4 mg Capsule PO (08:31)
[2020-04-26] MEDS: sennosides-docusate Tablet 1 TAB PO (08:31)
[2020-04-26] MEDS: enoxaparin 30 mg/0.3 mL Syringe SUBCUT (08:31)
[2020-04-26] MEDS: allopurinol 300 mg Tablet PO (08:31)
[2020-04-26 09:16] LABS: Vancomycin Trough 18.2 ug/mL (10-15)
[2020-04-26] MEDS: vancomycin 750 MG in sodium chloride 0.9% 250 ML 250 MG IV (10:05)
[2020-04-26 11:19] LABS: Glucose Point of Care 144 mg/dL (70-110)
--- NOTE | 2020-04-26 11:42 | US_ITS ---
WS: [id number] ULTRASOUND-GUIDED THORACENTESIS CLINICAL INFORMATION: right sided COMPARISON: None. PROCEDURE: Informed consent: The risks, benefits, and alternatives of the procedure were discussed with the evelyn ent. Verbal and written consent was obtained. Timeout: A timeout was performed to confirm the correct patient, procedure, and site. Site: Right chest Preparation: A suitable skin site was identified. The patient was prepped and draped in usual sterile fashion. Lidocaine 1% was used for local anesthesia. Catheter: 4 Welsh One-Step catheter. Fluid Volume: 1000 ml Color: Clear rik 50 cc Sent to the laboratory for analysis. Complications: None. Portable radiograph infiltrates improved right pleural effusion. No pneumothorax. US/ thoracentesis [id number] IMPRESSION: Uncomplicated ultrasound-guided thoracentesis with removal of [address]
--- NOTE | 2020-04-26 11:54 | CTR_ITS ---
PROCEDURE INFORMATION: Exam: CT Chest Without Contrast Exam date and time: 04/26/2020 5:19 PM Age: 84 years old Clinical indication: Other: SOB; Abdominal pain; Generalized; Shortness of breath; Prior surgery; Surgery type: L-spine, appy; Additional info: , Javon TECHNIQUE: Imaging protocol: Computed tomography of the chest without contrast. Radiation optimization: All CT scans at this facility use at least one of these dose optimization techniques: automated exposure control; mA and/or kV adjustment per patient size (includes targeted exams where dose is matched to clinical indication); or iterative reconstruction. COMPARISON: CT chest abd pel wo con 02/20/2020 11:24 AM RADIATION DOSE METRICS: Total DLP (mGy-cm): 1885.31 FINDINGS: Lungs: There is compressive atelectasis of both lower lobes. Pleural space: large bilateral pleural effusions. There is nodular costal pleural thickening bilaterally which is new since 02/20/2020. Heart: Heart size is normal. There is trace pericardial effusion. There is moderate coronary artery calcification. Aorta: Moderate aortic atherosclerotic disease. 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 Lymph nodes: There is no mediastinal or hilar lymphadenopathy. There are calcified lymph nodes in the right hilum. Bones/joints: Bones are unremarkable. Soft tissues: The extrathoracic soft tissues are unremarkable. IMPRESSION: 1. Large bilateral pleural effusions. 2. 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 A primary neoplasm is not identified. PROCEDURE INFORMATION: Exam: CT Abdomen And Pelvis Without Contrast Exam date and time: 04/26/2020 5:19 PM Age: 84 years old Clinical indication: Other: SOB; Abdominal pain; Generalized; Shortness of breath; Prior surgery; Surgery type: L-spine, appy; Additional info: , Javon TECHNIQUE: Imaging protocol: Computed tomography of the abdomen and pelvis without contrast. Radiation optimization: All CT scans at this facility use at least one of these dose optimization techniques: automated exposure control; mA and/or kV adjustment per patient size (includes targeted exams where dose is matched to clinical indication); or iterative reconstruction. COMPARISON: CT chest abd pel wo con 02/20/2020 11:24 AM RADIATION DOSE METRICS: Total DLP (mGy-cm): 1885.31 FINDINGS: Liver: The liver is normal. Gallbladder and bile ducts: The gallbladder is normal. There is no biliary dilation. Pancreas: There is marked atrophy of the pancreas. Spleen: The spleen is unremarkable. Adrenals: Multiple new bilateral adrenal nodules, measuring up to 4.3 x 3.7 cm in aggregate on the left and 5.4 x 2.9 cm on the right. Kidneys and ureters: Nonobstructive stones at the lower pole of the right kidney. No hydronephrosis. Unremarkable left kidney. No hydronephrosis or stones. Stomach and bowel: The stomach is unremarkable. The small bowel is nondilated. There is marked distal descending and sigmoid colonic diverticulosis without evidence of diverticulitis. Appendix: The appendix is normal. Intraperitoneal space: There is no free air or significant intraperitoneal free fluid. Vasculature: There is moderate aortic atherosclerotic disease. Lymph nodes: There is no lymphadenopathy in the retroperitoneum, mesentery, pelvis or inguinal regions. Bladder: The Ruvalcaba catheter is appropriately positioned with the bulb and tip within the bladder lumen. Reproductive: The prostate and seminal vesicles are unremarkable. Bones/joints: Intact L3 through L5 posterolateral fusion. There is moderate degenerative disease in the lumbar spine. The pelvis and hips are intact. Soft tissues: The abdominal wall is intact. Other findings: Nonspecific presacral edema. CT/CT chest abd pel wo con IMPRESSION: 1. No acute findings. 2. Multiple large bilateral adrenal nodules are new since 02/20/2020, suggesting metastases. 3. Incidental findings above. Radiation Dose CTDIVOL = (mGy): DLP = 1885.31~1885.31 (mGy-cm)
--- NOTE | 2020-04-26 11:57 | P.PN_ITS ---
Subjective Subjective: Interval history: No acute events overnight. Patient has remained hemodynamically stable. Today morning on examination patient was still intubated on FiO2 35%, PEEP of 8 which was decreased to 6 by me, tidal volume of 450. On evaluation patient is sedated but arousable and following me with his eyes around the room. During the day patient had thoracocentesis on the right side and 2000 cc was drained. Patient tolerated procedure well. Post procedure chest x-ray revi ewed. At around 5 PM patient self extubated and post extubation patient was saturating 96% on 3 L nasal cannula but was having gurgling sound in his throat which he was able to expectorate well. On confirming patient stated he would want to be intubated again if required. Did explain to him well that we would like to hold off on intubation as much as possible and see how he does. Patient was put on BiPAP to see if he does well off ventilator. Patient was also explained if required and if patient is not able to maintain his saturations will intubate him again. Patient states that he is reluctant to be intubated but he would not want to and would remain full code for now. Vitals/I&O/Wt Last Vital Signs Temp 97.9 F 04/26/20 08:42 Pulse 72 04/26/20 10:00 Resp 13 04/26/20 11:29 BP 84/53 04/26/20 10:00 Pulse Ox 93 04/26/20 10:00 04/25/20 04/26/20 04/26/20 22:59 06:59 14:59 Intake Total 40 / 174.460 226.507 / 400.967 / Output Total 1000 / 1000 Balance 40 / 174.460 -773.493 / -599.033 / Physical Exam Narrative: EXAM NARRATIVE: General: AO x3, drowsy but awake and alert HEENT: PERRLA, pupils bilaterally equal and reactive Chest: Normal vesicular breath sounds, decreased air entry bilaterally lower zo ne, bilateral coarse crackles present more in the lower zones, decreased air entry in the left lower zone CVS: S1-S2 regular, no murmurs, no tachycardia, no gallops, no rubs Abdomen: Soft, nontender, distended, soft hepatomegaly, bowel sounds present Neuro: E3 M5 V6 Urinary Catheter Management^: Ruvalcaba: Cath Placed During This Visit: yes Reason for Continuing Indwelling Catheter: Acute Urinary Retention or Obstruction Urinary Catheter Date of Insertion: 04/24/20 Urinary Catheter Time of Insertion: 06:32 Data : 04/26/20 12:50 04/26/20 03:05 Micro: Microbiology 04/24/20 12:25 MRSA Culture - Final Nose 04/24/20 15:10 Gram Stain - Final Sputum - Expectorated Sputum Sputum Culture - Preliminary A&P Assessment and plan (1) Acute respiratory failure with hypoxia: Status: Acute (2) Bilateral pleural effusion: Status: Acute (3) Atrial fibrillation with RVR: Status: Resolved (4) Multiple myeloma: Status: Chronic Qualifiers: Multiple myeloma remission status: unspecified Qualified Code(s): C90.00 - Multiple myeloma not having achieved remission (5) Acute kidney injury: Status: Acute (6) Chronic kidney disease: Status: Chronic Qualifiers: Chronic kidney disease stage: stage 3 (moderate) Qualified Code(s): N18.3 - Chronic kidney disease, stage 3 (moderate) (7) Macrocytic anemia: Status: Chronic (8) Acute exacerbation of CHF (congestive heart failure): Status: Acute Qualifiers: Heart failure type: diastolic Qualified Code(s): I50.33 - Acute on chronic diastolic (congestive) heart failure (9) Hypertension: Status: Chronic Qualifiers: Hypertension type: essential hypertension Qualified Code(s): I10 - Essential (primary) hypertension (10) Diabetes mellitus, type II: -Insulin sliding scale -A1c on 04/05/2020 was 10.2 Status: Chronic Qualifiers: Diabetes mellitus complication status: without complication Diabetes mellitus termite inspector insulin use: without intermediate use Qualified Code(s): E11.9 - Type 2 diabetes mellitus without complications (11) COPD (chronic obstructive pulmonary disease): Status: Chronic Qualifiers: COPD type: emphysema Emphysema type: other Qualified Code(s): J43.8 - Other emphysema Additional A&P Information Acute respiratory failure with hypoxia: Most likely because of bilateral pleural effusion, compressive atelectasis. Though cannot rule out underlying pneumonia. Patient has remained afebrile, procalcitonin within normal limits. Self extubated today. For now we will continue to monitor on BiPAP. We will repeat an ABG in 2 hours and see how he is doing. Stop all sedation IV Lasix 40 mg stat. Oxygen supplementation keeping saturation over 92%. Patient has been on vancomycin and Zosyn since admission. If patient remains afebrile for next 24 hours will de-escalate antibiotics and see how he does. Blood cultures, sputum Gram stain has remained unremarkable for now. Patient's pleural effusion was thought to be because of diastolic heart failure but could be because of multiple myeloma as well. Right-sided thoracocentesis done. Awaiting results of pleural fluid. COVID-19 negative. Remove isolation precautions. DuoNebs every 6 hour, budesonide twice daily. Diastolic heart failure: Last echocardiogram in January 2020 shows an EF of 60% with no regional wall motion abnormality, grade 1 diastolic dysfunction. Patient has been on Bumex 1 mg IV twice daily. Overall net negative. On chest x-ray congestion is improving. Patient's creatinine is worsening but patient still sounds very junky and has self extubated so we will give him 40 mg of IV Lasix and monitor his urine output. Patient is overall 1100 cc negative Daily weights, strict input output charting. Multiple myeloma: Patient follows up with Dr. Cheng. Supposed to be on chemotherapy with Velcade, Revlimid, dexamethasone weekly but recently has been withheld because of worsening renal functions. Case discussed with Dr. Cheng. As per him as patient's protein levels continue to be high along with globin levels as high as 8 at this point patient most likely needs plasmapheresis as soon as possible. Patient as per Dr. Cehng most likely needs to be transferred to [facility]. Have confirmed with patient's and she is agreeable to same. Patient symptoms are most likely due to worsening multiple myeloma. Patient accepted at [facility] yesterday but bed is awaited. We will continue to monitor the bed status [facility]. Atrial fibrillation: Normal sinus rhythm for now. Continue to monitor. We will hold off on home dose of beta-linda because of borderline blood pressures. Bobby Vascor 5. Patient has not qualified for anticoagulation past because of anemia. CKD: Acute kidney injury for now: secondary to diuretics, myeloma light chain, hypercalcemia. Baseline creatinine 1.4. Creatinine worsening. Check renal ultrasound, urine studies. If patient continues to worsen will most likely consult nephrology tomorrow. Medical reconciliation done for nephrotoxic drugs. No electrode abnormality for now. We will continue to monitor BMP daily. Type 2 diabetes insulin-dependent Insulin sliding scale every 6 hour as needed. Continue with glargine at 5 units at bedtime. Blood sugars acceptable. Continue to keep n.p.o. today. We will do speech and swallow evaluation tomorrow and see how he does. Patient's who is the DPOAE has been updated regarding his condition. has been updated that patient i has been accepted at [facility] but is awaiting a bed. Also updated that patient is COVID-19 rule out. Post self extubation discussed with patient if he would like to be reintubated. At first he states he would does not want reintubation at all. Did discuss with him that in case he needs intubation and if he is not intubated that he might . At that point he states that no matter what he would want to live and at present he would want chest compressions and reintubation if needed. Patient is full code. Full code Lovenox N.p.o. Attestations Medical Necessity Statement*: Acute hypoxic respiratory failure, ventilator setting management, multiple myeloma, NADIA on CKD Critical Care Time: Ventilator management Critical Care Time (min): 80 Coding Level of Care Code Acute Drop Wire Aliner for [facility] Diagnoses Acute respiratory failure with hypoxia J96.01 Bilateral pleural effusion J90 Atrial fibrillation with RVR I48.91 Multiple myeloma C90.00 Multiple myeloma remission status: unspecified Acute kidney injury N17.9 Chronic kidney disease N18.3 Chronic kidney disease stage: stage 3 (moderate) Macrocytic anemia D53.9 Acute exacerbation of CHF (congestive heart failure) I50.33 Heart failure type: diastolic Hypertension I10 Hypertension type: essential hypertension Diabetes mellitus, type II E11.9 Diabetes mellitus complication status: without complication Diabetes mellitus intermediate insulin use: without termite inspector use COPD (chronic obstructive pulmonary disease) J43.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
--- NOTE | 2020-04-26 12:20 | XRR_ITS ---
PROCEDURE INFORMATION: Exam: XR Chest, 1 View Exam date and time: 04/26/2020 12:41 PM Age: 84 years old Clinical indication: Screening exam; Other screening; Patient HX: Post thoracentesis TECHNIQUE: Imaging protocol: XR of the chest Views: Frontal portable upright view of the chest. COMPARISON: CR XR chest 1V portable [id number] 04/25/2020 6:02 AM FINDINGS: Tubes, catheters and devices: The endotracheal tube tip is approximately 4 cm above the adam. The feeding tube enters the stomach with the tip off the limits of the image. EKG leads are present overlying the chest. Respiratory tubing overlies the lateral left upper chest. Lungs: The pulmonary vasculature is less congested and better defined. There is moderate interval improvement in bilateral pulmonary air space opacities in the central and mid-upper lung zones, relatively stable in the basis. Pleural space: Stable moderate left pleural effusion. Stable small right pleural effusion. No pneumothorax. Heart/Mediastinum: Mediastinum: Stable. Bones/joints: Stable. XR/XR chest 1V portable [id number] IMPRESSION: 1. Improved pulmonary vascular congestion. 2. Improved pulmonary edema. 3. Stable moderate left pleural effusion. 4. Stable small right pleural effusion.
[2020-04-26 12:58] LABS: NT Pro B Type Natriuretic Pept 1260 pg/mL (0-450)
[2020-04-26 13:24] LABS: ABG PCO2 35.4 mmHg (35-45); ABG PH Result 7.41 (7.35-7.45); Alveolar-Arterial Oxygen Gradi 130.8 mmHg (5-10); Arterial Blood Gas Hematocrit 25.6 % (42-52); Base Excess ABG -1.8 mmol/L (-2.0-2.0); Blood Gas Allen Test Pos; Blood Gas Sample Site Radial, right; Blood Gas Sample Type Arterial; Blood Gas Tidal Volume 0.45; Carboxyhemoglobin 1.2 %THgb (0.4-20.1); HCO3 ABG 22.5 mmol/L (22-26); Ionized Calcium Level - ABG 1.1 mmol/L (1.1-1.4); Methemoglobin 0.8 % (0.4-1.5); Oxygen Device VENT; Oxygen Saturation ABG 94.9; PO2 ABG 69.7 mmHg (80.0-100.0); Total Hemoglobin 8.3 g/dL (14-18)
[2020-04-26 14:28] LABS: Mononuclear %, Pleural Fluid 92 %; Mononuclear, Pleural Fluid # 0.873 10^3/uL; Polynuclear Cells, Pleural # 0.079 10^3/uL; Polynuclear Cells, Pleural % 8 %
[2020-04-26 14:33] LABS: Color, Pleural Fluid Pale Yellow (Pale Yellow)
[2020-04-26 14:34] LABS: Appearance, Pleural Fluid CLOUDY (CLEAR); PATH Referral YES
[2020-04-26 14:41] LABS: Albumin Body Fluid 1.5 g/dL; Cholesterol Body Fluid 45 mg/dL (0-200); Fluid Alkaline Phos. 12 IU/L
[2020-04-26 14:42] LABS: Creatinine Body Fluid 3.8 (0.7-1.2); LDH Pleural Fluid 413 U/L; Triglycerides, Pleural Fluid 19 mg/dL; Uric Acid Body Fluid 6 mg/dL
[2020-04-26 14:59] LABS: Hematocrit 0.1 % (42.0-52.0)
[2020-04-26 16:15] LABS: Creatinine, Random Urine 113 mg/dL (20-320); Protein, Total, Random 389 mg/dL (5-25); Protein/Creatinine Ratio 3.442 (0.022-0.128); Protein/Creatinine Ratio 3442 mg/g creat (22-128)
[2020-04-26 16:46] LABS: Glucose Point of Care 172 mg/dL (70-110)
[2020-04-26] MEDS: FUROsemide 10 mg/mL SDV 4mL 40 MG IVP (16:47)
--- NOTE | 2020-04-26 17:00 | PC.NURSE ---
self extubation Nurse heard vent alarms at 1605, went to assess patient, and ET tube was laying on patients chest, his O2 saturations on room air were 88-90%, placed on 4L nasal cannula immediately. Notifed RT Raquel and Dr. Lakhani immediately, Dr. Chapin and Raquel both to bedside. Patient is alert and able to hold conversation, but drowsy. Dr. Lakhani ordered to place patient on bipap and administer Lasix 40mg IV now. This nurse notified patient , son, and granddaughter at this time. verbalized understanding.
[2020-04-26 18:45] LABS: Glucose Point of Care 158 mg/dL (70-110)
[2020-04-26] MEDS: insulin glargine 100 units/1 mL 5 UNIT SUBCUT (20:11)
[2020-04-26] MEDS: trazodone 50 mg Tablet 25 MG PO (20:12)
[2020-04-26] MEDS: ipratropium-albuterol 3 mL Neb INHALATION (20:16)
[2020-04-26] MEDS: budesonide 0.5 mg/2 mL Neb INHALATION (20:16)
--- NOTE | 2020-04-26 22:03 | PC.NURSE ---
Addendum entered by Aileen Holliday RN 04/26/20 23:37: witnessed SHAYNA Xiao waste 105ML of Fentanyl. Original Note: wasted 105 ML of Fentanyl drip witnessed by Aileen Holliday RN
[2020-04-27] VITALS (20 sets, daily range): BP systolic 90–124; BP diastolic 54–71; PULSE 84–116; RESP 13–24; TEMP 37; O2SAT 85–98
[2020-04-27 00:24] LABS: Glucose Point of Care 164 mg/dL (70-110)
[2020-04-27] MEDS: ipratropium-albuterol 3 mL Neb INHALATION ×2 (02:53→08:02)
[2020-04-27] MEDS: ALPRAZolam 0.25 mg Tablet PO ×3 (03:20→15:22)
[2020-04-27 04:47] LABS: Basophils % 0.1 %; Eosinophils % 0.3 %; Hematocrit 30.9 % (42.0-52.0); Hemoglobin 9.5 g/dL (11.7-16.6); Lymphocytes # 0.6 10^3/uL (0.8-4.8); Lymphocytes % 9.2 %; Mean Corpuscular HGB Conc 30.7 g/dL (30.0-36.0); Mean Corpuscular Hemoglobin 30.9 pg (28.0-34.0); Mean Corpuscular Volume 100.7 fL (80-94); Mean Platelet Volume 11.4 fL (7.4-10.4); Monocytes # 0.3 10^3/uL (0.2-0.9); Monocytes % 3.9 %; Neutrophils % 86.2 %; Nucleated Red Blood Cells % 0 %; Platelet Count 165 10^3/cmm (130-400); Red Blood Count 3.07 10^6/uL (4.1-5.3); Red Cell Distribution Width 17.8 % (12.1-15.1)
[2020-04-27 05:13] LABS: Alanine Aminotransferase 7 U/L (0-41); Albumin Level 1.5 g/dL (3.5-5.2); Alkaline Phosphatase 36 IU/L (40-130); Anion Gap 19.1 (5-19); Aspartate Amino Transferase 30 U/L (0-40); Blood Urea Nitrogen 61 mg/dL (8-23); Calcium 9.1 mg/dL (8.5-10.5); Carbon Dioxide 20 mmol/L (22-29); Chloride 97 mmol/L (98-107); Globulin 8.9 g/dL (1.3-4.6); Glucose 88 mg/dL (65-115); Magnesium 2.4 mg/dL (1.7-2.3); Osmolality Calculated 272 mOsm/kg (285-295); Phosphorus 5.2 mg/dL (2.5-4.5); Potassium 4.1 mmol/L (3.5-5.1); Sodium 132 mmol/L (136-145); Total Bilirubin 0.9 mg/dL (0.15-1.2); Total Protein 10.4 g/dL (6.6-8.7)
[2020-04-27 05:59] LABS: ABG PCO2 31.9 mmHg (35-45); ABG PH Result 7.46 (7.35-7.45); Arterial Blood Gas Hematocrit 32.5 % (42-52); Base Excess ABG -0.7 mmol/L (-2.0-2.0); Blood Gas Sample Site Brachial, left; Blood Gas Sample Type Arterial; HCO3 ABG 22.6 mmol/L (22-26); Oxygen Device BIPAP; PO2 ABG 79.5 mmHg (80.0-100.0)
[2020-04-27 06:07] LABS: Glucose Point of Care 118 mg/dL (70-110)
[2020-04-27 07:31] LABS: Glucose Point of Care 101 mg/dL (70-110)
[2020-04-27] MEDS: budesonide 0.5 mg/2 mL Neb INHALATION (08:02)
[2020-04-27] MEDS: piperacillin-tazobactam 3.375 GM in sodium chloride 0.9% (plus) 50 ML IV (08:05)
[2020-04-27] MEDS: pantoprazole 40 mg SDV IVP (08:05)
[2020-04-27] MEDS: enoxaparin 30 mg/0.3 mL Syringe SUBCUT (08:06)
[2020-04-27] MEDS: sennosides-docusate Tablet 1 TAB PO (08:07)
[2020-04-27] MEDS: midodrine 5 mg TABLET 10 MG PO ×2 (08:07→15:17)
[2020-04-27] MEDS: tamsulosin 0.4 mg Capsule PO (08:07)
[2020-04-27] MEDS: allopurinol 300 mg Tablet PO (08:07)
[2020-04-27 08:44] LABS: Abnormal Protein Band 1 325 mg/dL (NONE DETECTED); Abnormal Protein Band 2 14 mg/dL (NONE DETECTED); Abnormal Protein Band 3 12 mg/dL (NONE DETECTED); Albumin,Urine Random 5 %; Alpha-1-Globulins Urine Random 0 %; Alpha-2-Globulins Urine Random 2 %; Beta-Globulin,Urine Random 85 %; Gamma Globulin,Urine Random 8 %
--- NOTE | 2020-04-27 09:56 | PM.PN ---
Subjective Subjective: Interval history: No acute events overnight. Patient has remained hemodynamically stable. Today morning on examination patient was still intubated on FiO2 35%, PEEP of 8 which was decreased to 6 by me, tidal volume of 450. On evaluation patient is sedated but arousable and following me with his eyes around the room. During the day patient had thoracocentesis on the right side and 2000 cc was drained. Patient tolerated procedure well. Post procedure chest x-ray reviewed. At around 5 PM patient self extubated and post extubation patient was saturating 96% on 3 L nasal cannula but was having gurgling sound in his throat which he was able to expectorate well. On confirming patient stated he would want to be intubated again if required. Did explain to him well that we would like to hold off on intubation as much as possible and see how he does. Patient was put on BiPAP to see if he does well off ventilator. Patient was also explained if required and if patient is not able to maintain his saturations will intubate him again. Patient states that he is reluctant to be intubated but he would not want to and would remain full code for now. Vitals/I&O/Wt Last Vital Signs Temp 98.6 F 04/26/20 20:00 Pulse 84 04/27/20 08:02 Resp 19 H 04/27/20 08:00 BP 110/62 04/27/20 08:00 Pulse Ox 95 04/27/20 08:00 04/26/20 04/27/20 04/27/20 22:59 06:59 14:59 Intake Total 120 / 266 50 / 316 Output Total 650 / 1000 1000 / 2000 Balance -530 / -734 -950 / -1684 Physical Exam Narrative: EXAM NARRATIVE: General: AO x3, drowsy but awake and alert HEENT: PERRLA, pupils bilaterally equal and reactive Chest: Normal vesicular breath sounds, decreased air entry bilaterally lower zone, bilateral coarse crackles present more in the lower zones, decreased air entry in the left lower zone CVS: S1-S2 regular, no murmurs, no tachycardia, no gallops, no rubs Abdomen: Soft, nontender, distended, soft hepatomegaly, bowel sounds present Neuro: E3 M5 V6 Urinary Catheter Management^: Ruvalcaba: Cath Placed During This Visit: yes Reason for Continuing Indwelling Catheter: Accurate Measurement of Urinary Output in Critically Ill Patients Urinary Catheter Date of Insertion: 04/24/20 Urinary Catheter Time of Insertion: 06:32 Data : 04/27/20 03:50 04/27/20 03:50 Micro: Microbiology 04/26/20 12:50 Gram Stain - Final Pleural Fluid Body Fluid Culture - Preliminary 04/24/20 15:10 Gram Stain - Final Sputum - Expectorated Sputum Sputum Culture - Final A&P Assessment and plan (1) Acute respiratory failure with hypoxia: Status: Acute (2) Bilateral pleural effusion: Status: Acute (3) Atrial fibrillation with RVR: Status: Resolved (4) Multiple myeloma: Status: Chronic Qualifiers: Multiple myeloma remission status: unspecified Qualified Code(s): C90.00 - Multiple myeloma not having achieved remission (5) Acute kidney injury: Status: Acute (6) Chronic kidney disease: Status: Chronic Qualifiers: Chronic kidney disease stage: stage 3 (moderate) Qualified Code(s): N18.3 - Chronic kidney disease, stage 3 (moderate) (7) Macrocytic anemia: Status: Chronic (8) Acute exacerbation of CHF (congestive heart failure): Status: Acute Qualifiers: Heart failure type: diastolic Qualified Code(s): I50.33 - Acute on chronic diastolic (congestive) heart failure (9) Hypertension: Status: Chronic Qualifiers: Hypertension type: essential hypertension Qualified Code(s): I10 - Essential (primary) hypertension (10) Diabetes mellitus, type II: -Insulin sliding scale -A1c on 04/05/2020 was 10.2 Status: Chronic Qualifiers: Diabetes mellitus usp insulin use: without usp use Diabetes mellitus complication status: without complication Qualified Code(s): E11.9 - Type 2 diabetes mellitus without complications (11) COPD (chronic obstructive pulmonary disease): Status: Chronic Qualifiers: COPD type: emphysema Emphysema type: other Qualified Code(s): J43.8 - Other emphysema Additional A&P Information Acute respiratory failure with hypoxia: Most likely because of bilateral pleural effusion, compressive atelectasis. Though cannot rule out underlying pneumonia. Patient has remained afebrile, procalcitonin within normal limits. Self extubated today. For now we will continue to monitor on BiPAP. We will repeat an ABG in 2 hours and see how he is doing. Stop all sedation IV Lasix 40 mg stat. Oxygen supplementation keeping saturation over 92%. Patient has been on vancomycin and Zosyn since admission. If patient remains afebrile for next 24 hours will de-escalate antibiotics and see how he does. Blood cultures, sputum Gram stain has remained unremarkable for now. Patient's pleural effusion was thought to be because of diastolic heart failure but could be because of multiple myeloma as well. Right-sided thoracocentesis done. Awaiting results of pleural fluid. COVID-19 negative. Remove isolation precautions. DuoNebs every 6 hour, budesonide twice daily. Diastolic heart failure: Last echocardiogram in January 2020 shows an EF of 60% with no regional wall motion abnormality, grade 1 diastolic dysfunction. Patient has been on Bumex 1 mg IV twice daily. Overall net negative. On chest x-ray congestion is improving. Patient's creatinine is worsening but patient still sounds very junky and has self extubated so we will give him 40 mg of IV Lasix and monitor his urine output. Patient is overall 1100 cc negative Daily weights, strict input output charting. Multiple myeloma: Patient follows up with Dr. Cheng. Supposed to be on chemotherapy with Velcade, Revlimid, dexamethasone weekly but recently has been withheld because of worsening renal functions. Case discussed with Dr. Cheng. As per him as patient's protein levels continue to be high along with globin levels as high as 8 at this point patient most likely needs plasmapheresis as soon as possible. Patient as per Dr. Cheng most likely needs to be transferred to [facility]. Have confirmed with patient's and she is agreeable to same. Patient symptoms are most likely due to worsening multiple myeloma. Patient accepted at [facility] yesterday but bed is awaited. We will continue to monitor the bed status [facility]. Atrial fibrillation: Normal sinus rhythm for now. Continue to monitor. We will hold off on home dose of beta-linda because of borderline blood pressures. Bobby Vascor 5. Patient has not qualified for anticoagulation past because of anemia. CKD: Acute kidney injury for now: secondary to diuretics, myeloma light chain, hypercalcemia. Baseline creatinine 1.4. Creatinine worsening. Check renal ultrasound, urine studies. If patient continues to worsen will most likely consult nephrology tomorrow. Medical reconciliation done for nephrotoxic drugs. No electrode abnormality for now. We will continue to monitor BMP daily. Type 2 diabetes insulin-dependent Insulin sliding scale every 6 hour as needed. Continue with glargine at 5 units at bedtime. Blood sugars acceptable. Continue to keep n.p.o. today. We will do speech and swallow evaluation tomorrow and see how he does. Patient's who is the DPOAE has been updated regarding his condition. has been updated that patient i has been accepted at [facility] but is awaiting a bed. Also updated that patient is COVID-19 rule out. Post self extubation discussed with patient if he would like to be reintubated. At first he states he would does not want reintubation at all. Did discuss with him that in case he needs intubation and if he is not intubated that he might . At that point he states that no matter what he would want to live and at present he would want chest compressions and reintubation if needed. Patient is full code. Full code Lovenox N.p.o. Coding Level of Care Code Acute Separator Operator for [facility] Fwd Diagnoses Acute respiratory failure with hypoxia J96.01 Bilateral pleural effusion J90 Atrial fibrillation with RVR I48.91 Multiple myeloma C90.00 Multiple myeloma remission status: unspecified Acute kidney injury N17.9 Chronic kidney disease N18.3 Chronic kidney disease stage: stage 3 (moderate) Macrocytic anemia D53.9 Acute exacerbation of CHF (congestive heart failure) I50.33 Heart failure type: diastolic Hypertension I10 Hypertension type: essential hypertension Diabetes mellitus, type II E11.9 Diabetes mellitus termite control representative insulin use: without termite control representative use Diabetes mellitus complication status: without complication COPD (chronic obstructive pulmonary disease) J43.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
--- NOTE | 2020-04-27 10:18 | PC.SOCIAL ---
IMM Update Pg 2. of IMM updated, copy left at bedside for patient.
[2020-04-27] MEDS: FUROsemide 10 mg/mL SDV 4mL 40 MG IVP (10:22)
[2020-04-27] MEDS: vancomycin 750 MG in sodium chloride 0.9% 250 ML 250 MG IV (10:51)
[2020-04-27 13:02] LABS: Vancomycin Random 32.8 ug/mL (20.0-40.0)
--- NOTE | 2020-04-27 13:03 | P.TS_ITS ---
Transfer Summary Providers Date of Admission: 04/24/20 05:36 Date of Discharge: 04/27/20 Attending Provider at Admission: Varinder Bansal MD Attending Provider at Transfer: Hema Lakhani MD Primary Care Provider: Richard Leslie DO Anticipated Date of Transfer: Anticipated date of transfer: 04/27/20 Receiving Facility & Provider: Receiving Provider: [Dr. Gna/Design Intern] Receiving facility: [[facility]] Diagnoses at Discharge Discharge Diagnosis (1) Acute respiratory failure with hypoxia: Status: Acute (2) Bilateral pleural effusion: Status: Acute (3) Atrial fibrillation with RVR: Status: Resolved Problem details: -appears to be new onset likely triggered by acute CHF exacerbation and pneumonia -Due to hypotension was started on amiodarone drip overnight; weaned off as converted to NSR; started on low dose BB as BP allows -Echo done recently, as noted below -K-4.2, Mg-1.8 -Telemetry monitoring -[id number] score: 5, would qualify for anticoagulation though is quite anemic so would hold off on this for now (4) Multiple myeloma: Status: Chronic Problem details: -recently diagnosed; IgG lambda MM; recent bone marrow biopsy showed 60 to 70% plasma cell marrow cellularity -follows up with Dr. Cheng; last visit was 03/24 -Is currently on chemotherapy with Velcade/Revlimid/dexamethasone; weekly -associated macrocytic anemia; Ca wnl -negative bone scan done 03/17 -CT chest shows bilateral nodular costal pleural thickening and marked nodular enlargement of bilateral adrenal glands both of which are suspicious for metastatic disease (new since 01/2020). Noted multiple subpleural nodules in RUL, RML which could be infectious versus neoplastic -has had ongoing decline in functional status; overall guarded prognosis Qualifiers: Multiple myeloma remission status: unspecified Qualified Code(s): C90.00 - Multiple myeloma not having achieved remission (5) Acute kidney injury: Status: Acute (6) Chronic kidney disease: Status: Chronic Problem details: -has known CKD, unknown stage -baseline Cr appears to be 1.4-1.8; stable renal function -avoid nephrotoxins, renally dose meds Qualifiers: Chronic kidney disease stage: stage 3 (moderate) Qualified Code(s): N18.3 - Chronic kidney disease, stage 3 (moderate) (7) Macrocytic anemia: Status: Chronic Problem details: -likely secondary to underlying malignancy -continue to monitor H/H -iron stores adequate per recent bone marrow biopsy -baseline Hg appears to be 9-10 (8) Acute exacerbation of CHF (congestive heart failure): Status: Acute Problem details: -has known chronic diastolic CHF, now with acute exacerbation as evidenced by lower extremity swelling, dyspnea, orthopnea, BNP elevation (1164), evidence of fluid overload on imaging (large bilateral pleural effusions) -f/u CXR unchanged in terms of pleural effusions, increased R basilar opacity -Initially required BiPAP, now on 6 L NC; unable to tolerate BiPAP/oxy-mask due to claustrophobia -Continue to monitor respiratory status closely -VSS; continue to monitor -telemetry monitoring -Echo (01/2020): EF=60%, G1DD, no RWMA -on diuresis with Bumex. Decreased to once daily dosing due to significant muscle cramping and added KCl. So far has diuresed 5.9 L -daily weights, monitor Is & Os -continue to monitor renal function with diuresis -Ruvalcaba catheter removed, able to void independently Qualifiers: Heart failure type: diastolic Qualified Code(s): I50.33 - Acute on chronic diastolic (congestive) heart failure (9) Hypertension: Status: Chronic Qualifiers: Hypertension type: essential hypertension Qualified Code(s): I10 - Essential (primary) hypertension (10) Diabetes mellitus, type II: Status: Chronic Problem details: -Recent A1c 10 Qualifiers: Diabetes mellitus exterminator helper insulin use: without custodial use Diabetes mellitus complication status: without complication Qualified Code(s): E11.9 - Type 2 diabetes mellitus without complications (11) COPD (chronic obstructive pulmonary disease): Status: Chronic Problem details: Oxygen dependent Qualifiers: COPD type: emphysema Emphysema type: other Qualified Code(s): J43.8 - Other emphysema Reason for Visit Reason for Visit: SOB Hospital Course Discharge Summary: Renate Yarbrough is a 84 year old male who has history of IgG lambda multiple myeloma, 3 L COPD oxygen dependent, BPH, preserved ejection fraction heart failure who was recently discharged from the hospital 2 weeks ago after management for pneumonia on Levaquin and Bumex 0.5 mg twice a day coming in today for worsening shortness of breath. Patient is stating that he has an appointment on Saturday for right-sided thoracentesis. His Bumex was discontinued by Dr. Cheng. He has been experiencing orthopnea, PND, swelling of bilateral lower extremities, he has not experienced any fever, cough, nausea, vomiting or diarrhea. His functional status is very poor associated with underlying comorbid conditions and cancer. He decided to come to the hospital because despite staying in his recliner he was extremely short of breath at rest. Patient is not able to maintain his airway in the ER so was intubated. Blood work in the ER showed hemoglobin of 9, white count of 4.5, sodium of 131, creatinine of 2.[address] chest done on admission showing bilateral large pleural effusion, bilateral lower lobe compressive atelectasis. Patient was transferred to the ICU. Patient was admitted with working diagnosis of acute on chronic hypoxic respiratory failure thought to be because of enlarging pleural effusions. Patient underwent thoracocentesis April 26, 2020 and pleural fluid was consistent with exudative with high fluid pH and pleural protein of 8.0 eventually patient was extubated on April 26. Post extubation patient has done well. Patient has a history of diastolic heart failure so was being diuresed as chest x-ray and CT imaging on admission was consistent with mild fluid overload as well. His hospital stay has been complicated with worsening renal function with creatinine of 3.6 on the day of discharge. His urine output has remained fair. Urine studies were done which showed total urine random protein of 389 with protein to creatinine ratio of more than 3000. During hospitalization because of recurrent episodes of pneumonia in the past patient was covered with broad-spectrum antibiotics with vancomycin and Zosyn. Antibiotics were continued for today as well as patient was extubated yesterday plan was to discontinue antibiotics once patient remains afebrile for next 24 hours. Her Blood was also consistent with high globulin 8.9 and total protien 10.4. COVID-19 was ruled out and was tested negative. 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 Patient's outpatient oncologist Dr. Cheng believes patient would do best with protein electrophoresis at present. Patient's hospitalization was also complicated by him developing atrial fibrillation with RVR for which he is now on amiodarone drip and has been doing well with his blood pressures and heart rate being maintained in low 100s. Unfortunately protein electrophoresis is not available at [facility] and for which patient needs a transfer to a higher tertiary center for which transfer was sought to [facility] and patient was accepted by Dr. Gan in the ICU. Unfortunately given multiple comorbidities and multiple myeloma being refractory to primary chemotherapy patient is at guarded prognosis. Above has been discussed with patient's family and Dr. Cheng. Physical Exam Narrative: EXAM NARRATIVE: General: No acute distress, AO x3 HEENT: PERRLA, pupils bilaterally equal and reactive Chest: Normal vesicular breath sounds, bilateral occasional fine crackles, decreased air entry bilaterally in lower zones better than yesterday CVS: S1-S2 irregular, tachycardia, no gallops no murmurs Abdomen: Soft, nontender, no organomegaly, bowel sounds present Neuro: No focal deficits, no facial deformity, AO x3, power 5/5 in all limbs Urinary Catheter Management^: Ruvalcaba: Cath Placed During This Visit: yes Reason for Continuing Indwelling Catheter: Accurate Measurement of Urinary Output in Critically Ill Patients Urinary Catheter Date of Insertion: 04/24/20 Urinary Catheter Time of Insertion: 06:32 TS Data Data Completed and Pending: Completed Studies During Hospitalization Category Date Time Status CT chest abd pel wo con Routine Cat Scan 04/26/20 11:[address] chest wo con 7 1250 Urgent Cat Scan 04/24/20 04:14 Completed CXRP [XR chest 1V portable [id number]] S tat Exams 04/26/20 12:20 Completed XR chest 1V olive ble [id number] Routine Exams 04/24/20 06:33 Completed XR chest 1V olive ble [id number] Routine Exams 04/25/20 07:00 Completed XR chest 1V olive ble [id number] Urgent Exams 04/24/20 01:56 Completed CV echo complete* [id number] Routine Ultrasound 04/26/20 07:00 Completed US thoracentesis [id number] Routine Ultrasound 04/26/20 11:42 Completed Pending at discharge Category Date Time Status Anaerobic Culture Routine Lab 04/24/20 08:06 Results Blood Culture Sta t Lab 04/24/20 02:11 Results Body Fluid Cultur e & GS Routine Lab 04/24/20 08:06 Results Complete Blood Co unt w/Auto AM LABS Lab 04/28/20 04:00 Ordered Comprehensive Met abolic Panel AM LA BS Lab 04/28/20 04:00 Ordered Fungal Culture no t HR/SK/BL Routine Lab 04/24/20 08:06 Received Mycobacteria, Cul ture w/Fluor Routi ne Lab 04/24/20 08:06 Received Vancomycin Trough Timed Lab 04/28/20 09:00 Ordered Labs from last 24 hours 04/27/20 04/27/20 04/27/20 11:30 07:26 06:05 WBC RBC Hgb Hct MCV MCH MCHC RDW Plt Count MPV Neut % (Auto) Lymph % (Auto) [place] % (Auto) Eos % (Auto) Baso % (Auto) Neut # (Auto) Lymph # (Auto) [place] # (Auto) Eos # (Auto) Baso # (Auto) Nucleated RBC % (a uto) Nucleated RBCs # Specimen Type Sample Site ABG pH ABG pCO2 ABG pO2 ABG HCO3 ABG O2 Saturation ABG Base Excess Daniel Test A-a O2 Gradient Hematocrit Hgb O2 Saturation Carboxyhemoglobin Methemoglobin Total Hemoglobin Sodium Potassium Glucose Ionized Calcium Respiration Rate O2 Delivery Device Mechanical Rate FiO2 Tidal Volume PEEP Spinning Doffer ID Chloride Carbon Dioxide Anion Gap BUN Creatinine POC Glucose 101 118 Calculated Osmolal ity Calcium Phosphorus Magnesium Total Bilirubin AST ALT Alkaline Phosphata se Total Protein Albumin Globulin Ur Random Creatini ne Ur Random Albumin U Random Total Pro tein Protein/Creatinin Ratio Protein/Creat Rati o 24h U Random a-1-Globu renata % U Random a-2-Globu renata % U Random Beta Glob ulin U Random Gamma Cristina b U Abnormal Prot Ba nd 1 U Abnormal Prot Ba nd 2 U Abnormal Prot Ba nd 3 Urine PEP Interpre t Fluid Specific Gra v Fluid Albumin Fluid Creatinine Fluid Alk Phosphat ase Fluid Cholesterol Fluid Uric Acid Pleural Color Pleural Appearance Pleural pH Pleural WBC Pleural RBC Pleural Mononuc # Auto Pleural Polynuclea r % Pleural Polynuclea r # Pleural Mononuclea r % Pleural Other Cell s Rt Pleural Total Prot ein Pleural LDH Pleural Glucose Pleural Amylase Pleural Triglyceri kirsty Random Vancomycin 32.8 Pathology Message 04/27/20 04/27/20 04/27/20 05:47 03:50 03:50 WBC 7.0 RBC 3.07 L Hgb 9.5 L Hct 30.9 L D MCV 100.7 H MCH 30.9 MCHC 30.7 RDW 17.8 H Plt Count 165 MPV 11.4 H Neut % (Auto) 86.2 Lymph % (Auto) 9.2 [place] % (Auto) 3.9 Eos % (Auto) 0.3 Baso % (Auto) 0.1 Neut # (Auto) 6.0 Lymph # (Auto) 0.6 L [place] # (Auto) 0.3 Eos # (Auto) 0.0 Baso # (Auto) 0.0 Nucleated RBC % (a uto) 0 Nucleated RBCs # 0.0 Specimen Type Arterial Sample Site Brachial, left ABG pH 7.46 H ABG pCO2 31.9 L ABG pO2 79.5 L ABG HCO3 22.6 ABG O2 Saturation ABG Base Excess -0.7 Daniel Test N/a A-a O2 Gradient Hematocrit 32.5 L Hgb O2 Saturation Carboxyhemoglobin Methemoglobin Total Hemoglobin Sodium 132 L Potassium 4.1 Glucose 88 Ionized Calcium Respiration Rate 18.0 O2 Delivery Device Bipap Mechanical Rate FiO2 50.0 Tidal Volume PEEP 10.0 Spinning Doffer ID vossa Chloride 97 L Carbon Dioxide 20 L Anion Gap 19.1 H BUN 61 H Creatinine 3.6 H POC Glucose Calculated Osmolal ity 272 L Calcium 9.1 Phosphorus 5.2 H Magnesium 2.4 H Total Bilirubin 0.9 AST 30 ALT 7 Alkaline Phosphata se 36 L Total Protein 10.4 H Albumin 1.5 L Globulin 8.9 H Ur Random Creatini ne Ur Random Albumin U Random Total Pro tein Protein/Creatinin Ratio Protein/Creat Rati o 24h U Random a-1-Globu renata % U Random a-2-Globu renata % U Random Beta Glob ulin U Random Gamma Cristina b U Abnormal Prot Ba nd 1 U Abnormal Prot Ba nd 2 U Abnormal Prot Ba nd 3 Urine PEP Interpre t Fluid Specific Gra v Fluid Albumin Fluid Creatinine Fluid Alk Phosphat ase Fluid Cholesterol Fluid Uric Acid Pleural Color Pleural Appearance Pleural pH Pleural WBC Pleural RBC Pleural Mononuc # Auto Pleural Polynuclea r % Pleural Polynuclea r # Pleural Mononuclea r % Pleural Other Cell s Rt Pleural Total Prot ein Pleural LDH Pleural Glucose Pleural Amylase Pleural Triglyceri kirsty Random Vancomycin Pathology Message 04/27/20 04/26/20 04/26/20 00:21 16:42 13:05 WBC RBC Hgb Hct MCV MCH MCHC RDW Plt Count MPV Neut % (Auto) Lymph % (Auto) [place] % (Auto) Eos % (Auto) Baso % (Auto) Neut # (Auto) Lymph # (Auto) [place] # (Auto) Eos # (Auto) Baso # (Auto) Nucleated RBC % (a uto) Nucleated RBCs # Specimen Type Arterial Sample Site Radial, right ABG pH 7.41 ABG pCO2 35.4 ABG pO2 69.7 L ABG HCO3 22.5 ABG O2 Saturation 94.9 ABG Base Excess -1.8 Daniel Test Pos A-a O2 Gradient 130.8 H Hematocrit 25.6 L Hgb O2 Saturation 93.0 L Carboxyhemoglobin 1.2 Methemoglobin 0.8 Total Hemoglobin 8.3 L Sodium 135.0 Potassium 5.0 Glucose 165.0 H Ionized Calcium 1.1 Respiration Rate 12.0 O2 Delivery Device Vent Mechanical Rate 12.0 FiO2 35.0 Tidal Volume 0.45 PEEP 6.0 Spinning Doffer ID gd Chloride Carbon Dioxide Anion Gap BUN Creatinine POC Glucose 164 172 Calculated Osmolal ity Calcium Phosphorus Magnesium Total Bilirubin AST ALT Alkaline Phosphata se Total Protein Albumin Globulin Ur Random Creatini ne Ur Random Albumin U Random Total Pro tein Protein/Creatinin Ratio Protein/Creat Rati o 24h U Random a-1-Globu renata % U Random a-2-Globu renata % U Random Beta Glob ulin U Random Gamma Cristina b U Abnormal Prot Ba nd 1 U Abnormal Prot Ba nd 2 U Abnormal Prot Ba nd 3 Urine PEP Interpre t Fluid Specific Gra v Fluid Albumin Fluid Creatinine Fluid Alk Phosphat ase Fluid Cholesterol Fluid Uric Acid Pleural Color Pleural Appearance Pleural pH Pleural WBC Pleural RBC Pleural Mononuc # Auto Pleural Polynuclea r % Pleural Polynuclea r # Pleural Mononuclea r % Pleural Other Cell s Rt Pleural Total Prot ein Pleural LDH Pleural Glucose Pleural Amylase Pleural Triglyceri kirsty Random Vancomycin Pathology Message 04/26/20 04/26/20 04/26/20 12:50 12:50 12:50 WBC RBC Hgb Hct 0.1 L* D MCV MCH MCHC RDW Plt Count MPV Neut % (Auto) Lymph % (Auto) [place] % (Auto) Eos % (Auto) Baso % (Auto) Neut # (Auto) Lymph # (Auto) [place] # (Auto) Eos # (Auto) Baso # (Auto) Nucleated RBC % (a uto) Nucleated RBCs # Specimen Type Sample Site ABG pH ABG pCO2 ABG pO2 ABG HCO3 ABG O2 Saturation ABG Base Excess Daniel Test A-a O2 Gradient Hematocrit Hgb O2 Saturation Carboxyhemoglobin Methemoglobin Total Hemoglobin Sodium Potassium Glucose Ionized Calcium Respiration Rate O2 Delivery Device Mechanical Rate FiO2 Tidal Volume PEEP Spinning Doffer ID Chloride Carbon Dioxide Anion Gap BUN Creatinine POC Glucose Calculated Osmolal ity Calcium Phosphorus Magnesium Total Bilirubin AST ALT Alkaline Phosphata se Total Protein Albumin Globulin Ur Random Creatini ne Ur Random Albumin U Random Total Pro tein Protein/Creatinin Ratio Protein/Creat Rati o 24h U Random a-1-Globu renata % U Random a-2-Globu renata % U Random Beta Glob ulin U Random Gamma Cristina b U Abnormal Prot Ba nd 1 U Abnormal Prot Ba nd 2 U Abnormal Prot Ba nd 3 Urine PEP Interpre t Fluid Specific Gra v Fluid Albumin Fluid Creatinine 3.8 H Fluid Alk Phosphat ase Fluid Cholesterol Fluid Uric Acid 6 Pleural Color Pale yellow Pleural Appearance Cloudy Pleural pH 8.00 H Pleural WBC 952.000 Pleural RBC 8.000 Pleural Mononuc # Auto 0.873 Pleural Polynuclea r % 8 Pleural Polynuclea r # 0.079 Pleural Mononuclea r % 92 Pleural Other Cell s Rt Na Pleural Total Prot ein 8.0 Pleural LDH 413 Pleural Glucose 139.0 Pleural Amylase Pleural Triglyceri kirsty 19 Random Vancomycin Pathology Message Yes 04/26/20 04/26/20 04/24/20 12:50 11:10 02:50 WBC RBC Hgb Hct MCV MCH MCHC RDW Plt Count MPV Neut % (Auto) Lymph % (Auto) [place] % (Auto) Eos % (Auto) Baso % (Auto) Neut # (Auto) Lymph # (Auto) [place] # (Auto) Eos # (Auto) Baso # (Auto) Nucleated RBC % (a uto) Nucleated RBCs # Specimen Type Sample Site ABG pH ABG pCO2 ABG pO2 ABG HCO3 ABG O2 Saturation ABG Base Excess Daniel Test A-a O2 Gradient Hematocrit Hgb O2 Saturation Carboxyhemoglobin Methemoglobin Total Hemoglobin Sodium Potassium Glucose Ionized Calcium Respiration Rate O2 Delivery Device Mechanical Rate FiO2 Tidal Volume PEEP Spinning Doffer ID Chloride Carbon Dioxide Anion Gap BUN Creatinine POC Glucose 158 Calculated Osmolal ity Calcium Phosphorus Magnesium Total Bilirubin AST ALT Alkaline Phosphata se Total Protein Albumin Globulin Ur Random Creatini ne 113 Ur Random Albumin 5 U Random Total Pro tein 389 H Protein/Creatinin Ratio 3442 H Protein/Creat Rati o 24h 3.442 H U Random a-1-Globu renata % 0 U Random a-2-Globu renata % 2 U Random Beta Glob ulin 85 U Random Gamma Cristina b 8 U Abnormal Prot Ba nd 1 325 H U Abnormal Prot Ba nd 2 14 H U Abnormal Prot Ba nd 3 12 H Urine PEP Interpre t See note Fluid Specific Gra v 1.010 Fluid Albumin 1.5 Fluid Creatinine Fluid Alk Phosphat ase 12 Fluid Cholesterol 45 Fluid Uric Acid Pleural Color Pleural Appearance Pleural pH Pleural WBC Pleural RBC Pleural Mononuc # Auto Pleural Polynuclea r % Pleural Polynuclea r # Pleural Mononuclea r % Pleural Other Cell s Rt Pleural Total Prot ein Pleural LDH Pleural Glucose Pleural Amylase 30.0 Pleural Triglyceri kirsty Random Vancomycin Pathology Message Vitals: Last Vital Signs Temp 98.6 F 04/27/20 10:00 Pulse 99 04/27/20 10:00 Resp 13 04/27/20 10:00 BP 103/57 04/27/20 10:00 Pulse Ox 97 04/27/20 10:00 TS Medications Medications Home Medications albuterol sulfate 2.5 mg INHALATION Q6H PRN 02/19/20 [History Confirmed 04/08/20] blood sugar diagnostic [Prodigy No Coding] 02/19/20 [History Confirmed 04/08/20] tamsulosin [Flomax] 0.8 mg PO DAILY 02/19/20 [History Confirmed 04/08/20] triamcinolone acetonide 1 applic TOPICAL PRN PRN 02/19/20 [History Confirmed 04/08/20] tiotropium bromide 1 cap INHALATION DAILY #1 inh 02/21/20 [Rx Confirmed 04/08/20] tadalafil 5 mg PO DAILY 02/28/20 [History Confirmed 04/08/20] trazodone 25 mg PO BEDTIME PRN #30 tab 03/02/20 [Rx Confirmed 04/08/20] aluminum-mag hydroxide-simethicone 200 mg-200 mg-20 mg/5 mL oral susp 10 ml PO Q6H PRN 03/18/20 [History Confirmed 04/08/20] Protonix 40 mg PO DAILY 04/08/20 [History Confirmed 04/08/20] acyclovir 04/08/20 [History] allopurinol 300 mg PO DAILY 04/08/20 [History Confirmed 04/08/20] alprazolam 0.25 mg PO TID PRN #30 tab 04/08/20 [Rx] bumetanide 0.5 mg PO BID 30 Days #30 tab 04/08/20 [Rx] insulin aspart U-100 [Novolog U-100 Insulin aspart] 10 unit SUBCUT TIDAC #10 ml 04/08/20 [Rx] insulin glargine [Lantus U-100 Insulin] 10 unit SUBCUT BEDTIME #3 vial 04/08/20 [Rx] levofloxacin 750 mg PO Q48H #7 tab 04/08/20 [Rx] metoprolol tartrate 12.5 mg PO BID 30 Days #30 tab 04/08/20 [Rx] potassium chloride 20 meq PO BID #60 tab 04/08/20 [Rx] sennosides-docusate sodium 1 tab PO BID 30 Days #60 tab 04/08/20 [Rx] Active Medications Albuterol Sulfate (Albuterol) 2.5 mg INHALATION Q6H.RESPIRATORY PRN PRN Reason: Shortness Of Breath Albuterol/Ipratropium (Duoneb) 3 ml INHALATION Q6H.RES[facility]IRATORY [facility] Last Admin: 04/27/20 08:02 Dose: 3 ml Documented by: Allopurinol (Zyloprim) 300 mg PO DAILY [facility] Last Admin: 04/27/20 08:07 Dose: 300 mg Documented by: Alprazolam (Xanax) 0.25 mg PO TID PRN PRN Reason: AGITATION Budesonide (Pulmicort) 0.5 mg INHALATION BID [facility] Last Admin: 04/27/20 08:02 Dose: 0.5 mg Documented by: Bumetanide (Bumex) 1 mg IV Q24H [facility] Last Admin: 04/25/20 08:11 Dose: 1 mg Documented by: Dextrose (D50w) 25 ml IVP ONCE PRN; Protocol PRN Reason: hypoglycemia protocol Dextrose (D50w) 50 ml IVP PRN PRN; Protocol PRN Reason: hypoglycemia protocol Enoxaparin Sodium (Lovenox) 30 mg SUBCUT Q24H [facility] Last Admin: 04/27/20 08:06 Dose: 30 mg Documented by: Glucagon (Glucagen) 1 mg IM ONCE PRN; Protocol PRN Reason: Adult Acute Hypoglycemia Prot. Dextrose (D5w) 500 mls @ 100 mls/hr IV ONCE PRN; Protocol PRN Reason: Adult Acute Hypoglycemia Prot Piperacillin Sod/Tazobactam (Sod 3.375 gm/ Sodium Chloride) 50 mls @ 12.5 mls/hr IV Q12H [facility]; Protocol Last Admin: 04/27/20 08:05 Dose: 12.5 mls/hr Documented by: Vancomycin HCl 750 mg/ Sodium (Chloride) 250 mls @ 250 mls/hr IV Q24H [facility]; Protocol Last Admin: 04/27/20 10:51 Dose: 250 mls/hr Documented by: Amiodarone HCl 900 mg/Dextrose/ IV Miscellaneous Supplies 518 mls @ 0 mls/hr IV .Q0M [facility]; Protocol Last Admin: 04/26/20 19:56 Dose: 1 mg/min, 34.5 mls/hr Documented by: Insulin Aspart (Novolog) 0 unit SUBCUT TIDAC [facility]; Protocol Last Admin: 04/27/20 12:01 Dose: Not Given Documented by: Insulin Glargine (Lantus) 5 unit SUBCUT BEDTIME [facility] Last Admin: 04/26/20 20:11 Dose: 5 unit Documented by: Midodrine (Proamatine) 10 mg PO TID [facility] Last Admin: 04/27/20 08:07 Dose: 10 mg Documented by: Non-Formulary Medication (Tadalafil) 5 mg PO DAILY [facility] Pantoprazole Sodium (Protonix) 40 mg IVP DAILY [facility] Last Admin: 04/27/20 08:05 Dose: 40 mg Documented by: Senna/Docusate Sodium (Senna-S) 1 tab PO BID [facility] Last Admin: 04/27/20 08:07 Dose: 1 tab Documented by: Tamsulosin HCl (Flomax) 0.4 mg PO DAILY [facility] Last Admin: 04/27/20 08:07 Dose: 0.4 mg Documented by: Trazodone HCl (Desyrel) 25 mg PO BEDTIME PRN PRN Reason: Sleep Last Admin: 04/26/20 20:12 Dose: 25 mg Documented by: Discharge Plan Discharge Patient Disposition: Xfer Other Condition: Stable Prescriptions: No Action alum-mag hydroxide-simeth [Mag-Al Plus] 200-200-20 mg/5 mL suspension 10 ml PO Q6H PRN (Reason: Acid Reflux) RF: 0 triamcinolone acetonide 0.1 % cream 1 applic TOPICAL PRN PRN (Reason: Itching) RF: 0 tamsulosin [Flomax] 0.4 mg capsule 0.8 mg PO DAILY RF: 0 (DME) blood sugar diagnostic [Prodigy No Coding] Strip MISCELLANEOUS RF: 0 albuterol sulfate 2.5 mg /3 mL (0.083 %) solution for nebulization 2.5 mg inhalation Q6H PRN (Reason: Shortness Of Breath) RF: 0 tiotropium bromide 18 mcg capsule, w/inhalation device 1 cap INHALATION DAILY Qty: 1 RF: 1 tadalafil 5 mg Tablet 5 mg PO DAILY RF: 0 trazodone 50 mg Tablet 25 mg PO BEDTIME PRN (Reason: Sleep) Qty: 30 RF: 0 acyclovir 400 mg tablet RF: 0 allopurinol 300 mg Tablet 300 mg PO DAILY RF: 0 Protonix 40 mg Tablet,Delayed Release (Dr/Ec) 40 mg PO DAILY RF: 0 sennosides-docusate sodium 8.6-50 mg Tablet 1 tab PO BID 30 Days Qty: 60 RF: 0 levofloxacin 750 mg Tablet 750 mg PO Q48H Qty: 7 RF: 0 potassium chloride 20 mEq tablet extended release 20 meq PO BID Qty: 60 RF: 0 bumetanide 1 mg tablet 0.5 mg PO BID 30 Days Qty: 30 RF: 0 alprazolam 0.25 mg Tablet 0.25 mg PO TID PRN (Reason: Anxiety) Qty: 30 RF: 0 metoprolol tartrate 25 mg Tablet 12.5 mg PO BID 30 Days Qty: 30 RF: 0 Novolog U-100 Insulin aspart 100 unit/mL Solution 10 unit SUBCUT TIDAC Qty: 10 RF: 0 Lantus U-100 Insulin 100 unit/mL Solution 10 unit SUBCUT BEDTIME Qty: 3 RF: 0 Discharge Orders: Transfer Out of Facility (Order); Ordered 04/27/20 Ordered By: Hema Lakhani Discharge Diet: Cardiac and Diabetic Discharge Activity: Increase activity as tolerated Transfer Attestations Time Spent in Transfer Care*: critical care time Critical Care Time (min): 80 Specific Discharge Activities: Specific discharge activities: educating patient, educating and/or supporting family/caregiver, discussing with pcp/other providers, discussing with case investigator/social workers/dc planners, documenting/other paperwork and evaluating patient/reviewing data Status at Transfer: Cognitive status at transfer: mildly impaired cognition , Behavioral status at transfer: cooperative , Functional status at transfer: bed bound Overall status at transfer: patient is not back to baseline Quality Metrics Clinical Quality Measures: During this hospital stay, did patient experience: None Coding Level of Care Code Acute Home Health Specialist for [place] F[facility] Diagnoses Acute respiratory failure with hypoxia J96.01 Bilateral pleural effusion J90 Atrial fibrillation with RVR I48.91 Multiple myeloma C90.00 Multiple myeloma remission status: unspecified Acute kidney injury N17.9 Chronic kidney disease N18.3 Chronic kidney disease stage: stage 3 (moderate) Macrocytic anemia D53.9 Acute exacerbation of CHF (congestive heart failure) I50.33 Heart failure type: diastolic Hypertension I10 Hypertension type: essential hypertension Diabetes mellitus, type II E11.9 Diabetes mellitus exterminator helper insulin use: without exterminator helper use Diabetes mellitus complication status: without complication COPD (chronic obstructive pulmonary disease) J43.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
--- NOTE | 2020-04-27 14:45 | PC.NURSE ---
Report [facility] report called to Dorys Hummel RN at [facility] room 7824 ICU . No further questions at this time.
--- NOTE | 2020-04-27 16:08 | PC.NURSE ---
[facility] here for pt transport to [facility]. Bedside report given to Misael. Patient moved to [place] [facility] via total assist. Vitals stable, pt alert and oriented x3. Patient on 6lnc. Family notified of patient transfer.
[2020-04-27 17:05] LABS: Glucose Point of Care 126 mg/dL (70-110)
--- NOTE | 2020-05-11 12:32 | PC.SOCIAL ---
Late Entry for 05/10/2020- Reviewing readmissions. Called [facility] to see if patient is still inpatient at facility to follow up. He is still inpatient and they are considering Hospice. 05/11/2020- Dr Cheng was called by [facility] provider asking if we could take the patient back to our facility and he be transported by [facility] since he has a membership and once here to be set up with Hospice. Dr Irvin discussed information with this nurse and we discussed this in detail. [facility] would more than likely not be covered under insurance since this is lower level of care. Took approx 1-1.5 hours to thoroughly investigate best option for patient. Multiple calls made to [employer] [facility]. Results are patient only has basic [employer] [facility] coverage which covers Emergency transport only. Going to a lower level of care would not be emergent. Spoke with a mammography supervisor and multiple other staff: Radha Rivas, Joel Mclean, Katty etc. After investigating further and Dr Irvin and this nurse also talked to Kat Houston who indicates patient would have to go by fixed wing also since nonemergent. Called [facility] back and confirmed the following information, since the distance is less than 180 miles and non emergent patient would have to go by fix wing. Which means patient would be placed in ambulance taken to airport, transferred to aircraft, transported to local airport, transferred to EMS, Brought to [facility], transferred to bed on unit if accepted then transferred to home once hospice arranged. The cost would be $13, 273.00 if paid in oliver and in full would be 12,609.00. Discussed with Dr Cheng and updated Dr Irvin. Unrelated to cost if pain is the concern for patient going by ground it seems the transferring back and forth would be much more uncomfortable then the patient transporting by Ground ambulance to home once hospice can be arranged by [facility]. Left two messages for Case Management at [facility] no return call. Dr Irvin was later called by a provider from [facility] requesting the same thing as listed above. Dr Irvin explained all information above to the provider. She was also able to obtain the phone number for Lamberto the Engagement Director. This nurse called Lamberto the Engagement Director and discussed all of the information above in detail. Lamberto took notes. This nurse offered to reach out to family to arrange the Hospice and explain information etc. Lamberto indicates they will need to to discuss with their treatment team and may call back. Provided direct line and cell in case not at my desk. Please note best option from this nurse perspective would be for patient to be made Inp Hospice at their facility if requiring IV pain med and if not be transitioned to home on hospice and go by ground directly from [facility] to home. EMS ambulance can provide IV pain med in route if needed as well to control pain. It appears this would control pain much more than being transferred between multiple vehicles. Lamberto did mention to me when called that patient does have [employer] [facility] policy. This nurse explained that if she looked at in detail it is only the Basic Emergency policy and he does not have the FL[facility] HOME non emergent policy. This was confirmed by this nurse with [facility] Nurse Line and Patient Accounts. Lamberto verbalized understanding.
--- NOTE | 2020-05-11 13:21 | PC.SOCIAL ---
Dr Irvin was called again by Provider at [facility] requesting transfer. Patient is only on oral pain medication. This nurse called Lamberto back who indicates the Supervisor Files of [employer] indicates it would be covered. This nurse requested a call from this individual to verify information. Lamberto will have this individual call me. Also updated Lamberto that this nurse has a hard time understanding why patient cant return home on Hospice from [facility] if only requiring oral pain control.
--- NOTE | 2020-05-11 14:55 | PC.SOCIAL ---
Since last entry have talked with Functional Analyst of [employer] Dr. Palacios and Nirav Jaramillo over Pt care services revenue cycle. Dr Palacios indicate that she reached out to Nirav so he is the preferred contact. Discussed everything in previous notes with Nirav. He was unaware of it being a transfer to lower level of care and indicates if this has been verified then it is correct the cost would not be covered and would require the fixed wing transport. There was miscommunication. Called and spoke with Son Miguel and . Explained all the information and the costs etc. We also discussed for patient comfort it does not seem to be appropriate to have him transfer from ambulance to air craft a total of 5 times to our facility to then be set up for Hospice and transferred to next level of care. They indicate and verify the plan is for Hospice. They really want a nursing facility with Hospice. Explained the room and board is not covered and [facility] had already gotten carbone quotes and for [facility] which is preferred it is $187 a day. They are aware that the Hospice fee should be covered under [facility]. This nurse explained if the PCS form is filled out correctly to justify the need for BLS ambulance transport insurance should cover this as well. They documented the information. We discussed if returning home on Hospice this is covered by M[employer]. We discussed again the transport should be covered under the PCS for BLS transport based on his condition. They will take a couple of hours to discuss. Told them will have Lamberto reach back out to them in a few hours to get the route they choose to pursue. All questions answered to the best of my ability. Called Lamberto at [facility] back and explained the information above and again that [employer] [facility] would be out of pocket cost. Explained that this nurse has called patient family and discussed options. Explained the co pay at [facility] provided Name, Address, phone and both fax numbers for facility. Advised Lamberto to touch base with family at 4pm to see what the choice is. Lamberto then mentioned that cant confirm BLS will be covered even though she admits she is aware of the PCS form. We discussed he should definitely meet med necessity for this and as long as it is included in the documentation the justification there should be no issue. Discussed if there is a cost it would be a huge decrease then the out of pocket for [facility] Non Emergent but this should not be an issue. Lamberto then indicates she wants me to update the provider. This nurse talked with Dr Henderson may not be correct spelling. She indicates she doesnt understand why [employer] [facility] said it would be covered. This nurse explained she is not sure but seems to be a lot of miscommunication. Updated this provider on all that has occurred and it seems inappropriate to transfer the patient here when they are all in agreement Hospice is needed. Updated provider there is no justification for this transfer and all information needed has been given to Lamberto the CM there and if she has questions can call. All that remains is to touch base with patien and family, confirm decision, Reach out to [facility] if this is the route confirm bed availability, send referral then reach out to confirm Hospice company. If home is preferred reach out to Hospice of choice and arrange that. This can be done as early as tomorrow if going home and possibly tomorrow if going to facility. All questions asked and all have this nurse contact information if needed.
== END 2020-04-27 16:17 | disposition short-term general hospital (02) | DRG 208 ==
LOC: ER 06:28 → ICU 06:30
PROVIDERS: Emergency Medicine; Family Medicine; Admitting Provider Internal Medicine; Emergency Provider Family Medicine; PCP Internal Medicine; Visit Provider Student in an Organized Health Care Education/Training Program
DX: J96.21 Acute and chronic respiratory failure with hypoxia (principal); I50.33 Acute on chronic diastolic (congestive) heart failure; C90.00 Multiple myeloma not having achieved remission; N17.9 Acute kidney failure, unspecified; I13.0 Hypertensive heart and chronic kidney disease with heart failure and stage 1 through stage 4 chronic kidney disease, or unspecified chronic kidney disease; J90 Pleural effusion, not elsewhere classified; J43.8 Other emphysema; I48.91 Unspecified atrial fibrillation; N18.3 Chronic kidney disease, stage 3 (moderate); D53.9 Nutritional anemia, unspecified; E11.22 Type 2 diabetes mellitus with diabetic chronic kidney disease; Z99.81 Dependence on supplemental oxygen; N40.0 Benign prostatic hyperplasia without lower urinary tract symptoms; Z79.4 Long term (current) use of insulin; K21.9 Gastro-esophageal reflux disease without esophagitis; M19.90 Unspecified osteoarthritis, unspecified site; Z87.891 Personal history of nicotine dependence
CPT/HCPCS: 12345; 32555; 36415; 36416; 36600; 51702; 71045; 71250; 74176; 76705; 80051; 80053; 80074; 80202; 80500; 81003; 82042; 82150; 82465; 82533; 82550; 82570; 82607; 82728; 82746; 82803; 82805; 82810; 82945; 82962; 83605; 83615; 83735; 83880; 83986; 84075; 84100; 84145; 84157; 84315; 84478; 84484; 84560; 85014; 85025; 85045; 85610; 85651; 86140; 87015; 87040; 87070; 87075; 87102; 87116; 87205; 87206; 87641; 87801; 88112; 88305; 89050; 93005; 93306; 94002; 94003; 94640; 94660; 94799; 96372; 96375; 96401; 99284; C9113; J0282; J0330; J0456; J1650; J1815; J1940; J1956; J2543; J2704; J3010; J3370; J3490; J7050; J7060; J7611; J7626; J8540; J9041; P9047; Q0162